=== PATIENT | female | born 1990 | race Caucasian/White ===

== ENCOUNTER 2016-07-23 18:53 | Emergency (ER) | payer OTHER ==
[~2016-07-23 18:53] MED LIST: CLIN75CA PO; ESTR.625 PO; LEXA20TA PO; LORA-392 PO; PALI234P IM
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
[2016-07-23 20:03] VITALS: BP 133/67; PULSE 87; RESP 16; TEMP 97.9; O2SAT 98
[2016-07-23 21:39] LABS: AUTOMATED NEUTROPHIL # 5.7 TH/MM3 (1.8-7.7); BASOPHIL % 0.4 % (0.0-2.0); EOSINOPHIL % 0.5 % (0.0-4.0); HEMATOCRIT 36.7 % (35.0-46.0); LYMPH % 26.3 % (9.0-44.0); LYMPHOCYTE # 2.3 TH/MM3 (1.0-4.8); MEAN CELL VOLUME 81.8 FL (80.0-100.0); MEAN CORPUSCULAR HEMOGLOBIN 28.3 PG (27.0-34.0); MEAN CORPUSCULAR HGB CONC 34.6 % (32.0-36.0); MONO % 6.4 % (0.0-8.0); NEUT % 66.4 % (16.0-70.0); PLATELET COUNT 276 TH/MM3 (150-450); RED BLOOD COUNT 4.48 MIL/MM3 (4.00-5.30); RED CELL DISTRIBUTION WIDTH 13.5 % (11.6-17.2); WHITE BLOOD COUNT 8.6 TH/MM3 (4.0-11.0)
[2016-07-23 21:48] LABS: HEMO FLAGS DIFF FINAL
[2016-07-23 21:50] LABS: ANION GAP 10 MEQ/L (5-15); AST (GOT) 11 U/L (15-37); BICARBONATE 26.3 MEQ/L (21.0-32.0); BLOOD UREA NITROGEN 8 MG/DL (7-18); CHLORIDE 104 MEQ/L (98-107); GLOMERULAR FILTRATION RATE 96 ML/MIN (>89); POTASSIUM 3.5 MEQ/L (3.5-5.1); SODIUM (NA) 140 MEQ/L (136-145)
[2016-07-23 21:56] LABS: ALKALINE PHOSPHATASE 95 U/L (45-117); ALT (GPT) 19 U/L (10-53); BETA HCG QUANT LESS THAN 1 MIU/ML (0-5); TOTAL BILIRUBIN ADULT 0.3 MG/DL (0.2-1.0)
[2016-07-23 22:00] VITALS: BP 97/53; PULSE 67; RESP 18; O2SAT 95
[2016-07-24 02:16] VITALS: BP 118/58; PULSE 67; RESP 18; O2SAT 100
[2016-07-24 06:48] VITALS: BP 115/71; PULSE 71; RESP 18; TEMP 97.8; O2SAT 98
[2016-07-24] MEDS ORDERED: LEVO50TA4 PO (10:22)
[2016-07-24] MEDS ORDERED: CETI10 PO (10:22)
[2016-07-24] MEDS ORDERED: ACETAMINOPHEN 325 MG TAB PO ONE (16:00)
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
[2016-07-24 17:12] VITALS: BP 115/71; PULSE 71; RESP 18; O2SAT 98
== END 2016-07-24 18:56 | disposition home or self-care (01) ==
LOC: NEDAMB 18:53 → NEPJ 07-24 18:56
DX: F31.60 Bipolar disorder, current episode mixed, unspecified (principal); E03.9 Hypothyroidism, unspecified; G47.30 Sleep apnea, unspecified; I10 Essential (primary) hypertension; I48.91 Unspecified atrial fibrillation
CPT/HCPCS: 80053; 80320; 84702; 85025; 99283

== ENCOUNTER 2016-07-24 21:03 | Inpatient (IN) | payer OTHER ==
[~2016-07-24 21:03] MED LIST changes: +CETI10 PO; -CLIN75CA PO; +LEVO50TA4 PO
[2016-07-24 21:19] VITALS: BP 136/81; PULSE 83; RESP 16; TEMP 97.3; O2SAT 95
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
[2016-07-24] MEDS ORDERED: TETANUS/DIPHTHERIA TOXOID ADULT 0.5 ML VIAL IM ONE (22:15)
[2016-07-24 22:28] VITALS: BP 125/84; PULSE 60; RESP 18; O2SAT 99
[2016-07-25 02:12] VITALS: BP 123/73; PULSE 62; RESP 19; O2SAT 97
[2016-07-25 06:00] VITALS: BP 122/76; PULSE 75; RESP 18; O2SAT 96
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
[2016-07-25] MEDS: LEVOTHYROXINE SODIUM 50 MCG TAB PO SCH (10:00)
[2016-07-25] MEDS ORDERED: MAGNESIUM HYDROXIDE SUSP 30 ML CUP PO PRN (10:00)
[2016-07-25] MEDS: ESCITALOPRAM OXALATE 20 MG TAB PO SCH (10:00)
[2016-07-25] MEDS ORDERED: ALUMINUM/MAGNESIUM/SIMETH 30 ML CUP PO PRN (10:00)
[2016-07-25] MEDS: ESTROGENS CONJUGATED 0.625 MG TAB PO SCH (10:00)
[2016-07-25 12:10] VITALS: BP 129/66; PULSE 87; RESP 18; TEMP 98.4; O2SAT 97
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
[2016-07-25] MEDS: DIVALPROEX SODIUM DELAYED RELEASE 250 MG TAB PO SCH ×2 (16:09→20:54)
[2016-07-25 20:53] VITALS: BP 114/67; PULSE 80; RESP 18; TEMP 97.3; O2SAT 96
[2016-07-25] MEDS: ACETAMINOPHEN 325 MG TAB PO PRN (20:54)
[2016-07-26] MEDS: LEVOTHYROXINE SODIUM 50 MCG TAB PO SCH (05:58)
[2016-07-26 06:37] VITALS: BP 118/71; PULSE 84; RESP 18; TEMP 98.2; O2SAT 98
[2016-07-26 07:52] LABS: ANION GAP 8 MEQ/L (5-15); BICARBONATE 25.4 MEQ/L (21.0-32.0); BLOOD UREA NITROGEN 10 MG/DL (7-18); CHLORIDE 106 MEQ/L (98-107); GLOMERULAR FILTRATION RATE 94 ML/MIN (>89); POTASSIUM 4.1 MEQ/L (3.5-5.1); SODIUM (NA) 139 MEQ/L (136-145)
[2016-07-26 07:54] LABS: HDL CHOLESTEROL 55.2 MG/DL (40.0-60.0); LDL CHOLESTEROL 96 MG/DL (0-99)
[2016-07-26] MEDS: ESTROGENS CONJUGATED 0.625 MG TAB PO SCH (08:36)
[2016-07-26] MEDS: DIVALPROEX SODIUM DELAYED RELEASE 250 MG TAB PO SCH ×2 (08:36→20:37)
[2016-07-26] MEDS: ESCITALOPRAM OXALATE 20 MG TAB PO SCH (08:36)
--- NOTE | 2016-07-26 10:36 | HHI.PYPN ---
Subjective Remarks Patient was seen and discussed with the balance staff staker. Patient reported that she has been feeling little bit better she slept well. No behavior or management problem reported. But she still wants to go to another [facility]. We will assess social service liaison to check on that. Patient is compliant in taking medication and no side effects were complained. Continue with the same treatment Review of Systems Except as stated in HPI: all other systems reviewed are Neg Psychiatric: COMPLAINS OF: Mood changes, Depression Objective Alert: Yes [place]: Person (ox4) Mood: Calm, Depressed Affect: Restricted Memory Intact: Comment (not formally tested but seems intact) Hallucinations: Other (negative) Delusions: No Delusion Type: Other Suicidal: Ideation (deneis at present) Homicidal: Ideation (deneis at present) Insight/Judgement Limited Labs Test 07/26/16 06:53 Sodium Level 139 MEQ/L Potassium Level 4.1 MEQ/L Chloride Level 106 MEQ/L Carbon Dioxide Level 25.4 MEQ/L Anion Gap 8 MEQ/L Blood Urea Nitrogen 10 MG/DL Creatinine 0.75 MG/DL Estimat Glomerular Filtration 94 ML/MIN Rate Random Glucose 103 MG/DL Calcium Level 9.1 MG/DL Triglycerides Level 128 MG/DL Cholesterol Level 177 MG/DL LDL Cholesterol 96 MG/DL HDL Cholesterol 55.2 MG/DL Cholesterol/HDL Ratio 3.20 RATIO Vitals/IOs Vital Signs Date Time Temp Pulse Resp B/P Pulse Ox O2 Delivery O2 Flow Rate FiO2 07/26/16 06:37 98.2 84 18 118/71 98 07/25/16 06:00 Room Air Assessment & Plan Problem List: (1) Bipolar I disorder, most recent episode (or current) mixed, in partial or unspecified remission ICD Code: F31.77 (2) Mental retardation, idiopathic mild ICD Code: F70 Assessment & Plan Estimated LOS: days Justification for Cont. Inpt. Risk of decompensation Request HC Surrog/Guard Advoc?: No Clint Isaacs MD Jul 26, 2016 10:36
[2016-07-26 16:11] LABS: HEMOGLOBIN A1b 0.9 %; HEMOGLOBIN Ao 86.6 %; HEMOGLOBIN LA1C 1.8 %; HEMOGLOBIN P3 3.2 %
[2016-07-26 19:33] VITALS: BP 130/75; PULSE 73; RESP 18; TEMP 98.7; O2SAT 100
[2016-07-27 05:39] VITALS: BP 128/68; PULSE 68; RESP 16; TEMP 98.4; O2SAT 96
[2016-07-27] MEDS: LEVOTHYROXINE SODIUM 50 MCG TAB PO SCH (05:53)
[2016-07-27] MEDS: ESCITALOPRAM OXALATE 20 MG TAB PO SCH (08:27)
[2016-07-27] MEDS: DIVALPROEX SODIUM DELAYED RELEASE 250 MG TAB PO SCH (08:27)
[2016-07-27] MEDS: ESTROGENS CONJUGATED 0.625 MG TAB PO SCH (08:27)
--- NOTE | 2016-07-27 10:12 | HHI.PYPN ---
Subjective Remarks Patient was seen and discussed with the cruise staff member. Patient claimed that she is still has been feeling somewhat depressed and frustrated and gets easily upset mad and angry. At this time I will increase her Depakote. No side effects were complained. No behavior problem reported. Denied any suicidal ideation intentions or plan. Patient still wants to go to another [facility] we will ask the licensed clinical social worker to look into it. Continue with the same treatment Review of Systems Except as stated in HPI: all other systems reviewed are Neg Psychiatric: COMPLAINS OF: Mood changes, Depression Objective Alert: Yes [place]: Person (ox4) Mood: Calm, Depressed Affect: Restricted Memory Intact: Comment (not formally tested but seems intact) Hallucinations: Other (negative) Delusions: No Delusion Type: Other (patient gets easily upset and angry) Suicidal: Ideation (deneis at present) Homicidal: Ideation (deneis at present) Insight/Judgement Fair to limited Vitals/IOs Vital Signs Date Time Temp Pulse Resp B/P Pulse Ox O2 Delivery O2 Flow Rate FiO2 07/27/16 05:39 98.4 68 16 128/68 96 07/25/16 06:00 Room Air Assessment & Plan Problem List: (1) Bipolar I disorder, most recent episode (or current) mixed, in partial or unspecified remission ICD Code: F31.77 (2) Mental retardation, idiopathic mild ICD Code: F70 Assessment & Plan Estimated LOS: days Justification for Cont. Inpt. Risk of decompensation and monitoring of the medication Request HC Surrog/Guard Advoc?: No Clint Isaacs MD Jul 27, 2016 10:12
[2016-07-27] MEDS: ACETAMINOPHEN 325 MG TAB PO PRN (13:01)
[2016-07-27 19:27] VITALS: BP 121/61; PULSE 98; RESP 16; TEMP 98.2; O2SAT 96
[2016-07-27] MEDS: DIVALPROEX DR 500 MG TABEC PO SCH (20:28)
[2016-07-28 05:32] VITALS: BP 109/64; PULSE 88; RESP 18; TEMP 98.8; O2SAT 94
[2016-07-28] MEDS: LEVOTHYROXINE SODIUM 50 MCG TAB PO SCH (05:47)
[2016-07-28] MEDS: hydrOXYzine PAMOATE 25 MG CAP PO PRN ×2 (05:49→20:46)
[2016-07-28] MEDS: DIVALPROEX DR 500 MG TABEC PO SCH ×2 (08:55→20:46)
[2016-07-28] MEDS: ESCITALOPRAM OXALATE 20 MG TAB PO SCH (08:55)
[2016-07-28] MEDS: ESTROGENS CONJUGATED 0.625 MG TAB PO SCH (08:55)
[2016-07-28] MEDS: ACETAMINOPHEN 325 MG TAB PO PRN (12:03)
--- NOTE | 2016-07-28 17:39 | HHI.PYPN ---
Subjective Remarks Pt seen and discussed with staff. She reports mood is improved with increased dose of depakote. No aggression on unit today but pt reports feeling agitated easily. "i'm trying to stay calm". No medication side effects. Denies SI/HI. Objective Alert: Yes [place]: Person, Place, Date, Situation Mood: Depressed Affect: Restricted Memory Intact: Comment (not formally tested but seems intact) Hallucinations: Other (negative) Delusions: No Delusion Type: Other (patient gets easily upset and angry) Suicidal: Ideation (deneis at present) Homicidal: Ideation (deneis at present) Insight/Judgement poor Vitals/IOs Vital Signs Date Time Temp Pulse Resp B/P Pulse Ox O2 Delivery O2 Flow Rate FiO2 07/28/16 05:32 98.8 88 18 109/64 94 07/25/16 06:00 Room Air Assessment & Plan Problem List: (1) Bipolar I disorder, most recent episode (or current) mixed, in partial or unspecified remission ICD Code: F31.77 (2) Mental retardation, idiopathic mild ICD Code: F70 Assessment & Plan Continue current tx plan. Pt improving. Estimated LOS: days Justification for Cont. Inpt. safety risks Request HC Surrog/Guard Advoc?: No Dotty Molina MD Jul 28, 2016 17:39
[2016-07-28 18:55] VITALS: BP 159/83; PULSE 93; RESP 18; TEMP 98.7; O2SAT 97
[2016-07-29 05:57] VITALS: BP 112/59; PULSE 71; RESP 17; TEMP 97.2; O2SAT 95
[2016-07-29] MEDS: LEVOTHYROXINE SODIUM 50 MCG TAB PO SCH (06:05)
[2016-07-29] MEDS: BENZOCAINE 6 MG/MENTHOL 10 MG LOZENGE BUCCAL PRN ×3 (06:07→21:51)
[2016-07-29] MEDS: ESCITALOPRAM OXALATE 20 MG TAB PO SCH (08:30)
[2016-07-29] MEDS: DIVALPROEX DR 500 MG TABEC PO SCH ×2 (08:30→21:00)
[2016-07-29] MEDS: ESTROGENS CONJUGATED 0.625 MG TAB PO SCH (08:31)
--- NOTE | 2016-07-29 12:52 | HHI.PYPN ---
Subjective Remarks Pt seen and discussed with staff. Pt is compliant with medications. No side effects. No agitation or aggression today. She c/o of mild URI symptoms (runny nose, postnasal drip, scratchy throat yesterday, no fever/CP/SOB/GI upset.) Objective Alert: Yes [place]: Person, Place, Date, Situation Mood: Calm Affect: Restricted Memory Intact: Comment (not formally tested but seems intact) Hallucinations: Other (negative) Delusions: No Delusion Type: Other (patient gets easily upset and angry) Suicidal: Ideation (deneis at present) Homicidal: Ideation (deneis at present) Insight/Judgement limited Vitals/IOs Vital Signs Date Time Temp Pulse Resp B/P Pulse Ox O2 Delivery O2 Flow Rate FiO2 07/29/16 05:57 97.2 71 17 112/59 95 Assessment & Plan Problem List: (1) Bipolar I disorder, most recent episode (or current) mixed, in partial or unspecified remission ICD Code: F31.77 (2) Mental retardation, idiopathic mild ICD Code: F70 Assessment & Plan Continue current tx plan. Estimated LOS: days Justification for Cont. Inpt. risk of decompensation Request HC Surrog/Guard Advoc?: Dotty Alonso MD Jul 29, 2016 12:52
[2016-07-29 18:34] VITALS: BP 128/95; PULSE 95; RESP 17; TEMP 98.2; O2SAT 95
[2016-07-29] MEDS: ACETAMINOPHEN 325 MG TAB PO PRN (21:51)
[2016-07-30 05:17] VITALS: BP 101/61; PULSE 72; RESP 18; TEMP 97.8; O2SAT 93
[2016-07-30] MEDS: LEVOTHYROXINE SODIUM 50 MCG TAB PO SCH (05:59)
[2016-07-30] MEDS: ESCITALOPRAM OXALATE 20 MG TAB PO SCH (09:06)
[2016-07-30] MEDS: DIVALPROEX DR 500 MG TABEC PO SCH ×2 (09:06→21:00)
[2016-07-30] MEDS: ESTROGENS CONJUGATED 0.625 MG TAB PO SCH (09:07)
[2016-07-30] MEDS: BENZOCAINE 6 MG/MENTHOL 10 MG LOZENGE BUCCAL PRN (09:07)
--- NOTE | 2016-07-30 12:59 | HHI.PYPN ---
Subjective Remarks Patient was seen and discussed with the clinical staff pharmacist. Patient claimed that she has been feeling much better and would like to go back to the same senior care and she will try one more time. She claimed that she has been sleeping fairly well. No behavior or management problem reported. Patient denied any suicidal ideation intentions of plan. Patient denied any auditory or visual hallucinations. We will ask the social media specialist to check with the senior care regarding if she can go back and follow-up as an outpatient continue with the same treatment thank you Review of Systems Except as stated in HPI: all other systems reviewed are Neg Psychiatric: COMPLAINS OF: Mood changes, Depression Objective Alert: Yes [place]: Person, Place, Date, Situation Mood: Calm Affect: Restricted Memory Intact: Comment (not formally tested but seems intact) Hallucinations: Other (negative) Delusions: No Delusion Type: Other (patient gets easily upset and angry) Suicidal: Ideation (deneis at present) Homicidal: Ideation (deneis at present) Insight/Judgement Limited Vitals/IOs Vital Signs Date Time Temp Pulse Resp B/P Pulse Ox O2 Delivery O2 Flow Rate FiO2 07/30/16 05:17 97.8 72 18 101/61 93 Assessment & Plan Problem List: (1) Bipolar I disorder, most recent episode (or current) mixed, in partial or unspecified remission ICD Code: F31.77 (2) Mental retardation, idiopathic mild ICD Code: F70 Assessment & Plan Estimated LOS: days Justification for Cont. Inpt. Monitoring of the medication and stabilization on the mood prior to discharge to the senior care Request HC Surrog/Guard Advoc?: No Clint Isaacs MD Jul 30, 2016 12:59
[2016-07-30 18:58] VITALS: BP 102/59; PULSE 96; RESP 18; TEMP 97.5; O2SAT 98
[2016-07-30] MEDS: hydrOXYzine PAMOATE 25 MG CAP PO PRN (21:21)
[2016-07-31] MEDS: LEVOTHYROXINE SODIUM 50 MCG TAB PO SCH (06:00)
[2016-07-31 06:18] VITALS: BP 154/68; PULSE 67; RESP 16; TEMP 98.6; O2SAT 95
[2016-07-31] MEDS: DIVALPROEX DR 500 MG TABEC PO SCH (08:13)
[2016-07-31] MEDS: ESCITALOPRAM OXALATE 20 MG TAB PO SCH (08:13)
[2016-07-31] MEDS: ESTROGENS CONJUGATED 0.625 MG TAB PO SCH (08:13)
--- NOTE | 2016-07-31 13:40 | HHI.DS ---
Psychiatry Discharge Summary Inpatient Psychiatric care?: Yes Advance Directive: No Reason Not Provided: refused Mental Health AdvanceDirective: No Health Care Proxy: No Admission Admission Date Jul 25, 2016 at 09:55 Admission Diagnosis: (1) Bipolar I disorder, most recent episode (or current) mixed, in partial or unspecified remission ICD Code: F31.77 (2) Mental retardation, idiopathic mild ICD Code: F70 GAF Score: 1 Brief History This is a 26-year-old mentally challenged to person who was admitted under Baron act because of her aggressive and impulsive behavior. Reportedly she ran out and called 911 and told the police that she was going to shoot the police. She also was reportedly walking on the road without having any warm close in this cold weather. She does not want to go back to her mcc she wants another mcc. She denied any suicidal ideation intentions or plan. She denied any homicidal ideation intentions or plan. All she wanted to do was to find another mcc. She is willing to cooperate and sign voluntary and take the medication. Patient denied any active auditory or visual hallucinations. But she does admit to having mood swings. Tobacco Use In Past 30 Days: No Tobacco Past 30 Days Alcohol Use: Never Hospital Course Patient was started on supportive treatment. She participated in some of the therapeutic activity on the floor. Her medication was adjusted. She started to feel better no behavior or management problem reported she was not becoming aggressive. She denied any suicidal ideation intentions or plan. Willing to go back to the same mcc and take the medication and outpatient follow-up at that point arrangements were made for her to be discharged Results Blood Pressure 154 / 68 Vital Signs Date Time Temp Pulse Resp B/P Pulse Ox O2 Delivery O2 Flow Rate FiO2 07/31/16 06:18 98.6 67 16 154/68 95 Please see EMR Summary of Major Lab Results Nothing significant Summary of Procedures None Imaging None Pending results at discharge: No Medications # of Antipsychotic meds at D/C: 1 Appropriate >1 Antipsych meds?: 2 Approp Antipsych med options 1 - Minimum of three failed multiple trials of monotherapy. Discharge Discharge Date: Jul 31, 2016 Discharge Diagnosis: (1) Bipolar I disorder, most recent episode (or current) mixed, in partial or unspecified remission Diagnosis: [place] ICD Code: F31.77 (2) Mental retardation, idiopathic mild Diagnosis: [place] ICD Code: F70 Mental Status Exam at Disch Patient was alert oriented 3 cooperative casually dressed. Her speech was mildly dysarthric but no evidence of any loose associations or flights of ideas or pressure speech. Her mood was described as feeling better and wants to go back to the mcc. Denied any suicidal ideation intentions of plan she is able to control her temper. Denied any auditory or visual hallucinations no behavior or management problem reported. At that point arrangements were made for her to be discharged and follow-up as an outpatient Pt Condition on Discharge: Stable Discharge Disposition: [facility]/USP Discharge Instructions Diet Instructions: As Tolerated, No Restrictions Activities you can perform: Regular-No Restrictions Scheduled Appointment: Javier Nicole Discharge Time <= 30 minutes Discharge/Advance Care Plan Health Problems: (1) Bipolar I disorder, most recent episode (or current) mixed, in partial or unspecified remission (2) Mental retardation, idiopathic mild Goals to promote your health * To prevent worsening of your condition and complications * To maintain your health at the optimal level Directions to meet your goals Take your medications as prescribed Follow your dietary instruction Follow activity as directed Keep your appointments as scheduled Take your immunizations and boosters as scheduled If your symptoms worsen call your PCP, if no PCP go to Urgent Care Center or Emergency Room For 14/01 questions related to your inpatient stay or results of tests pending at discharge, please contact Dr. Clint Isaacs at Smoking is Dangerous to Your Health. Avoid second hand smoking Clint Isaacs MD Jul 31, 2016 13:40
[2016-07-31] MEDS ORDERED: ESCI20TA PO (13:41)
[2016-07-31] MEDS ORDERED: DIVA500T PO (13:41)
[2016-07-31] MEDS ORDERED: PALIPERIDONE PALMITATE 234 MG/1.5 ML SYRINGE IM ONE (16:00)
== END 2016-07-31 18:45 | DRG 885 ==
LOC: NEPJ 21:03 → NEDA 07-25 09:55 → H260 07-25 12:06
PROVIDERS: ADMIT Psychiatry & Neurology Psychiatry; ATTEND Psychiatry & Neurology Psychiatry
DX: F31.77 Bipolar disorder, in partial remission, most recent episode mixed (principal); I48.91 Unspecified atrial fibrillation; I10 Essential (primary) hypertension; F70 Mild intellectual disabilities; H91.90 Unspecified hearing loss, unspecified ear; J45.909 Unspecified asthma, uncomplicated; E03.9 Hypothyroidism, unspecified; G47.30 Sleep apnea, unspecified; S90.821A Blister (nonthermal), right foot, initial encounter; X58.XXXA Exposure to other specified factors, initial encounter; Y93.9 Activity, unspecified; Y92.9 Unspecified place or not applicable; R09.89 Other specified symptoms and signs involving the circulatory and respiratory systems; Z81.1 Family history of alcohol abuse and dependence; Z99.81 Dependence on supplemental oxygen; Z81.8 Family history of other mental and behavioral disorders
CPT/HCPCS: 80048; 80061; 83036; 90471; 90714; J2426; Q0177

== ENCOUNTER 2016-08-01 17:58 | Emergency (ER) | payer OTHER ==
[~2016-08-01] VITALS: Ht 152.4 cm; Wt 90.0 kg
[~2016-08-01 17:58] MED LIST changes: +DIVA500T PO; +ESCI20TA PO; -LEXA20TA PO
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
[2016-08-01 18:59] VITALS: BP 140/70; TEMP 98.1; O2SAT 96
[2016-08-01 22:00] VITALS: BP 110/62; PULSE 73; RESP 18; O2SAT 96
[2016-08-02 02:00] VITALS: BP 120/63; PULSE 63; RESP 18; O2SAT 97
[2016-08-02 06:16] VITALS: BP 132/85; PULSE 71; RESP 18; O2SAT 97
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
== END 2016-08-02 16:51 | disposition home or self-care (01) ==
LOC: NEDAMB 17:58 → NEPJ 08-02 16:51
DX: Z02.89 Encounter for other administrative examinations (principal); F31.60 Bipolar disorder, current episode mixed, unspecified; I48.91 Unspecified atrial fibrillation; I10 Essential (primary) hypertension; G47.30 Sleep apnea, unspecified; E03.9 Hypothyroidism, unspecified; Z87.09 Personal history of other diseases of the respiratory system; Z86.59 Personal history of other mental and behavioral disorders
CPT/HCPCS: 99283

== ENCOUNTER 2016-08-20 16:34 | Inpatient (IN) | payer OTHER ==
[~2016-08-20] VITALS: Ht 154.9 cm; Wt 104.6 kg
[2016-08-20 16:55] VITALS: BP 151/65; PULSE 97; RESP 16; TEMP 97.3; O2SAT 96
[2016-08-20] MEDS ORDERED: DEPA500T3 PO (17:04)
[2016-08-20] MEDS ORDERED: LEXA20TA PO (17:04)
[2016-08-20] MEDS ORDERED: LORA-392 PO (17:04)
[2016-08-20 17:57] LABS: AUTOMATED NEUTROPHIL # 6.7 TH/MM3 (1.8-7.7); BASOPHIL % 0.4 % (0.0-2.0); EOSINOPHIL % 0.3 % (0.0-4.0); HEMATOCRIT 36.8 % (35.0-46.0); HEMO FLAGS DIFF FINAL; LYMPH % 14.2 % (9.0-44.0); LYMPHOCYTE # 1.2 TH/MM3 (1.0-4.8); MEAN CELL VOLUME 83.6 FL (80.0-100.0); MEAN CORPUSCULAR HEMOGLOBIN 29.1 PG (27.0-34.0); MEAN CORPUSCULAR HGB CONC 34.9 % (32.0-36.0); MONO % 3.8 % (0.0-8.0); NEUT % 81.3 % (16.0-70.0); PLATELET COUNT 245 TH/MM3 (150-450); RED CELL DISTRIBUTION WIDTH 13.8 % (11.6-17.2); WHITE BLOOD COUNT 8.2 TH/MM3 (4.0-11.0)
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
[2016-08-20 18:08] LABS: AMPHETAMINE, URINE NEG (NEG); BARBITURATES, URINE NEG (NEG); COCAINE, URINE NEG (NEG)
[2016-08-20 18:20] LABS: ALT (GPT) 28 U/L (10-53); ANION GAP 9 MEQ/L (5-15); AST (GOT) 15 U/L (15-37); BICARBONATE 27.2 MEQ/L (21.0-32.0); BLOOD UREA NITROGEN 7 MG/DL (7-18); CHLORIDE 106 MEQ/L (98-107); GLOMERULAR FILTRATION RATE 90 ML/MIN (>89); SODIUM (NA) 142 MEQ/L (136-145)
[2016-08-20 18:23] LABS: ALKALINE PHOSPHATASE 78 U/L (45-117); TOTAL BILIRUBIN ADULT 0.3 MG/DL (0.2-1.0)
[2016-08-20 22:16] VITALS: BP 101/62; PULSE 65; RESP 18; O2SAT 96
[2016-08-21 02:00] VITALS: BP 104/55; PULSE 59; RESP 18; O2SAT 95
[2016-08-21 06:38] VITALS: BP 109/68; PULSE 61; RESP 18; O2SAT 95
[2016-08-21 14:29] VITALS: BP 142/65; PULSE 84; RESP 18; O2SAT 98
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
[2016-08-21] MEDS ORDERED: ACETAMINOPHEN 325 MG TAB PO PRN (15:00)
[2016-08-21] MEDS ORDERED: MAGNESIUM HYDROXIDE SUSP 30 ML CUP PO PRN (15:00)
[2016-08-21] MEDS ORDERED: ALUMINUM/MAGNESIUM/SIMETH 30 ML CUP PO PRN (15:00)
[2016-08-21 16:30] VITALS: BP 118/68; PULSE 72; RESP 18; TEMP 97.3; O2SAT 97
[2016-08-22 05:50] VITALS: BP 131/75; PULSE 73; RESP 18; TEMP 98.1; O2SAT 97
[2016-08-22 08:12] LABS: ANION GAP 9 MEQ/L (5-15); BICARBONATE 26.5 MEQ/L (21.0-32.0); BLOOD UREA NITROGEN 12 MG/DL (7-18); CHLORIDE 105 MEQ/L (98-107); GLOMERULAR FILTRATION RATE 97 ML/MIN (>89); HDL CHOLESTEROL 55.5 MG/DL (40.0-60.0); LDL CHOLESTEROL 79 MG/DL (0-99); POTASSIUM 4.4 MEQ/L (3.5-5.1); SODIUM (NA) 140 MEQ/L (136-145)
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
[2016-08-22] MEDS ORDERED: BENZTROPINE MESYLATE 1 MG TAB PO PRN (12:45)
[2016-08-22] MEDS ORDERED: BENZTROPINE MESYLATE 2 MG/2 ML VIAL IM PRN (12:45)
[2016-08-22 16:04] LABS: HEMOGLOBIN A1a 1.1 %; HEMOGLOBIN A1b 0.9 %; HEMOGLOBIN Ao 86.7 %; HEMOGLOBIN F 1.1 %; HEMOGLOBIN LA1C 1.8 %; HEMOGLOBIN P3 3.2 %
[2016-08-22 18:00] VITALS: BP 132/61; PULSE 72; RESP 18; TEMP 97.6; O2SAT 99
[2016-08-22] MEDS: carBAMazepine 200 MG TAB PO SCH (21:00)
[2016-08-22] MEDS ORDERED: DIVALPROEX SODIUM E.R. 500 MG TAB PO SCH (21:00)
[2016-08-22] MEDS: diphenhydrAMINE HCL 50 MG CAP PO PRN (22:00)
[2016-08-23 05:34] VITALS: BP 98/56; PULSE 65; RESP 18; TEMP 98.3; O2SAT 97
[2016-08-23] MEDS: LEVOTHYROXINE SODIUM 50 MCG TAB PO SCH (06:08)
[2016-08-23 08:36] LABS: FREE T4 1.03 NG/DL (0.76-1.46)
[2016-08-23] MEDS: CETIRIZINE HCL 10 MG TAB PO SCH (08:42)
[2016-08-23] MEDS: ESCITALOPRAM OXALATE 20 MG TAB PO SCH (08:42)
[2016-08-23] MEDS: carBAMazepine 200 MG TAB PO SCH ×2 (08:42→21:43)
--- NOTE | 2016-08-23 08:43 | HHI.PYPN ---
Subjective Remarks Patient seen and examined. Chart reviewed. Case discussed with nursing staff. On my examination today, the patient complains only of feeling "a little hyper." She denies any urges towards impulsive violence. She denies any SI, HI or AVH. She denies any side effects from psychotropic medications. Otherwise has no complaints. Review of Systems Other No physical complaints today Objective Alert: Yes [place]: Person, Place (at least) Mood: Calm Affect: Euthymic, Other (childlike) Memory Intact: Comment (not formally assessed) Hallucinations: Other (denies AVH) Delusions: No Delusion Type: Other (no delusions) Suicidal: Ideation (denies suicidal ideation) Homicidal: Ideation (denies homicidal ideation) Insight/Judgement Fair to poor at best Remarks Thought process linear. No abnormal motor movements noted. Labs Labs reviewed. Beta hCG negative. Repeat TFTs within normal limits. Test 08/23/16 07:16 Free Thyroxine 1.03 NG/DL Thyroid Stimulating Hormone 2.230 uIU/ML 3rd Gen Vitals/IOs Vital Signs Date Time Temp Pulse Resp B/P Pulse Ox O2 Delivery O2 Flow Rate FiO2 08/23/16 05:34 98.3 65 18 98/56 97 08/21/16 14:29 Room Air Assessment & Plan Problem List: (1) Intermittent explosive disorder ICD Code: F63.81 (2) Intellectual disability ICD Code: F79 Assessment & Plan Continue carbamazepine 200 mg twice daily, and I've ordered a carbamazepine level for Saturday. Patient would be due for her booster dose of Invega Sustenna next Saturday, 08/28, and I have ordered this to be given should she remain inpatient at that time. Continue other psychotropics as ordered. Continue other medications and care as ordered. Justification for Cont. Inpt. Monitoring for impairments in safety. Discharge Planning Anticipate discharge back to [facility] following brief period of observation. Request HC Surrog/Guard Advoc?: No Hitesh Crawford MD Aug 23, 2016 08:43
[2016-08-23] MEDS ORDERED: LEVOTHYROXINE SODIUM 50 MCG TAB PO SCH (09:00)
[2016-08-23 18:44] VITALS: BP 127/79; PULSE 70; RESP 18; TEMP 98.1; O2SAT 99
[2016-08-23] MEDS: diphenhydrAMINE HCL 50 MG CAP PO PRN (21:43)
[2016-08-24 05:23] VITALS: BP 96/52; PULSE 54; RESP 18; TEMP 96.8; O2SAT 97
[2016-08-24] MEDS: LEVOTHYROXINE SODIUM 50 MCG TAB PO SCH (05:30)
[2016-08-24] MEDS: carBAMazepine 200 MG TAB PO SCH ×2 (08:37→21:32)
[2016-08-24] MEDS: ESCITALOPRAM OXALATE 20 MG TAB PO SCH (08:37)
[2016-08-24] MEDS: CETIRIZINE HCL 10 MG TAB PO SCH (08:37)
[2016-08-24 09:15] VITALS: BP 96/52; PULSE 54; RESP 18; TEMP 96.8; O2SAT 54
--- NOTE | 2016-08-24 13:29 | HHI.PYPN ---
Subjective Remarks Appears less depressed and has a broader range of affect. Review of Systems ROS Limitations: Clinical Condition Except as stated in HPI: all other systems reviewed are Neg Objective Alert: Yes [place]: Person, Place (at least) Mood: Calm Affect: Euthymic, Other (childlike) Memory Intact: Comment (not formally assessed) Hallucinations: Other (denies AVH) Delusions: No Delusion Type: Other (no delusions) Suicidal: Ideation (denies suicidal ideation) Homicidal: Ideation (denies homicidal ideation) Insight/Judgement Remains mildly to moderately impaired. Vitals/IOs Vital Signs Date Time Temp Pulse Resp B/P Pulse Ox O2 Delivery O2 Flow Rate FiO2 08/24/16 09:15 96.8 54 18 96/52 54 08/21/16 14:29 Room Air Intake and Output 08/23/16 08/23/16 08/24/16 08:00 16:00 00:00 Intake Total 480 ml Balance 480 ml Assessment & Plan Problem List: (1) Intermittent explosive disorder ICD Code: F63.81 (2) Intellectual disability ICD Code: F79 Assessment & Plan Estimated LOS: days Justification for Cont. Inpt. Remains unable to care for self. Request HC Surrog/Guard Advoc?: No Alex Villatoro MD Aug 24, 2016 13:29
[2016-08-24 19:26] VITALS: BP 113/66; PULSE 98; RESP 16; TEMP 96.9; O2SAT 97
[2016-08-24] MEDS: diphenhydrAMINE HCL 50 MG CAP PO PRN (21:32)
[2016-08-25] MEDS: LEVOTHYROXINE SODIUM 50 MCG TAB PO SCH (06:00)
[2016-08-25 06:13] VITALS: BP 132/64; PULSE 89; RESP 18; TEMP 98.2; O2SAT 99
[2016-08-25 06:26] VITALS: BP 104/51; PULSE 71; RESP 16; TEMP 97.8; O2SAT 97
[2016-08-25] MEDS: ESCITALOPRAM OXALATE 20 MG TAB PO SCH (08:41)
[2016-08-25] MEDS: CETIRIZINE HCL 10 MG TAB PO SCH (08:41)
[2016-08-25] MEDS: carBAMazepine 200 MG TAB PO SCH ×2 (08:42→21:28)
[2016-08-25] MEDS: LORazepam 0.5 MG TAB PO PRN (12:55)
--- NOTE | 2016-08-25 17:54 | HHI.PYPN ---
Subjective Remarks Pt seen and discussed with staff. Pt states that she has been feeling irritable and angry. Phone call with mother had to be cut short due to agitation. Tegretol level due tomorrow. She denies side effects. No SI/HI. Review of Systems Psychiatric: COMPLAINS OF: Mood changes Objective Alert: Yes [place]: Person, Place (at least) Mood: Other (irritable) Affect: Other (childlike) Memory Intact: Comment (not formally assessed) Hallucinations: Other (denies AVH) Delusions: No Delusion Type: Other (no delusions) Suicidal: Ideation (denies suicidal ideation) Homicidal: Ideation (denies homicidal ideation) Insight/Judgement poor Vitals/IOs Vital Signs Date Time Temp Pulse Resp B/P Pulse Ox O2 Delivery O2 Flow Rate FiO2 08/25/16 06:26 97.8 71 16 104/51 97 08/21/16 14:29 Room Air Assessment & Plan Problem List: (1) Intermittent explosive disorder ICD Code: F63.81 (2) Intellectual disability ICD Code: F79 Assessment & Plan Tegretol level on Saturday. Will titrate if indicated. Continue current tx plan. Estimated LOS: days Justification for Cont. Inpt. impairments in safety Request HC Surrog/Guard Advoc?: Dotty Alonso MD Aug 25, 2016 17:54
[2016-08-25 18:31] VITALS: BP 119/58; PULSE 80; RESP 16; TEMP 97.2; O2SAT 98
[2016-08-25] MEDS: diphenhydrAMINE HCL 50 MG CAP PO PRN (21:30)
[2016-08-26] MEDS: LEVOTHYROXINE SODIUM 50 MCG TAB PO SCH ×2 (06:22→08:13)
[2016-08-26 06:27] VITALS: BP 102/57; PULSE 62; RESP 18; TEMP 98; O2SAT 100
[2016-08-26] MEDS: carBAMazepine 200 MG TAB PO SCH ×2 (08:13→21:20)
[2016-08-26] MEDS: ESCITALOPRAM OXALATE 20 MG TAB PO SCH (08:13)
[2016-08-26] MEDS: CETIRIZINE HCL 10 MG TAB PO SCH (08:15)
[2016-08-26 18:00] VITALS: BP 158/82; PULSE 85; RESP 18; TEMP 98.4
--- NOTE | 2016-08-26 21:31 | HHI.PYPN ---
Subjective Remarks Pt seen and discussed with staff. She reports mood is better today and she has not been angry. No agitation or aggression today. She has been out in milieu. Tolerating medications without side effects. No SI/HI. Objective Alert: Yes [place]: Person, Place (at least) Mood: Other (irritable) Affect: Other (childlike) Memory Intact: Comment (not formally assessed) Hallucinations: Other (denies AVH) Delusions: No Delusion Type: Other (no delusions) Suicidal: Ideation (denies suicidal ideation) Homicidal: Ideation (denies homicidal ideation) Insight/Judgement limited Labs Test 08/26/16 06:44 Carbamazepine (Tegretol) Level 9.4 MCG/ML Vitals/IOs Vital Signs Date Time Temp Pulse Resp B/P Pulse Ox O2 Delivery O2 Flow Rate FiO2 08/26/16 18:00 98.4 85 18 158/82 08/26/16 06:27 100 Assessment & Plan Problem List: (1) Intermittent explosive disorder ICD Code: F63.81 (2) Intellectual disability ICD Code: F79 Assessment & Plan Pt improving. Continue current tx plan. Estimated LOS: days Justification for Cont. Inpt. monitoring for safety Request HC Surrog/Guard Advoc?: Dotty Alonso MD Aug 26, 2016 21:31
[2016-08-27] MEDS: LEVOTHYROXINE SODIUM 50 MCG TAB PO SCH (05:53)
[2016-08-27 05:59] VITALS: BP 106/57; PULSE 61; RESP 18; TEMP 97.6; O2SAT 98
[2016-08-27] MEDS: carBAMazepine 200 MG TAB PO SCH ×2 (08:21→21:00)
[2016-08-27] MEDS: ESCITALOPRAM OXALATE 20 MG TAB PO SCH (08:21)
[2016-08-27] MEDS: CETIRIZINE HCL 10 MG TAB PO SCH (08:21)
--- NOTE | 2016-08-27 11:33 | HHI.PYPN ---
Subjective Remarks Patient was seen and discussed with the hourly sales staff. Patient reported that she has been doing okay denied any aggressive behavior or angry outburst. Patient claimed that sometimes she has slurred speech because of the Ativan and she was advised to take it only if needed if she does not wish to take that that would be okay. She is able to tolerate the medication okay no side effects were complained. Patient denied any suicidal ideation intentions or plan. Continue with the same treatment Review of Systems Except as stated in HPI: all other systems reviewed are Neg Psychiatric: COMPLAINS OF: Mood changes Objective Alert: Yes [place]: Person, Place (at least) Mood: Calm Affect: Labile, Other (childlike) Memory Intact: Comment (not formally assessed) Hallucinations: Other (denies AVH) Delusions: No Delusion Type: Other (no delusions) Suicidal: Ideation (denies suicidal ideation) Homicidal: Ideation (denies homicidal ideation) Insight/Judgement Limited Vitals/IOs Vital Signs Date Time Temp Pulse Resp B/P Pulse Ox O2 Delivery O2 Flow Rate FiO2 08/27/16 05:59 97.6 61 18 106/57 98 Assessment & Plan Problem List: (1) Intermittent explosive disorder ICD Code: F63.81 (2) Intellectual disability ICD Code: F79 Assessment & Plan Estimated LOS: days Justification for Cont. Inpt. Risk of decompensation and monitoring of the medication Request HC Surrog/Guard Advoc?: Clint Damian MD Aug 27, 2016 11:32
[2016-08-27 19:46] VITALS: BP 117/81; PULSE 100; RESP 16; TEMP 97.5; O2SAT 95
[2016-08-27] MEDS: diphenhydrAMINE HCL 50 MG CAP PO PRN (21:15)
[2016-08-27] MEDS: LORazepam 0.5 MG TAB PO PRN (21:15)
[2016-08-28] MEDS: LEVOTHYROXINE SODIUM 50 MCG TAB PO SCH (06:10)
[2016-08-28 06:44] VITALS: BP 96/52; PULSE 63; RESP 16; TEMP 98.1; O2SAT 95
[2016-08-28] MEDS ORDERED: PALIPERIDONE PALMITATE 234 MG/1.5 ML SYRINGE IM SCH (09:00)
[2016-08-28] MEDS: carBAMazepine 200 MG TAB PO SCH ×2 (09:14→21:16)
[2016-08-28] MEDS: ESCITALOPRAM OXALATE 20 MG TAB PO SCH (09:14)
[2016-08-28] MEDS: CETIRIZINE HCL 10 MG TAB PO SCH (09:14)
--- NOTE | 2016-08-28 11:41 | HHI.PYPN ---
Subjective Remarks Patient was seen and discussed with the staff antisubmarine officer. Patient claimed that she has been doing okay occasionally she feels like getting angry but able to control her temper. She is not showing any behavior or management problem. She is compliant in taking medication and would like to go back home soon to the [facility]. Will check with the manager social work and see if she can go. Continue with the same treatment Review of Systems Except as stated in HPI: all other systems reviewed are Neg Psychiatric: COMPLAINS OF: Mood changes, Depression Objective Alert: Yes [place]: Person, Place (at least) Mood: Calm Affect: Labile, Other Memory Intact: Comment (not formally assessed but seems intact) Hallucinations: Other (denies AVH) Delusions: No Delusion Type: Other (no delusions) Suicidal: Ideation (denies suicidal ideation) Homicidal: Ideation (denies homicidal ideation) Insight/Judgement Limited Vitals/IOs Vital Signs Date Time Temp Pulse Resp B/P Pulse Ox O2 Delivery O2 Flow Rate FiO2 08/28/16 06:44 98.1 63 16 96/52 95 Assessment & Plan Problem List: (1) Intermittent explosive disorder ICD Code: F63.81 (2) Intellectual disability ICD Code: F79 Assessment & Plan Estimated LOS: days Justification for Cont. Inpt. Monitoring of the medication and discussed decompensation Request HC Surrog/Guard Advoc?: No Clint Isaacs MD Aug 28, 2016 11:41
[2016-08-28 19:01] VITALS: BP 127/63; PULSE 83; RESP 18; TEMP 98.2; O2SAT 97
[2016-08-28] MEDS: diphenhydrAMINE HCL 50 MG CAP PO PRN (21:16)
[2016-08-28] MEDS: LORazepam 0.5 MG TAB PO PRN (21:26)
[2016-08-29] MEDS: LEVOTHYROXINE SODIUM 50 MCG TAB PO SCH (05:54)
[2016-08-29 06:28] VITALS: BP 97/52; PULSE 75; RESP 17; TEMP 97.6; O2SAT 95
[2016-08-29] MEDS: CETIRIZINE HCL 10 MG TAB PO SCH (08:21)
[2016-08-29] MEDS: ESCITALOPRAM OXALATE 20 MG TAB PO SCH (08:22)
[2016-08-29] MEDS: carBAMazepine 200 MG TAB PO SCH ×2 (08:22→20:48)
--- NOTE | 2016-08-29 10:59 | HHI.PYPN ---
Subjective Remarks Patient was seen and discussed with the staff consultant. No complaints were voiced. No behavior or management problem reported. Patient is compliant in taking medication and participating in all the therapeutic activity. She would like to go back to her assisted living facility or prison. No side effects were complained from the medication patient has been sleeping fairly well. Denied any suicidal ideation intentions or plan. Continue with the same treatment Review of Systems Except as stated in HPI: all other systems reviewed are Neg Psychiatric: COMPLAINS OF: Mood changes, Depression Objective Alert: Yes [place]: Person, Place (at least) Mood: Calm Affect: Labile, Other Memory Intact: Comment (not formally assessed but seems intact) Hallucinations: Other (denies AVH) Delusions: No Delusion Type: Other (no delusions) Suicidal: Ideation (denies suicidal ideation) Homicidal: Ideation (denies homicidal ideation) Insight/Judgement Limited Vitals/IOs Vital Signs Date Time Temp Pulse Resp B/P Pulse Ox O2 Delivery O2 Flow Rate FiO2 08/29/16 06:28 97.6 75 17 97/52 95 Assessment & Plan Problem List: (1) Intermittent explosive disorder ICD Code: F63.81 (2) Intellectual disability ICD Code: F79 Assessment & Plan Estimated LOS: days Justification for Cont. Inpt. Monitoring of the medication to stabilize her mood and behavior Request HC Surrog/Guard Advoc?: No Clint Isaacs MD Aug 29, 2016 10:59
[2016-08-29 18:34] VITALS: BP 121/80; PULSE 78; RESP 16; TEMP 98; O2SAT 97
[2016-08-29] MEDS: LORazepam 0.5 MG TAB PO PRN (20:48)
[2016-08-29] MEDS: diphenhydrAMINE HCL 50 MG CAP PO PRN (20:48)
[2016-08-30 05:37] VITALS: BP 99/64; PULSE 66; RESP 16; TEMP 98; O2SAT 95
[2016-08-30] MEDS: LEVOTHYROXINE SODIUM 50 MCG TAB PO SCH (05:44)
[2016-08-30] MEDS: carBAMazepine 200 MG TAB PO SCH ×2 (09:13→20:09)
[2016-08-30] MEDS: ESCITALOPRAM OXALATE 20 MG TAB PO SCH (09:13)
[2016-08-30] MEDS: CETIRIZINE HCL 10 MG TAB PO SCH (09:13)
--- NOTE | 2016-08-30 13:40 | HHI.PYPN ---
Subjective Remarks Patient seen and examined. Chart reviewed. Case discussed with nursing staff. No behavioral problems noted. On my examination today, the patient reports that she is feeling well. She denies side effects from medications. She feels that the carbamazepine is helping her to control her angry impulses. She has been participating well in unit activities and shows me a pile of worksheets on coping skills that she has been working assiduously upon. Affect is bright and euthymic. Thought process linear if somewhat childlike. Denies SI or HI. Agreeable to returning to her facility. Counselor has been in contact with information systems manager of that facility and they can accept the patient back tomorrow, Saturday. Review of Systems ROS Limitations: Poor Historian Other No physical complaints today. Objective Alert: Yes [place]: Person, Place Mood: Calm Affect: Euthymic (somewhat childlike) Memory Intact: Comment (seems fairly intact on clinical exam) Hallucinations: Other (denies AVH) Delusions: No Delusion Type: Other (no delusional material) Suicidal: Ideation (denies SI) Homicidal: Ideation (denies HI) Insight/Judgement Fair to poor, likely chronic condition Remarks No abnormal motor movements noted. Thought process linear. Speech within normal limits for rate, tone and volume. Labs Labs reviewed. I note patient's carbamazepine level was within the therapeutic range. Vitals/IOs Vital Signs Date Time Temp Pulse Resp B/P Pulse Ox O2 Delivery O2 Flow Rate FiO2 08/30/16 05:37 98.0 66 16 99/64 95 Assessment & Plan Problem List: (1) Intermittent explosive disorder ICD Code: F63.81 (2) Intellectual disability ICD Code: F79 Assessment & Plan Patient seems to be doing well from a psychiatric standpoint with no evidence of ongoing behavioral disturbance. Continue current psychiatric medications as ordered. Continue other medications and care as ordered. Justification for Cont. Inpt. Discharge planning. Monitor overnight. Discharge Planning Anticipate discharge back to the facility tomorrow, Saturday. Request HC Surrog/Guard Advoc?: No Hitesh Crawford MD Aug 30, 2016 13:40
[2016-08-30 20:00] VITALS: BP 122/80; PULSE 81; RESP 16; TEMP 97.4; O2SAT 98
[2016-08-30] MEDS: diphenhydrAMINE HCL 50 MG CAP PO PRN (20:09)
[2016-08-30] MEDS: LORazepam 0.5 MG TAB PO PRN (20:09)
[2016-08-31] MEDS: LEVOTHYROXINE SODIUM 50 MCG TAB PO SCH (05:17)
[2016-08-31 05:35] VITALS: BP 96/51; PULSE 79; RESP 18; TEMP 97.7; O2SAT 95
[2016-08-31] MEDS ORDERED: CARB200T PO (08:27)
[2016-08-31] MEDS ORDERED: PALI234P IM (08:27)
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
[2016-08-31] MEDS: carBAMazepine 200 MG TAB PO SCH (08:52)
[2016-08-31] MEDS: ESCITALOPRAM OXALATE 20 MG TAB PO SCH (08:53)
[2016-08-31] MEDS: CETIRIZINE HCL 10 MG TAB PO SCH (08:53)
== END 2016-08-31 14:15 | DRG 883 ==
LOC: NEDAMB 16:34 → NEDA 08-21 15:02 → H260 08-21 16:31
PROVIDERS: ADMIT Psychiatry & Neurology Psychiatry; ATTEND Psychiatry & Neurology Psychiatry
DX: F63.81 Intermittent explosive disorder (principal); F70 Mild intellectual disabilities; I48.91 Unspecified atrial fibrillation; E03.9 Hypothyroidism, unspecified; I10 Essential (primary) hypertension; F31.9 Bipolar disorder, unspecified; Z91.5 Personal history of self-harm; F90.9 Attention-deficit hyperactivity disorder, unspecified type; J45.909 Unspecified asthma, uncomplicated; G47.30 Sleep apnea, unspecified; Z99.81 Dependence on supplemental oxygen
CPT/HCPCS: 80048; 80053; 80061; 80156; 80164; 80307; 83036; 84439; 84443; 84703; 85025; 99284; J2426; Q0163

== ENCOUNTER 2016-09-02 14:41 | Inpatient (IN) | payer OTHER ==
[~2016-09-02] VITALS: Ht 154.9 cm; Wt 106.6 kg
[~2016-09-02 14:41] MED LIST changes: +CARB200T PO; -DIVA500T PO; -ESCI20TA PO; -ESTR.625 PO; +LEXA20TA PO
[2016-09-02 14:57] VITALS: BP 142/96; PULSE 100; RESP 18; TEMP 98.7; O2SAT 95
[2016-09-02 15:41] LABS: AUTOMATED NEUTROPHIL # 7.1 TH/MM3 (1.8-7.7); BASOPHIL # 0.1 TH/MM3 (0-0.2); BASOPHIL % 0.8 % (0.0-2.0); EOSINOPHIL # 0.1 TH/MM3 (0-0.4); EOSINOPHIL % 0.7 % (0.0-4.0); HEMATOCRIT 40.5 % (35.0-46.0); HEMO FLAGS DIFF FINAL; LYMPH % 15.4 % (9.0-44.0); LYMPHOCYTE # 1.4 TH/MM3 (1.0-4.8); MEAN CELL VOLUME 84.2 FL (80.0-100.0); MEAN CORPUSCULAR HEMOGLOBIN 28.7 PG (27.0-34.0); MEAN CORPUSCULAR HGB CONC 34.1 % (32.0-36.0); MONO % 4.7 % (0.0-8.0); NEUT % 78.4 % (16.0-70.0); PLATELET COUNT 231 TH/MM3 (150-450); RED BLOOD COUNT 4.81 MIL/MM3 (4.00-5.30); RED CELL DISTRIBUTION WIDTH 13.7 % (11.6-17.2); WHITE BLOOD COUNT 9.1 TH/MM3 (4.0-11.0)
--- NOTE | 2016-09-02 15:43 | PD ---
HPI Chief Complaint: Psychiatric Symptoms Time Seen by Provider: 15:38 Travel History International Travel<30 days: No Contact w/Intl Traveler<30days: No Traveled to known affect area: No History of Present Illness HPI 26-year-old female presents to the emergency department under Baron act. She called the police and was telling them she was going to commit suicide. She admits to this. She says she just wants to go to [facility] because she is depressive and manic. She says she lives in a [facility] and doesn't want to be there anymore and that she wants to be independent. She was recently started on Tegretol and she doesn't know if this is what is causing her symptoms of depression and brianna. She denies being suicidal. She does not have a plan to commit suicide. She denies homicidal ideations. Denies auditory or visual hallucinations. Denies drug use, alcohol use, tobacco use. She has no emergent medical complaints. Denies chest pain, shortness of breath , abdominal pain, dysuria, change in stool. Last menstrual period 2 weeks ago. Denies being sexually active. No other modifying factors or associated signs and symptoms. PFSH Past Medical History AAA: No ADD: Yes ADHD: Yes Alzheimer's Disease: No Anemia: No Arthritis: No Asthma: Yes Atrial Fibrillation: Yes Autoimmune Disease: No Blood Disorders: No Bipolar Disorder: Yes Anxiety: Yes Depression: Yes Heart Rhythm Problems: No Cardiomyopathy: No Cerebral Palsy: No High Cholesterol: No Chemotherapy: No Chest Pain: No Congestive Heart Failure: No Cirrhosis: No COPD: No Cerebrovascular Accident: No Coronary Artery Disease: No Cystic Fibrosis: No Dementia: No Developmental Delay: Yes Dialysis: No Diminished Hearing: No Diverticulitis: No Deep Vein Thrombosis: No Endocrine: Yes (ESTROGEN TREATMENT) Gastrointestinal Disorders: No Genetic Disorder: No GERD: No Glaucoma: No Gout: No Genitourinary: No Headaches: Yes (May be migraines and has seen a doctor as a result.) Hepatitis: No Hiatal Hernia: No Hypertension: Yes Immune Disorder: No Inguinal Hernia: No Implanted Vascular Access Dvce: No Kidney Stones: No Musculoskeletal: No Neurologic: No Psychiatric: Yes (Hx of treatment for mood disorder) Reproductive: No Respiratory: No Integumentary: No Immunizations Current: Yes Migraines: No Myocardial Infarction: No Pancreatitis: No Radiation Therapy: No Renal Failure: No Schizophrenia: Yes Sickle Cell Disease: No Sleep Apnea: Yes (C-PAP SETTING AT 2 PER PT) Thyroid Disease: Yes (HYPOTHYROID) Ulcer: No ?: Not LMP: 08/22/2016 Menopausal: No : 0 Ectopic : No Ovarian Cysts: No Dilation and Curettage (D&C): No Tubal Ligation: No Past Surgical History Surgical History: No Previous Surgery AICD: No Arteriovenous Shunt: No Section: No Hysterectomy: No Insulin Pump: No Pacemaker: No Other Surgery: No Family History Family Hypercholesterolemia: No Social History Alcohol Use: No Tobacco Use: No Substance Use: No Allergies-Medications (Allergen,Severity, Reaction): Coded Allergies: Red Dyes - Various (Verified Allergy, Severe, BECOMES AGGRESSIVE, VOMITS, 08/20/16) Risperdal (Verified Allergy, Severe, Nausea/Vomiting, 08/20/16) Uncoded Allergies: Seasonal Allergies (Allergy, Unknown, 03/04/12) Reported Meds & Prescriptions Reported Meds & Active Scripts Active Invega Sustenna Inj (Paliperidone Palmitate) 234 Mg/1.5 Ml Inj 234 Mg IM Q28D This dose of Invega Sustenna is due on 09/25/2016. Carbamazepine 200 Mg Tab 200 Mg PO Q12HR 15 Days Replaces Depakote, which has been discontinued. Reported Ativan (Lorazepam) 0.5 Mg Tab 0.5 Mg PO TID PRN Lexapro (Escitalopram Oxalate) 20 Mg Tab 20 Mg PO DAILY Levothyroxine (Levothyroxine Sodium) 50 Mcg Tab 50 Mcg PO DAILY Cetirizine (Cetirizine HCl) 10 Mg Tab 10 Mg PO DAILY Review of Systems Except as stated in HPI: all other systems reviewed are Neg Physical Exam Narrative GENERAL: Well-nourished, well-developed female patient, in no acute distress SKIN: Warm and dry. HEAD: Atraumatic. Normocephalic. EYES: Pupils equal and round. ENT: Mucosa pink and moist. NECK: Supple. Trachea midline. CARDIOVASCULAR: Regular rate and rhythm. No murmur appreciated. RESPIRATORY: No accessory muscle use. Clear to auscultation. Breath sounds equal bilaterally. GASTROINTESTINAL: Abdomen soft, non-tender, nondistended. Hepatic and splenic margins not palpable. Bowel sounds are active 4 quadrants. MUSCULOSKELETAL: No obvious deformities. No clubbing. No cyanosis. No edema. BACK: No CVA tenderness. NEUROLOGICAL: Awake and alert. Oriented 3. No obvious cranial nerve deficits. Motor grossly within normal limits. Normal speech. Moves all extremities. 5/5 strength to all extremities. PSYCHIATRIC: No delusional thought processes. No hallucinations. Data Data Last Documented VS Vital Signs Date Time Temp Pulse Resp B/P Pulse Ox O2 Delivery O2 Flow Rate FiO2 09/02/16 15:01 95 18 09/02/16 14:57 98.7 142/96 95 Orders Complete Blood Count With Diff (09/02/16 15:10) Comprehensive Metabolic Panel (09/02/16 15:10) Psych Screen (09/02/16 15:10) Drug Screen, Random Urine (09/02/16 15:10) Alcohol (Ethanol) (09/02/16 15:10) Salicylates (Aspirin) (09/02/16 15:10) Tylenol (Acetaminophen) (09/02/16 15:10) MDM Medical Decision Making Medical Screen Exam Complete: Yes Emergency Medical Condition: Yes Medical Record Reviewed: Yes Differential Diagnosis Medical clearance for psych evaluation, depression, suicidal threat Narrative Course Patient presents under a Baron act. Physical examination and vital signs are essentially unremarkable. Patient has no medical complaints to report. Psych screen has been ordered. If the laboratory results are unremarkable, the patient will be medically cleared for psychiatric evaluation and disposition. Diagnosis Primary Impression: Medical clearance for psychiatric admission Condition: Stable Rahel Chappell Sep 02, 2016 15:43
[2016-09-02 16:03] LABS: ANION GAP 9 MEQ/L (5-15)
[2016-09-02 16:06] LABS: ALKALINE PHOSPHATASE 98 U/L (45-117); ALT (GPT) 28 U/L (10-53); AST (GOT) 22 U/L (15-37); BICARBONATE 27.1 MEQ/L (21.0-32.0); BLOOD UREA NITROGEN 16 MG/DL (7-18); CHLORIDE 102 MEQ/L (98-107); GLOMERULAR FILTRATION RATE 80 ML/MIN (>89); POTASSIUM 3.8 MEQ/L (3.5-5.1); SODIUM (NA) 138 MEQ/L (136-145); TOTAL BILIRUBIN ADULT 0.2 MG/DL (0.2-1.0)
[2016-09-02 16:15] LABS: ACETAMINOPHEN LESS THAN 2.0 MCG/ML (10.0-30.0)
[2016-09-02 16:19] LABS: AMPHETAMINE, URINE NEG (NEG); BARBITURATES, URINE NEG (NEG); COCAINE, URINE NEG (NEG)
[2016-09-02 18:28] VITALS: BP 123/71; PULSE 85; RESP 18; O2SAT 98
[2016-09-02 22:25] VITALS: BP 129/63; PULSE 91; RESP 18; O2SAT 99
[2016-09-03 02:08] VITALS: BP 118/65; PULSE 94; RESP 18
[2016-09-03 06:26] VITALS: BP 113/69; PULSE 69; RESP 18; O2SAT 99
[2016-09-03 10:57] VITALS: BP 121/63; PULSE 78; RESP 18; O2SAT 92
[2016-09-03] MEDS ORDERED: ACETAMINOPHEN 325 MG TAB PO ONE (12:45)
--- NOTE | 2016-09-03 13:32 | PD.CONS ---
Provisional Diagnosis Admission Date [place] I. Intermittent explosive disorder F 63.81 History of Present Illness Service Psychiatry Consult Requested By Dilan AMBROSIO Reason for Consult Baron act Primary Care Physician Unknown HPI Patient is a 26-year-old white female well known to me from multiple prior contacts both inpatient and at the [place] outpatient clinic comes here under Baron act by the [place] [employer] Department dated 07/06/16 at 2:40 PM document reviewed it appears subject made suicidal statements that T being brought to [facility] for assessment it appears she left the [place] [facility] got wet in the rain to call 911 stating she was suicidal. Patient seen screened in the ED medically cleared. At the present time patient sitting in her room on J pod. Medical student Taylor present throughout session. Patient did recognize her from prior contact was somewhat silly superficial and childish with the interview basically agreed to the above statement stating that she was discharged on Saturday 97 at the longterm Saturday she left and wound up Baron acted as mentioned above. Today she denies suicidality homicidality voices or visions it appeared she had into an disagreement with staff there which is typical of behaviors that lead to her making impulsive statements showing some explosive behaviors leading to assessment in the ED. At the present time patient calm cooperative pleasant with me has been compliant with her medications. Tegretol blood level drawn on Thursday 08/31 was 9.5. At the present time patient does not meet Baron criteria she is able contracted to no harm and to work with her counselors at the longterm. Thus I will lift the Baron act allow patient to be discharged to the longterm continue her schedule medications consider follow-up with her community psychiatric professional. No Rx by me Review of Systems Except as stated in HPI: all other systems reviewed are Neg Past Family Social History Coded Allergies: Red Dyes - Various (Verified Allergy, Severe, BECOMES AGGRESSIVE, VOMITS, 08/20/16) Risperdal (Verified Allergy, Severe, Nausea/Vomiting, 08/20/16) Uncoded Allergies: Seasonal Allergies (Allergy, Unknown, 03/04/12) Active Scripts Paliperidone Palmitate Inj (Invega Sustenna Inj)234 Mg/1.5 Ml [id number] Mg IM Q28D #1 INJECTION Ref 0 This dose of Invega Sustenna is due on 09/25/2016. Prov:Hitesh Crawford MD 08/31/16 Carbamazepine 200 Mg [id number] Mg PO Q12HR 15 Days Ref 1 Replaces Depakote, which has been discontinued. Prov:Hitesh Crawford MD 08/31/16 Reported Medications Lorazepam (Ativan)0.5 Mg Tab0.5 Mg PO TID PRN (ANXIETY AND/OR AGITATION) Ref 0 08/20/16 Escitalopram (Lexapro)20 Mg Tab20 Mg PO DAILY #30 TAB Ref 0 08/20/16 Levothyroxine 50 Mcg Tab50 Mcg PO DAILY #30 TAB Ref 0 07/24/16 Cetirizine 10 Mg Tab10 Mg PO DAILY Ref 0 07/24/16 Discontinued Reported Medications Divalproex ER (Depakote ER)500 Mg [id number] Mg PO BID #30 TAB Ref 0 08/20/16 Physical Exam Vital Signs Vital Signs Date Time Temp Pulse Resp B/P Pulse Ox O2 Delivery O2 Flow Rate FiO2 09/03/16 10:57 78 18 121/63 92 Room Air 09/02/16 14:57 98.7 Mental Status Examination Alert oriented overweight white female appears perhaps little bit younger than his stated age sitting somewhat superficial and silly but calm cooperative with me with good eye contact Appearance Clean and neat Speech: Pressured, Rapid, Tangential (mildly) Orientation: x3 Memory: Unremarkable Thought Process: Linear Thought Content: Paranoid (mildly), Ideas of Reference Hallucination Type: None Attention and Concentration: Other (fair) Suicidal Ideation: No (denies at this time) Previous Suicide Attempts: No Homicidal Ideation: No Previous Homicide Attempts: No Insight: Poor (to fair) Judgement: Poor (to fair) Affect: Other (slight decrease range intensity) Mood: Euthymic (to mildly oppositional) Motor Activity: Normal gait Assessment & Plan Problem List: (1) Intermittent explosive disorder ICD Code: F63.81 Assessment & Plan Estimated LOS: days this time patient does not meet Baron criteria will lift Baron act, it is okay by psych for discharge when she is medically clear and stable, no Rx by me, may continue her own prescribed medications at the longterm. Follow-up mental health professionals of the community Discharge Planning See above Request HC Surrog/Guard Advoc?: No Aaron Blackmon MD Sep 03, 2016 13:32
[2016-09-03 18:49] VITALS: BP 122/68; PULSE 73; RESP 18
[2016-09-03 22:30] VITALS: BP 115/79; PULSE 89; RESP 18; O2SAT 98
[2016-09-04 02:06] VITALS: BP 138/73; PULSE 100; RESP 19; O2SAT 95
[2016-09-04] MEDS ORDERED: LORazepam 2 MG/ML VIAL IM PRN (08:45)
[2016-09-04] MEDS ORDERED: BENZTROPINE MESYLATE 2 MG/2 ML VIAL IM PRN (08:45)
[2016-09-04] MEDS ORDERED: ALUMINUM/MAGNESIUM/SIMETH 30 ML CUP PO PRN (08:45)
[2016-09-04] MEDS ORDERED: BENZTROPINE MESYLATE 1 MG TAB PO PRN (08:45)
[2016-09-04] MEDS ORDERED: ACETAMINOPHEN 325 MG TAB PO PRN (08:45)
[2016-09-04] MEDS ORDERED: MAGNESIUM HYDROXIDE SUSP 30 ML CUP PO PRN (08:45)
--- NOTE | 2016-09-04 08:45 | HHI.HP ---
Provisional Diagnosis Admission Date 09/04/2016 [place] I. 1. Intermittent explosive disorder [place] II. 1. Intellectual disability [place] V. GAF is 40 presently Certification of Person's Competence To Provide Express and Informed Consent I have personally examined Audrey Grijalva , a person being served at [facility] on, Sep 04, 2016 08:44. Express and informed consent means consent voluntarily given in writing, by a competent person, after sufficient explanation and disclosure of the subject matter involved to enable the person to make a knowing and willful decision without any element of force, fraud, deceit, duress, or other form of constraint or coercion. This person is 18 years of age or older, is not now known to be incompetent to consent to treatment with a guardian advocate, and does not have a health care surrogate or proxy currently making medical treatment decisions. I have found this person to be one of the following: [x] Competent to provide express and informed consent, as defined above, for voluntary admission to this facility and is competent to provide express and informed consent for treatment. He/she has the consistent capacity to make well reasoned, willful, and knowing decisions concerning his or her medical or mental health treatment. The person fully and consistently understands the purpose of the admission for examination/placement and is fully capable of personally exercising all rights assured [place] [] Incompetent to provide express and informed consent to voluntary admission, and this is incompetent to provide express and informed consent to treatment. The person must be transferred to involuntary status and a petition for a guardian advocate filed with the Circuit Court. [] Refusing to provide express and informed consent to voluntary admission but is competent to provide express and informed consent for treatment. The person must be discharged or transferred to involuntary status. Form shall be completed within 24 hours of a person's arrival at the receiving facility and filed in the clinical record of each person: 1. Admitted on a voluntary basis 2. Permitted to provide express and informed consent to his/her own treatment 3. Allowed to transfer from involuntary to voluntary status 4. Prior to permitting a person to consent to his or her own treatment after having been previously found incompetent to consent to treatment. History of Present Illness Capacity: Has Capacity HPI Ms. Grijalva is a 26-year-old female with a history of intellectual disability and attendant intermittent explosive disorder who presents under a Baron act alleging that she made suicidal threats at her facility. Patient was initially evaluated by Dr. Blackmon in consultation with plan to lift the Baron act but reversed this decision for the reasons detailed in his note. Electronic medical record reviewed. Patient was recently discharged from the inpatient psychiatric unit at the end of last week under my care. Patient seen and examined. Chart reviewed. Case discussed with nurse in the J- pod. On my examination today, patient presents as fairly childlike. She reports that she was Baron acted "because I tried to leave without authorization. I told Addie that Jess was in the ER but she wasn't. That' s why." Patient does have a lengthy history of acting out at her facility including trying to elope. Nursing staff tells me that facility is no longer willing to accept her back. Patient seems to be aware of this and says "I have nowhere else to go so there is no point." She is somewhat tearful and dysphoric. She admits to feeling somewhat depressed but denies any suicidal or homicidal ideation. She expresses a lot of frustration at her family for not accepting her in. No hypomanic or manic symptoms. No AVH. No other psychotic symptoms. The remainder of the psychiatric ROS is negative. Past psychiatric, family, chemical dependency and social history were obtained during my recent history and physical examination from 08/22, and these are materially unchanged today. Review of Systems ROS Limitations: Poor Historian Other No reported physical complaints. Past Family Social History Coded Allergies: Red Dyes - Various (Verified Allergy, Severe, BECOMES AGGRESSIVE, VOMITS, 08/20/16) Risperdal (Verified Allergy, Severe, Nausea/Vomiting, 08/20/16) Uncoded Allergies: Seasonal Allergies (Allergy, Unknown, 03/04/12) Past Medical History See electronic medical record Active Scripts Paliperidone Palmitate Inj (Invega Sustenna Inj)234 Mg/1.5 Ml [id number] Mg IM Q28D #1 INJECTION Ref 0 This dose of Invega Sustenna is due on 09/25/2016. Prov:Hitesh Crawford MD 08/31/16 Carbamazepine 200 Mg [id number] Mg PO Q12HR 15 Days Ref 1 Replaces Depakote, which has been discontinued. Prov:Hitesh Crawford MD 08/31/16 Reported Medications Lorazepam (Ativan)0.5 Mg Tab0.5 Mg PO TID PRN (ANXIETY AND/OR AGITATION) Ref 0 08/20/16 Escitalopram (Lexapro)20 Mg Tab20 Mg PO DAILY #30 TAB Ref 0 08/20/16 Levothyroxine 50 Mcg Tab50 Mcg PO DAILY #30 TAB Ref 0 07/24/16 Cetirizine 10 Mg Tab10 Mg PO DAILY Ref 0 07/24/16 Discontinued Reported Medications Divalproex ER (Depakote ER)500 Mg [id number] Mg PO BID #30 TAB Ref 0 08/20/16 Current Medications Medications (Trade) Dose Ordered Sig/Jono Route Start Time Stop Time Status Last Admin (TEGretol) 200 mg Q12HR PO 09/04/16 09:00 UNV (ZyrTEC) 10 mg DAILY PO 09/04/16 09:00 UNV (Lexapro) 20 mg DAILY PO 09/04/16 09:00 UNV (Synthroid) 50 mcg DAILY PO 09/04/16 09:00 UNV (Ativan) 0.5 mg TID PRN PO 09/04/16 08:45 UNV Patient's Strengths (min. 2) Maintaining basic hygiene. Verbally fluent. Physical Exam ED provider completed physical examination. On my examination today, the patient is in no acute physical distress. No abnormal motor movements noted. Labs and vital signs reviewed: Vital Signs Vital Signs Date Time Temp Pulse Resp B/P Pulse Ox O2 Delivery O2 Flow Rate FiO2 09/04/16 02:06 100 19 138/73 95 Room Air 09/03/16 18:49 97 09/02/16 14:57 98.7 Lab Results Item Value Date Time White Blood Count 9.1 TH/MM3 09/02/16 1520 Hemoglobin 13.8 GM/DL 09/02/16 1520 Platelet Count 231 TH/MM3 09/02/16 1520 Sodium Level 138 MEQ/L 09/02/16 1520 Potassium Level 3.8 MEQ/L 09/02/16 1520 Chloride Level 102 MEQ/L 09/02/16 1520 Carbon Dioxide Level 27.1 MEQ/L 09/02/16 1520 Blood Urea Nitrogen 16 MG/DL 09/02/16 1520 Creatinine 0.86 MG/DL 09/02/16 1520 Aspartate Amino Transf (AST/SGOT) 22 U/L 09/02/16 1520 Alanine Aminotransferase (ALT/SGPT) 28 U/L 09/02/16 1520 Alkaline Phosphatase 98 U/L 09/02/16 1520 Beta HCG, Qualitative LESS THAN 1 MIU/ML 09/04/16 1120 Carbamazepine (Tegretol) Level 4.5 MCG/ML 09/04/16 1120 Laboratories reviewed. I do note that patient's carbamazepine level is somewhat lower than it was prior to discharge, even though the doses the same. I wonder about some degree of nonadherence. Mental Status Examination Patient is in hospital gown. She is somewhat disheveled but maintaining basic hygiene. She is awake and alert and oriented to person and hospital at least. No abnormal motor movements noted. Speech is within normal limits for rate, tone and volume. Language and fund of knowledge seem reduced for age. Mood is somewhat depressed and affect is restricted and dysphoric. Thought process linear but childlike. No loosening of associations. No delusions. No AVH. Denies SI or HI. Insight and judgment are poor, chronically so. Assessment & Plan Problem List: (1) Intermittent explosive disorder ICD Code: F63.81 (2) Intellectual disability ICD Code: F79 Assessment & Plan This is a 26-year-old female with psychiatric history as detailed above who presents under a Baron act. Patient has chronic issues with impulse control and has a history of acting out at her facility. It seems that on this occasion, she has overstayed her welcome, and nursing staff tells me that the patient may no longer return to the facility from which she has come. Given the patient's low level of functioning, I am concerned that she would not be able to live safely in the community and so will admit her psychiatrically to arrange for new placement as I fear that she is at significant risk for decompensation and perhaps morbidity and mortality if she were simply released from the emergency room this morning. Admitted inpatient. Voluntary status. Resume previous psychotropic regimen including carbamazepine, Lexapro, Invega Sustenna already on board. Ativan as needed for anxiety, Cogentin as needed for EPS, Benadryl as needed for sleep. Vitals every shift. Counselor to see. Disposition planning. Estimated length of stay: New placement will likely require on the order of several weeks Discharge Planning New placement with outpatient psychiatric follow-up. Request HC Surrog/Guard Advoc?: No Hitesh Crawford MD Sep 04, 2016 08:45
[2016-09-04] MEDS ORDERED: LEVOTHYROXINE SODIUM 50 MCG TAB PO SCH (09:00)
[2016-09-04] MEDS: CETIRIZINE HCL 10 MG TAB PO SCH (09:00)
[2016-09-04] MEDS: NICOTINE 21 MG/24 HR PATCH T-DERMAL SCH (09:00)
[2016-09-04] MEDS: ESCITALOPRAM OXALATE 20 MG TAB PO SCH (09:00)
[2016-09-04] MEDS: LEVOTHYROXINE SODIUM 50 MCG TAB PO SCH (09:00)
[2016-09-04] MEDS: carBAMazepine 200 MG TAB PO SCH ×2 (09:00→20:42)
[2016-09-04 10:30] VITALS: BP 110/60; PULSE 78; RESP 18; TEMP 98.2; O2SAT 96
[2016-09-04 12:42] LABS: BHCG SCREEN QUALITATIVE LESS THAN 1 MIU/ML (0-5)
[2016-09-04 17:30] VITALS: BP 140/60; PULSE 96; RESP 16; TEMP 98.1; O2SAT 98
[2016-09-04] MEDS: diphenhydrAMINE HCL 50 MG CAP PO PRN (20:42)
[2016-09-04] MEDS: LORazepam 0.5 MG TAB PO PRN (20:42)
[2016-09-05] MEDS: LEVOTHYROXINE SODIUM 50 MCG TAB PO SCH (05:50)
[2016-09-05 06:08] VITALS: BP 118/68; PULSE 61; RESP 17; TEMP 97.3; O2SAT 94
[2016-09-05] MEDS: NICOTINE 21 MG/24 HR PATCH T-DERMAL SCH (09:00)
[2016-09-05] MEDS: REMOVE OLD PATCH T-DERMAL SCH (09:00)
[2016-09-05] MEDS: ESCITALOPRAM OXALATE 20 MG TAB PO SCH (09:07)
[2016-09-05] MEDS: CETIRIZINE HCL 10 MG TAB PO SCH (09:07)
[2016-09-05] MEDS: carBAMazepine 200 MG TAB PO SCH ×2 (09:07→20:30)
[2016-09-05] MEDS: LORazepam 0.5 MG TAB PO PRN ×2 (09:09→20:30)
--- NOTE | 2016-09-05 12:22 | HHI.PYPN ---
Subjective Remarks Patient seen and examined with nurse. Chart reviewed. Case discussed with nursing staff who reports patient as somewhat manipulative and childlike but really no significant behavioral problem. On my examination today, the patient requests to conduct the interview in the day area. She is doing some drawing. She presents as fairly sullen and ruminates upon guilty feelings that her behaviors have resulted in her losing her care home placement. She notes that her mother is upset with her about this. We discussed the difference between feeling guilty and feeling remorseful with subsequent behavioral change. Patient recognizes that her behavioral outbursts are at least in part within her control, and I have encouraged her to view this hospitalization as an opportunity to prove that she can remain in good behavioral control. She agrees that this would be a good therapeutic goal and promises to work on this both individually and in groups. She denies side effects from medications. Review of Systems ROS Limitations: Poor Historian Other No physical complaints today Objective Alert: Yes [place]: Person, Place Mood: Calm Affect: Restricted (somewhat dysphoric) Memory Intact: Comment (At least fair on clinical exam) Hallucinations: Other (no AVH) Delusions: No Delusion Type: Other (no evident delusions) Suicidal: Ideation (no SI) Homicidal: Ideation (no HI) Insight/Judgement Poor Remarks Thought process linear. No abnormal motor noted. Grooming and hygiene fair. Labs Labs reviewed. No new labs. Vitals/IOs Vital Signs Date Time Temp Pulse Resp B/P Pulse Ox O2 Delivery O2 Flow Rate FiO2 09/05/16 06:08 97.3 61 17 118/68 94 09/04/16 02:06 Room Air 09/03/16 18:49 97 Assessment & Plan Problem List: (1) Intermittent explosive disorder ICD Code: F63.81 (2) Intellectual disability ICD Code: F79 Assessment & Plan Continue current psychotropics as ordered. Continue to monitor on the inpatient unit. Continue other medications and care as ordered. Justification for Cont. Inpt. Impairments in impulse control. High risk for decompensation in a less restrictive environment. Discharge Planning My understanding now is that patient will require new care home placement. Optimistically, this will require at least 1-2 weeks. I have instructed the counselor to liaison with patient's [employer] senior bioinformatics specialist JAVIER to begin finding patient a new care home. Request HC Surrog/Guard Advoc?: No Hitesh Crawford MD Sep 05, 2016 12:22
[2016-09-05 19:01] VITALS: BP 136/75; PULSE 77; RESP 17; TEMP 98.6; O2SAT 96
[2016-09-06 05:26] VITALS: BP 136/70; PULSE 74; RESP 18; TEMP 98.1; O2SAT 98
[2016-09-06] MEDS: LEVOTHYROXINE SODIUM 50 MCG TAB PO SCH (05:55)
[2016-09-06] MEDS: ESCITALOPRAM OXALATE 20 MG TAB PO SCH (08:30)
[2016-09-06] MEDS: carBAMazepine 200 MG TAB PO SCH ×2 (08:30→20:15)
[2016-09-06] MEDS: CETIRIZINE HCL 10 MG TAB PO SCH (08:30)
[2016-09-06] MEDS: REMOVE OLD PATCH T-DERMAL SCH (09:00)
[2016-09-06] MEDS: NICOTINE 21 MG/24 HR PATCH T-DERMAL SCH (09:00)
--- NOTE | 2016-09-06 11:33 | HHI.PYPN ---
Subjective Remarks Patient seen and examined with nurse. Chart reviewed. Case discussed with nursing staff who reports patient has been no behavioral problem. On my examination today, I find the patient in the recreation therapy area. She is socializing with peers appropriately. On my evaluation today, the patient describes with some pride that she was able to avoid being provoked by a male patient on the unit who is particularly disruptive and instigating other patients. No SI or HI voiced. Mood is generally good. Denies side effects from medications. Patient remains committed to showing that she can remain in good behavioral control. Review of Systems ROS Limitations: Poor Historian Other No physical complaints today Objective Alert: Yes [place]: Person, Place Mood: Happy Affect: Euthymic (somewhat childlike) Memory Intact: Comment (Remains fair) Hallucinations: Other (no AVH) Delusions: No Delusion Type: Other (No delusions elicited) Suicidal: Ideation (no SI) Homicidal: Ideation (no HI) Insight/Judgement Poor Remarks No abnormal motor movements noted Labs Labs reviewed. No new labs. Vitals/IOs Vital Signs Date Time Temp Pulse Resp B/P Pulse Ox O2 Delivery O2 Flow Rate FiO2 09/06/16 05:26 98.1 74 18 136/70 98 09/04/16 02:06 Room Air 09/03/16 18:49 97 Assessment & Plan Problem List: (1) Intermittent explosive disorder ICD Code: F63.81 (2) Intellectual disability ICD Code: F79 Assessment & Plan Continue current psychotropics as ordered. Continue other medications and care as ordered. Justification for Cont. Inpt. Monitoring for impairments in safety, so far none. Discharge Planning Counselor has reached out to patient's social work manager who has spoken with patient 's current snf. retirement has apparently reconsidered and is now willing to accept the patient back. tradeshow worker has relayed to the counselor that SW suspects the patient likes the attention she receives on the inpatient unit. I have asked that counselor call snf to discuss possible transition back to snf tomorrow as there has been no evidence of further behavioral disturbance on the unit and I suspect that these behaviors are chronic and likely not particularly amenable to medication treatment. Request HC Surrog/Guard Advoc?: No Hitesh Crawford MD Sep 06, 2016 11:33
[2016-09-06 15:15] VITALS: BP 127/73; PULSE 89; RESP 18; TEMP 98.6; O2SAT 97
[2016-09-06] MEDS: LORazepam 0.5 MG TAB PO PRN (20:15)
[2016-09-06] MEDS: diphenhydrAMINE HCL 50 MG CAP PO PRN (20:19)
[2016-09-07] MEDS: LEVOTHYROXINE SODIUM 50 MCG TAB PO SCH (06:07)
[2016-09-07] MEDS: CETIRIZINE HCL 10 MG TAB PO SCH (08:38)
[2016-09-07] MEDS: carBAMazepine 200 MG TAB PO SCH ×2 (08:39→21:31)
[2016-09-07] MEDS: ESCITALOPRAM OXALATE 20 MG TAB PO SCH (08:39)
[2016-09-07] MEDS: LORazepam 0.5 MG TAB PO PRN ×2 (11:41→21:32)
--- NOTE | 2016-09-07 14:09 | HHI.PYPN ---
Subjective Remarks Patient seen and examined. Chart reviewed. On my examination today, patient is somewhat sullen. She has heard that she can go back to her current jail. She says "I don't want to go back. I just don't." She says that she plans on sabotaging her placement saying "I plan on taking off." With a little bit of discussion though, the patient agrees "I'll give it a shot." Denies side effects from medications. Review of Systems ROS Limitations: Poor Historian Other No physical complaints today Objective Alert: Yes [place]: Person, Place Mood: Calm Affect: Restricted (a little dysphoric) Memory Intact: Comment (Remains fair) Hallucinations: Other (none) Delusions: No Delusion Type: Other (no delusions) Suicidal: Ideation (no SI voiced) Homicidal: Ideation (no HI voiced) Insight/Judgement Poor Remarks No abnormal motor movements noted Labs Labs reviewed. No new labs. Vitals/IOs Vital Signs Date Time Temp Pulse Resp B/P Pulse Ox O2 Delivery O2 Flow Rate FiO2 09/06/16 15:15 98.6 89 18 127/73 97 09/04/16 02:06 Room Air 09/03/16 18:49 97 Assessment & Plan Problem List: (1) Intermittent explosive disorder ICD Code: F63.81 (2) Intellectual disability ICD Code: F79 Assessment & Plan Patient remains fairly behavioral, and I am skeptical that medication adjustment will ameliorate this. Continue current psychotropics as ordered. Continue other medications and care as ordered. Justification for Cont. Inpt. Risk for decompensation Discharge Planning Monitor over the weekend to allow counselor to arrange for discharge back to her existing jail. Counselor has reached out to patient's technical support associate through the [employer], and there is reportedly no possibility of getting the patient into a different jail at this time. Request HC Surrog/Guard Advoc?: No Hitesh Crawford MD Sep 07, 2016 14:09
[2016-09-07 19:25] VITALS: BP 111/62; PULSE 81; RESP 18; TEMP 98.7; O2SAT 96
[2016-09-07] MEDS: diphenhydrAMINE HCL 50 MG CAP PO PRN (21:31)
[2016-09-08] MEDS: LEVOTHYROXINE SODIUM 50 MCG TAB PO SCH (06:00)
[2016-09-08 06:20] VITALS: BP 125/62; PULSE 64; RESP 18; TEMP 97.1; O2SAT 94
[2016-09-08] MEDS: CETIRIZINE HCL 10 MG TAB PO SCH (09:18)
[2016-09-08] MEDS: carBAMazepine 200 MG TAB PO SCH ×2 (09:18→20:08)
[2016-09-08] MEDS: ESCITALOPRAM OXALATE 20 MG TAB PO SCH (09:18)
[2016-09-08] MEDS: LORazepam 0.5 MG TAB PO PRN ×2 (13:12→20:07)
[2016-09-08 18:25] VITALS: BP 127/69; PULSE 104; RESP 18; TEMP 98.1; O2SAT 94
[2016-09-08] MEDS: diphenhydrAMINE HCL 50 MG CAP PO PRN (20:07)
--- NOTE | 2016-09-08 20:41 | HHI.PYPN ---
Subjective Remarks Pt seen and discussed with staff. She remains childlike with limited insight. She c/o of anxiety and reports that she spit at nurses station. SHe is compliant with medications. No SI/HI. Objective Alert: Yes [place]: Person, Place, Situation Mood: Anxious Affect: Restricted Memory Intact: Comment (fair) Hallucinations: Other (none) Delusions: No Delusion Type: Other (none) Suicidal: Ideation (no SI voiced) Homicidal: Ideation (no HI voiced) Insight/Judgement poor Vitals/IOs Vital Signs Date Time Temp Pulse Resp B/P Pulse Ox O2 Delivery O2 Flow Rate FiO2 09/08/16 18:25 98.1 104 18 127/69 94 Assessment & Plan Problem List: (1) Intermittent explosive disorder ICD Code: F63.81 (2) Intellectual disability ICD Code: F79 Assessment & Plan Continue current tx plan. Estimated LOS: days Justification for Cont. Inpt. impairments in social functioning,risk of decompensation Request HC Surrog/Guard Advoc?: Dotty Alonso MD Sep 08, 2016 20:41
[2016-09-09 05:07] VITALS: BP 118/66; PULSE 75; RESP 18; TEMP 96.8; O2SAT 96
[2016-09-09] MEDS: LEVOTHYROXINE SODIUM 50 MCG TAB PO SCH (06:28)
[2016-09-09] MEDS: carBAMazepine 200 MG TAB PO SCH ×2 (09:39→19:49)
[2016-09-09] MEDS: CETIRIZINE HCL 10 MG TAB PO SCH (09:39)
[2016-09-09] MEDS: ESCITALOPRAM OXALATE 20 MG TAB PO SCH (09:39)
[2016-09-09 18:15] VITALS: BP 120/74; PULSE 91; RESP 18; TEMP 98.5; O2SAT 96
--- NOTE | 2016-09-09 18:48 | HHI.PYPN ---
Subjective Remarks Pt seen and discussed with staff. She has been in a good mood today and has not had behavioral problems on unit. Compliant with medication side effects. No SI/ HI Objective Alert: Yes [place]: Person, Place, Situation Mood: Calm Affect: Euthymic Memory Intact: Comment (fair) Hallucinations: Other (none) Delusions: No Delusion Type: Other (none) Suicidal: Ideation (no SI voiced) Homicidal: Ideation (no HI voiced) Insight/Judgement poor Vitals/IOs Vital Signs Date Time Temp Pulse Resp B/P Pulse Ox O2 Delivery O2 Flow Rate FiO2 09/09/16 18:15 98.5 91 18 120/74 96 Assessment & Plan Problem List: (1) Intermittent explosive disorder ICD Code: F63.81 (2) Intellectual disability ICD Code: F79 Assessment & Plan Continue current tx plan. Estimated LOS: days Justification for Cont. Inpt. risk of decompensation Request HC Surrog/Guard Advoc?: No Dotty Molina MD Sep 09, 2016 18:48
[2016-09-09] MEDS: diphenhydrAMINE HCL 50 MG CAP PO PRN (19:50)
[2016-09-09] MEDS: LORazepam 0.5 MG TAB PO PRN (21:45)
[2016-09-10 05:06] VITALS: BP 106/54; PULSE 76; RESP 18; TEMP 97.8; O2SAT 99
[2016-09-10] MEDS: LEVOTHYROXINE SODIUM 50 MCG TAB PO SCH (06:00)
[2016-09-10] MEDS: ESCITALOPRAM OXALATE 20 MG TAB PO SCH (08:23)
[2016-09-10] MEDS: CETIRIZINE HCL 10 MG TAB PO SCH (08:23)
[2016-09-10] MEDS: carBAMazepine 200 MG TAB PO SCH (08:23)
[2016-09-10] MEDS: LORazepam 0.5 MG TAB PO PRN (09:04)
--- NOTE | 2016-09-10 13:26 | HHI.DS ---
Psychiatry Discharge Summary Inpatient Psychiatric care?: Yes Advance Directive: No Reason Not Provided: DOES NOT HAVE Mental Health AdvanceDirective: No Health Care Proxy: No Admission Admission Date Sep 04, 2016 at 08:42 Admission Diagnosis: (1) Intermittent explosive disorder ICD Code: F63.81 (2) Intellectual disability ICD Code: F79 Brief History Ms. Grijalva is a 26-year-old female with a history of intellectual disability and attendant intermittent explosive disorder who presents under a Baron act alleging that she made suicidal threats at her facility. Patient was initially evaluated by Dr. Blackmon in consultation with plan to lift the Baron act but reversed this decision for the reasons detailed in his note. Electronic medical record reviewed. Patient was recently discharged from the inpatient psychiatric unit at the end of last week under my care. Patient seen and examined. Chart reviewed. Case discussed with nurse in the J- pod. On my examination today, patient presents as fairly childlike. She reports that she was Baron acted "because I tried to leave without authorization. I told Addie that Jess was in the ER but she wasn't. That' s why." Patient does have a lengthy history of acting out at her facility including trying to elope. Nursing staff tells me that facility is no longer willing to accept her back. Patient seems to be aware of this and says "I have nowhere else to go so there is no point." She is somewhat tearful and dysphoric. She admits to feeling somewhat depressed but denies any suicidal or homicidal ideation. She expresses a lot of frustration at her family for not accepting her in. No hypomanic or manic symptoms. No AVH. No other psychotic symptoms. The remainder of the psychiatric ROS is negative. Past psychiatric, family, chemical dependency and social history were obtained during my recent history and physical examination from 08/22, and these are materially unchanged today. Tobacco Use In Past 30 Days: No Tobacco Past 30 Days Alcohol Use: Never Hospital Course Patient was admitted to a locked, inpatient psychiatric unit. Appropriate precautions were in place throughout patient's hospital stay. Patient was seen and examined daily on the unit by psychiatry and also visited by counselor. Although no psychotropic medication adjustments were made, staff and myself did work with the patient to try to improve coping skills and insight into her acting out with some success. There was no evidence of any suicidal or homicidal behavior on the inpatient unit. She did continue to tantrum at intervals throughout her stay, particularly when she learned that she would be returning to her current prison as no other placement is feasible at this point. In discussing the matter with treatment team on day of discharge, I administrative law judge that retaining the patient on the inpatient unit would be counter- therapeutic at this point as it would reinforce patient's use of acting-out behavior to gain and prolong her admission to the inpatient unit. Thus, although the patient has acted out today by spitting on the nursing station glass, I will discharge her back to her prison. There is no therapeutic benefit to retaining the patient on the inpatient unit at this time. I do fear her overall prognosis is poor, and she will likely eventually be evicted from her prison if she cannot bring her behaviors under better control. On the day of discharge: Patient does not verbalize any suicidal or homicidal ideation. She does not describe any AVH, nor is there any evidence of delusional material or psychosis. No side effects from medications. No physical complaints. Patient is to follow-up psychiatrically as arranged by counselor and also with primary care. Patient to return to the psychiatric emergency room for any concerning psychiatric symptoms. Results Blood Pressure 106 / 54 Vital Signs Date Time Temp Pulse Resp B/P Pulse Ox O2 Delivery O2 Flow Rate FiO2 09/10/16 05:06 97.8 76 18 106/54 99 Item Value Date Time White Blood Count 9.1 TH/MM3 09/02/16 1520 Hemoglobin 13.8 GM/DL 09/02/16 1520 Platelet Count 231 TH/MM3 09/02/16 1520 Sodium Level 138 MEQ/L 09/02/16 1520 Potassium Level 3.8 MEQ/L 09/02/16 1520 Chloride Level 102 MEQ/L 09/02/16 1520 Carbon Dioxide Level 27.1 MEQ/L 09/02/16 1520 Blood Urea Nitrogen 16 MG/DL 09/02/16 1520 Creatinine 0.86 MG/DL 09/02/16 1520 Aspartate Amino Transf (AST/SGOT) 22 U/L 09/02/16 1520 Alanine Aminotransferase (ALT/SGPT) 28 U/L 09/02/16 1520 Alkaline Phosphatase 98 U/L 09/02/16 1520 Beta HCG, Qualitative LESS THAN 1 MIU/ML 09/04/16 1120 Carbamazepine (Tegretol) Level 4.5 MCG/ML 09/04/16 1120 Summary of Procedures None done Imaging None done Pending results at discharge: No Medications # of Antipsychotic meds at D/C: 1 Approp Antipsych med options 1 - Minimum of three failed multiple trials of monotherapy. 2 - Documented plan to taper to monotherapy due to previous use of multiple meds OR cross-taper in progress at D/C. 3 - Documentation of augmentation of Clozapine. 4 - Justification other than those listed in allowable values 1-3, document here : Discharge Discharge Date: Sep 10, 2016 Discharge Diagnosis: (1) Intermittent explosive disorder Diagnosis: Principal (chronic, secondary to intellectual disability) ICD Code: F63.81 (2) Intellectual disability Diagnosis: Secondary (chronic) ICD Code: F79 GAF on discharge is 45. Mental Status Exam at Disch Patient is casually dressed. She is fairly well groomed and maintaining basic hygiene. She is awake and alert and oriented to person and hospital at least. No motoric abnormalities noted. Speech is within normal limits for rate, tone and volume. Mood is somewhat sullen and affect is childlike. Thought processes linear. No loosening of associations. No evident delusions. No audiovisual hallucinations. No suicidal or homicidal ideation. Insight and judgment are likely chronically poor. Pt Condition on Discharge: Stable Discharge Disposition: [facility]/TIMOTEO Discharge Instructions Diet Instructions: As Tolerated, No Restrictions Activities you can perform: Weight Bearing as Ayesha Scheduled Appointment: as per counselor's notes Continued Medications: Carbamazepine (Carbamazepine) 200 Mg Tab 200 MG PO Q12HR Replaces Depakote, which has been discontinued. Mental Health Days 15 Ref 1 TAB Cetirizine (Cetirizine) 10 Mg Tab 10 MG PO DAILY Allergies Ref 0 TAB Escitalopram (Lexapro) 20 Mg Tab 20 MG PO DAILY #30 Ref 0 TAB Levothyroxine (Levothyroxine) 50 Mcg Tab 50 MCG PO DAILY Thyroid #30 Ref 0 TAB Lorazepam (Ativan) 0.5 Mg Tab 0.5 MG PO TID PRN ANXIETY AND/OR AGITATION Ref 0 TAB Paliperidone Palmitate Inj (Invega Sustenna Inj) 234 Mg/1.5 Ml Inj 234 MG IM Q28D This dose of Invega Sustenna is due on 09/25/2016. Mental Health # 1 Ref 0 INJECTION Discharge Time <= 30 minutes Discharge/Advance Care Plan Health Problems: (1) Intermittent explosive disorder (2) Intellectual disability Goals to promote your health * To prevent worsening of your condition and complications * To maintain your health at the optimal level Directions to meet your goals Take your medications as prescribed Follow your dietary instruction Follow activity as directed Keep your appointments as scheduled Take your immunizations and boosters as scheduled If your symptoms worsen call your PCP, if no PCP go to Urgent Care Center or Emergency Room For 14/01 questions related to your inpatient stay or results of tests pending at discharge, please contact Dr. Hitesh Crawford at Smoking is Dangerous to Your Health. Avoid second hand smoking Hitesh Crawford MD Sep 10, 2016 13:26
== END 2016-09-10 19:20 | DRG 883 ==
LOC: NEPA 14:41 → NEDA 09-04 08:42 → H270 09-04 10:24 → H260 09-06 18:45
PROVIDERS: ADMIT Psychiatry & Neurology Psychiatry; ATTEND Psychiatry & Neurology Psychiatry
DX: F63.81 Intermittent explosive disorder (principal); F79 Unspecified intellectual disabilities; F41.9 Anxiety disorder, unspecified
CPT/HCPCS: 80053; 80156; 80307; 84703; 85025; 99285; J2060; Q0163

== ENCOUNTER 2016-09-10 23:31 | Emergency (ER) | payer OTHER ==
[~2016-09-10] VITALS: Ht 154.9 cm; Wt 87.0 kg
[2016-09-10 23:43] VITALS: BP 114/62; PULSE 108; RESP 16; TEMP 98.2; O2SAT 95
--- NOTE | 2016-09-11 00:18 | PD ---
HPI . Runaway Chief Complaint: Psychiatric Symptoms Time Seen by Provider: 00:16 Travel History International Travel<30 days: No Contact w/Intl Traveler<30days: No Traveled to known affect area: No History of Present Illness HPI Patient presents stating that she was brought here by the [facility] [employer] [facility] after running away from her fci. She states that her anxiety is acting up. PFSH Past Medical History AAA: No ADD: Yes ADHD: Yes Alzheimer's Disease: No Anemia: No Arthritis: No Asthma: Yes Atrial Fibrillation: Yes Autoimmune Disease: No Blood Disorders: No Bipolar Disorder: Yes Anxiety: Yes Depression: Yes Heart Rhythm Problems: No Cardiomyopathy: No Cerebral Palsy: No High Cholesterol: No Chemotherapy: No Chest Pain: No Congestive Heart Failure: No Cirrhosis: No COPD: No Cerebrovascular Accident: No Coronary Artery Disease: No Cystic Fibrosis: No Dementia: No Developmental Delay: Yes Dialysis: No Diminished Hearing: No Diverticulitis: No Deep Vein Thrombosis: No Endocrine: Yes (ESTROGEN TREATMENT) Gastrointestinal Disorders: No Genetic Disorder: No GERD: No Glaucoma: No Gout: No Genitourinary: No Headaches: Yes Hepatitis: No Hiatal Hernia: No Hypertension: Yes Immune Disorder: No Inguinal Hernia: No Implanted Vascular Access Dvce: No Kidney Stones: No Musculoskeletal: No Neurologic: No Psychiatric: Yes (Yes- Hx of treatment for mood disorder) Reproductive: No Respiratory: No Integumentary: No Immunizations Current: Yes Migraines: No Myocardial Infarction: No Pancreatitis: No Radiation Therapy: No Renal Failure: No Schizophrenia: Yes Sickle Cell Disease: No Sleep Apnea: Yes (C-PAP SETTING AT 2 PER PT) Thyroid Disease: Yes (HYPOTHYROID) Ulcer: No ?: Not LMP: 08/21/16 Menopausal: No : 0 Ectopic : No Ovarian Cysts: No Dilation and Curettage (D&C): No Tubal Ligation: No Past Surgical History Surgical History: No Previous Surgery AICD: No Arteriovenous Shunt: No Section: No Hysterectomy: No Insulin Pump: No Pacemaker: No Other Surgery: No Family History Family Hypercholesterolemia: No Social History Alcohol Use: No Tobacco Use: No Substance Use: No Allergies-Medications (Allergen,Severity, Reaction): Coded Allergies: Red Dyes - Various (Verified Allergy, Severe, BECOMES AGGRESSIVE, VOMITS, 09/11/16) Risperdal (Verified Allergy, Severe, Nausea/Vomiting, 09/11/16) Uncoded Allergies: Seasonal Allergies (Allergy, Unknown, 03/04/12) Reported Meds & Prescriptions Reported Meds & Active Scripts Active Invega Sustenna Inj (Paliperidone Palmitate) 234 Mg/1.5 Ml Inj 234 Mg IM Q28D This dose of Invega Sustenna is due on 09/25/2016. Carbamazepine 200 Mg Tab 200 Mg PO Q12HR 15 Days Replaces Depakote, which has been discontinued. Reported Ativan (Lorazepam) 0.5 Mg Tab 0.5 Mg PO TID PRN Lexapro (Escitalopram Oxalate) 20 Mg Tab 20 Mg PO DAILY Levothyroxine (Levothyroxine Sodium) 50 Mcg Tab 50 Mcg PO DAILY Cetirizine (Cetirizine HCl) 10 Mg Tab 10 Mg PO DAILY Review of Systems Except as stated in HPI: all other systems reviewed are Neg Psychiatric: Positive: Anxiety Physical Exam Narrative GENERAL: Awake and alert and in no acute distress. SKIN: Warm and dry. CARDIOVASCULAR: Regular rate and rhythm. RESPIRATORY: No accessory muscle use. MUSCULOSKELETAL: No obvious deformities. No edema. NEUROLOGICAL: Awake and alert. No obvious cranial nerve deficits. Motor grossly within normal limits. Normal speech. PSYCHIATRIC: Mentally slow. Judgment poor. Data Data Last Documented VS Vital Signs Date Time Temp Pulse Resp B/P Pulse Ox O2 Delivery O2 Flow Rate FiO2 09/10/16 23:43 98.2 108 16 114/62 95 MDM Medical Decision Making Medical Screen Exam Complete: Yes Emergency Medical Condition: Yes Differential Diagnosis Differential diagnosis of depression includes but is not limited to episodic depression, major depression, bipolar disorder, PTSD Narrative Course Patient presents to us in police custody after running away from her fci. She is medically clear for psychiatric evaluation. Diagnosis Primary Impression: Medical clearance for psychiatric admission Condition: Tila Orantes MD Sep 11, 2016 00:18
[2016-09-11 02:23] VITALS: BP 107/60; PULSE 82; RESP 18; O2SAT 99
[2016-09-11 05:16] VITALS: BP 119/66; PULSE 74; RESP 18; O2SAT 99
[2016-09-11] MEDS ORDERED: LORazepam 2 MG TAB PO ONE (08:45)
[2016-09-11 08:47] VITALS: BP 119/66; PULSE 74; RESP 18; O2SAT 99
--- NOTE | 2016-09-11 09:05 | MB ---
cc: HITESH CRAWFORD MD DATE OF CONSULTATION 09/11/2016 PHYSICIAN REQUESTING CONSULTATION Emergency Department REASON FOR CONSULTATION Baron Act HISTORY OF PRESENT ILLNESS Ms. Grijalva is a 26-year-old female with a history of impulse control disorder/intermittent explosive disorder as well as intellectual disability. She is a residential resident. She was just discharged from the inpatient psychiatric unit yesterday. She has a history of acting out behaviorally in order to gain admission to the inpatient psychiatric unit both as an attention seeking ploy and to get away from her residential which she does not presently like. During her most recent admission, we explored alternative placement options, but unfortunately presently there are none per her [employer] worker. She is brought back today on a Baron Act from [facility] [place] [employer] alleging that the patient said that she was "agitated with herself." She did make a threat to walk into traffic in an effort to harm herself to the officer allegedly. Electronic medical record reviewed. The patient was seen and examined. Chart reviewed. Case discussed with nurse in the J-pod. There has been no evidence of any further behavioral disturbance while in the J-pod. No suicidality or homicidality noted. On my examination this morning the patient is calm and pleasant. She says "I left the hospital. I basically took off from my residential and they brought me back up here." She does admit to telling the officer that she would endeavor to hurt herself and says that this was in service of having her brought into the emergency room because she continues not to like her residential. When I inquire why she does not like her residential, she is unable to generate much beyond the fact that she does not like it. She does agree that it is better than being homeless, which is the alternative at present. There is no evidence of psychosis. The patient does not verbalize any AVH nor is there any delusional material. Mood is stable, if a little sullen. She does not verbalize any current suicidal or homicidal ideation, intent or plan but does threatened that if she is discharged she will continue her pattern of running off and threatening suicide to law enforcement in order to be Baron Acted back to the emergency department. The remainder of the psychiatric ROS is negative. I obtained the patient's past psychiatric, family, chemical dependency and social history on my history and physical exam from 08/22/2016. These data are essentially unchanged today. Following my evaluation of the patient, she spit on the nursing station glass. When redirected by RN, patient noted defiantly, "I'm still gonna act out so it doesn't really matter." REVIEW OF SYSTEMS No reported physical complaints today. PAST MEDICAL HISTORY See electronic medical record. PHYSICAL EXAMINATION VITAL SIGNS: Temperature is 98.2, pulse is 74, respirations 18, blood pressure 119/66, pulse oximetry 99% on room air. The patient was physically examined by the ED provider. On my examination today, the patient appears to be in no acute physical distress. No abnormal motor movements noted. LABORATORY DATA No laboratories were obtained during this ED visit. MENTAL STATUS EXAM The patient is in hospital gown. She is fairly well-groomed and maintaining basic hygiene. She is awake, alert and oriented to person and hospital at least. She knows that she was discharged from the hospital yesterday. No abnormal motor movements noted. Speech is within normal limits for rate, tone and volume. Language and fund of knowledge seem reduced for age. Mood is somewhat sullen as I said and affect is blunted. Thought process linear. No loosening of associations. No evident delusions. No audiovisual hallucinations. No current suicidal or homicidal ideation but the patient does threaten to articulate suicidality to law enforcement if discharged to get Baron Acted back to the ED. Insight and judgment are poor, chronically so. ASSESSMENT AND PLAN Intellectual disability with associated issues with impulse control, F79 and F63.81. This is a 26-year-old female with psychiatric history as detailed above who presents under a Baron Act. The patient has a history of acting out behaviorally in service of gaining and maintaining admission to the inpatient psychiatric unit. She is not presently psychotic. There is no evident self-care deficit. She is not verbalizing current suicidal or homicidal ideation, intent or plan but does threatened to articulate suicidality to law enforcement in order to get Baron Acted back to the ED. She does not presently meet Baron Act criteria, and I have lifted the Baron Act. In addition to not presently meeting Baron Act criteria, it would be actively counter-therapeutic to admit this patient to the inpatient psychiatric unit as it would only reinforce the patient's maladaptive behaviors. There is some component of chronic risk related to patient's impulsivity and escalating acting out behaviors, but this risk would likely be worsened in the terminal worker by admission to the inpatient unit for the reasons noted above. I have counseled the patient to utilize adaptive coping skills in service of remaining in the residential as there is no other option at present. The patient is to follow up with outpatient psychiatric provider and remain on psychotropic medications as ordered. I have instructed the nursing staff in the J-pod to get in contact with the patient's residential and [employer] heel caser to facilitate transition back to the residential. The patient is to return to the psychiatric emergency room for any concerning psychiatric symptoms. The patient is otherwise psychiatrically cleared for discharge from the ED. Thank you very much for this consultation. Hitesh Crawford DC/MYRA /7:27 AM /8:55 AM BRUCE
== END 2016-09-11 09:50 ==
LOC: NEPJ 23:31
DX: F79 Unspecified intellectual disabilities (principal); F63.9 Impulse disorder, unspecified; F63.81 Intermittent explosive disorder; F90.9 Attention-deficit hyperactivity disorder, unspecified type; F31.9 Bipolar disorder, unspecified; I48.91 Unspecified atrial fibrillation; I10 Essential (primary) hypertension; F20.9 Schizophrenia, unspecified
CPT/HCPCS: 99284

== ENCOUNTER 2016-09-11 15:28 | Emergency (ER) | payer OTHER ==
[~2016-09-11] VITALS: Ht 154.9 cm; Wt 75.0 kg
[2016-09-11 15:38] VITALS: BP 130/62; PULSE 108; RESP 20; TEMP 98.6; O2SAT 96
--- NOTE | 2016-09-11 16:18 | PD ---
HPI Chief Complaint: Psychiatric Symptoms Time Seen by Provider: 15:55 Travel History International Travel<30 days: No Contact w/Intl Traveler<30days: No Traveled to known affect area: No History of Present Illness HPI The patient is a 26-year-old female who presents emergency department as a Baron act. The patient apparently was found on a side street bleeding from the left hand, when the [place] police launch commander arrived the patient stated she was suicidal because she did not want to go back to the senior living. Patient does have a history of behavioral issues and psychiatric issues and has been evaluated by psychiatry in the past. She denies alcohol or illicit drug use. She does state she has very superficial lacerations to left hand, denies any ingestion of medications. The patient states her tetanus shot is up-to-date. She denies any hallucinations or delusions. PFSH Past Medical History AAA: No ADD: Yes ADHD: Yes Alzheimer's Disease: No Anemia: No Arthritis: No Asthma: Yes Atrial Fibrillation: Yes Autoimmune Disease: No Blood Disorders: No Bipolar Disorder: Yes Anxiety: Yes Depression: Yes Heart Rhythm Problems: No Cardiomyopathy: No Cerebral Palsy: No High Cholesterol: No Chemotherapy: No Chest Pain: No Congestive Heart Failure: No Cirrhosis: No COPD: No Cerebrovascular Accident: No Coronary Artery Disease: No Cystic Fibrosis: No Dementia: No Developmental Delay: Yes Dialysis: No Diminished Hearing: No Diverticulitis: No Deep Vein Thrombosis: No Endocrine: Yes (ESTROGEN TREATMENT) Gastrointestinal Disorders: No Genetic Disorder: No GERD: No Glaucoma: No Gout: No Genitourinary: No Headaches: Yes Hepatitis: No Hiatal Hernia: No Hypertension: Yes Immune Disorder: No Inguinal Hernia: No Implanted Vascular Access Dvce: No Kidney Stones: No Musculoskeletal: No Neurologic: No Psychiatric: Yes (Yes- Hx of treatment for mood disorder) Reproductive: No Respiratory: No Integumentary: No Immunizations Current: Yes Migraines: No Myocardial Infarction: No Pancreatitis: No Radiation Therapy: No Renal Failure: No Schizophrenia: Yes Seizures: Yes (CANNOT CONFIRM) Sickle Cell Disease: No Sleep Apnea: Yes (C-PAP SETTING AT 2 PER PT) Thyroid Disease: Yes (HYPOTHYROID) Ulcer: No ?: Not LMP: 08/21/2016 Menopausal: No : 0 Ectopic : No Ovarian Cysts: No Dilation and Curettage (D&C): No Tubal Ligation: No Past Surgical History AICD: No Arteriovenous Shunt: No Section: No Hysterectomy: No Insulin Pump: No Pacemaker: No Other Surgery: No Family History Family Hypercholesterolemia: No Social History Alcohol Use: No Tobacco Use: No Substance Use: No Allergies-Medications (Allergen,Severity, Reaction): Coded Allergies: Red Dyes - Various (Verified Allergy, Severe, BECOMES AGGRESSIVE, VOMITS, 09/11/16) Risperdal (Verified Allergy, Severe, Nausea/Vomiting, 09/11/16) Uncoded Allergies: Seasonal Allergies (Allergy, Unknown, 03/04/12) Reported Meds & Prescriptions Reported Meds & Active Scripts Active Invega Sustenna Inj (Paliperidone Palmitate) 234 Mg/1.5 Ml Inj 234 Mg IM Q28D This dose of Invega Sustenna is due on 09/25/2016. Carbamazepine 200 Mg Tab 200 Mg PO Q12HR 15 Days Replaces Depakote, which has been discontinued. Reported Ativan (Lorazepam) 0.5 Mg Tab 0.5 Mg PO TID PRN Lexapro (Escitalopram Oxalate) 20 Mg Tab 20 Mg PO DAILY Levothyroxine (Levothyroxine Sodium) 50 Mcg Tab 50 Mcg PO DAILY Cetirizine (Cetirizine HCl) 10 Mg Tab 10 Mg PO DAILY Review of Systems Except as stated in HPI: all other systems reviewed are Neg Skin: Positive Other (as noted in the history of present illness) Psychiatric: Positive: Suicidal Ideations, Mood Disorder, No: Substance Abuse , Homicidal Ideation Physical Exam Narrative GENERAL: Awake, alert, pleasant 26-year-old female who appears her stated age and is in no acute respiratory distress. SKIN: Warm and dry. HEAD: Atraumatic. Normocephalic. EYES: Pupils equal and round. No scleral icterus. No injection or drainage. ENT: No nasal bleeding or discharge. Mucous membranes pink and moist. NECK: Trachea midline. No JVD. CARDIOVASCULAR: Regular rate and rhythm. No murmur appreciated. RESPIRATORY: No accessory muscle use. Clear to auscultation. Breath sounds equal bilaterally. GASTROINTESTINAL: Abdomen soft, non-tender, nondistended. Hepatic and splenic margins not palpable. MUSCULOSKELETAL: Superficial lacerations to the dorsal aspect left hand, no subcutaneous tissue involvement. NEUROLOGICAL: Awake and alert. No obvious cranial nerve deficits. Motor grossly within normal limits. Normal speech. Nonfocal. PSYCHIATRIC: Appropriate mood and affect; insight and judgment normal. Data Data Last Documented VS Vital Signs Date Time Temp Pulse Resp B/P Pulse Ox O2 Delivery O2 Flow Rate FiO2 09/11/16 15:38 98.6 108 20 130/62 96 Orders Complete Blood Count With Diff (09/11/16 16:05) Comprehensive Metabolic Panel (09/11/16 16:05) Psych Screen (09/11/16 16:05) Drug Screen, Random Urine (09/11/16 16:05) MDM Medical Decision Making Medical Screen Exam Complete: Yes Emergency Medical Condition: Yes Medical Record Reviewed: Yes Differential Diagnosis Differential diagnosis includes mood disorder NOS, behavioral disorder, depressive disorder NOS, suicidal ideation, laceration, abrasion, contusion. Narrative Course The patient's wounds of the left hand were cleaned, they're very superficial, no indication for suturing. The patient's tetanus shot is up-to-date. Labs were sent and psychiatric evaluation was ordered. Diagnosis Primary Impression: OTH PERSISTENT MENTAL DIS DUE TO COND CLASSIFIED ELSEWHERE Condition: Stable Juaquin Cuellar MD Sep 11, 2016 16:18
[2016-09-11 17:02] LABS: AUTOMATED NEUTROPHIL # 7.3 TH/MM3 (1.8-7.7); BASOPHIL % 0.2 % (0.0-2.0); EOSINOPHIL % 0.2 % (0.0-4.0); HEMATOCRIT 38.7 % (35.0-46.0); HEMO FLAGS DIFF FINAL; LYMPH % 15.5 % (9.0-44.0); LYMPHOCYTE # 1.4 TH/MM3 (1.0-4.8); MEAN CELL VOLUME 84.3 FL (80.0-100.0); MEAN CORPUSCULAR HEMOGLOBIN 29.3 PG (27.0-34.0); MEAN CORPUSCULAR HGB CONC 34.8 % (32.0-36.0); MONO % 4.6 % (0.0-8.0); NEUT % 79.5 % (16.0-70.0); PLATELET COUNT 231 TH/MM3 (150-450); RED BLOOD COUNT 4.58 MIL/MM3 (4.00-5.30); RED CELL DISTRIBUTION WIDTH 13.5 % (11.6-17.2); WHITE BLOOD COUNT 9.2 TH/MM3 (4.0-11.0)
[2016-09-11 17:05] LABS: AMPHETAMINE, URINE NEG (NEG); BARBITURATES, URINE NEG (NEG); COCAINE, URINE NEG (NEG)
[2016-09-11 17:23] LABS: ALT (GPT) 26 U/L (10-53); ANION GAP 7 MEQ/L (5-15); AST (GOT) 22 U/L (15-37); BICARBONATE 27.7 MEQ/L (21.0-32.0); CHLORIDE 104 MEQ/L (98-107); GLOMERULAR FILTRATION RATE 102 ML/MIN (>89); POTASSIUM 3.7 MEQ/L (3.5-5.1); SODIUM (NA) 139 MEQ/L (136-145)
[2016-09-11 17:32] LABS: ALKALINE PHOSPHATASE 100 U/L (45-117); BLOOD UREA NITROGEN 12 MG/DL (7-18); TOTAL BILIRUBIN ADULT 0.2 MG/DL (0.2-1.0)
[2016-09-11 18:10] VITALS: BP 123/72; PULSE 84; RESP 17; O2SAT 98
[2016-09-11 22:09] VITALS: BP 102/58; PULSE 77; RESP 18; O2SAT 96
[2016-09-12 02:41] VITALS: BP 125/85; PULSE 68; RESP 19; O2SAT 96
[2016-09-12 06:18] VITALS: BP 125/86; PULSE 91; RESP 18; O2SAT 98
[2016-09-12] MEDS ORDERED: BENZTROPINE MESYLATE 2 MG/2 ML VIAL IM ONE (08:30)
[2016-09-12] MEDS ORDERED: CHLORPROMAZINE IM ONE (09:30)
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
[2016-09-12] MEDS ORDERED: LORazepam 2 MG/ML VIAL ONE (16:38)
[2016-09-12] MEDS ORDERED: LORazepam 2 MG/ML VIAL IM ONE (17:00)
[2016-09-12] MEDS ORDERED: LORazepam 2 MG TAB PO ONE (17:00)
[2016-09-12 18:27] VITALS: BP 125/86; PULSE 91; RESP 18; O2SAT 98
== END 2016-09-12 18:46 | disposition home or self-care (01) ==
LOC: NEPA 15:28 → NEPJ 09-12 18:46
DX: S60.512A Abrasion of left hand, initial encounter (principal); F43.24 Adjustment disorder with disturbance of conduct; F63.81 Intermittent explosive disorder; F31.9 Bipolar disorder, unspecified; F79 Unspecified intellectual disabilities; I48.91 Unspecified atrial fibrillation; J45.909 Unspecified asthma, uncomplicated; I10 Essential (primary) hypertension; E03.9 Hypothyroidism, unspecified
CPT/HCPCS: 80053; 80307; 85025; 96372; 99285; J0515; J2060

== ENCOUNTER 2016-09-13 17:27 | Emergency (ER) | payer OTHER ==
[~2016-09-13] VITALS: Ht 154.9 cm; Wt 75.0 kg
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
[2016-09-13 19:33] VITALS: BP 119/69; PULSE 90; RESP 16; TEMP 98.1; O2SAT 97
[2016-09-14 00:24] VITALS: BP 134/73; PULSE 80; RESP 18; O2SAT 95
[2016-09-14 02:13] VITALS: BP 123/61; PULSE 71; RESP 18; O2SAT 99
[2016-09-14 06:31] VITALS: BP 128/74; PULSE 67; RESP 19; O2SAT 98
[2016-09-14 12:00] VITALS: BP 134/83; PULSE 84; RESP 18; TEMP 98.7; O2SAT 96
[2016-09-14] MEDS ORDERED: LORazepam 2 MG/ML VIAL IM ONE (15:45)
[2016-09-14] MEDS ORDERED: LORazepam 2 MG TAB PO ONE (15:45)
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
== END 2016-09-14 18:28 | disposition home or self-care (01) ==
LOC: NEDAMB 17:27 → NEPJ 09-14 18:28
DX: F31.9 Bipolar disorder, unspecified (principal)
CPT/HCPCS: 99283

== ENCOUNTER 2016-09-16 18:22 | Emergency (ER) | payer OTHER ==
[2016-09-16 18:40] VITALS: BP 135/87; PULSE 111; RESP 18; TEMP 98.7; O2SAT 96
[2016-09-16 19:36] LABS: AMPHETAMINE, URINE NEG (NEG); BARBITURATES, URINE NEG (NEG); COCAINE, URINE NEG (NEG)
--- NOTE | 2016-09-16 20:17 | PD ---
HPI Chief Complaint: Psychiatric Symptoms Time Seen by Provider: 20:14 Travel History International Travel<30 days: No Contact w/Intl Traveler<30days: No Traveled to known affect area: No History of Present Illness HPI 26-year-old female that presents to the ED for evaluation of Baron act. Patient was Baron acted by police after apparently she made statements that she was given a kill someone in [facility] and cut herself. Patient has a history of psychiatric illness. Patient lives at a longterm. Patient is a frequent flyer comes to the Hospital multiple times for psychiatric illness. Patient is well known to staff. She does have significant history of psychiatric illness. Patient appears to be compliant with medications. She denies any medical complaint to me at this time. She does have an old cut on her left hand that appears to be healing well. She denies any other chest pain or shortness of breath. Symptoms appear to be worsening because she does not like living at the same longterm. This appears to be worsening for the past couple of days. Symptoms appear to be moderate. She denies any drug abuse. She denies any homicidal ideation or suicidal ideation to me. PFSH Past Medical History AAA: No ADD: Yes ADHD: Yes Alzheimer's Disease: No Anemia: No Arthritis: No Asthma: Yes Atrial Fibrillation: Yes Autoimmune Disease: No Blood Disorders: No Bipolar Disorder: Yes Anxiety: Yes Depression: Yes Heart Rhythm Problems: No Cardiomyopathy: No Cardiovascular Problems: Yes Cerebral Palsy: No High Cholesterol: No Chemotherapy: No Chest Pain: No Congestive Heart Failure: No Cirrhosis: No COPD: No Cerebrovascular Accident: No Coronary Artery Disease: No Cystic Fibrosis: No Dementia: No Developmental Delay: Yes Dialysis: No Diminished Hearing: No Diverticulitis: No Deep Vein Thrombosis: No Endocrine: Yes (ERT) Gastrointestinal Disorders: No Genetic Disorder: No GERD: No Glaucoma: No Gout: No Genitourinary: No Headaches: Yes Hepatitis: No Hiatal Hernia: No Hypertension: Yes Immune Disorder: No Inguinal Hernia: No Implanted Vascular Access Dvce: No Kidney Stones: No Musculoskeletal: No Neurologic: No Psychiatric: Yes Reproductive: No Respiratory: Yes Integumentary: No Immunizations Current: Yes Migraines: No Myocardial Infarction: No Pancreatitis: No Radiation Therapy: No Renal Failure: No Schizophrenia: Yes Seizures: Yes Sickle Cell Disease: No Sleep Apnea: Yes (C-PAP SETTING AT 2 PER PT) Thyroid Disease: Yes (HYPOTHYROID) Ulcer: No ?: Unknown Menopausal: No : 0 Ectopic : No Ovarian Cysts: No Dilation and Curettage (D&C): No Tubal Ligation: No Past Surgical History AICD: No Arteriovenous Shunt: No Section: No Hysterectomy: No Insulin Pump: No Pacemaker: No Other Surgery: No Family History Family Hypercholesterolemia: No Social History Alcohol Use: No Tobacco Use: No Substance Use: No Allergies-Medications (Allergen,Severity, Reaction): Coded Allergies: Red Dyes - Various (Verified Allergy, Severe, BECOMES AGGRESSIVE, VOMITS, 09/16/16) Risperdal (Verified Allergy, Severe, Nausea/Vomiting, 09/16/16) Uncoded Allergies: Seasonal Allergies (Allergy, Unknown, 03/04/12) Reported Meds & Prescriptions Reported Meds & Active Scripts Active Invega Sustenna Inj (Paliperidone Palmitate) 234 Mg/1.5 Ml Inj 234 Mg IM Q28D This dose of Invega Sustenna is due on 09/25/2016. Carbamazepine 200 Mg Tab 200 Mg PO Q12HR 15 Days Replaces Depakote, which has been discontinued. Reported Ativan (Lorazepam) 0.5 Mg Tab 0.5 Mg PO TID PRN Lexapro (Escitalopram Oxalate) 20 Mg Tab 20 Mg PO DAILY Levothyroxine (Levothyroxine Sodium) 50 Mcg Tab 50 Mcg PO DAILY Cetirizine (Cetirizine HCl) 10 Mg Tab 10 Mg PO DAILY Review of Systems Except as stated in HPI: all other systems reviewed are Neg Physical Exam Narrative GENERAL: SKIN: Warm and dry. HEAD: Atraumatic. Normocephalic. EYES: Pupils equal and round. No scleral icterus. No injection or drainage. ENT: No nasal bleeding or discharge. Mucous membranes pink and moist. Tongue is midline. No blood deviation. NECK: Trachea midline. No JVD. CARDIOVASCULAR: Regular rate and rhythm. No murmurs, S3, S4. RESPIRATORY: No accessory muscle use. Clear to auscultation. Breath sounds equal bilaterally. GASTROINTESTINAL: Abdomen soft, non-tender, nondistended. Hepatic and splenic margins not palpable. MUSCULOSKELETAL: Extremities without clubbing, cyanosis, or edema. No obvious deformities. NEUROLOGICAL: Awake and alert. No obvious cranial nerve deficits. Motor grossly within normal limits. Five out of 5 muscle strength in the arms and legs. Normal speech. PSYCHIATRIC: Appropriate mood and affect; insight and judgment normal. Data Data Last Documented VS Vital Signs Date Time Temp Pulse Resp B/P Pulse Ox O2 Delivery O2 Flow Rate FiO2 09/16/16 18:40 98.7 111 18 135/87 96 Room Air Orders Complete Blood Count With Diff (09/16/16 18:46) Comprehensive Metabolic Panel (09/16/16 18:46) Ed Urine Pregnancytest Poc (09/16/16 18:46) Psych Screen (09/16/16 18:46) Drug Screen, Random Urine (09/16/16 18:46) Carbamazepine (Tegretol) (09/16/16 21:00) Labs Laboratory Tests Test 09/16/16 19:14 Urine Opiates Screen NEG Urine Barbiturates Screen NEG Urine Amphetamines Screen NEG Urine Benzodiazepines Screen NEG Urine Cocaine Screen NEG Urine Cannabinoids Screen NEG MDM Medical Decision Making Medical Screen Exam Complete: Yes Emergency Medical Condition: Yes Medical Record Reviewed: Yes Interpretation(s) tox negative Differential Diagnosis Depression versus suicidal ideation versus anxiety versus adjustment disorder versus mood disorder versus bipolar disorder versus schizophrenia versus paranoid disorder versus psychosis versus substance abuse versus alcohol abuse versus alcohol induced psychosis versus homicidality addition versus cutting versus personality disorder Narrative Course 26-year-old female that presents to the for versus ectopic illness. Patient was properly examined and was found to have signs and symptoms consistent appears to be psychiatric illness. No sign of acute medical distress. At this time labs were drawn. Patient will be medically clear. Okay to be seen by psych.Mental health screening was discussed with the patient. Diagnosis Primary Impression: Adjustment disorder with mixed disturbance of emotions and conduct Sudhir Webb Sep 16, 2016 20:17
[2016-09-16 20:23] VITALS: PULSE 93
[2016-09-16] MEDS: carBAMazepine 200 MG TAB PO SCH (20:38)
[2016-09-16 20:57] LABS: AUTOMATED NEUTROPHIL # 3.9 TH/MM3 (1.8-7.7); BASOPHIL % 0.4 % (0.0-2.0); EOSINOPHIL % 0.1 % (0.0-4.0); HEMATOCRIT 37.9 % (35.0-46.0); HEMO FLAGS DIFF FINAL; LYMPH % 30.4 % (9.0-44.0); LYMPHOCYTE # 1.9 TH/MM3 (1.0-4.8); MEAN CORPUSCULAR HEMOGLOBIN 29.3 PG (27.0-34.0); MEAN CORPUSCULAR HGB CONC 34.9 % (32.0-36.0); MONO % 7.5 % (0.0-8.0); NEUT % 61.6 % (16.0-70.0); PLATELET COUNT 333 TH/MM3 (150-450); RED BLOOD COUNT 4.52 MIL/MM3 (4.00-5.30); RED CELL DISTRIBUTION WIDTH 13.5 % (11.6-17.2); WHITE BLOOD COUNT 6.4 TH/MM3 (4.0-11.0)
[2016-09-16 21:20] LABS: ANION GAP 10 MEQ/L (5-15)
[2016-09-16 21:34] LABS: ALKALINE PHOSPHATASE 109 U/L (45-117); ALT (GPT) 30 U/L (10-53); AST (GOT) 36 U/L (15-37); BICARBONATE 27.1 MEQ/L (21.0-32.0); BLOOD UREA NITROGEN 13 MG/DL (7-18); CHLORIDE 100 MEQ/L (98-107); GLOMERULAR FILTRATION RATE 79 ML/MIN (>89); SODIUM (NA) 137 MEQ/L (136-145); TOTAL BILIRUBIN ADULT 0.3 MG/DL (0.2-1.0)
[2016-09-16 21:38] LABS: POTASSIUM 3.9 MEQ/L (3.5-5.1)
[2016-09-17 06:52] VITALS: BP 121/60; PULSE 67; RESP 18; TEMP 97.5; O2SAT 97
[2016-09-17] MEDS: carBAMazepine 200 MG TAB PO SCH (09:00)
[2016-09-17] MEDS ORDERED: ACETAMINOPHEN 500 MG CPLT PO ONE (17:45)
[2016-09-17 18:23] VITALS: BP 138/86; PULSE 78; RESP 17; O2SAT 95
[2016-09-18] MEDS ORDERED: APRITAB PO (16:26)
[2016-09-18] MEDS ORDERED: FLUT1SPR5 EACH NARE (16:26)
== END 2016-09-17 18:58 | disposition home or self-care (01) ==
LOC: NEDAMB 18:22 → NEPJ 09-17 18:58
DX: F43.25 Adjustment disorder with mixed disturbance of emotions and conduct (principal); I48.91 Unspecified atrial fibrillation; F31.9 Bipolar disorder, unspecified; F41.9 Anxiety disorder, unspecified; I10 Essential (primary) hypertension; F20.9 Schizophrenia, unspecified
CPT/HCPCS: 80053; 80307; 84703; 85025; 99284

== ENCOUNTER 2016-09-17 20:09 | Emergency (ER) | payer OTHER ==
[~2016-09-17] VITALS: Ht 162.6 cm; Wt 95.0 kg
[2016-09-17] MEDS ORDERED: LORazepam 2 MG/ML VIAL IM ONE (21:00)
--- NOTE | 2016-09-17 21:41 | PD ---
HPI Chief Complaint: Psychiatric Symptoms Time Seen by Provider: 21:34 Travel History International Travel<30 days: No Contact w/Intl Traveler<30days: No Traveled to known affect area: No History of Present Illness HPI 26-year-old female with a history of psychiatric illness that presents to the ED under Baron act after leaving our facility. Patient was here just yesterday and was actually seen by me yesterday. Patient came here under by BA yesterday up to her apparent she made threats that she wanted to kill people in [facility] because she didn't want to go back to her fci. She had blood work and was medically cleared. Apparently she was just released less than a couple hours ago and when she was about to be released to be put on a car to be transported to her fci she apparently got out of the car on her own and run away. Patient was caught by police and brought back here under a Baron act. Patient voices no complaints. Patient apparently did cut herself on her right hand which appears to be very superficial. No chest pain or shortness of breath. No other medical complaints. Patient had to be restrained and she was very agitated here in the ED. No new changes to her medical history since been here yesterday. History is somewhat limited as she would not really cooperate with me or staff. At the moment she wants to sleep and she does not want us to disturb her. PFSH Past Medical History AAA: No ADD: Yes ADHD: Yes Alzheimer's Disease: No Anemia: No Arthritis: No Asthma: Yes Atrial Fibrillation: Yes Autoimmune Disease: No Blood Disorders: No Bipolar Disorder: Yes Anxiety: Yes Depression: Yes Heart Rhythm Problems: No Cardiomyopathy: No Cardiovascular Problems: Yes Cerebral Palsy: No High Cholesterol: No Chemotherapy: No Chest Pain: No Congestive Heart Failure: No Cirrhosis: No COPD: No Cerebrovascular Accident: No Coronary Artery Disease: No Cystic Fibrosis: No Dementia: No Developmental Delay: Yes Dialysis: No Diminished Hearing: No Diverticulitis: No Deep Vein Thrombosis: No Endocrine: Yes (ERT) Gastrointestinal Disorders: No Genetic Disorder: No GERD: No Glaucoma: No Gout: No Genitourinary: No Headaches: Yes Hepatitis: No Hiatal Hernia: No Hypertension: Yes Immune Disorder: No Inguinal Hernia: No Implanted Vascular Access Dvce: No Kidney Stones: No Musculoskeletal: No Neurologic: No Psychiatric: Yes Reproductive: No Respiratory: Yes Integumentary: No Immunizations Current: Yes Migraines: No Myocardial Infarction: No Pancreatitis: No Radiation Therapy: No Renal Failure: No Schizophrenia: Yes Seizures: Yes Sickle Cell Disease: No Sleep Apnea: Yes (C-PAP SETTING AT 2 PER PT) Thyroid Disease: Yes (HYPOTHYROID) Ulcer: No Menopausal: No : 0 Ectopic : No Ovarian Cysts: No Dilation and Curettage (D&C): No Tubal Ligation: No Past Surgical History AICD: No Arteriovenous Shunt: No Section: No Hysterectomy: No Insulin Pump: No Pacemaker: No Other Surgery: No Family History Family Hypercholesterolemia: No Social History Alcohol Use: No Tobacco Use: No Substance Use: No Allergies-Medications (Allergen,Severity, Reaction): Coded Allergies: Red Dyes - Various (Verified Allergy, Severe, BECOMES AGGRESSIVE, VOMITS, 09/16/16) Risperdal (Verified Allergy, Severe, Nausea/Vomiting, 09/16/16) Uncoded Allergies: Seasonal Allergies (Allergy, Unknown, 03/04/12) Reported Meds & Prescriptions Reported Meds & Active Scripts Active Invega Sustenna Inj (Paliperidone Palmitate) 234 Mg/1.5 Ml Inj 234 Mg IM Q28D This dose of Invega Sustenna is due on 09/25/2016. Carbamazepine 200 Mg Tab 200 Mg PO Q12HR 15 Days Replaces Depakote, which has been discontinued. Reported Ativan (Lorazepam) 0.5 Mg Tab 0.5 Mg PO TID PRN Lexapro (Escitalopram Oxalate) 20 Mg Tab 20 Mg PO DAILY Levothyroxine (Levothyroxine Sodium) 50 Mcg Tab 50 Mcg PO DAILY Cetirizine (Cetirizine HCl) 10 Mg Tab 10 Mg PO DAILY Review of Systems ROS Limitations: Poor Historian Except as stated in HPI: all other systems reviewed are Neg Physical Exam Narrative GENERAL: SKIN: Warm and dry. HEAD: Atraumatic. Normocephalic. EYES: Pupils equal and round. No scleral icterus. No injection or drainage. ENT: No nasal bleeding or discharge. Mucous membranes pink and moist. Tongue is midline. No uvula deviation. NECK: Trachea midline. No JVD. CARDIOVASCULAR: Regular rate and rhythm. No murmurs, S3, S4. RESPIRATORY: No accessory muscle use. Clear to auscultation. Breath sounds equal bilaterally. GASTROINTESTINAL: Abdomen soft, non-tender, nondistended. Hepatic and splenic margins not palpable. MUSCULOSKELETAL: Extremities without clubbing, cyanosis, or edema. No obvious deformities. Full range of motion of the upper and lower extremities bilaterally. 2+ pulses bilaterally. NEUROLOGICAL: Awake and alert. No obvious cranial nerve deficits. Motor grossly within normal limits. Five out of 5 muscle strength in the arms and legs. Normal speech. PSYCHIATRIC: Anxious mood and affect; insight and judgment normal. Data Data Orders Lorazepam Inj (Ativan Inj) (09/17/16 21:00) Psych Screen (09/17/16 21:27) [facility] Medical Decision Making Medical Screen Exam Complete: Yes Emergency Medical Condition: Yes Medical Record Reviewed: Yes Differential Diagnosis Depression versus suicidal ideation versus anxiety versus adjustment disorder versus mood disorder versus bipolar disorder versus schizophrenia versus paranoid disorder versus psychosis versus substance abuse versus alcohol abuse versus alcohol induced psychosis versus homicidality addition versus cutting versus personality disorder Narrative Course 26-year-old female that presents to the ED for evaluation of psych. Patient was properly examined and was found to have signs and symptoms consistent appears to be psychiatric illness. No sign of acute medical distress. Patient was given Ativan had to be restrained. Patient is well known to me as a evaluate her yesterday for the same. At this time I do not believe any additional labs are required as patient does have labs yesterday and patient has not even made it more than 2 hours onset of the hospital. Patient was medically clear. Okay to be seen by psych. Mental health screening was discussed with the patient. Diagnosis Primary Impression: Adjustment disorder with mixed disturbance of emotions and conduct Sudhir Webb Sep 17, 2016 21:41
[2016-09-17 22:20] VITALS: BP 125/54; PULSE 94; RESP 22; TEMP 98.3; O2SAT 98
[2016-09-18 07:00] VITALS: BP 118/58; PULSE 77; RESP 16; TEMP 98; O2SAT 99
[2016-09-18] MEDS ORDERED: APRITAB PO (16:26)
[2016-09-18] MEDS ORDERED: FLUT1SPR5 EACH NARE (16:26)
[2016-09-18 19:10] VITALS: BP 126/62; PULSE 71; RESP 16; TEMP 98.4; O2SAT 99
[2016-09-18] MEDS ORDERED: LORazepam 0.5 MG TAB PO ONE (21:45)
[2016-09-18] MEDS ORDERED: carBAMazepine 200 MG TAB PO ONE (21:45)
[2016-09-19 07:35] VITALS: BP 120/66; PULSE 68; RESP 16; TEMP 97.9; O2SAT 98
[2016-09-19 10:30] VITALS: BP 122/67; PULSE 68; RESP 16; O2SAT 99
== END 2016-09-19 12:29 | disposition home or self-care (01) ==
LOC: NEPA 20:09
DX: F43.25 Adjustment disorder with mixed disturbance of emotions and conduct (principal); S60.512A Abrasion of left hand, initial encounter; R56.9 Unspecified convulsions; F20.9 Schizophrenia, unspecified; X58.XXXD Exposure to other specified factors, subsequent encounter; F90.9 Attention-deficit hyperactivity disorder, unspecified type; F41.8 Other specified anxiety disorders; F70 Mild intellectual disabilities; I10 Essential (primary) hypertension; I48.91 Unspecified atrial fibrillation; E03.9 Hypothyroidism, unspecified; Z04.6 Encounter for general psychiatric examination, requested by authority
CPT/HCPCS: 96372; 99285; J2060

== ENCOUNTER 2016-09-19 12:51 | Emergency (ER) | payer OTHER ==
[~2016-09-19 12:51] MED LIST changes: +APRITAB PO; +FLUT1SPR5 EACH NARE
--- NOTE | 2016-09-19 14:12 | PD ---
HPI Chief Complaint: Psychiatric Symptoms Time Seen by Provider: 14:00 Travel History International Travel<30 days: No Contact w/Intl Traveler<30days: No Traveled to known affect area: No History of Present Illness HPI 26-year-old female presents under Baron act initiated by the Police Department. According to the paperwork the patient held a knife to her neck and was trying to cut her throat. She said that she would kill herself before she goes back to her correction. This is the patient's fifth visit this week for psychiatric evaluation. The patient was most recently discharged early this morning after having a Baron act lifted. The patient is essentially refusing any examination and is minimally cooperative with history that she hates her life and that's why she was trying to cut her neck. She is refusing to allow vital signs to be performed however I have evaluated her previous records and her vital signs were all within normal limits. History is limited by patient uncooperative behavior. PFSH Past Medical History AAA: No ADD: Yes ADHD: Yes Alzheimer's Disease: No Anemia: No Arthritis: No Asthma: Yes Atrial Fibrillation: Yes Autoimmune Disease: No Blood Disorders: No Bipolar Disorder: Yes Anxiety: Yes Depression: Yes Heart Rhythm Problems: No Cardiomyopathy: No Cardiovascular Problems: Yes Cerebral Palsy: No High Cholesterol: No Chemotherapy: No Chest Pain: No Congestive Heart Failure: No Cirrhosis: No COPD: No Cerebrovascular Accident: No Coronary Artery Disease: No Cystic Fibrosis: No Dementia: No Developmental Delay: Yes Dialysis: No Diminished Hearing: No Diverticulitis: No Deep Vein Thrombosis: No Endocrine: Yes (ERT) Gastrointestinal Disorders: No Genetic Disorder: No GERD: No Glaucoma: No Gout: No Genitourinary: No Headaches: Yes Hepatitis: No Hiatal Hernia: No Hypertension: Yes Immune Disorder: No Inguinal Hernia: No Implanted Vascular Access Dvce: No Kidney Stones: No Musculoskeletal: No Neurologic: No Psychiatric: Yes Reproductive: No Respiratory: Yes Integumentary: No Immunizations Current: Yes Migraines: No Myocardial Infarction: No Pancreatitis: No Radiation Therapy: No Renal Failure: No Schizophrenia: Yes Seizures: Yes Sickle Cell Disease: No Sleep Apnea: Yes (C-PAP SETTING AT 2 PER PT) Thyroid Disease: Yes (HYPOTHYROID) Ulcer: No Menopausal: No : 0 Ectopic : No Ovarian Cysts: No Dilation and Curettage (D&C): No Tubal Ligation: No Past Surgical History AICD: No Arteriovenous Shunt: No Section: No Hysterectomy: No Insulin Pump: No Pacemaker: No Other Surgery: No Family History Family Hypercholesterolemia: No Social History Alcohol Use: No Tobacco Use: No Substance Use: No Allergies-Medications (Allergen,Severity, Reaction): Coded Allergies: Red Dyes - Various (Verified Allergy, Severe, BECOMES AGGRESSIVE, VOMITS, 09/16/16) Risperdal (Verified Allergy, Severe, Nausea/Vomiting, 09/16/16) Uncoded Allergies: Seasonal Allergies (Allergy, Unknown, 03/04/12) Reported Meds & Prescriptions Reported Meds & Active Scripts Active Invega Sustenna Inj (Paliperidone Palmitate) 234 Mg/1.5 Ml Inj 234 Mg IM Q28D This dose of Invega Sustenna is due on 09/25/2016. Carbamazepine 200 Mg Tab 200 Mg PO Q12HR 15 Days Replaces Depakote, which has been discontinued. Reported Flonase Nasal [place] (Fluticasone Nasal [place]) 50 Mcg/Act [place] 1 [place] EACH NARE DAILY Apri (Desogestrel-Ethinyl Estradiol) 0.15-30 Mg-Mcg Tab 1 Tab PO DAILY Ativan (Lorazepam) 0.5 Mg Tab 0.5 Mg PO TID PRN Lexapro (Escitalopram Oxalate) 20 Mg Tab 20 Mg PO DAILY Levothyroxine (Levothyroxine Sodium) 50 Mcg Tab 50 Mcg PO DAILY Cetirizine (Cetirizine HCl) 10 Mg Tab 10 Mg PO DAILY Review of Systems ROS Limitations: Refused Except as stated in HPI: all other systems reviewed are Neg Physical Exam Exam Limitations: Refused Narrative GENERAL: Well developed well-nourished female in no acute distress SKIN: Warm and dry. NEUROLOGICAL: Awake and alert. No obvious cranial nerve deficits. Motor grossly within normal limits. Normal speech. PSYCHIATRIC: Somewhat agitated. Poor eye contact. The patient refuses any additional physical examination. Data Data Orders Psych Screen (09/19/16 13:57) [facility] Medical Decision Making Medical Screen Exam Complete: Yes Emergency Medical Condition: Yes Medical Record Reviewed: Yes Differential Diagnosis Adjustment reaction, intermittent explosive disorder, bipolar disorder, acute psychosis, substance-induced disorder Narrative Course 26-year-old female presents under Baron act for evaluation of suicidal ideation. I reviewed her labs from just a few days ago and they were all normal. She is medically cleared for psychiatric disposition. Diagnosis Primary Impression: Medical clearance for psychiatric admission Eliud Moya Sep 19, 2016 14:12
[2016-09-19] MEDS ORDERED: LORazepam 2 MG/ML VIAL IM ONE ×2 (16:00→20:15)
[2016-09-19 20:14] VITALS: BP 142/78; PULSE 88; RESP 18; TEMP 97.7; O2SAT 97
[2016-09-19 22:39] VITALS: BP 124/73; PULSE 73; RESP 17; O2SAT 96
[2016-09-20 02:12] VITALS: BP 143/81; PULSE 89; RESP 19; O2SAT 99
[2016-09-20 06:42] VITALS: BP 124/72; PULSE 75; RESP 19; O2SAT 97
[2016-09-20] MEDS ORDERED: HALOPERIDOL 2 MG TAB PO ONE (11:00)
--- NOTE | 2016-09-20 13:50 | PD ---
History of Present Illness Chief Complaint: Psychiatric Symptoms Time Seen by Provider: 10:15 Travel History International Travel<30 Days: No Contact w/Intl Traveler<30days: No Known affected area: No Legal Status Legal Status: Baron Act Baron Act Signed By: Hali Rooney Baron Act Comment: BA signed: PIERO MONK Badge#[id number], Case#[id number] History of Present Illness: History of Present Illness 26-year-old female with history of bipolar disorder as well intellectual disability presents under Baron act initiated by the [employer]. According to the paperwork the patient held a knife to her neck and was trying to cut her throat. She said that she would kill herself before she goes back to her care home. This is the patient's fifth visit this week for psychiatric evaluation. After she was in [facility] staff report that she sat on the floor with a blanket tied around her neck. This morning the patient is awake , alert and oriented. She has been calm and has not exhibited any aggressive or self harming behaviors. She tells me that she believes that her medication Tegretol is not working and her mother also believes that this medication is not working. Audrey asks to be tried on other medications .She states that she was on Seroquel as well as on Geodon in the past.Geodon caused her to have involuntary movements. She wants to try Haldol. Patient has been monitored in [facility]. She has had several behaviors while here. At this time she is calm, engaging and cooperative. PFS Past Medical History AAA: No ADD: Yes ADHD: Yes Alzheimer's Disease: No Anemia: No Arthritis: No Asthma: Yes Atrial Fibrillation: Yes Autoimmune Disease: No Blood Disorders: No Bipolar Disorder: Yes Anxiety: Yes Depression: Yes Heart Rhythm Problems: No Cardiomyopathy: No Cardiovascular Problems: Yes Cerebral Palsy: No High Cholesterol: No Chemotherapy: No Chest Pain: No Congestive Heart Failure: No Cirrhosis: No COPD: No Cerebrovascular Accident: No Coronary Artery Disease: No Cystic Fibrosis: No Dementia: No Developmental Delay: Yes Dialysis: No Diminished Hearing: No Diverticulitis: No Deep Vein Thrombosis: No Endocrine: Yes (ERT) Gastrointestinal Disorders: No Genetic Disorder: No GERD: No Glaucoma: No Gout: No Genitourinary: No Headaches: Yes Hepatitis: No Hiatal Hernia: No Hypertension: Yes Immune Disorder: No Inguinal Hernia: No Implanted Vascular Access Dvce: No Kidney Stones: No Musculoskeletal: No Neurologic: No Psychiatric: Yes Reproductive: No Respiratory: Yes Integumentary: No Immunizations Current: Yes Migraines: No Myocardial Infarction: No Pancreatitis: No Radiation Therapy: No Renal Failure: No Schizophrenia: Yes Seizures: Yes Sickle Cell Disease: No Sleep Apnea: Yes (C-PAP SETTING AT 2 PER PT) Thyroid Disease: Yes (HYPOTHYROID) Ulcer: No Menopausal: No : 0 Ectopic : No Ovarian Cysts: No Dilation and Curettage (D&C): No Tubal Ligation: No Past Surgical History AICD: No Arteriovenous Shunt: No Section: No Hysterectomy: No Insulin Pump: No Pacemaker: No Other Surgery: No Psychiatric History Psychiatric History Hx Psychiatric Treatment: Pt. has long standing history of inpatient psychiatric hospitalization, last visit at [facility] dating August 31, 2016. Pt. recieves outpatient psychiatric services through [facility]. History of Inpatient Treatment: Yes Guns or firearms in home: No Social History Lives in care home. Hx Alcohol Use: No Hx Tobacco Use: No Hx Substance Use: No Hx of Substance Use Treatment: No Family Psychiatric History unknown Allergies-Medications (Allergen,Severity, Reaction): Coded Allergies: Red Dyes - Various (Verified Allergy, Severe, BECOMES AGGRESSIVE, VOMITS, 09/16/16) Risperdal (Verified Allergy, Severe, Nausea/Vomiting, 09/16/16) Uncoded Allergies: Seasonal Allergies (Allergy, Unknown, 03/04/12) Reported Meds & Prescriptions Reported Meds & Active Scripts Active Invega Sustenna Inj (Paliperidone Palmitate) 234 Mg/1.5 Ml Inj 234 Mg IM Q28D This dose of Invega Sustenna is due on 09/25/2016. Carbamazepine 200 Mg Tab 200 Mg PO Q12HR 15 Days Replaces Depakote, which has been discontinued. Reported Flonase Nasal [place] (Fluticasone Nasal [place]) 50 Mcg/Act [place] 1 [place] EACH NARE DAILY Apri (Desogestrel-Ethinyl Estradiol) 0.15-30 Mg-Mcg Tab 1 Tab PO DAILY Ativan (Lorazepam) 0.5 Mg Tab 0.5 Mg PO TID PRN Lexapro (Escitalopram Oxalate) 20 Mg Tab 20 Mg PO DAILY Levothyroxine (Levothyroxine Sodium) 50 Mcg Tab 50 Mcg PO DAILY Cetirizine (Cetirizine HCl) 10 Mg Tab 10 Mg PO DAILY Review of Systems Neurologic: COMPLAINS OF: Speech Problems (speaks with slight slurred speech) Psychiatric: COMPLAINS OF: Mood changes, Suicidal Ideation Exam Alert: Yes [place]: Person (ox4) Mood: Calm Affect: Labile Speech: Clear Eye Contact: Normal Memory Intact: Comment (not formally tetsed) Hallucinations: Other (negative) Delusions: No Suicidal: Ideation (deneis at present) Homicidal: Ideation (deneis at present) Insight/Judgement poor. poor MDM Medical Decision Making Medical Record Reviewed: Yes Assessment/Plan 26 year old female under a BA after she reported she wanted to kill herself. This patient has been to ED x 5 this week with similar complaints and behaviors such as running away from the care home. She has made it clear she will continue to engage in such behaviors until she is transferred to another care home. Her [place] [employer] plater has initiated an emergency transfer but at this time the process is on hold. I have agreed to a medication trial at his point and have ordered Haldol 2 mg . I have asked RN Kate to contact her mother to inform her. At this point J pod is providing a respite for Audrey with plans to have her go back to care home once she feels safe and has demonstrated behavioral control .This plan is contingent on the care home accepting her back. Orders Psych Screen (09/19/16 13:57) Lorazepam Inj (Ativan Inj) (09/19/16 16:00) Diet Regular Basic (09/19/16 Dinner) Lorazepam Inj (Ativan Inj) (09/19/16 20:15) Diet Regular Basic (09/20/16 Breakfast) Haloperidol (Haldol) (09/20/16 11:00) Diet Regular Basic (09/20/16 Lunch) Results Vital Signs Date Time Temp Pulse Resp B/P Pulse Ox O2 Delivery O2 Flow Rate FiO2 09/20/16 06:42 75 19 124/72 97 Room Air 09/20/16 02:12 89 19 143/81 99 Room Air 09/19/16 22:39 73 17 124/73 96 Room Air 09/19/16 20:14 97.7 88 18 142/78 97 Room Air Diagnosis Primary Impression: Medical clearance for psychiatric admission Additional Impression: Bipolar I disorder, most recent episode (or current) mixed, in partial or unspecified remission Problem Qualifiers Marilu Castaneda Sep 20, 2016 13:50
[2016-09-20 15:42] VITALS: BP 124/74; PULSE 95; RESP 18; TEMP 98.7; O2SAT 98
[2016-09-20 17:59] VITALS: BP 123/77; PULSE 73; RESP 18; O2SAT 97
[2016-09-20] MEDS ORDERED: LORazepam 2 MG/ML VIAL IM ONE (20:45)
[2016-09-20 22:13] VITALS: BP 114/58; PULSE 78; RESP 18; O2SAT 99
[2016-09-21 02:05] VITALS: BP 111/68; PULSE 68; RESP 18; O2SAT 95
[2016-09-21] MEDS ORDERED: LEVOTHYROXINE SODIUM 50 MCG TAB PO SCH (06:00)
[2016-09-21 06:32] VITALS: BP 116/83; PULSE 57; RESP 18; O2SAT 95
[2016-09-21] MEDS ORDERED: ETHINYL ESTRADIOL PO SCH (09:00)
[2016-09-21] MEDS ORDERED: ESCITALOPRAM OXALATE 20 MG TAB PO SCH (09:00)
[2016-09-21] MEDS ORDERED: DESOGESTREL PO SCH (09:00)
[2016-09-21 10:00] VITALS: BP 134/99; PULSE 96; RESP 18
[2016-09-21] MEDS ORDERED: HALOPERIDOL 5 MG TAB PO SCH (10:26)
--- NOTE | 2016-09-21 10:37 | HHI.PYPN ---
Subjective Remarks Pt seen and examined. Chart reviewed. Case d/w RN and ELIEZER Castaneda. Patient with lengthy history of acting out as a consequence of intellectual disability and not liking her residential. This behavior continues. Possibly some benefit from Haldol ordered by ELIEZER yesterday. At the time of my evaluation, patient had already been told she was likely returning to as her actions were behavioral. Consequently, she is beginning to escalate. She is wandering around the unit acting in a silly, childlike fashion. She is redirectable by staff. She does not verbalize any current SI/HI. There is no evidence of ricardo diane psychosis. No evidence of unstable mood disorder. She believes that the Tegretol is causing her to destabilize, but I should note that the patient says she has discussed this with her mother, and I am led to understand by the RN that this is a theory of the mother's that the patient may simply be repeating. In any event, patient likes the Haldol that the ELIEZER ordered yesterday and is tolerating it well without side effects. Left for mother requesting a call back at ~10:25am. Review of Systems ROS Limitations: Poor Historian Except as stated in HPI: all other systems reviewed are Neg Objective Alert: Yes [place]: Person (O x 4) Mood: Happy Affect: Labile (childlike) Memory Intact: Comment (Not formally assessed) Hallucinations: Other (No AVH) Delusions: No Delusion Type: Other (No delusions) Suicidal: Ideation (No SI) Homicidal: Ideation (No HI) Insight/Judgement Poor, chronically so Remarks No hand tremor, dystonia, dyskinesia. TP linear. Speech a little sing-song but otherwise wnl. Labs No labs drawn this visit. Vitals/IOs Vital Signs Date Time Temp Pulse Resp B/P Pulse Ox O2 Delivery O2 Flow Rate FiO2 09/21/16 06:32 57 18 116/83 95 Room Air 09/20/16 15:42 98.7 Intake and Output 09/20/16 09/20/16 09/21/16 08:00 16:00 00:00 Intake Total 300 ml Balance 300 ml Assessment & Plan Problem List: (1) Adjustment disorder with mixed disturbance of emotions and conduct ICD Code: F43.25 (2) Intellectual disability ICD Code: F79 Assessment & Plan Ongoing acting out in the setting of intellectual disability and not liking her residential. Psychiatric admission will not fix this and would be actively counter-therapeutic by reinforcing and supporting patient's acting out. Patient is a chronic risk for suicide/violence as a consequence of impulsivity related to intellectual disability. I am to understand that [facility] CM is working on emergency placement, but this will not occur in the near future. I am sceptical that medications are having any effect, good or bad, on patient's presentation. Nonetheless, given patient preference and staff report of some benefit from Haldol, I will titrate her Haldol to 5mg BID. She can discontinue Tegretol. Continue other psychotropics as ordered. Lift Baron Act. Return to current facility. Follow up with outpatient provider. Return to ED for any concerning symptoms. Justification for Cont. Inpt. . Hitesh Crawford MD Sep 21, 2016 10:37
[2016-09-21] MEDS ORDERED: LORazepam 1 MG TAB PO ONE (16:30)
== END 2016-09-21 17:11 | disposition home or self-care (01) ==
LOC: NEPJ 12:51
DX: Z02.89 Encounter for other administrative examinations (principal); F31.77 Bipolar disorder, in partial remission, most recent episode mixed; F43.25 Adjustment disorder with mixed disturbance of emotions and conduct; F79 Unspecified intellectual disabilities; I10 Essential (primary) hypertension; E03.9 Hypothyroidism, unspecified; G47.30 Sleep apnea, unspecified; Z86.59 Personal history of other mental and behavioral disorders; Z87.09 Personal history of other diseases of the respiratory system; Z86.79 Personal history of other diseases of the circulatory system; Z86.69 Personal history of other diseases of the nervous system and sense organs
CPT/HCPCS: 96372; 99284; J2060

== ENCOUNTER 2016-09-22 14:51 | Emergency (ER) | payer OTHER ==
--- NOTE | 2016-09-22 16:08 | PD ---
HPI Chief Complaint: Back/ Neck Pain or Injury Time Seen by Provider: 16:04 Travel History International Travel<30 days: No Contact w/Intl Traveler<30days: No Traveled to known affect area: No History of Present Illness HPI 26-year-old female presents to emergency department as a transfer from [facility] for psychiatric evaluation. Apparently, the patient ran away from her assisted. She has been seen here on multiple occasions for psychiatric evaluation. She is under Baron act at this time. The patient is yelling profanities and refuses to answer most questions. She is alert and oriented to person, place, time. When asked if she has any thoughts of hurting herself or anyone else she states "maybe". Patient denies any medical complaints at this time. PFSH Past Medical History AAA: No ADD: Yes ADHD: Yes Alzheimer's Disease: No Anemia: No Arthritis: No Asthma: Yes Atrial Fibrillation: Yes Autoimmune Disease: No Blood Disorders: No Bipolar Disorder: Yes Anxiety: Yes Depression: Yes Heart Rhythm Problems: No Cardiomyopathy: No Cardiovascular Problems: Yes Cerebral Palsy: No High Cholesterol: No Chemotherapy: No Chest Pain: No Congestive Heart Failure: No Cirrhosis: No COPD: No Cerebrovascular Accident: No Coronary Artery Disease: No Cystic Fibrosis: No Dementia: No Developmental Delay: Yes Dialysis: No Diminished Hearing: No Diverticulitis: No Deep Vein Thrombosis: No Endocrine: Yes (ERT) Gastrointestinal Disorders: No Genetic Disorder: No GERD: No Glaucoma: No Gout: No Genitourinary: No Headaches: Yes Hepatitis: No Hiatal Hernia: No Hypertension: Yes Immune Disorder: No Inguinal Hernia: No Implanted Vascular Access Dvce: No Kidney Stones: No Musculoskeletal: No Neurologic: No Psychiatric: Yes Reproductive: No Respiratory: Yes Integumentary: No Immunizations Current: Yes Migraines: No Myocardial Infarction: No Pancreatitis: No Radiation Therapy: No Renal Failure: No Schizophrenia: Yes Seizures: Yes Sickle Cell Disease: No Sleep Apnea: Yes (C-PAP SETTING AT 2 PER PT) Thyroid Disease: Yes (HYPOTHYROID) Ulcer: No ?: Not Menopausal: No : 0 Ectopic : No Ovarian Cysts: No Dilation and Curettage (D&C): No Tubal Ligation: No Past Surgical History AICD: No Arteriovenous Shunt: No Section: No Hysterectomy: No Insulin Pump: No Pacemaker: No Other Surgery: No Family History Family Hypercholesterolemia: No Social History Alcohol Use: No Tobacco Use: No Substance Use: No Allergies-Medications (Allergen,Severity, Reaction): Coded Allergies: Red Dyes - Various (Verified Allergy, Severe, BECOMES AGGRESSIVE, VOMITS, 09/16/16) Risperdal (Verified Allergy, Severe, Nausea/Vomiting, 09/16/16) Uncoded Allergies: Seasonal Allergies (Allergy, Unknown, 03/04/12) Reported Meds & Prescriptions Reported Meds & Active Scripts Active Invega Sustenna Inj (Paliperidone Palmitate) 234 Mg/1.5 Ml Inj 234 Mg IM Q28D This dose of Invega Sustenna is due on 09/25/2016. Carbamazepine 200 Mg Tab 200 Mg PO Q12HR 15 Days Replaces Depakote, which has been discontinued. Reported Flonase Nasal [place] (Fluticasone Nasal [place]) 50 Mcg/Act [place] 1 [place] EACH NARE DAILY Apri (Desogestrel-Ethinyl Estradiol) 0.15-30 Mg-Mcg Tab 1 Tab PO DAILY Ativan (Lorazepam) 0.5 Mg Tab 0.5 Mg PO TID PRN Lexapro (Escitalopram Oxalate) 20 Mg Tab 20 Mg PO DAILY Levothyroxine (Levothyroxine Sodium) 50 Mcg Tab 50 Mcg PO DAILY Cetirizine (Cetirizine HCl) 10 Mg Tab 10 Mg PO DAILY Review of Systems Except as stated in HPI: all other systems reviewed are Neg Physical Exam Exam Limitations: Uncooperative Narrative Physical exam is limited due to patient being uncooperative. GENERAL: Well-nourished, well-developed female patient, afebrile. Patient is screaming profanities. SKIN: Focused skin assessment warm/dry. HEAD: Normocephalic. Atraumatic. EYES: No scleral icterus. No injection or drainage. NECK: Supple, trachea midline. No JVD or lymphadenopathy. RESPIRATORY: No accessory muscle use. MUSCULOSKELETAL: No cyanosis, or edema. PSYCHIATRIC: Patient is uncooperative. Data Data Last Documented VS Vital Signs Date Time Temp Pulse Resp B/P Pulse Ox O2 Delivery O2 Flow Rate FiO2 09/22/16 17:14 98.7 76 18 128/70 98 Room Air Orders Psych Screen (09/22/16 16:34) MDM Medical Decision Making Medical Screen Exam Complete: Yes Emergency Medical Condition: Yes Medical Record Reviewed: Yes Differential Diagnosis Bipolar disorder versus hernia versus ADHD versus adjustment disorder versus anxiety versus depression Narrative Course 26-year-old female presents as a transfer from [facility] for psychiatric evaluation. Patient had labs completed here on September 16. CBC was unremarkable. CMP showed no acute abnormalities. Urine drug screen was negative. Patient is uncooperative for physical exam. She has no medical complaints at this time. Patient is medically cleared for psychiatric screening and disposition. Diagnosis Primary Impression: Adjustment disorder with mixed disturbance of emotions and conduct Additional Instructions: Patient is medically cleared for psychiatric screening and disposition. Condition: Stable Kari Lacy Sep 22, 2016 16:08
[2016-09-22 17:14] VITALS: BP 128/70; PULSE 76; RESP 18; TEMP 98.7; O2SAT 98
[2016-09-22 18:08] VITALS: BP 128/69; PULSE 82; RESP 18; O2SAT 96
[2016-09-22 22:24] VITALS: BP 170/97; PULSE 68; RESP 18; O2SAT 98
[2016-09-23 02:23] VITALS: BP 145/90; PULSE 70; RESP 16; O2SAT 100
[2016-09-23 06:27] VITALS: BP 96/54; PULSE 69; RESP 18; O2SAT 98
[2016-09-23] MEDS ORDERED: HALO5TAB PO (10:00)
--- NOTE | 2016-09-23 10:00 | HHI.PR ---
Subjective Remarks Brief consult note: Patient seen and examined. Chart reviewed. I see that the patient was transferred to [facility] from [facility] under a Baron act alleging that the patient reported suicidal and homicidal thoughts. Records from outside hospital reviewed. I saw the patient earlier this week in follow-up from nurse practitioner Leonel and completed a full consultation on September 11. This patient is a senior care resident who acts out because she does not like her senior care and wishes to be admitted to the hospital. Case discussed with nursing staff and the [facility]. Patient has remained at her baseline level of behavioral dysregulation, although she is more euthymic on this visit than she has been during previous visits. For me today, the patient is smiling and laughing. She appears to be in good spirits. She tells me matter of factly "I hate that senior care." She alleges that her corporate tax manager instructed her to "do something crazy to get Baron acted" so that she could come into the hospital. The patient denies any suicidal or homicidal ideation. No audiovisual hallucinations. No evidence of any ricardo diane unstable mood, anxiety or psychotic disorder in this patient at this time. Past psychiatric, family, chemical dependency and social history are as per my previous consultation. Objective Exam Patient is in hospital gown. She is fairly well groomed. She appears to be maintaining basic hygiene. She is awake and alert and oriented to person and hospital at least. No motor abnormalities noted. Speech is within normal limits for rate, tone and volume. Language and fund of knowledge seem mildly reduced for age. Mood is good and affect is full and reactive if somewhat childlike. Thought process linear. No loosening of associations. No evident delusions. No audiovisual hallucinations. Denies suicidal or homicidal ideation. Insight and judgment are chronically poor. Labs No laboratories drawn this encounter. Previous labs reviewed. Vitals/IOs Vital Signs Date Time Temp Pulse Resp B/P Pulse Ox O2 Delivery O2 Flow Rate FiO2 09/23/16 06:27 69 18 96/54 98 09/23/16 02:23 Room Air 09/22/16 17:14 98.7 Assessment & Plan Problem List: (1) Adjustment disorder with mixed disturbance of emotions and conduct ICD Code: F43.25 (2) Intellectual disability ICD Code: F79 Assessment & Plan Ongoing acting out in the context of intellectual disability. Patient would not benefit from psychiatric hospitalization at this time. In fact, this would likely be counterproductive as it would reinforce the undesirable behaviors. No suicidal or homicidal ideation at this time. Appears to be attending to basic needs. No evidence of unstable mental disorder. Patient does not meet Baron act criteria. I will lift a Baron act. Chronic risk for harm as noted before as a consequence of her intellectual disability; this would not be improved by an inpatient psychiatric admission. Pt says she didn't get Haldol script last time; I will write this now. Discharge back to senior care. Follow- up with outpatient provider. Discharge Planning Baron act lifted. Discharge back to senior care. Hitesh Crawford MD Sep 23, 2016 10:00
[2016-09-23] MEDS ORDERED: PALIPERIDONE PALMITATE 234 MG/1.5 ML SYRINGE IM ONE (13:00)
== END 2016-09-23 15:38 ==
LOC: NEDAMB 14:51 → NEPJ 09-23 15:38
DX: F43.25 Adjustment disorder with mixed disturbance of emotions and conduct (principal); F79 Unspecified intellectual disabilities; I10 Essential (primary) hypertension; E03.9 Hypothyroidism, unspecified; G47.30 Sleep apnea, unspecified; Z86.59 Personal history of other mental and behavioral disorders; Z87.09 Personal history of other diseases of the respiratory system; Z86.79 Personal history of other diseases of the circulatory system; Z86.69 Personal history of other diseases of the nervous system and sense organs
CPT/HCPCS: 96372; 99284; J2426

== ENCOUNTER 2016-09-23 16:11 | Inpatient (IN) | payer OTHER ==
[~2016-09-23] VITALS: Ht 154.9 cm; Wt 108.4 kg
[~2016-09-23 16:11] MED LIST changes: +HALO5TAB PO
--- NOTE | 2016-09-23 20:49 | PD ---
HPI Chief Complaint: Psychiatric Symptoms Time Seen by Provider: 20:46 Travel History International Travel<30 days: No Contact w/Intl Traveler<30days: No Traveled to known affect area: No History of Present Illness HPI 26-year-old white female resents emergency department under Baron act by PD. The patient was just released this morning from her Baron act. The patient stated that she wanted to go out and get drunk. She went to the eye but she was drinking peoples beers. She denies any suicidal or homicidal ideation. No toxic ingestions. The patient does not like living in a penitentiary. She acts out frequently. PFSH Past Medical History AAA: No ADD: Yes ADHD: Yes Alzheimer's Disease: No Anemia: No Arthritis: No Asthma: Yes Atrial Fibrillation: Yes Autoimmune Disease: No Blood Disorders: No Bipolar Disorder: Yes Anxiety: Yes Depression: Yes Heart Rhythm Problems: No Cardiomyopathy: No Cardiovascular Problems: Yes Cerebral Palsy: No High Cholesterol: No Chemotherapy: No Chest Pain: No Congestive Heart Failure: No Cirrhosis: No COPD: No Cerebrovascular Accident: No Coronary Artery Disease: No Cystic Fibrosis: No Dementia: No Developmental Delay: Yes Dialysis: No Diminished Hearing: No Diverticulitis: No Deep Vein Thrombosis: No Endocrine: Yes (ERT) Gastrointestinal Disorders: No Genetic Disorder: No GERD: No Glaucoma: No Gout: No Genitourinary: No Headaches: Yes Hepatitis: No Hiatal Hernia: No Hypertension: Yes Immune Disorder: No Inguinal Hernia: No Implanted Vascular Access Dvce: No Kidney Stones: No Musculoskeletal: No Neurologic: No Psychiatric: Yes Reproductive: No Respiratory: Yes Integumentary: No Immunizations Current: Yes Migraines: No Myocardial Infarction: No Pancreatitis: No Radiation Therapy: No Renal Failure: No Schizophrenia: Yes Seizures: Yes Sickle Cell Disease: No Sleep Apnea: Yes (C-PAP SETTING AT 2 PER PT) Thyroid Disease: Yes (HYPOTHYROID) Ulcer: No Menopausal: No : 0 Ectopic : No Ovarian Cysts: No Dilation and Curettage (D&C): No Tubal Ligation: No Past Surgical History AICD: No Arteriovenous Shunt: No Section: No Hysterectomy: No Insulin Pump: No Pacemaker: No Other Surgery: No Family History Family Hypercholesterolemia: No Social History Alcohol Use: No Tobacco Use: No Substance Use: No Allergies-Medications (Allergen,Severity, Reaction): Coded Allergies: Red Dyes - Various (Verified Allergy, Severe, BECOMES AGGRESSIVE, VOMITS, 09/16/16) Risperdal (Verified Allergy, Severe, Nausea/Vomiting, 09/16/16) Uncoded Allergies: Seasonal Allergies (Allergy, Unknown, 03/04/12) Reported Meds & Prescriptions Reported Meds & Active Scripts Active Haloperidol 5 Mg Tab 5 Mg PO BID 7 Days Invega Sustenna Inj (Paliperidone Palmitate) 234 Mg/1.5 Ml Inj 234 Mg IM Q28D This dose of Invega Sustenna is due on 09/25/2016. Carbamazepine 200 Mg Tab 200 Mg PO Q12HR 15 Days Replaces Depakote, which has been discontinued. Reported Flonase Nasal [place] (Fluticasone Nasal [place]) 50 Mcg/Act [place] 1 [place] EACH NARE DAILY Apri (Desogestrel-Ethinyl Estradiol) 0.15-30 Mg-Mcg Tab 1 Tab PO DAILY Ativan (Lorazepam) 0.5 Mg Tab 0.5 Mg PO TID PRN Lexapro (Escitalopram Oxalate) 20 Mg Tab 20 Mg PO DAILY Levothyroxine (Levothyroxine Sodium) 50 Mcg Tab 50 Mcg PO DAILY Cetirizine (Cetirizine HCl) 10 Mg Tab 10 Mg PO DAILY Review of Systems Except as stated in HPI: all other systems reviewed are Neg Psychiatric: Positive: Depression, Mood Disorder, No: Anxiety, Suicidal Ideations, Disorder of Thought, Substance Abuse, Homicidal Ideation Physical Exam Narrative GENERAL: Well-nourished, well-developed patient. SKIN: Warm and dry. HEAD: Normocephalic and atraumatic. EYES: No scleral icterus. No injection or drainage. ENT: No nasal drainage noted. Mucous membranes pink. Airway patent. NECK: Supple, trachea midline. Moves head freely without obvious discomfort. CARDIOVASCULAR: Regular rate and rhythm without murmurs, gallops, or rubs. RESPIRATORY: Breath sounds equal bilaterally. No accessory muscle use. GASTROINTESTINAL: Abdomen soft, non-tender, nondistended. EXTREMITIES: No cyanosis or edema. BACK: Nontender without obvious deformity. No CVA tenderness. NEURO: Patient is alert and oriented. no sensorimotor deficits. Nonfocal. Normal speech. PSYCH: No delusions. No auditory or visual hallucinations. Data Data Orders Diet Regular Basic (09/23/16 Dinner) [facility] Medical Decision Making Medical Screen Exam Complete: Yes Emergency Medical Condition: Yes Medical Record Reviewed: Yes Differential Diagnosis MDM: High Differential diagnoses: Schizophrenia, schizoaffective disorder, bipolar, anxiety, depression, adjustment reaction, mood disorder NOS, ODD, depressive disorder NOS, dementia, dementia with agitation, psychosis NOS, substance induced mood disorder, intermittent explosive disorder, Asperger syndrome, infection,electrolyte abnormality, malingering. Narrative Course Mental health screening discussed with the patient. Psychiatric screen ordered. The patient has been here on 6 visits in the last 2 weeks. There is no need to perform any additional testing at this time. The patient appears. The patient can be evaluated by the psychiatrist the morning. The patient is medically cleared Diagnosis Primary Impression: Medical clearance for psychiatric admission Min Villegas Sep 23, 2016 20:48
[2016-09-24 02:52] VITALS: BP 129/65; PULSE 69; RESP 18; O2SAT 97
[2016-09-24 06:00] VITALS: BP 130/58; PULSE 70; RESP 18; TEMP 97.3; O2SAT 96
[2016-09-24 06:35] VITALS: BP 124/56; PULSE 72; RESP 19; O2SAT 99
[2016-09-24 07:03] VITALS: BP 136/67; PULSE 82
[2016-09-24 18:01] VITALS: BP 129/79; PULSE 111; RESP 22; O2SAT 94
[2016-09-24 22:15] VITALS: BP 144/87; PULSE 80; RESP 17; O2SAT 98
[2016-09-24] MEDS ORDERED: LORazepam 2 MG/ML VIAL IM ONE (22:30)
[2016-09-25 02:20] VITALS: BP 119/67; PULSE 98; RESP 17; O2SAT 96
[2016-09-25 06:06] VITALS: BP 136/90; PULSE 83; RESP 16; O2SAT 100
[2016-09-25 18:32] VITALS: BP 144/72; PULSE 100; RESP 18; TEMP 98.1; O2SAT 97
[2016-09-25 22:53] VITALS: BP 129/81; PULSE 90; RESP 18; O2SAT 98
[2016-09-26] MEDS ORDERED: LORazepam 2 MG/ML VIAL IM PRN ×3 (01:15→10:00)
[2016-09-26 02:27] VITALS: BP 111/63; PULSE 69; RESP 18; O2SAT 97
[2016-09-26 06:00] VITALS: BP 132/90; PULSE 81; RESP 17; O2SAT 98
[2016-09-26] MEDS ORDERED: ALUMINUM/MAGNESIUM/SIMETH 30 ML CUP PO PRN (10:00)
[2016-09-26] MEDS ORDERED: traZODone HCL 50 MG TAB PO PRN (10:00)
[2016-09-26] MEDS ORDERED: LORazepam 0.5 MG TAB PO PRN (10:00)
[2016-09-26] MEDS ORDERED: ACETAMINOPHEN 325 MG TAB PO PRN (10:00)
[2016-09-26] MEDS ORDERED: diphenhydrAMINE HCL 50 MG/ML VIAL IM PRN (10:00)
[2016-09-26] MEDS ORDERED: MAGNESIUM HYDROXIDE SUSP 30 ML CUP PO PRN (10:00)
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
[2016-09-26 12:38] VITALS: BP 119/74; PULSE 88; RESP 18; TEMP 97.9; O2SAT 97
--- NOTE | 2016-09-26 16:11 | HHI.HP ---
Provisional Diagnosis Admission Date Sep 26, 2016 at 10:01 [place] I. 1. Adjustment disorder with disturbance of emotions and conduct [place] II. 1. Intellectual disability [place] V. GAF is 40 presently Certification of Person's Competence To Provide Express and Informed Consent I have personally examined Audrey Grijalva , a person being served at [facility] on, Sep 26, 2016 16:08. Express and informed consent means consent voluntarily given in writing, by a competent person, after sufficient explanation and disclosure of the subject matter involved to enable the person to make a knowing and willful decision without any element of force, fraud, deceit, duress, or other form of constraint or coercion. This person is 18 years of age or older, is not now known to be incompetent to consent to treatment with a guardian advocate, and does not have a health care surrogate or proxy currently making medical treatment decisions. I have found this person to be one of the following: [x] Competent to provide express and informed consent, as defined above, for voluntary admission to this facility and is competent to provide express and informed consent for treatment. He/she has the consistent capacity to make well reasoned, willful, and knowing decisions concerning his or her medical or mental health treatment. The person fully and consistently understands the purpose of the admission for examination/placement and is fully capable of personally exercising all rights [place] Incompetent to provide express and informed consent to voluntary admission, and this is incompetent to provide express and informed consent to treatment. The person must be transferred to involuntary status and a petition for a guardian advocate filed with the Circuit Court. [] Refusing to provide express and informed consent to voluntary admission but is competent to provide express and informed consent for treatment. The person must be discharged or transferred to involuntary status. Form shall be completed within 24 hours of a person's arrival at the receiving facility and filed in the clinical record of each person: 1. Admitted on a voluntary basis 2. Permitted to provide express and informed consent to his/her own treatment 3. Allowed to transfer from involuntary to voluntary status 4. Prior to permitting a person to consent to his or her own treatment after having been previously found incompetent to consent to treatment. History of Present Illness Capacity: Has Capacity HPI Ms. Grijalva is a 26-year-old female with a history of intellectual disability and associated acting out and attention seeking behaviors who presents under a Baron act. Patient is a long-term resident who does not like her long-term and repeatedly runs away. Since having been discharged from the inpatient psychiatric unit on September 10, the patient has presented 7 times to the ED with variations on this behavior. Dr. Villatoro saw the patient today, her eighth presentation, and has admitted her to try to break the cycle of re- presentation to the ED. Electronic medical record reviewed. Patient seen and examined. Chart reviewed. Case discussed with nurse on the inpatient psychiatric unit. Patient reports that she ran away from the ED this time and was subsequently brought back on a Baron act because "I went and drank some beer." Patient smiles at intervals and appears to be enjoying herself on the inpatient psychiatric unit. Overall presentation is quite behavioral. She denies any SI or HI. She denies any audiovisual hallucinations. I can elicit no delusional beliefs. The patient says that it is her hope that we can "hold onto [her] for a while, that's probably what we should do." The remainder of the psychiatric ROS is negative. I obtained patient's past psychiatric, family, chemical dependency and social history on 08/23/2015. With the exception of patient's interval inpatient hospitalization and multiple ED visits, these data are unchanged today. Review of Systems Except as stated in HPI: all other systems reviewed are Neg Past Psych History Psychological trauma history No reported trauma history to me Violence risk - others (6 mos) Patient does have the potential for acting out in a physically aggressive way, but this is chronic and only somewhat modifiable with medications Violence risk - self (6 mos) I agree with Dr. Villatoro that the patient as placing herself in harm's way with her repeated running away behaviors. Substance Abuse History Drugs/Alcohol past 12 months See above Past Family Social History Coded Allergies: Red Dyes - Various (Verified Allergy, Severe, BECOMES AGGRESSIVE, VOMITS, 09/16/16) Risperdal (Verified Allergy, Severe, Nausea/Vomiting, 09/16/16) Uncoded Allergies: Seasonal Allergies (Allergy, Unknown, 03/04/12) Past Medical History See electronic medical record Active Scripts Haloperidol 5 Mg Tab5 Mg PO BID 7 Days Ref 0 Prov:Hitesh Crawford MD 09/23/16 Paliperidone Palmitate Inj (Invega Sustenna Inj)234 Mg/1.5 Ml [id number] Mg IM Q28D #1 INJECTION Ref 0 This dose of Invega Sustenna is due on 09/25/2016. Prov:Hitesh Crawford MD 08/31/16 Carbamazepine 200 Mg [id number] Mg PO Q12HR 15 Days Ref 1 Replaces Depakote, which has been discontinued. Prov:Hitesh Crawford MD 08/31/16 Reported Medications Fluticasone Nasal [place] (Flonase Nasal [place])50 Mcg/Act Spray1 [place] EACH NARE DAILY #1 BOTTLE Ref 0 09/18/16 Desogestrel-Ethinyl Estradiol (Apri)0.15-30 Mg-Mcg Tab1 Tab PO DAILY #28 TAB Ref 0 09/18/16 Lorazepam (Ativan)0.5 Mg Tab0.5 Mg PO TID PRN (ANXIETY AND/OR AGITATION) Ref 0 08/20/16 Escitalopram (Lexapro)20 Mg Tab20 Mg PO DAILY #30 TAB Ref 0 08/20/16 Levothyroxine 50 Mcg Tab50 Mcg PO DAILY #30 TAB Ref 0 07/24/16 Cetirizine 10 Mg Tab10 Mg PO DAILY Ref 0 07/24/16 Current Medications Medications (Trade) Dose Ordered Sig/Jono Route Start Time Stop Time Status Last Admin (Ativan) 1 mg Q6H PRN PO 09/26/16 10:00 (Ativan Inj) 1 mg Q6H PRN IM 09/26/16 10:00 (Benadryl Inj) 50 mg Q6H PRN IM 09/26/16 10:00 (Tylenol) 650 mg Q4H PRN PO 09/26/16 10:00 (Milk Of Magnesia Liq) 30 ml DAILY PRN PO 09/26/16 10:00 (Mag-Al Plus Susp Liq) 30 ml Q6H PRN PO 09/26/16 10:00 (Desyrel) 50 mg HS PRN PO 09/26/16 10:00 Family History See above Social History See above Patient's Strengths (min. 2) In a monitored setting. Verbally fluent. Physical Exam Physical exam completed by ED provider. On my examination today, patient is in no physical distress. No motor abnormalities noted. Labs and vital signs reviewed: Vital Signs Vital Signs Date Time Temp Pulse Resp B/P Pulse Ox O2 Delivery O2 Flow Rate FiO2 09/26/16 12:38 97.9 88 18 119/74 97 09/26/16 06:00 Room Air Lab Results No recent laboratories obtained. Mental Status Examination Patient is in hospital gown. She is fairly well groomed and certainly maintaining basic hygiene. She is awake and alert and oriented to person and hospital at least. No motor abnormalities noted. Speech is within normal limits for rate, tone and volume. Language and fund of knowledge are reduced for age. Mood is euthymic and affect is once again childlike. Thought process linear. No loosening of associations. No evident delusions. Denies AVH. Denies suicidal or homicidal ideation. Insight and judgment are poor. Assessment & Plan Problem List: (1) Adjustment disorder with mixed disturbance of emotions and conduct ICD Code: F43.25 (2) Intellectual disability ICD Code: F79 Assessment & Plan This is a 26-year-old female with a history of intellectual disability and associated acting out behaviors admitted to the inpatient psychiatric unit after once again running away. Patient has been admitted to the inpatient psychiatric unit to try to break the cycle of recurrent acting out episodes. I will plan to retain the patient on the inpatient unit to adjust medications in hopes of ameliorating these acting out behaviors. Admit inpatient. Voluntary status. I circuit judge the patient's intellectual disability is not so severe as to impact her decision making capacity, nor is there any evidence of any other mental illness that would impact decision- making capacity. Check a CBC, CMP in the morning. bHCG. Continue Lexapro 20 mg daily. Haldol 5 mg twice daily. Patient received Invega Sustenna this past weekend. Continue Synthroid and Zyrtec. Ativan as needed for anxiety. Benadryl as needed for sleep. Vitals every shift. Counselor to see. Disposition planning. Estimated length of stay: 3-4 weeks. Discharge Planning Possibly new long-term placement in a facility better able to handle the patient's behaviors or back to existing long-term once acting out behavior has abated. Request HC Surrog/Guard Advoc?: No Hitesh Crawford MD Sep 26, 2016 16:11
[2016-09-26] MEDS: LORazepam 1 MG TAB PO PRN (17:53)
[2016-09-26 17:54] VITALS: BP 128/60; PULSE 86; RESP 18; TEMP 97.4; O2SAT 98
[2016-09-26] MEDS: HALOPERIDOL 5 MG TAB PO SCH (20:46)
[2016-09-27] MEDS: LEVOTHYROXINE SODIUM 50 MCG TAB PO SCH (05:45)
[2016-09-27 08:08] LABS: AUTOMATED NEUTROPHIL # 3.5 TH/MM3 (1.8-7.7); BASOPHIL % 0.4 % (0.0-2.0); HEMATOCRIT 41.6 % (35.0-46.0); HEMO FLAGS DIFF FINAL; LYMPH % 35.3 % (9.0-44.0); LYMPHOCYTE # 2.2 TH/MM3 (1.0-4.8); MEAN CELL VOLUME 83.5 FL (80.0-100.0); MEAN CORPUSCULAR HEMOGLOBIN 28.4 PG (27.0-34.0); MONO % 7.4 % (0.0-8.0); NEUT % 56.9 % (16.0-70.0); PLATELET COUNT 253 TH/MM3 (150-450); RED BLOOD COUNT 4.98 MIL/MM3 (4.00-5.30); RED CELL DISTRIBUTION WIDTH 13.2 % (11.6-17.2); WHITE BLOOD COUNT 6.1 TH/MM3 (4.0-11.0)
[2016-09-27 08:37] LABS: ANION GAP 7 MEQ/L (5-15); AST (GOT) 20 U/L (15-37); BICARBONATE 29.2 MEQ/L (21.0-32.0); BLOOD UREA NITROGEN 10 MG/DL (7-18); CHLORIDE 104 MEQ/L (98-107); GLOMERULAR FILTRATION RATE 94 ML/MIN (>89); POTASSIUM 4.2 MEQ/L (3.5-5.1); SODIUM (NA) 140 MEQ/L (136-145)
[2016-09-27] MEDS: CETIRIZINE HCL 10 MG TAB PO SCH (08:39)
[2016-09-27] MEDS: ESCITALOPRAM OXALATE 20 MG TAB PO SCH (08:39)
[2016-09-27] MEDS: FLUTICASONE PROPIONATE 50 MCG/ACT 16 GM NASAL SPRAY EACH NARE SCH (08:39)
[2016-09-27] MEDS: HALOPERIDOL 5 MG TAB PO SCH ×2 (08:40→20:39)
[2016-09-27 08:41] LABS: ALKALINE PHOSPHATASE 87 U/L (45-117); ALT (GPT) 41 U/L (10-53); HDL CHOLESTEROL 47.1 MG/DL (40.0-60.0); LDL CHOLESTEROL 106 MG/DL (0-99); TOTAL BILIRUBIN ADULT 0.3 MG/DL (0.2-1.0)
[2016-09-27] MEDS ORDERED: DESOGESTREL ETHINYL ESTRADIOL PO SCH (09:00)
[2016-09-27] MEDS ORDERED: [UNRECOGNIZED DRUG - OTHER] PO SCH (09:00)
--- NOTE | 2016-09-27 10:04 | HHI.PYPN ---
Subjective Remarks Patient seen and examined. Chart reviewed. Case discussed with nursing staff. On my examination today, patient requests to be transferred to the 2600 unit, as she reports that she does not like the 2700 milieu. She is somewhat sullen and dysphoric today. No SI/HI. Denies side effects from medications. Review of Systems Except as stated in HPI: all other systems reviewed are Neg Objective Alert: Yes [place]: Person, Place Mood: Other (Mildly dysphoric) Affect: Restricted Memory Intact: Comment (Not formally assessed) Hallucinations: Other (No AVH) Delusions: No Delusion Type: Other (No delusions) Suicidal: Ideation (No SI) Homicidal: Ideation (No HI) Insight/Judgement Poor, chronically so Remarks No motor abnormalities noted. Thought process linear. Labs Test 09/26/16 09/27/16 18:47 07:38 Beta HCG, Qualitative LESS THAN 1 MIU/ML White Blood Count 6.1 TH/MM3 Red Blood Count 4.98 MIL/MM3 Hemoglobin 14.1 GM/DL Hematocrit 41.6 % Mean Corpuscular Volume 83.5 FL Mean Corpuscular Hemoglobin 28.4 PG Mean Corpuscular Hemoglobin 34.0 % Concent Red Cell Distribution Width 13.2 % Platelet Count 253 TH/MM3 Mean Platelet Volume 8.2 FL Neutrophils (%) (Auto) 56.9 % Lymphocytes (%) (Auto) 35.3 % Monocytes (%) (Auto) 7.4 % Eosinophils (%) (Auto) 0.0 % Basophils (%) (Auto) 0.4 % Neutrophils # (Auto) 3.5 TH/MM3 Lymphocytes # (Auto) 2.2 TH/MM3 Monocytes # (Auto) 0.5 TH/MM3 Eosinophils # (Auto) 0.0 TH/MM3 Basophils # (Auto) 0.0 TH/MM3 CBC Comment DIFF FINAL Differential Comment Sodium Level 140 MEQ/L Potassium Level 4.2 MEQ/L Chloride Level 104 MEQ/L Carbon Dioxide Level 29.2 MEQ/L Anion Gap 7 MEQ/L Blood Urea Nitrogen 10 MG/DL Creatinine 0.75 MG/DL Estimat Glomerular Filtration 94 ML/MIN Rate Random Glucose 102 MG/DL Calcium Level 9.1 MG/DL Total Bilirubin 0.3 MG/DL Aspartate Amino Transf 20 U/L (AST/SGOT) Alanine Aminotransferase 41 U/L (ALT/SGPT) Alkaline Phosphatase 87 U/L Total Protein 7.4 GM/DL Albumin 3.7 GM/DL Triglycerides Level 88 MG/DL Cholesterol Level 171 MG/DL LDL Cholesterol 106 MG/DL HDL Cholesterol 47.1 MG/DL Cholesterol/HDL Ratio 3.63 RATIO Labs reviewed. No clinically significant laboratory abnormalities noted. Beta hCG negative. Vitals/IOs Vital Signs Date Time Temp Pulse Resp B/P Pulse Ox O2 Delivery O2 Flow Rate FiO2 09/26/16 17:54 97.4 86 18 128/60 98 09/26/16 06:00 Room Air Assessment & Plan Problem List: (1) Adjustment disorder with mixed disturbance of emotions and conduct ICD Code: F43.25 (2) Intellectual disability ICD Code: F79 Assessment & Plan Continue Haldol and Lexapro as ordered. Patient also received Invega Sustenna this past weekend. Given patient's propensity for acting out, I think the high acuity unit remains inappropriate unit for her at this time. Continue to monitor on the 2700 unit. Continue other medications and care as ordered. Justification for Cont. Inpt. High risk for acting out and rehospitalization in a lower level of care. Discharge Planning Possibly new half-way placement Request HC Surrog/Guard Advoc?: No Hitesh Crawford MD Sep 27, 2016 10:04
[2016-09-27] MEDS: LORazepam 1 MG TAB PO PRN (10:21)
[2016-09-27 17:44] LABS: HEMOGLOBIN A1b 0.9 %; HEMOGLOBIN Ao 86.8 %; HEMOGLOBIN LA1C 1.8 %; HEMOGLOBIN P3 3.3 %
[2016-09-27 17:58] VITALS: BP 136/63; PULSE 78; RESP 16; TEMP 98.4; O2SAT 96
[2016-09-28] MEDS: LEVOTHYROXINE SODIUM 50 MCG TAB PO SCH (04:48)
[2016-09-28 05:46] VITALS: BP 109/62; PULSE 90; RESP 16; TEMP 98.6; O2SAT 97
[2016-09-28] MEDS: FLUTICASONE PROPIONATE 50 MCG/ACT 16 GM NASAL SPRAY EACH NARE SCH (08:30)
[2016-09-28] MEDS: CETIRIZINE HCL 10 MG TAB PO SCH (08:31)
[2016-09-28] MEDS: ESCITALOPRAM OXALATE 20 MG TAB PO SCH (08:31)
[2016-09-28] MEDS: HALOPERIDOL 5 MG TAB PO SCH ×2 (08:31→20:43)
--- NOTE | 2016-09-28 11:29 | HHI.PYPN ---
Subjective Remarks Patient seen and case discussed with the nursing staff. She continues to act out intermittently and unpredictably. Has little regard for her own safety and the safety of others. Impulsive, intrusive and at times aggressive. Review of Systems ROS Limitations: Clinical Condition Objective Alert: Yes [place]: Person, Place Mood: Oppositional, Other (Mildly dysphoric) Affect: Labile Memory Intact: Comment (Not formally assessed) Hallucinations: Other (No AVH) Delusions: No Delusion Type: Other (No delusions) Suicidal: Ideation (No SI) Homicidal: Ideation (No HI) Insight/Judgment Impaired. Vitals/IOs Vital Signs Date Time Temp Pulse Resp B/P Pulse Ox O2 Delivery O2 Flow Rate FiO2 09/28/16 05:46 98.6 90 16 109/62 97 09/26/16 06:00 Room Air Assessment & Plan Problem List: (1) Adjustment disorder with mixed disturbance of emotions and conduct ICD Code: F43.25 (2) Intellectual disability ICD Code: F79 Assessment & Plan Estimated LOS: 7 days patient continues to act out repeatedly and unpredictably. This physician feels she continues to need a medication change, most likely to a long-acting injectable medicine. Patient's mother, who has served as her guardian, has also been an impediment to treatment in my opinion. Justification for Cont. Inpt. Patient continues to act out in ways that are dangerous to herself and others. Request HC Surrog/Guard Advoc?: No Alex Villatoro MD Sep 28, 2016 11:29
[2016-09-28 18:57] VITALS: BP 125/58; PULSE 86; RESP 18; TEMP 98.6; O2SAT 97
[2016-09-28] MEDS: diphenhydrAMINE HCL 50 MG CAP PO PRN (20:46)
[2016-09-29] MEDS: LEVOTHYROXINE SODIUM 50 MCG TAB PO SCH (05:09)
[2016-09-29 05:48] VITALS: BP 115/65; PULSE 61; RESP 16; TEMP 98; O2SAT 96
[2016-09-29] MEDS: FLUTICASONE PROPIONATE 50 MCG/ACT 16 GM NASAL SPRAY EACH NARE SCH (08:55)
[2016-09-29] MEDS: HALOPERIDOL 5 MG TAB PO SCH ×2 (08:55→22:58)
[2016-09-29] MEDS: ESCITALOPRAM OXALATE 20 MG TAB PO SCH (08:55)
[2016-09-29] MEDS: CETIRIZINE HCL 10 MG TAB PO SCH (08:55)
[2016-09-29 17:00] VITALS: BP 135/72; PULSE 96; RESP 17; TEMP 98.2; O2SAT 95
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
[2016-09-29] MEDS: BENZTROPINE MESYLATE 1 MG TAB PO SCH (22:58)
[2016-09-30 05:45] VITALS: BP 101/84; PULSE 72; RESP 16; TEMP 98.4; O2SAT 100
[2016-09-30] MEDS: LEVOTHYROXINE SODIUM 50 MCG TAB PO SCH (06:39)
[2016-09-30] MEDS: BENZTROPINE MESYLATE 1 MG TAB PO SCH ×2 (09:00→20:29)
[2016-09-30] MEDS: ESCITALOPRAM OXALATE 20 MG TAB PO SCH (09:01)
[2016-09-30] MEDS: HALOPERIDOL 5 MG TAB PO SCH ×2 (09:01→20:29)
[2016-09-30] MEDS: FLUTICASONE PROPIONATE 50 MCG/ACT 16 GM NASAL SPRAY EACH NARE SCH (09:02)
[2016-09-30] MEDS: CETIRIZINE HCL 10 MG TAB PO SCH (09:02)
[2016-09-30] MEDS: LORazepam 1 MG TAB PO PRN ×2 (15:53→20:29)
--- NOTE | 2016-09-30 18:43 | HHI.PYPN ---
Subjective Remarks Patient was seen and case discussed with nursing. Patient is pleasant and cooperative. Behaving well on the unit. Bright and cheerful. Mood is "okay." And a productive visit from her mother where she played cards. No psychosis elicited. Compliant with medications Objective Alert: Yes [place]: Person, Place, Date, Situation Mood: Calm Affect: Restricted Memory Intact: Comment (Not formally assessed) Hallucinations: Other (No AVH) Delusions: No Delusion Type: Other (No delusions) Suicidal: Ideation (No SI) Homicidal: Ideation (No HI) Insight/Judgment Improving Vitals/IOs Vital Signs Date Time Temp Pulse Resp B/P Pulse Ox O2 Delivery O2 Flow Rate FiO2 09/30/16 05:45 98.4 72 16 101/84 100 Assessment & Plan Problem List: (1) Adjustment disorder with mixed disturbance of emotions and conduct ICD Code: F43.25 (2) Intellectual disability ICD Code: F79 Assessment & Plan Continue current treatment plan Justification for Cont. Inpt. Patient will decompensate in a less restrictive setting Request HC Surrog/Guard Advoc?: No Evan Oconnell DO Sep 30, 2016 18:43
[2016-09-30] MEDS: diphenhydrAMINE HCL 50 MG CAP PO PRN (20:29)
[2016-10-01 06:13] VITALS: BP 110/60; PULSE 66; RESP 16; TEMP 98.1; O2SAT 97
[2016-10-01] MEDS: LEVOTHYROXINE SODIUM 50 MCG TAB PO SCH (06:24)
[2016-10-01] MEDS: FLUTICASONE PROPIONATE 50 MCG/ACT 16 GM NASAL SPRAY EACH NARE SCH (08:27)
[2016-10-01] MEDS: BENZTROPINE MESYLATE 1 MG TAB PO SCH ×2 (08:27→20:29)
[2016-10-01] MEDS: CETIRIZINE HCL 10 MG TAB PO SCH (08:27)
[2016-10-01] MEDS: ESCITALOPRAM OXALATE 20 MG TAB PO SCH (08:27)
[2016-10-01] MEDS: HALOPERIDOL 5 MG TAB PO SCH ×2 (08:27→20:29)
--- NOTE | 2016-10-01 10:39 | HHI.PYPN ---
Subjective Remarks Patient seen and examined with nurse and counselor. Chart reviewed. Case discussed with nursing staff who reports that the patient had a good day yesterday from a behavioral standpoint. She is reportedly asking about discharge. On my examination today, the patient says that she wants to go back to her detention. She says "I'm not going to run away. It's too dangerous." The patient says that she will instead "play with my hot wheels" as a coping mechanism. She denies any SI, HI or AVH. Denies any side effects from medications. Review of Systems Except as stated in HPI: all other systems reviewed are Neg Objective Alert: Yes [place]: Person, Place, Date, Situation Mood: Calm Affect: Other (childlike) Memory Intact: Comment (Not formally assessed) Hallucinations: Other (denies AVH) Delusions: No Delusion Type: Other (No delusions) Suicidal: Ideation (denies SI) Homicidal: Ideation (denies HI) Insight/Judgment Chronically poor Remarks Grooming and hygiene fair. No motor abnormalities. Thought process linear. Labs Labs reviewed. No new labs. Vitals/IOs Vital Signs Date Time Temp Pulse Resp B/P Pulse Ox O2 Delivery O2 Flow Rate FiO2 10/01/16 06:13 98.1 66 16 110/60 97 Assessment & Plan Problem List: (1) Adjustment disorder with mixed disturbance of emotions and conduct ICD Code: F43.25 (2) Intellectual disability ICD Code: F79 Assessment & Plan Continue Haldol and Lexapro as ordered. Invega Sustenna was administered shortly before admission. Continue to monitor on the inpatient psychiatric unit. Continue other medications and care as ordered. Justification for Cont. Inpt. Risk for decompensation in the absence of placement. Discharge Planning No acting out behaviors today or yesterday apparently. Patient seems genuinely motivated to return to her detention. Counselor will reach out to detention to see if they are willing to have her back at this point. Retain on the inpatient psychiatric unit in the meantime. Request HC Surrog/Guard Advoc?: No Hitesh Crawford MD Oct 01, 2016 10:38
[2016-10-01 17:35] VITALS: BP 137/67; PULSE 74; RESP 18; TEMP 98.3; O2SAT 98
[2016-10-01] MEDS: LORazepam 1 MG TAB PO PRN (20:32)
[2016-10-01] MEDS: diphenhydrAMINE HCL 50 MG CAP PO PRN (20:32)
[2016-10-02] MEDS: LEVOTHYROXINE SODIUM 50 MCG TAB PO SCH (05:46)
[2016-10-02] MEDS: ESCITALOPRAM OXALATE 20 MG TAB PO SCH (08:21)
[2016-10-02] MEDS: CETIRIZINE HCL 10 MG TAB PO SCH (08:22)
[2016-10-02] MEDS: HALOPERIDOL 5 MG TAB PO SCH ×2 (08:22→20:36)
[2016-10-02] MEDS: BENZTROPINE MESYLATE 1 MG TAB PO SCH ×2 (08:22→20:36)
[2016-10-02] MEDS: FLUTICASONE PROPIONATE 50 MCG/ACT 16 GM NASAL SPRAY EACH NARE SCH (08:22)
--- NOTE | 2016-10-02 11:51 | HHI.PYPN ---
Subjective Remarks Patient seen and examined. Chart reviewed. Case discussed with nurse, counselor and occupational therapist in treatment team. Per nursing staff, the patient remains discharge focused. She wants to return to her current skilled nursing. Occupational therapist notes that the patient comes out for groups and is generally appropriate. On my examination today, the patient is calm and pleasant. She continues to reiterate that she wants to return to her current skilled nursing. She says "I feel like the medications are helping a little bit." Denies side effects from medications. No SI or HI. No other issues noted. Review of Systems Except as stated in HPI: all other systems reviewed are Neg Objective Alert: Yes [place]: Person, Place, Date, Situation Mood: Calm Affect: Other (remains somewhat childlike but generally appropriate) Memory Intact: Comment (Not formally assessed) Hallucinations: Other (none) Delusions: No Delusion Type: Other (none elicited) Suicidal: Ideation (no SI) Homicidal: Ideation (no HI) Insight/Judgment Poor, likely chronically so Remarks No motor abnormalities noted. Thought process linear. Labs Labs reviewed. Vitals/IOs Vital Signs Date Time Temp Pulse Resp B/P Pulse Ox O2 Delivery O2 Flow Rate FiO2 10/01/16 17:35 98.3 74 18 137/67 98 Assessment & Plan Problem List: (1) Adjustment disorder with mixed disturbance of emotions and conduct ICD Code: F43.25 (2) Intellectual disability ICD Code: F79 Assessment & Plan Continue Haldol and Lexapro as ordered. Continue other medications and care as ordered. Justification for Cont. Inpt. Risk for decompensation. Discharge Planning Counselor to ascertain if patient can return to her current skilled nursing. If she can, we will give her current placement another try. If not, we may be forced to retain the patient until new placement can be arranged. If the patient can return to her current facility, we might be able to arrange for discharge as early as tomorrow, Saturday. Request HC Surrog/Guard Advoc?: No Hitesh Crawford MD Oct 02, 2016 11:51
[2016-10-02] MEDS ORDERED: PADIMATE (CHAPSTICK) 4.5 GM TUBE TOPICAL PRN (15:30)
[2016-10-02] MEDS: LORazepam 1 MG TAB PO PRN (18:05)
[2016-10-02 18:09] VITALS: BP 126/59; PULSE 87; RESP 17; TEMP 98.4; O2SAT 96
[2016-10-02] MEDS: diphenhydrAMINE HCL 50 MG CAP PO PRN (20:36)
[2016-10-03 06:04] VITALS: BP 113/74; PULSE 78; RESP 16; TEMP 98; O2SAT 97
[2016-10-03] MEDS: LEVOTHYROXINE SODIUM 50 MCG TAB PO SCH (06:48)
[2016-10-03] MEDS: CETIRIZINE HCL 10 MG TAB PO SCH (09:09)
[2016-10-03] MEDS: BENZTROPINE MESYLATE 1 MG TAB PO SCH ×2 (09:09→20:04)
[2016-10-03] MEDS: FLUTICASONE PROPIONATE 50 MCG/ACT 16 GM NASAL SPRAY EACH NARE SCH (09:09)
[2016-10-03] MEDS: ESCITALOPRAM OXALATE 20 MG TAB PO SCH (09:09)
[2016-10-03] MEDS: HALOPERIDOL 5 MG TAB PO SCH ×2 (09:09→20:04)
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
[2016-10-03] MEDS: LORazepam 1 MG TAB PO PRN (20:04)
[2016-10-03] MEDS: diphenhydrAMINE HCL 50 MG CAP PO PRN (20:04)
[2016-10-03 21:42] VITALS: BP 108/62; PULSE 80; RESP 20; TEMP 97.9; O2SAT 96
[2016-10-04 05:24] VITALS: BP 128/75; PULSE 86; RESP 18; TEMP 97.6; O2SAT 98
[2016-10-04] MEDS: LEVOTHYROXINE SODIUM 50 MCG TAB PO SCH (05:36)
[2016-10-04] MEDS: HALOPERIDOL 5 MG TAB PO SCH ×2 (08:25→21:00)
[2016-10-04] MEDS: BENZTROPINE MESYLATE 1 MG TAB PO SCH ×2 (08:25→21:00)
[2016-10-04] MEDS: FLUTICASONE PROPIONATE 50 MCG/ACT 16 GM NASAL SPRAY EACH NARE SCH (08:25)
[2016-10-04] MEDS: CETIRIZINE HCL 10 MG TAB PO SCH (08:25)
[2016-10-04] MEDS: ESCITALOPRAM OXALATE 20 MG TAB PO SCH (08:25)
[2016-10-04] MEDS ORDERED: HALO5TAB PO (10:22)
[2016-10-04] MEDS ORDERED: LEXA20TA PO (10:22)
--- NOTE | 2016-10-04 10:23 | HHI.DS ---
Psychiatry Discharge Summary Inpatient Psychiatric care?: Yes Advance Directive: No Reason Not Provided: Due to Patient Condition Mental Health AdvanceDirective: No Health Care Proxy: No Admission Admission Date Sep 26, 2016 at 10:01 Admission Diagnosis: (1) Adjustment disorder with mixed disturbance of emotions and conduct ICD Code: F43.25 (2) Intellectual disability ICD Code: F79 Brief History Ms. Grijalva is a 26-year-old female with a history of intellectual disability and associated acting out and attention seeking behaviors who presents under a Baron act. Patient is a assisted resident who does not like her assisted and repeatedly runs away. Since having been discharged from the inpatient psychiatric unit on September 10, the patient has presented 7 times to the ED with variations on this behavior. Dr. Villatoro saw the patient today, her eighth presentation, and has admitted her to try to break the cycle of re- presentation to the ED. Electronic medical record reviewed. Patient seen and examined. Chart reviewed. Case discussed with nurse on the inpatient psychiatric unit. Patient reports that she ran away from the ED this time and was subsequently brought back on a Baron act because "I went and drank some beer." Patient smiles at intervals and appears to be enjoying herself on the inpatient psychiatric unit. Overall presentation is quite behavioral. She denies any SI or HI. She denies any audiovisual hallucinations. I can elicit no delusional beliefs. The patient says that it is her hope that we can "hold onto [her] for a while, that's probably what we should do." The remainder of the psychiatric ROS is negative. I obtained patient's past psychiatric, family, chemical dependency and social history on 08/23/2015. With the exception of patient's interval inpatient hospitalization and multiple ED visits, these data are unchanged today. Tobacco Use In Past 30 Days: Refused To Answer Alcohol Use: Never Hospital Course The patient was admitted to a locked, inpatient psychiatric unit. Appropriate precautions were in place throughout the patient's hospital stay. Patient was seen and examined daily on the unit by psychiatry and also visited by counselor. Home medications were continued and the patient tolerated medications well without side effects. Patient comported herself well on the inpatient unit, and there was no evidence of ongoing behavioral disturbance. She was medication compliant. On the day of discharge: Nursing staff reports patient has been no behavioral problem. I have evaluated the patient today with nurse and counselor. Her mood is upbeat, and she denies any SI/HI/AVH. She denies any side effects from medications, and she feels that these are helping. She is requesting discharge back to her facility today. After weighing the relevant factors, I city maintenance manager that patient is at low imminent risk for harm to self/others and there has been no evidence of a self-care deficit. Consequently, the patient does not meet criteria for involuntary psychiatric hospitalization. As before, I continue to suspect that the patient's judgment is chronically poor and she struggles chronically with impulsivity related to her intellectual disability diagnosis. These features of her case confer chronic but not acute or imminent risk and are unlikely to be significantly improved by further inpatient psychiatric hospitalization. Counselor tells me that her facility is willing to give patient another try at maintaining in behavioral control. I will therefore discharge patient back to facility today with outpatient psychiatric follow-up as arranged by counselor. Patient is also to follow-up with primary care. Patient to return to the psychiatric emergency room for any concerning psychiatric symptoms. Results Blood Pressure 128 / 75 Vital Signs Date Time Temp Pulse Resp B/P Pulse Ox O2 Delivery O2 Flow Rate FiO2 10/04/16 05:24 97.6 86 18 128/75 98 Item Value Date Time White Blood Count 6.1 TH/MM3 09/27/16 0738 Hemoglobin 14.1 GM/DL 09/27/16 0738 Platelet Count 253 TH/MM3 09/27/16 0738 Sodium Level 140 MEQ/L 09/27/16 0738 Potassium Level 4.2 MEQ/L 09/27/16 0738 Chloride Level 104 MEQ/L 09/27/16 0738 Carbon Dioxide Level 29.2 MEQ/L 09/27/16 0738 Blood Urea Nitrogen 10 MG/DL 09/27/16 0738 Creatinine 0.75 MG/DL 09/27/16 0738 Estimat Glomerular Filtration Rate 94 ML/MIN 09/27/16 0738 Hemoglobin A1c 4.9 % 09/27/16 0738 Aspartate Amino Transf (AST/SGOT) 20 U/L 09/27/16 0738 Alanine Aminotransferase (ALT/SGPT) 41 U/L 09/27/16 0738 Alkaline Phosphatase 87 U/L 09/27/16 0738 Beta HCG, Qualitative LESS THAN 1 MIU/ML 09/26/16 1847 Summary of Procedures None done Imaging None done Pending results at discharge: No Medications # of Antipsychotic meds at D/C: 2 Appropriate >1 Antipsych meds?: 4 Approp Antipsych med options 1 - Minimum of three failed multiple trials of monotherapy. 2 - Documented plan to taper to monotherapy due to previous use of multiple meds OR cross-taper in progress at D/C. 3 - Documentation of augmentation of Clozapine. 4 - Justification other than those listed in allowable values 1-3, document here : Haldol augments Invega Sustenna. Discharge Discharge Date: Oct 04, 2016 Discharge Diagnosis: (1) Adjustment disorder with mixed disturbance of emotions and conduct Diagnosis: Principal ICD Code: F43.25 (2) Intellectual disability Diagnosis: Secondary ICD Code: F79 GAF on discharge is 55 Mental Status Exam at Disch Patient is casually dressed. She is well groomed. She is awake and alert and oriented to person and hospital at least. No motor abnormalities noted. Speech within normal limits for rate, volume and tone. Mood euthymic, affect somewhat childlike. Thought process linear. No loosening of associations. No evident delusional material. Denies auditory or visual hallucinations. Denies suicidal or homicidal ideation, intent or plan. Insight and judgment are poor, chronically so. Pt Condition on Discharge: Stable Discharge Disposition: [facility]IV[facility] Discharge Instructions Diet Instructions: As Tolerated, No Restrictions Activities you can perform: Weight Bearing as Ayesha Scheduled Appointment: Jaiver Nicole Appointment Date: Oct 09, 2016 Appointment Time: 7:30am New Medications: Benztropine (Benztropine) 1 Mg Tab 1 MG PO Q12HR Side effect management Days 15 Ref 1 TAB Continued Medications: Cetirizine (Cetirizine) 10 Mg Tab 10 MG PO DAILY Allergies Ref 0 TAB Desogestrel-Ethinyl Estradiol (Apri) 0.15-30 Mg-Mcg Tab 1 TAB PO DAILY Control #28 Ref 0 TAB Escitalopram (Lexapro) 20 Mg Tab 20 MG PO DAILY Mental Health Days 15 Ref 1 TAB (This prescription has been renewed) Fluticasone Nasal [place] (Flonase Nasal [place]) 50 Mcg/Act [place] 1 SPRAY EACH NARE DAILY Allergies #1 Ref 0 BOTTLE Haloperidol (Haloperidol) 5 Mg Tab 5 MG PO BID Mental Health Days 15 Ref 1 TAB (This prescription has been renewed) Levothyroxine (Levothyroxine) 50 Mcg Tab 50 MCG PO DAILY Thyroid #30 Ref 0 TAB Lorazepam (Ativan) 0.5 Mg Tab 0.5 MG PO TID PRN ANXIETY AND/OR AGITATION Ref 0 TAB Paliperidone Palmitate Inj (Invega Sustenna Inj) 234 Mg/1.5 Ml Inj 234 MG IM Q28D This dose of Invega Sustenna is due on 09/25/2016. Mental Health # 1 Ref 0 INJECTION Discontinued Medications: Carbamazepine (Carbamazepine) 200 Mg Tab 200 MG PO Q12HR Replaces Depakote, which has been discontinued. Mental Health Days 15 Ref 1 TAB Discharge Time <= 30 minutes Discharge/Advance Care Plan Health Problems: (1) Adjustment disorder with mixed disturbance of emotions and conduct (2) Intellectual disability Goals to promote your health * To prevent worsening of your condition and complications * To maintain your health at the optimal level Directions to meet your goals Take your medications as prescribed Follow your dietary instruction Follow activity as directed Keep your appointments as scheduled Take your immunizations and boosters as scheduled If your symptoms worsen call your PCP, if no PCP go to Urgent Care Center or Emergency Room For 14/01 questions related to your inpatient stay or results of tests pending at discharge, please contact Dr. Hitesh Crawford at Smoking is Dangerous to Your Health. Avoid second hand smoking Hitesh Crawford MD Oct 04, 2016 10:23
[2016-10-04] MEDS ORDERED: BENZ1TAB PO (12:10)
[2016-10-04 18:39] VITALS: BP 148/95; PULSE 95; RESP 18; TEMP 98; O2SAT 95
[2016-10-05 05:52] VITALS: BP 116/75; PULSE 85; RESP 16; TEMP 97.6; O2SAT 98
[2016-10-05] MEDS: LEVOTHYROXINE SODIUM 50 MCG TAB PO SCH (05:53)
[2016-10-05] MEDS: BENZTROPINE MESYLATE 1 MG TAB PO SCH (08:13)
[2016-10-05] MEDS: CETIRIZINE HCL 10 MG TAB PO SCH (08:13)
[2016-10-05] MEDS: HALOPERIDOL 5 MG TAB PO SCH (08:13)
[2016-10-05] MEDS: ESCITALOPRAM OXALATE 20 MG TAB PO SCH (08:13)
[2016-10-05] MEDS: FLUTICASONE PROPIONATE 50 MCG/ACT 16 GM NASAL SPRAY EACH NARE SCH (08:13)
--- NOTE | 2016-10-05 10:58 | HHI.PYPN ---
Subjective Remarks Patient seen and examined with counselor and nurse. Discharge had to be held yesterday for reasons detailed in discharge summary addendum. Chart reviewed. Case discussed with nursing staff who reports patient has been behaving very well and is the model patient on the unit. I see in nursing notes that patient' s mother continues to interfere with treatment plan and was trying to get patient not to take her prescribed medication. Counselor has been in contact with the facility and has related to facility that the patient will be returned there today. On my examination today, patient is in good spirits. She denies any issues with mood and denies any SI/HI/AVH. She wishes to be discharged today to her nursing home. Patient herself feels like the medications are helping and resents her mother's involvement in her care, noting that she wishes she could tell her mother, "Hey, mom, I'm doing fine." She denies side effects from medications. She promises to do her best to remain in good behavioral control at the nursing home. Patient's mother is apparently wanting a call from me, and patient provides verbal consent for me to contact mother. I did try to call her mother at the number listed in the EMR, and I left a VM requesting a call back. Review of Systems Except as stated in HPI: all other systems reviewed are Neg Objective Alert: Yes [place]: Person, Place, Date, Situation Mood: Calm Affect: Appropriate, Euthymic Memory Intact: Comment (Intact on clinical exam) Hallucinations: Other (Denies AVH) Delusions: No Delusion Type: Other (No delusional material) Suicidal: Ideation (Denies SI, intent, plan) Homicidal: Ideation (Denies HI, intent, plan) Insight/Judgment Poor, chronically so. Remarks No hand tremor, no dystonia, no dyskinesia. Speech is not slurred and is otherwise within normal limits. No other motoric abnormalities noted. Steady gait and station. Thought process linear. Labs Laboratories reviewed. Vitals/IOs Vital Signs Date Time Temp Pulse Resp B/P Pulse Ox O2 Delivery O2 Flow Rate FiO2 10/05/16 05:52 97.6 85 16 116/75 98 Assessment & Plan Problem List: (1) Adjustment disorder with mixed disturbance of emotions and conduct ICD Code: F43.25 (2) Intellectual disability ICD Code: F79 Assessment & Plan Patient is psychiatrically stable. She is tolerating her psychotropics well without side effects. Discharge back to facility today. Continue psychotropics as ordered on discharge summary yesterday. Follow up with outpatient psychiatric provider. Justification for Cont. Inpt. Discharge today Request HC Surrog/Guard Advoc?: No Hitesh Crawford MD Oct 05, 2016 10:58
== END 2016-10-05 16:00 | DRG 882 ==
LOC: NEPJ 16:11 → NEDA 09-26 10:01 → H270 09-26 11:40
PROVIDERS: ADMIT Psychiatry & Neurology Psychiatry; ATTEND Psychiatry & Neurology Psychiatry
DX: F43.25 Adjustment disorder with mixed disturbance of emotions and conduct (principal); I48.91 Unspecified atrial fibrillation; I10 Essential (primary) hypertension; E03.9 Hypothyroidism, unspecified; G40.909 Epilepsy, unspecified, not intractable, without status epilepticus; F79 Unspecified intellectual disabilities; F41.9 Anxiety disorder, unspecified; Z88.8 Allergy status to other drugs, medicaments and biological substances; Z91.02 Food additives allergy status; F90.9 Attention-deficit hyperactivity disorder, unspecified type; F31.9 Bipolar disorder, unspecified; J45.909 Unspecified asthma, uncomplicated; F20.9 Schizophrenia, unspecified; G47.30 Sleep apnea, unspecified; Y04.2XXA Assault by strike against or bumped into by another person, initial encounter; Y93.9 Activity, unspecified; Y92.239 Unspecified place in hospital as the place of occurrence of the external cause; Y99.9 Unspecified external cause status
CPT/HCPCS: 80053; 80061; 83036; 84703; 85025; 96372; J2060; Q0163

== ENCOUNTER 2016-10-05 18:35 | Emergency (ER) | payer OTHER ==
[~2016-10-05] VITALS: Ht 154.9 cm; Wt 105.0 kg
[~2016-10-05 18:35] MED LIST changes: +BENZ1TAB PO; -CARB200T PO
--- NOTE | 2016-10-05 18:55 | PD ---
HPI Chief Complaint: psychiatric evaluation Time Seen by Provider: 18:53 Travel History International Travel<30 days: No Contact w/Intl Traveler<30days: No History of Present Illness HPI Patient comes in under police escort under a Baron for allegedly threatening her caretakers. Patient denies doing this. Patient states that she threw a shell at a window. Denies any homicidal or suicidal ideations. Denies any medical concerns. Denies any chest pain, shortness of breath, nausea, vomiting , abdominal pain, or urinary symptoms. PFSH Past Medical History AAA: No ADD: Yes ADHD: Yes Alzheimer's Disease: No Anemia: No Arthritis: No Asthma: Yes Atrial Fibrillation: Yes Autoimmune Disease: No Blood Disorders: No Bipolar Disorder: No Anxiety: Yes Depression: Yes Heart Rhythm Problems: No Cardiomyopathy: No Cardiovascular Problems: Yes Cerebral Palsy: No High Cholesterol: No Chemotherapy: No Chest Pain: No Congestive Heart Failure: No Cirrhosis: No COPD: No Cerebrovascular Accident: No Coronary Artery Disease: No Cystic Fibrosis: No Dementia: No Developmental Delay: Yes Dialysis: No Diminished Hearing: No Diverticulitis: No Deep Vein Thrombosis: No Endocrine: Yes (ERT) Gastrointestinal Disorders: No Genetic Disorder: No GERD: No Glaucoma: No Gout: No Genitourinary: No Headaches: Yes Hepatitis: No Hiatal Hernia: No Hypertension: Yes Immune Disorder: No Inguinal Hernia: No Implanted Vascular Access Dvce: No Kidney Stones: No Musculoskeletal: No Neurologic: No Psychiatric: Yes Reproductive: No Respiratory: Yes Integumentary: No Immunizations Current: Yes Migraines: No Myocardial Infarction: No Pancreatitis: No Radiation Therapy: No Renal Failure: No Schizophrenia: Yes Seizures: Yes Sickle Cell Disease: No Sleep Apnea: Yes (C-PAP SETTING AT 2 PER PT) Thyroid Disease: Yes (HYPOTHYROID) Ulcer: No Menopausal: No : 0 Ectopic : No Ovarian Cysts: No Dilation and Curettage (D&C): No Tubal Ligation: No Past Surgical History AICD: No Arteriovenous Shunt: No Section: No Hysterectomy: No Insulin Pump: No Pacemaker: No Other Surgery: No Family History Family Hypercholesterolemia: No Social History Alcohol Use: No Tobacco Use: No Substance Use: No Allergies-Medications (Allergen,Severity, Reaction): Coded Allergies: Red Dyes - Various (Verified Allergy, Severe, BECOMES AGGRESSIVE, VOMITS, 10/05/16) Risperdal (Verified Allergy, Severe, Nausea/Vomiting, 10/05/16) Uncoded Allergies: Seasonal Allergies (Allergy, Unknown, 03/04/12) Reported Meds & Prescriptions Reported Meds & Active Scripts Active Benztropine (Benztropine Mesylate) 1 Mg Tab 1 Mg PO Q12HR 15 Days Haloperidol 5 Mg Tab 5 Mg PO BID 15 Days Lexapro (Escitalopram Oxalate) 20 Mg Tab 20 Mg PO DAILY 15 Days Invega Sustenna Inj (Paliperidone Palmitate) 234 Mg/1.5 Ml Inj 234 Mg IM Q28D This dose of Invega Sustenna is due on 09/25/2016. Reported Flonase Nasal [place] (Fluticasone Nasal [place]) 50 Mcg/Act [place] 1 [place] EACH NARE DAILY Apri (Desogestrel-Ethinyl Estradiol) 0.15-30 Mg-Mcg Tab 1 Tab PO DAILY Ativan (Lorazepam) 0.5 Mg Tab 0.5 Mg PO TID PRN Levothyroxine (Levothyroxine Sodium) 50 Mcg Tab 50 Mcg PO DAILY Cetirizine (Cetirizine HCl) 10 Mg Tab 10 Mg PO DAILY Review of Systems Except as stated in HPI: all other systems reviewed are Neg Physical Exam Narrative GENERAL: Well-developed, overly nourished, in no acute distress, and non-ill appearing. SKIN: Focused skin assessment warm and dry. HEAD: Atraumatic. Normocephalic. EYES: Pupils equal and round. EOMI. No scleral icterus. No injection or drainage. ENT: No nasal bleeding or discharge. Mucous membranes pink and moist. NECK: Trachea midline. No JVD. Supple. No nuclear rigidity. CARDIOVASCULAR: Regular rate and rhythm. No murmur appreciated. RESPIRATORY: No accessory muscle use. No respiratory distress. Clear to auscultation. Breath sounds equal bilaterally. MUSCULOSKELETAL: No obvious deformities. No clubbing. No cyanosis. No edema. Full range of motion. NEUROLOGICAL: Awake and alert. No obvious cranial nerve deficits. Motor grossly within normal limits. PSYCHIATRIC: Appropriate mood and affect. Data Data Last Documented VS Vital Signs Date Time Temp Pulse Resp B/P Pulse Ox O2 Delivery O2 Flow Rate FiO2 10/05/16 18:56 98.4 74 16 116/77 98 Orders Psych Screen (10/05/16 18:51) MDM Medical Decision Making Medical Screen Exam Complete: Yes Emergency Medical Condition: Yes Medical Record Reviewed: Yes Differential Diagnosis Adjustment disorder, intermittent explosive disorder, bipolar, other Narrative Course Patient was seen and examined. Patient medically cleared for further treatment and evaluation by psych. Final disposition per psych. Diagnosis Primary Impression: Medical clearance for psychiatric admission Condition: Stable Andrew Dolan Oct 05, 2016 18:55
[2016-10-05 18:56] VITALS: BP 116/77; PULSE 74; RESP 16; TEMP 98.4; O2SAT 98
[2016-10-05 19:07] VITALS: BP 117/66; PULSE 74; RESP 16; TEMP 98.4; O2SAT 98
[2016-10-05 23:53] VITALS: BP 109/65; PULSE 83; RESP 16; O2SAT 94
[2016-10-06 03:09] VITALS: BP 110/68; PULSE 78; RESP 16; O2SAT 96
[2016-10-06 08:09] VITALS: BP 116/58; PULSE 72; RESP 18; O2SAT 99
--- NOTE | 2016-10-06 11:36 | PD.CONS ---
Provisional Diagnosis Admission Date [place] I. Adjustment disorder with disturbance of conduct, intermittent explosive disorder [place] II. Mild to moderate intellectual disability History of Present Illness Service Psychiatry Consult Requested By Primary Care Physician No Primary Care Physician HPI The patient is a 26-year-old woman, with psychiatric history of mild to moderate intellectual disability, significant history of impulse control disorder, attention seeking behavior, intermittent explosive disorder, she has been in and out of [facility] multiple times in the last month, was discharged from inpatient hospitalizations September 10, was discharged just yesterday again, But now patient comes in under police escort under a Baron for allegedly threatening her caretakers in living facility. Patient denies doing this. Patient states that she threw a shell at a window. Denies any homicidal or suicidal ideations. Denies any medical concerns. Patient seems to be at baseline, calm and cooperative during evaluation. She denies depression, she denies anxiety, she denies manic and psychosis, she denies visual and auditory hallucinations. On longitudinal observation in the ER no aggressive behavior or agitation has been reported. Review of Systems Eyes: DENIES: Blurred vision, Diplopia, Eye inflammation, Eye pain, Vision loss , Photosensitivity, Double Vision Ears, nose, mouth, throat: DENIES: Tinnitus, Hearing loss, Vertigo, Nasal discharge, Oral lesions, Throat pain, Hoarseness, Ear Pain, Running Nose, Epistaxis, Sinus Pain, Toothache, Odynophagia Respiratory: DENIES: Apneas, Cough, Snoring, Wheezing, Hemoptysis, Sputum production, Shortness of breath Cardiovascular: DENIES: Chest pain, Palpitations, Syncope, Dyspnea on Exertion , PND, Lower Extremity Edema, Orthopnea, Claudication Gastrointestinal: DENIES: Abdominal pain, Black stools, Bloody stools, Constipation, Diarrhea, Nausea, Vomiting, Difficulty Swallowing, Anorexia Genitourinary: DENIES: Abnormal vaginal bleeding, Dysmenorrhea, Dyspareunia, Sexual dysfunction, Urinary frequency, Urinary incontinence, Urgency, Hematuria , Dysuria, Nocturia, Vaginal discharge Musculoskeletal: DENIES: Joint pain, Muscle aches, Stiffness, Joint Swelling, Back pain, Neck pain Integumentary: DENIES: Abnormal pigmentation, Pruritus, Rash, Nail changes, Breast masses, Breast skin changes, Nipple discharge Immunologic/allergic: DENIES: Eczema, Urticaria Neurologic: DENIES: Abnormal gait, Headache, Localized weakness, Paresthesias, Seizures, Speech Problems, Tremor, Poor Balance Psychiatric: DENIES: Anxiety, Confusion, Mood changes, Depression, Hallucinations, Agitation, Suicidal Ideation, Homicidal Ideation, Delusions Past Family Social History Coded Allergies: Red Dyes - Various (Verified Allergy, Severe, BECOMES AGGRESSIVE, VOMITS, 10/05/16) Risperdal (Verified Allergy, Severe, Nausea/Vomiting, 10/05/16) Uncoded Allergies: Seasonal Allergies (Allergy, Unknown, 03/04/12) Active Scripts Benztropine 1 Mg Tab1 Mg PO Q12HR 15 Days Ref 1 Prov:Hitesh Crawford MD 10/04/16 Haloperidol 5 Mg Tab5 Mg PO BID 15 Days Ref 1 Prov:Hitesh Crawford MD 10/04/16 Escitalopram (Lexapro)20 Mg Tab20 Mg PO DAILY 15 Days Ref 1 Prov:Hitesh Crawford MD 10/04/16 Paliperidone Palmitate Inj (Invega Sustenna Inj)234 Mg/1.5 Ml [id number] Mg IM Q28D #1 INJECTION Ref 0 This dose of Invega Sustenna is due on 09/25/2016. Prov:Hitesh Crawford MD 08/31/16 Reported Medications Fluticasone Nasal [place] (Flonase Nasal [place])50 Mcg/Act Spray1 [place] EACH NARE DAILY #1 BOTTLE Ref 0 09/18/16 Desogestrel-Ethinyl Estradiol (Apri)0.15-30 Mg-Mcg Tab1 Tab PO DAILY #28 TAB Ref 0 09/18/16 Lorazepam (Ativan)0.5 Mg Tab0.5 Mg PO TID PRN (ANXIETY AND/OR AGITATION) Ref 0 08/20/16 Levothyroxine 50 Mcg Tab50 Mcg PO DAILY #30 TAB Ref 0 07/24/16 Cetirizine 10 Mg Tab10 Mg PO DAILY Ref 0 07/24/16 Discontinued Reported Medications Escitalopram (Lexapro)20 Mg Tab20 Mg PO DAILY #30 TAB Ref 0 08/20/16 Discontinued Scripts Haloperidol 5 Mg Tab5 Mg PO BID 7 Days Ref 0 Prov:Hitesh Crawford MD 09/23/16 Carbamazepine 200 Mg [id number] Mg PO Q12HR 15 Days Ref 1 Replaces Depakote, which has been discontinued. Prov:Hitesh Crawford MD 08/31/16 Physical Exam Vital Signs Vital Signs Date Time Temp Pulse Resp B/P Pulse Ox O2 Delivery O2 Flow Rate FiO2 10/06/16 08:09 72 18 116/58 99 Room Air 10/05/16 19:07 98.4 Assessment & Plan Problem List: (1) Adjustment disorder with mixed disturbance of emotions and conduct Assessment & Plan: A she was just discharged yesterday from psychiatry by Dr. Crawford. I did not find any reason to keep this patient under Baron act in the ER. She does not meet criteria for psychiatric hospitalization. She does not present any symptomatology of depression, anxiety, brianna or psychosis. Patient has a well-known strong behavioral component as a cause of poor impulse control and aggressive behavior, but this is part of her character rather than a major psychiatric illness decompensation. Patient would be sent back to her living facility. The psychiatric recommendations would be the same done by Dr. Crawford and psychiatric team on discharge yesterday. ICD Code: F43.25 Assessment & Plan Estimated LOS: Jorge Carolina MD Oct 06, 2016 11:36
== END 2016-10-06 09:28 | disposition home or self-care (01) ==
LOC: NEDAMB 18:35 → NEPD 10-06 09:28
DX: F43.25 Adjustment disorder with mixed disturbance of emotions and conduct (principal); F63.81 Intermittent explosive disorder; F71 Moderate intellectual disabilities; J45.909 Unspecified asthma, uncomplicated; I48.91 Unspecified atrial fibrillation; I10 Essential (primary) hypertension; E03.9 Hypothyroidism, unspecified; G47.30 Sleep apnea, unspecified
CPT/HCPCS: 99284

== ENCOUNTER 2016-10-06 18:34 | Emergency (ER) | payer OTHER ==
[2016-10-06 19:18] VITALS: BP 129/68; PULSE 100; RESP 20; TEMP 97.6; O2SAT 95
--- NOTE | 2016-10-06 19:40 | PD ---
HPI Chief Complaint: Psychiatric Symptoms Time Seen by Provider: 17:28 Travel History International Travel<30 days: No Contact w/Intl Traveler<30days: No Traveled to known affect area: No History of Present Illness HPI 26-year-old female presents under Baron act initiated by [place] [employer]. The patient was recently admitted here psychiatrically on September 26, discharged this morning with the diagnoses of adjustment disorder and intellectual disability. She reports that upon returning to her intermediate she felt that she was being mistreated. She was told that she was "acting out" and she became upset, ran away. She then found a piece of glass on the ground and superficially cut her wrists. She then states this and to contact the police. She was then placed under Baron act. At this point in time she admits to feeling depressed, she is uncertain whether or not she is suicidal. She denies any homicidal ideation, drug or alcohol use. She has mild pain associated with these superficial abrasions. Last tetanus vaccination within 5 years. No other complaints. PFSH Past Medical History AAA: No ADD: Yes ADHD: Yes Alzheimer's Disease: No Anemia: No Arthritis: No Asthma: Yes Atrial Fibrillation: Yes Autoimmune Disease: No Blood Disorders: No Bipolar Disorder: No Anxiety: Yes Depression: Yes Heart Rhythm Problems: No Cardiomyopathy: No Cardiovascular Problems: Yes Cerebral Palsy: No High Cholesterol: No Chemotherapy: No Chest Pain: No Congestive Heart Failure: No Cirrhosis: No COPD: No Cerebrovascular Accident: No Coronary Artery Disease: No Cystic Fibrosis: No Dementia: No Developmental Delay: Yes Dialysis: No Diminished Hearing: No Diverticulitis: No Deep Vein Thrombosis: No Endocrine: Yes (ERT) Gastrointestinal Disorders: No Genetic Disorder: No GERD: No Glaucoma: No Gout: No Genitourinary: No Headaches: Yes Hepatitis: No Hiatal Hernia: No Hypertension: Yes Immune Disorder: No Inguinal Hernia: No Implanted Vascular Access Dvce: No Kidney Stones: No Musculoskeletal: No Neurologic: No Psychiatric: Yes Reproductive: No Respiratory: Yes Integumentary: No Immunizations Current: Yes Migraines: No Myocardial Infarction: No Pancreatitis: No Radiation Therapy: No Renal Failure: No Schizophrenia: Yes Seizures: Yes Sickle Cell Disease: No Sleep Apnea: Yes (C-PAP SETTING AT 2 PER PT) Thyroid Disease: Yes (HYPOTHYROID) Ulcer: No Menopausal: No : 0 Ectopic : No Ovarian Cysts: No Dilation and Curettage (D&C): No Tubal Ligation: No Past Surgical History AICD: No Arteriovenous Shunt: No Section: No Hysterectomy: No Insulin Pump: No Pacemaker: No Other Surgery: No Family History Family Hypercholesterolemia: No Social History Alcohol Use: No Tobacco Use: No Substance Use: No Allergies-Medications (Allergen,Severity, Reaction): Coded Allergies: Red Dyes - Various (Verified Allergy, Severe, BECOMES AGGRESSIVE, VOMITS, 10/05/16) Risperdal (Verified Allergy, Severe, Nausea/Vomiting, 10/05/16) Uncoded Allergies: Seasonal Allergies (Allergy, Unknown, 03/04/12) Reported Meds & Prescriptions Reported Meds & Active Scripts Active Benztropine (Benztropine Mesylate) 1 Mg Tab 1 Mg PO Q12HR 15 Days Haloperidol 5 Mg Tab 5 Mg PO BID 15 Days Lexapro (Escitalopram Oxalate) 20 Mg Tab 20 Mg PO DAILY 15 Days Invega Sustenna Inj (Paliperidone Palmitate) 234 Mg/1.5 Ml Inj 234 Mg IM Q28D This dose of Invega Sustenna is due on 09/25/2016. Reported Flonase Nasal [place] (Fluticasone Nasal [place]) 50 Mcg/Act [place] 1 [place] EACH NARE DAILY Apri (Desogestrel-Ethinyl Estradiol) 0.15-30 Mg-Mcg Tab 1 Tab PO DAILY Ativan (Lorazepam) 0.5 Mg Tab 0.5 Mg PO TID PRN Levothyroxine (Levothyroxine Sodium) 50 Mcg Tab 50 Mcg PO DAILY Cetirizine (Cetirizine HCl) 10 Mg Tab 10 Mg PO DAILY Review of Systems Except as stated in HPI: all other systems reviewed are Neg Physical Exam Narrative GENERAL: Well developed well-nourished female in no acute distress SKIN: Warm and dry. Superficial linear abrasions noted to the volar aspect of both wrists. Dermis is intact. HEAD: Atraumatic. Normocephalic. EYES: Pupils equal and round. No scleral icterus. No injection or drainage. ENT: No nasal bleeding or discharge. Mucous membranes pink and moist. NECK: Trachea midline. No JVD. CARDIOVASCULAR: Regular rate and rhythm. No murmur appreciated. RESPIRATORY: No accessory muscle use. Clear to auscultation. Breath sounds equal bilaterally. GASTROINTESTINAL: Abdomen soft, non-tender, nondistended. Hepatic and splenic margins not palpable. MUSCULOSKELETAL: No obvious deformities. No clubbing. No cyanosis. No edema. NEUROLOGICAL: Awake and alert. No obvious cranial nerve deficits. Motor grossly within normal limits. Normal speech. PSYCHIATRIC: Appropriate mood and affect; insight and judgment limited Data Data Last Documented VS Vital Signs Date Time Temp Pulse Resp B/P Pulse Ox O2 Delivery O2 Flow Rate FiO2 10/06/16 19:18 97.6 100 20 129/68 95 Room Air Orders Psych Screen (10/06/16 19:16) MDM Medical Decision Making Medical Screen Exam Complete: Yes Emergency Medical Condition: Yes Medical Record Reviewed: Yes Differential Diagnosis Adjustment reaction, Flexeril visibility, malingering, acute psychosis, major depressive disorder, intermittent explosive disorder, bipolar disorder Narrative Course 26-year-old female with frequent visits for psychiatric evaluation, just discharged this morning, presents under Baron act for psychiatric evaluation. Her wounds on the wrists are superficial and do not require repair, local wound care provided. Reviewed previous labs which were within normal limits. Mental health screening discussed with the patient. Psychiatric screen ordered. She is medically cleared for psychiatric disposition. Diagnosis Primary Impression: Adjustment disorder with mixed disturbance of emotions and conduct Additional Impression: Abrasion forearm Eliud Moya Oct 06, 2016 19:40
[2016-10-06 22:20] VITALS: BP 120/67; PULSE 79; RESP 16; O2SAT 99
[2016-10-07 06:30] VITALS: BP 127/75; PULSE 80; RESP 16
[2016-10-07 11:00] VITALS: BP 136/91; PULSE 95; RESP 18
--- NOTE | 2016-10-07 12:19 | PD.CONS ---
Provisional Diagnosis Admission Date [place] I. Mild to moderate intellectual disability, adjustment disorder with disturbance of conduct, intermittent explosive disorder, history of bipolar disorder [place] II. Mild to moderate intellectual disability [place] III. Denies [place] IV. Conflict at nursing home [place] V. 51 History of Present Illness Service Psychiatry Consult Requested By Primary Care Physician No Primary Care Physician HPI The patient is a 26-year-old woman, with psychiatric history of mild to moderate intellectual disability, significant history of impulse control disorder, attention seeking behavior, intermittent explosive disorder, she has been in and out of [facility] multiple times in the last month, was seen and discharged from the psychiatric ER yesterday, was discharged from the inpatient psychiatric hospitalization 10/04/2016, she has been recurrently coming to the ER with the complaint that she doesn't want to live in her current nursing home , But now patient comes in under police escort under a Baron after acting out in her living facility. Patient denies doing this, she says that she just don't want to live there "I don't like my home, I want to go back there". She denies depressive symptoms, she denies anxiety, she denies psychosis. Denies any homicidal or suicidal ideations. Denies any medical concerns. Patient seems to be at baseline, calm and cooperative during evaluation. She denies visual and auditory hallucinations. On longitudinal observation in the ER no aggressive behavior or agitation has been reported in the ER. This time I spoke by phone with her mother. Her mother firmly believes that the reason she is behaving like this is because she is in too much medication. She was requesting a revision of her medications and admission in psychiatry. She says that she is working along with health care social worker in home facility to find a better place to her daughter. She clarifies that the place where her daughter is living now is not a safe place for her because is "too open and patient can walk out whenever they want". Patient's mother is explained that at this moment based on my evaluation the patient does not meet criteria for psychiatric admission. Current medication regimen needs to be discussed with outpatient psychiatrist. I explained to her my intention of involving risk management in this case because the patient can coming to the ER even though when she doesn't have any psychiatric symptom to treat and her problem is purely social/behavioral. She finally expressed understanding and told that she will calm herself to pick up truck driver her daughter today and will stay with her in the home facility. Review of Systems Constitutional: DENIES: Diaphoretic episodes, Fatigue, Fever, Weight gain, Weight loss, Chills, Dizziness, Change in appetite, Night Sweats Endocrine: DENIES: Abnorml menstrual pattern, Heat/cold intolerance, Polydipsia , Polyuria, Polyphagia Eyes: DENIES: Blurred vision, Diplopia, Eye inflammation, Eye pain, Vision loss , Photosensitivity, Double Vision Ears, nose, mouth, throat: DENIES: Tinnitus, Hearing loss, Vertigo, Nasal discharge, Oral lesions, Throat pain, Hoarseness, Ear Pain, Running Nose, Epistaxis, Sinus Pain, Toothache, Odynophagia Respiratory: DENIES: Apneas, Cough, Snoring, Wheezing, Hemoptysis, Sputum production, Shortness of breath Gastrointestinal: DENIES: Abdominal pain, Black stools, Bloody stools, Constipation, Diarrhea, Nausea, Vomiting, Difficulty Swallowing, Anorexia Genitourinary: DENIES: Abnormal vaginal bleeding, Dysmenorrhea, Dyspareunia, Sexual dysfunction, Urinary frequency, Urinary incontinence, Urgency, Hematuria , Dysuria, Nocturia, Vaginal discharge Integumentary: DENIES: Abnormal pigmentation, Pruritus, Rash, Nail changes, Breast masses, Breast skin changes, Nipple discharge Immunologic/allergic: DENIES: Eczema, Urticaria Neurologic: DENIES: Abnormal gait, Headache, Localized weakness, Paresthesias, Seizures, Speech Problems, Tremor, Poor Balance Psychiatric: DENIES: Anxiety, Confusion, Mood changes, Depression, Hallucinations, Agitation, Suicidal Ideation, Homicidal Ideation, Delusions Past Family Social History Coded Allergies: Red Dyes - Various (Verified Allergy, Severe, BECOMES AGGRESSIVE, VOMITS, 10/05/16) Risperdal (Verified Allergy, Severe, Nausea/Vomiting, 10/05/16) Uncoded Allergies: Seasonal Allergies (Allergy, Unknown, 03/04/12) Active Scripts Benztropine 1 Mg Tab1 Mg PO Q12HR 15 Days Ref 1 Prov:Hitesh Crawford MD 10/04/16 Haloperidol 5 Mg Tab5 Mg PO BID 15 Days Ref 1 Prov:Hitesh Crawford MD 10/04/16 Escitalopram (Lexapro)20 Mg Tab20 Mg PO DAILY 15 Days Ref 1 Prov:Hitesh Crawford MD 10/04/16 Paliperidone Palmitate Inj (Invega Sustenna Inj)234 Mg/1.5 Ml [id number] Mg IM Q28D #1 INJECTION Ref 0 This dose of Invega Sustenna is due on 09/25/2016. Prov:Hitesh Crawford MD 08/31/16 Reported Medications Fluticasone Nasal [place] (Flonase Nasal [place])50 Mcg/Act Spray1 [place] EACH NARE DAILY #1 BOTTLE Ref 0 09/18/16 Desogestrel-Ethinyl Estradiol (Apri)0.15-30 Mg-Mcg Tab1 Tab PO DAILY #28 TAB Ref 0 09/18/16 Lorazepam (Ativan)0.5 Mg Tab0.5 Mg PO TID PRN (ANXIETY AND/OR AGITATION) Ref 0 08/20/16 Levothyroxine 50 Mcg Tab50 Mcg PO DAILY #30 TAB Ref 0 07/24/16 Cetirizine 10 Mg Tab10 Mg PO DAILY Ref 0 07/24/16 Discontinued Reported Medications Escitalopram (Lexapro)20 Mg Tab20 Mg PO DAILY #30 TAB Ref 0 08/20/16 Discontinued Scripts Haloperidol 5 Mg Tab5 Mg PO BID 7 Days Ref 0 Prov:Hitesh Crawford MD 09/23/16 Carbamazepine 200 Mg [id number] Mg PO Q12HR 15 Days Ref 1 Replaces Depakote, which has been discontinued. Prov:Hitesh Crawford MD 08/31/16 Family History Denies Social History Patient was born and raised in [place], she lives in a residential facility, [facility] in [place], she is single, unemployed, her highest level of education is 12th grade Physical Exam Vital Signs Vital Signs Date Time Temp Pulse Resp B/P Pulse Ox O2 Delivery O2 Flow Rate FiO2 10/07/16 11:00 95 18 136/91 Room Air 10/06/16 22:20 99 10/06/16 19:18 97.6 Mental Status Examination Appearance Overweight woman, [facility], good hygiene, calm and cooperative Speech: Hesitant Orientation: x3 Memory: Unremarkable Thought Process: Goal Directed, Other (concrete) Thought Content: Unremarkable Hallucination Type: None Suicidal Ideation: No Previous Suicide Attempts: No Homicidal Ideation: No Previous Homicide Attempts: No Judgment: Impulsive Affect: Good Mood: Appropriate Motor Activity: Normal gait Assessment & Plan Problem List: (1) Adjustment disorder with mixed disturbance of emotions and conduct Assessment & Plan: On psychiatric evaluation today the patient does not present any concerning, acute or significant evidence of depressive symptoms, anxiety, psychosis, or brianna. The patient denies suicidal or homicidal ideation , she denies visual and auditory hallucinations. Patient does show at this moment highly impulsive behavior, mood dysregulation, demanding and manipulative behavior in the J-pod. She is usually redirected and able to be verbally the escalated. Her recent episode of acting out and running away all her facility actually part of her well-documented poor impulse control and manipulative behavior in order to get away of her living facility and stay in the hospital, as she has been requesting. Unfortunately, this patient does not meet criteria for a psychiatric admission at this time. Her poor judgment, poor impulse control are mostly secondary to her intellectual disability and character structure, rather than secondary to a major psychiatric condition that can be treated medically. She needs to go back to her residential facility and continue psychiatric care in outpatient basis with current medication regimen. Extensive support, motivation psychoeducation provided. The psychiatric recommendations would be the same done by Dr. Crawford and psychiatric team just days ago ICD Code: F43.25 Assessment & Plan Estimated LOS: Jorge Carolina MD Oct 07, 2016 12:19
== END 2016-10-07 14:24 | disposition home or self-care (01) ==
LOC: NEPJ 18:34
DX: F43.25 Adjustment disorder with mixed disturbance of emotions and conduct (principal); F71 Moderate intellectual disabilities; F63.81 Intermittent explosive disorder; S60.812A Abrasion of left wrist, initial encounter; S60.811A Abrasion of right wrist, initial encounter; I48.91 Unspecified atrial fibrillation; I10 Essential (primary) hypertension; E03.9 Hypothyroidism, unspecified; G47.30 Sleep apnea, unspecified; X78.0XXA Intentional self-harm by sharp glass, initial encounter; Z86.59 Personal history of other mental and behavioral disorders; Z87.09 Personal history of other diseases of the respiratory system; Z86.79 Personal history of other diseases of the circulatory system; Z86.69 Personal history of other diseases of the nervous system and sense organs
CPT/HCPCS: 99282

== ENCOUNTER 2017-01-29 13:23 | Emergency (ER) | payer OTHER ==
[~2017-01-29] VITALS: Ht 154.9 cm; Wt 90.0 kg
[2017-01-29 13:32] VITALS: BP 119/69; PULSE 117; RESP 18; O2SAT 96
[2017-01-29 14:18] LABS: AUTOMATED NEUTROPHIL # 7.5 TH/MM3 (1.8-7.7); BASOPHIL # 0.1 TH/MM3 (0-0.2); BASOPHIL % 0.6 % (0.0-2.0); HEMATOCRIT 38.1 % (35.0-46.0); HEMO FLAGS DIFF FINAL; LYMPH % 18.2 % (9.0-44.0); LYMPHOCYTE # 1.7 TH/MM3 (1.0-4.8); MEAN CELL VOLUME 81.8 FL (80.0-100.0); MEAN CORPUSCULAR HEMOGLOBIN 28.3 PG (27.0-34.0); MEAN CORPUSCULAR HGB CONC 34.6 % (32.0-36.0); MONO % 3.4 % (0.0-8.0); NEUT % 77.8 % (16.0-70.0); PLATELET COUNT 268 TH/MM3 (150-450); RED BLOOD COUNT 4.65 MIL/MM3 (4.00-5.30); RED CELL DISTRIBUTION WIDTH 12.9 % (11.6-17.2); WHITE BLOOD COUNT 9.6 TH/MM3 (4.0-11.0)
--- NOTE | 2017-01-29 14:28 | PD ---
HPI Chief Complaint: Psychiatric Symptoms Time Seen by Provider: 13:50 Travel History International Travel<30 days: No Contact w/Intl Traveler<30days: No Traveled to known affect area: No History of Present Illness HPI Patient is a 26-year-old female brought into the emergency Department under Baron act for making homicidal statements. Patient states she was upset because her caregiver told her she was being dishonest. When asked what she was accused of being dishonest about she stated that another caregiver named Marsha asked her to olive picker her shirt to see if she was wearing a bra. Patient states that this made her feel uncomfortable. Patient states that she wasn't being dishonest, this made her mad and she subsequently left the shelter and went to a convenience store where she was found throwing candy. Patient states that she wanted to throw soda on her caregiver but the police stopped her. Patient admits to making homicidal statements because she was mad. Patient states that when she gets that she has a hard time controlling her anger and is aware of this, she went on to state that she's been doing good lately. She denies any visual or auditory hallucinations, she denies any homicidal or suicidal ideations at this time. She is requesting to be placed in a different shelter. PFSH Past Medical History AAA: No ADHD: Yes Alzheimer's Disease: No Anemia: No Arthritis: No Asthma: Yes Atrial Fibrillation: Yes Autoimmune Disease: No Blood Disorders: No Bipolar Disorder: No Anxiety: Yes Depression: Yes Heart Rhythm Problems: No Cardiomyopathy: No Cerebral Palsy: No High Cholesterol: No Chemotherapy: No Chest Pain: No Congestive Heart Failure: No Cirrhosis: No COPD: No Cerebrovascular Accident: No Coronary Artery Disease: No Cystic Fibrosis: No Dementia: No Developmental Delay: Yes Dialysis: No Diminished Hearing: No Diverticulitis: No Deep Vein Thrombosis: No Gastrointestinal Disorders: No Genetic Disorder: No GERD: No Glaucoma: No Gout: No Genitourinary: No Headaches: Yes Hepatitis: No Hiatal Hernia: No Hypertension: Yes Immune Disorder: No Inguinal Hernia: No Implanted Vascular Access Dvce: No Kidney Stones: No Musculoskeletal: No Neurologic: No Reproductive: No Integumentary: No Immunizations Current: Yes Migraines: No Myocardial Infarction: No Pancreatitis: No Radiation Therapy: No Renal Failure: No Schizophrenia: Yes Seizures: Yes Sickle Cell Disease: No Sleep Apnea: Yes (C-PAP SETTING AT 2 PER PT) Thyroid Disease: Yes (HYPOTHYROID) Ulcer: No ?: Not Menopausal: No : 0 Ectopic : No Ovarian Cysts: No Dilation and Curettage (D&C): No Tubal Ligation: No Past Surgical History AICD: No Arteriovenous Shunt: No Section: No Hysterectomy: No Insulin Pump: No Pacemaker: No Other Surgery: No Family History Family Hypercholesterolemia: No Social History Alcohol Use: No Tobacco Use: No Substance Use: No Allergies-Medications (Allergen,Severity, Reaction): Coded Allergies: Red Dyes - Various (Verified Allergy, Severe, BECOMES AGGRESSIVE, VOMITS, 01/29/17) Risperdal (Verified Allergy, Severe, Nausea/Vomiting, 01/29/17) Uncoded Allergies: Seasonal Allergies (Allergy, Unknown, 03/04/12) Reported Meds & Prescriptions Reported Meds & Active Scripts Active Benztropine (Benztropine Mesylate) 1 Mg Tab 1 Mg PO Q12HR 15 Days Haloperidol 5 Mg Tab 5 Mg PO BID 15 Days Lexapro (Escitalopram Oxalate) 20 Mg Tab 20 Mg PO DAILY 15 Days Invega Sustenna Inj (Paliperidone Palmitate) 234 Mg/1.5 Ml Inj 234 Mg IM Q28D This dose of Invega Sustenna is due on 09/25/2016. Reported Flonase Nasal [place] (Fluticasone Nasal [place]) 50 Mcg/Act [place] 1 [place] EACH NARE DAILY Apri (Desogestrel-Ethinyl Estradiol) 0.15-30 Mg-Mcg Tab 1 Tab PO DAILY Ativan (Lorazepam) 0.5 Mg Tab 0.5 Mg PO TID PRN Levothyroxine (Levothyroxine Sodium) 50 Mcg Tab 50 Mcg PO DAILY Cetirizine (Cetirizine HCl) 10 Mg Tab 10 Mg PO DAILY Review of Systems Except as stated in HPI: all other systems reviewed are Neg Psychiatric: No: Suicidal Ideations, Disorder of Thought, Substance Abuse, Homicidal Ideation Physical Exam Narrative GENERAL: Obese, well-developed, alert female. Resting in no acute distress. SKIN: Warm and dry. HEAD: Atraumatic. Normocephalic. EYES: Pupils equal and round. No scleral icterus. No injection or drainage. ENT: No nasal bleeding or discharge. Mucous membranes pink and moist. NECK: Trachea midline. No JVD. CARDIOVASCULAR: Tachycardic RESPIRATORY: No accessory muscle use. Clear to auscultation. Breath sounds equal bilaterally. GASTROINTESTINAL: Abdomen obese, soft, non-tender, nondistended. Hepatic and splenic margins not palpable. Positive bowel sounds MUSCULOSKELETAL: Extremities without clubbing, cyanosis, or edema. No obvious deformities. NEUROLOGICAL: Awake and alert, oriented 3. No obvious cranial nerve deficits. Motor grossly within normal limits. Five out of 5 muscle strength in the arms and legs. Normal speech. PSYCHIATRIC: Appropriate mood and affect; insight and judgment normal. Data Data Last Documented VS Vital Signs Date Time Temp Pulse Resp B/P Pulse Ox O2 Delivery O2 Flow Rate FiO2 01/29/17 13:32 117 18 119/69 96 Orders Complete Blood Count With Diff (01/29/17 13:51) Comprehensive Metabolic Panel (01/29/17 13:51) Thyroid Stimulating Hormone (01/29/17 13:51) Psych Screen (01/29/17 13:51) Diet Regular Basic (01/29/17 Dinner) Labs Laboratory Tests Test 01/29/17 14:02 White Blood Count 9.6 TH/MM3 Red Blood Count 4.65 MIL/MM3 Hemoglobin 13.1 GM/DL Hematocrit 38.1 % Mean Corpuscular Volume 81.8 FL Mean Corpuscular Hemoglobin 28.3 PG Mean Corpuscular Hemoglobin 34.6 % Concent Red Cell Distribution Width 12.9 % Platelet Count 268 TH/MM3 Mean Platelet Volume 8.5 FL Neutrophils (%) (Auto) 77.8 % Lymphocytes (%) (Auto) 18.2 % Monocytes (%) (Auto) 3.4 % Eosinophils (%) (Auto) 0.0 % Basophils (%) (Auto) 0.6 % Neutrophils # (Auto) 7.5 TH/MM3 Lymphocytes # (Auto) 1.7 TH/MM3 Monocytes # (Auto) 0.3 TH/MM3 Eosinophils # (Auto) 0.0 TH/MM3 Basophils # (Auto) 0.1 TH/MM3 CBC Comment DIFF FINAL Differential Comment Sodium Level 139 MEQ/L Potassium Level 3.9 MEQ/L Chloride Level 108 MEQ/L Carbon Dioxide Level 21.2 MEQ/L Anion Gap 10 MEQ/L Blood Urea Nitrogen 10 MG/DL Creatinine 0.84 MG/DL Estimat Glomerular Filtration 83 ML/MIN Rate Random Glucose 105 MG/DL Calcium Level 9.4 MG/DL Total Bilirubin 0.2 MG/DL Aspartate Amino Transf 10 U/L (AST/SGOT) Alanine Aminotransferase 17 U/L (ALT/SGPT) Alkaline Phosphatase 102 U/L Total Protein 8.3 GM/DL Albumin 3.6 GM/DL Thyroid Stimulating Hormone 1.150 uIU/ML 3rd Gen [facility] Medical Decision Making Medical Screen Exam Complete: Yes Emergency Medical Condition: Yes Medical Record Reviewed: Yes Interpretation(s) Vital Signs Date Time Temp Pulse Resp B/P Pulse Ox O2 Delivery O2 Flow Rate FiO2 01/29/17 13:32 117 18 119/69 96 Differential Diagnosis Mood disorder versus explosive disorder versus metabolic abnormality versus homicidal ideations versus other Narrative Course Patient is a 26-year-old female presented under Baron act due to homicidal ideations. Patient reported that she was asked to lift her shirt to check if she was wearing a bra and subsequently told she was being dishonest when she reported this to her caregiver. This subsequently started a chain of events events leading up to the homicidal statements at the gas station. Mental health screening discussed with the patient. Psychiatric screen ordered. Patient was given something to drink. Labs ordered and pending. Patient has been cooperative, calm and the emergency department. She appears to be credible despite her intellectual disability. Upon review of medical records it does not appear that she has made accusatory statements like this in the past. CBC AND CMP with no acute abnormalities. Patient is medically cleared for psychiatric evaluation at this time. RN contacted [facility] in regards to patient's accusation regarding having to lift her shirt. See her documentation. Diagnosis Primary Impression: Medical clearance for psychiatric admission Condition: Stable Stephanie Macdonald Jan 29, 2017 14:28 Stephanie Macdonald Jan 29, 2017 14:28
[2017-01-29 14:32] LABS: ALT (GPT) 17 U/L (10-53); ANION GAP 10 MEQ/L (5-15); AST (GOT) 10 U/L (15-37); BICARBONATE 21.2 MEQ/L (21.0-32.0); BLOOD UREA NITROGEN 10 MG/DL (7-18); CHLORIDE 108 MEQ/L (98-107); GLOMERULAR FILTRATION RATE 83 ML/MIN (>89); POTASSIUM 3.9 MEQ/L (3.5-5.1); SODIUM (NA) 139 MEQ/L (136-145)
[2017-01-29 14:41] LABS: ALKALINE PHOSPHATASE 102 U/L (45-117); TOTAL BILIRUBIN ADULT 0.2 MG/DL (0.2-1.0)
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
== END 2017-01-29 20:26 | disposition home or self-care (01) ==
LOC: NEDAMB 13:23
DX: F70 Mild intellectual disabilities (principal); F43.25 Adjustment disorder with mixed disturbance of emotions and conduct; F20.9 Schizophrenia, unspecified; F41.8 Other specified anxiety disorders; F90.9 Attention-deficit hyperactivity disorder, unspecified type; I48.91 Unspecified atrial fibrillation
CPT/HCPCS: 80053; 84443; 85025; 99283

== ENCOUNTER 2017-04-15 18:40 | Emergency (ER) | payer OTHER ==
[~2017-04-15] VITALS: Ht 154.9 cm; Wt 90.0 kg
[2017-04-15 19:25] VITALS: BP 115/54; PULSE 100; RESP 18; O2SAT 94
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
[2017-04-15 23:05] VITALS: BP 116/61; PULSE 86; RESP 18
[2017-04-15 23:05] LABS: BASOPHIL % 0.3 % (0.0-2.0); EOSINOPHIL % 0.1 % (0.0-4.0); HEMATOCRIT 39.3 % (35.0-46.0); HEMO FLAGS DIFF FINAL; LYMPH % 24.5 % (9.0-44.0); LYMPHOCYTE # 2.8 TH/MM3 (1.0-4.8); MEAN CELL VOLUME 82.3 FL (80.0-100.0); MONO % 4.7 % (0.0-8.0); NEUT % 70.4 % (16.0-70.0); PLATELET COUNT 275 TH/MM3 (150-450); RED BLOOD COUNT 4.78 MIL/MM3 (4.00-5.30); RED CELL DISTRIBUTION WIDTH 12.7 % (11.6-17.2); WHITE BLOOD COUNT 11.3 TH/MM3 (4.0-11.0)
[2017-04-15 23:15] LABS: ANION GAP 9 MEQ/L (5-15); BICARBONATE 23.1 MEQ/L (21.0-32.0); BLOOD UREA NITROGEN 11 MG/DL (7-18); CHLORIDE 107 MEQ/L (98-107); GLOMERULAR FILTRATION RATE 90 ML/MIN (>89); POTASSIUM 4.1 MEQ/L (3.5-5.1); SODIUM (NA) 139 MEQ/L (136-145)
[2017-04-15 23:23] LABS: ALCOHOL LESS THAN 3 MG/DL (0-5)
[2017-04-16 02:28] VITALS: BP 92/50; PULSE 74; RESP 18
[2017-04-16] MEDS ORDERED: BENZ0.5T PO (03:22)
[2017-04-16 06:19] VITALS: BP 124/62; PULSE 68; RESP 17
--- NOTE | 2017-04-16 09:20 | PD ---
Physical Exam Time Seen by Provider: 09:[address] Villatoro has evaluated the patient, lifted the Baron act and cleared the patient for discharge. Data Data Last Documented VS Vital Signs Date Time Temp Pulse Resp B/P (MAP) Pulse Ox O2 Delivery O2 Flow Rate FiO2 04/16/17 06:19 68 17 124/62 (82) Room Air 04/15/17 19:25 94 Orders Orders Psych Screen (04/15/17 19:50) Complete Blood Count With Diff (04/15/17 20:39) Basic Metabolic Panel (Bmp) (04/15/17 20:39) Drug Screen, Random Urine (04/15/17 20:39) Alcohol (Ethanol) (04/15/17 20:39) Ed Urine Pregnancytest Poc (04/15/17 20:39) Diet Regular Basic (04/16/17 Breakfast) Labs Laboratory Tests Test 04/15/17 21:45 04/15/17 22:13 White Blood Count 11.3 TH/MM3 Red Blood Count 4.78 MIL/MM3 Hemoglobin 13.4 GM/DL Hematocrit 39.3 % Mean Corpuscular Volume 82.3 FL Mean Corpuscular Hemoglobin 28.0 PG Mean Corpuscular Hemoglobin Concent 34.0 % Red Cell Distribution Width 12.7 % Platelet Count 275 TH/MM3 Mean Platelet Volume 8.8 FL Neutrophils (%) (Auto) 70.4 % Lymphocytes (%) (Auto) 24.5 % Monocytes (%) (Auto) 4.7 % Eosinophils (%) (Auto) 0.1 % Basophils (%) (Auto) 0.3 % Neutrophils # (Auto) 8.0 TH/MM3 Lymphocytes # (Auto) 2.8 TH/MM3 Monocytes # (Auto) 0.5 TH/MM3 Eosinophils # (Auto) 0.0 TH/MM3 Basophils # (Auto) 0.0 TH/MM3 CBC Comment DIFF FINAL Differential Comment Blood Urea Nitrogen 11 MG/DL Creatinine 0.78 MG/DL Random Glucose 105 MG/DL Calcium Level 9.4 MG/DL Sodium Level 139 MEQ/L Potassium Level 4.1 MEQ/L Chloride Level 107 MEQ/L Carbon Dioxide Level 23.1 MEQ/L Anion Gap 9 MEQ/L Estimat Glomerular Filtration Rate 90 ML/MIN Ethyl Alcohol Level LESS THAN 3 MG/DL Urine Opiates Screen NEG Urine Barbiturates Screen NEG Urine Amphetamines Screen NEG Urine Benzodiazepines Screen NEG Urine Cocaine Screen NEG Urine Cannabinoids Screen NEG MDM Supervised Visit with EDI: No Narrative Course Dr. Villatoro has evaluated the patient, lifted the Baron act and cleared the patient for discharge. Patient contracts safety. Denies suicidal or homicidal ideations. Patient will be provided community resource packet to [facility] for follow-up. Has friends and family for support. Patient is medically cleared for discharge. Diagnosis Primary Impression: Adjustment disorder with mixed disturbance of emotions and conduct Referrals: [facility] (Out patient) [facility] Primary Care Physician Psychiatrist Venkatesh [facility] Patient Instructions: General Instructions, Mood Disorders (ED) Additional Instruction: Contract safety to your self and others Follow-up with psychiatry Follow-up with primary care provider Follow-up with Bryn Fuentes Return to the emergency department immediately with worsening of symptoms Med/Other Pt SpecificInfo: No Change to Meds, No Meds Exist/No RX given Disposition: DISCHARGE HOME Condition: Stable Rahel Chappell Apr 16, 2017 09:20
[2017-04-16] MEDS ORDERED: HALOPERIDOL 5 MG TAB PO ONE (10:45)
[2017-04-16] MEDS ORDERED: ZIPRASIDONE MESYLATE 20 MG VIAL IM ONE ×2 (11:55→12:00)
[2017-04-16] MEDS ORDERED: diphenhydrAMINE HCL 50 MG/ML VIAL ONE (11:55)
[2017-04-16] MEDS ORDERED: diphenhydrAMINE HCL 50 MG/ML VIAL IM ONE (12:00)
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
[2017-04-16 13:43] VITALS: BP 124/62; TEMP 98.7
== END 2017-04-16 13:47 | disposition home or self-care (01) ==
LOC: NEPJ 18:40
DX: F43.25 Adjustment disorder with mixed disturbance of emotions and conduct (principal)
CPT/HCPCS: 80048; 80307; 84703; 85025; 96372; 99284; J1200; J3486

== ENCOUNTER 2017-04-16 14:22 | Inpatient (IN) | payer OTHER ==
[~2017-04-16] VITALS: Ht 154.9 cm; Wt 102.3 kg
[~2017-04-16 14:22] MED LIST changes: +BENZ0.5T PO
[2017-04-16 14:36] VITALS: BP 117/72; PULSE 110; RESP 16; TEMP 99.6; O2SAT 95
--- NOTE | 2017-04-16 16:11 | PD ---
HPI Chief Complaint: Psychiatric Symptoms Time Seen by Provider: 15:00 Travel History International Travel<30 days: No Contact w/Intl Traveler<30days: No Traveled to known affect area: No History of Present Illness HPI 26-year-old female with history of seizure disorder, asthma, diabetes, schizophrenia, presents to the emergency department from her skilled nursing under [employer] act. Patient states that she does not want to live at her skilled nursing because the other residents are "low functioning". She became angry and tried to run away from the skilled nursing. According to the paperwork they feel that she is not able to care for herself due to her mental illness and was brought in under [employer] act. She Denies suicidal or homicidal ideations. She feels safe where she resides. She has no other symptoms to report. Patient was brought in yesterday evening under [employer] act for similar situation the BA was lifted this morning and patient was discharged home. PFSH Past Medical History AAA: No ADD: Yes ADHD: Yes Alzheimer's Disease: No Anemia: No Arthritis: No Asthma: Yes Atrial Fibrillation: Yes Autoimmune Disease: No Blood Disorders: No Bipolar Disorder: No Anxiety: Yes Depression: Yes Heart Rhythm Problems: No Cardiomyopathy: No Cardiovascular Problems: Yes Cerebral Palsy: No High Cholesterol: No Chemotherapy: No Chest Pain: No Congestive Heart Failure: No Cirrhosis: No COPD: No Cerebrovascular Accident: No Coronary Artery Disease: No Cystic Fibrosis: No Dementia: No Developmental Delay: Yes Dialysis: No Diminished Hearing: No Diverticulitis: No Deep Vein Thrombosis: No Endocrine: Yes (ERT) Gastrointestinal Disorders: No Genetic Disorder: No GERD: No Glaucoma: No Gout: No Genitourinary: No Headaches: Yes Hepatitis: No Hiatal Hernia: No Hypertension: Yes Immune Disorder: No Inguinal Hernia: No Implanted Vascular Access Dvce: No Kidney Stones: No Musculoskeletal: No Neurologic: No Psychiatric: Yes Reproductive: No Respiratory: Yes Integumentary: No Immunizations Current: Yes Migraines: No Myocardial Infarction: No Pancreatitis: No Radiation Therapy: No Renal Failure: No Schizophrenia: Yes Seizures: Yes Sickle Cell Disease: No Sleep Apnea: Yes (C-PAP SETTING AT 2 PER PT) Thyroid Disease: Yes (HYPOTHYROID) Ulcer: No Influenza Vaccination: No ?: Not LMP: END OF 2016 Menopausal: No : 0 Ectopic : No Ovarian Cysts: No Dilation and Curettage (D&C): No Tubal Ligation: No Past Surgical History Surgical History: No Previous Surgery AICD: No Arteriovenous Shunt: No Section: No Hysterectomy: No Insulin Pump: No Pacemaker: No Other Surgery: No Family History Family Hypercholesterolemia: No Social History Alcohol Use: No Tobacco Use: No (RARELY) Substance Use: No Allergies-Medications (Allergen,Severity, Reaction): Coded Allergies: red dye (Unverified Allergy, Severe, BECOMES AGGRESSIVE, VOMITS, 04/16/17) risperidone (Unverified Allergy, Severe, Nausea/Vomiting, 04/16/17) Uncoded Allergies: Seasonal Allergies (Allergy, Unknown, 03/04/12) Reported Meds & Prescriptions Reported Meds & Active Scripts Active Haloperidol 5 Mg Tab 5 Mg PO BID 15 Days Lexapro (Escitalopram Oxalate) 20 Mg Tab 20 Mg PO DAILY 15 Days Reported Benztropine (Benztropine Mesylate) 0.5 Mg Tab 1 Mg PO Q12HR Flonase Nasal [place] (Fluticasone Nasal [place]) 50 Mcg/Act [place] 1 [place] EACH NARE DAILY Apri (Desogestrel-Ethinyl Estradiol) 0.15-30 Mg-Mcg Tab 1 Tab PO DAILY Levothyroxine (Levothyroxine Sodium) 50 Mcg Tab 50 Mcg PO DAILY Cetirizine (Cetirizine HCl) 10 Mg Tab 10 Mg PO DAILY Review of Systems Except as stated in HPI: all other systems reviewed are Neg General / Constitutional: No: Fever Eyes: No: Visual changes HENT: Positive: Headaches Cardiovascular: No: Chest Pain or Discomfort Respiratory: No: Shortness of Breath Gastrointestinal: No: Abdominal Pain Genitourinary: No: Dysuria Musculoskeletal: No: Pain Skin: No Rash Physical Exam Narrative GENERAL: Well-nourished, well-developed patient. Patient is calm and resting comfortably on stretcher SKIN: Focused skin assessment warm/dry. HEAD: Normocephalic. Atraumatic EYES: No scleral icterus. No injection or drainage. EOMs intact NECK: Supple, trachea midline. No JVD or lymphadenopathy. No meningismus CARDIOVASCULAR: Regular rate and rhythm without murmurs, gallops, or rubs. RESPIRATORY: Breath sounds equal bilaterally. No accessory muscle use. GASTROINTESTINAL: Abdomen soft, non-tender, nondistended. MUSCULOSKELETAL: No cyanosis, or edema. BACK: Nontender without obvious deformity. No CVA tenderness. PSYCHIATRIC: No delusional thought processes. No hallucinations. Denies homicidal or suicidal ideation Data Data Last Documented VS Vital Signs Date Time Temp Pulse Resp B/P (MAP) Pulse Ox O2 Delivery O2 Flow Rate FiO2 04/16/17 14:36 99.6 110 16 117/72 (87) 95 Orders Orders Diet Regular Basic (04/16/17 Dinner) Ed Discharge Order (04/16/17 18:24) ^ Sitter (04/16/17 18:29) MDM Medical Decision Making Medical Screen Exam Complete: Yes Emergency Medical Condition: Yes Differential Diagnosis Mood disorder, oppositional defiant behavior, developmental delay Narrative Course 26-year-old female who is developmentally delayed currently living in a skilled nursing was brought in under [employer] act for attempting to run away from the skilled nursing. She reports her attempts at running away R due to the fact that the residents are "low functioning". She reports feeling safe and is not harmed in the skilled nursing. She denies homicidal or suicidal ideation. She reports a mild generalized headache which is similar to previous headaches in the past other than that she has no medical complaints. She is agreeable to return to the skilled nursing. She was evaluated yesterday evening for a similar event when she was brought in under [employer] act. She received psychiatric evaluation which was cleared and lifted this morning. I do not feel this is appropriate Baron act. She is agreeable to return to her skilled nursing and agrees to not run away. This was discussed with my attending physician Dr. Davila .The Baron act will be lifted and arrangements will be made to return patient to her skilled nursing. 1915: Patient is now refusing to leave the emergency room to return to her skilled nursing. Patient made verbal statements to myself that she wants to "kill herself by running into traffic". Patient will be placed under [employer] act and be evaluated by psych. Diagnosis Primary Impression: Suicidal ideation Referrals: Primary Care Physician Additional Instructions: It is important that you remain in your skilled nursing or speak with your group social worker regarding other placement options. Follow-up with your psychiatrist or primary doctor. Return to the emergency department if he developed new or worsening symptoms. Alissa Hardin Apr 16, 2017 16:11
--- NOTE | 2017-04-16 16:11 | PD ---
HPI Chief Complaint: Psychiatric Symptoms Time Seen by Provider: 15:00 Travel History International Travel<30 days: No Contact w/Intl Traveler<30days: No Traveled to known affect area: No History of Present Illness HPI 26-year-old female with history of seizure disorder, asthma, diabetes, schizophrenia, presents to the emergency department from her care home under [employer] act. Patient states that she does not want to live at her care home because the other residents are "low functioning". She became angry and tried to run away from the care home. According to the paperwork they feel that she is not able to care for herself due to her mental illness and was brought in under [employer] act. She Denies suicidal or homicidal ideations. She feels safe where she resides. She has no other symptoms to report. Patient was brought in yesterday evening under [employer] act for similar situation the BA was lifted this morning and patient was discharged home. PFSH Past Medical History AAA: No ADD: Yes ADHD: Yes Alzheimer's Disease: No Anemia: No Arthritis: No Asthma: Yes Atrial Fibrillation: Yes Autoimmune Disease: No Blood Disorders: No Bipolar Disorder: No Anxiety: Yes Depression: Yes Heart Rhythm Problems: No Cardiomyopathy: No Cardiovascular Problems: Yes Cerebral Palsy: No High Cholesterol: No Chemotherapy: No Chest Pain: No Congestive Heart Failure: No Cirrhosis: No COPD: No Cerebrovascular Accident: No Coronary Artery Disease: No Cystic Fibrosis: No Dementia: No Developmental Delay: Yes Dialysis: No Diminished Hearing: No Diverticulitis: No Deep Vein Thrombosis: No Endocrine: Yes (ERT) Gastrointestinal Disorders: No Genetic Disorder: No GERD: No Glaucoma: No Gout: No Genitourinary: No Headaches: Yes Hepatitis: No Hiatal Hernia: No Hypertension: Yes Immune Disorder: No Inguinal Hernia: No Implanted Vascular Access Dvce: No Kidney Stones: No Musculoskeletal: No Neurologic: No Psychiatric: Yes Reproductive: No Respiratory: Yes Integumentary: No Immunizations Current: Yes Migraines: No Myocardial Infarction: No Pancreatitis: No Radiation Therapy: No Renal Failure: No Schizophrenia: Yes Seizures: Yes Sickle Cell Disease: No Sleep Apnea: Yes (C-PAP SETTING AT 2 PER PT) Thyroid Disease: Yes (HYPOTHYROID) Ulcer: No Influenza Vaccination: No ?: Not LMP: END OF 2016 Menopausal: No : 0 Ectopic : No Ovarian Cysts: No Dilation and Curettage (D&C): No Tubal Ligation: No Past Surgical History Surgical History: No Previous Surgery AICD: No Arteriovenous Shunt: No Section: No Hysterectomy: No Insulin Pump: No Pacemaker: No Other Surgery: No Family History Family Hypercholesterolemia: No Social History Alcohol Use: No Tobacco Use: No (RARELY) Substance Use: No Allergies-Medications (Allergen,Severity, Reaction): Coded Allergies: red dye (Unverified Allergy, Severe, BECOMES AGGRESSIVE, VOMITS, 04/16/17) risperidone (Unverified Allergy, Severe, Nausea/Vomiting, 04/16/17) Uncoded Allergies: Seasonal Allergies (Allergy, Unknown, 03/04/12) Reported Meds & Prescriptions Reported Meds & Active Scripts Active Haloperidol 5 Mg Tab 5 Mg PO BID 15 Days Lexapro (Escitalopram Oxalate) 20 Mg Tab 20 Mg PO DAILY 15 Days Reported Benztropine (Benztropine Mesylate) 0.5 Mg Tab 1 Mg PO Q12HR Flonase Nasal [place] (Fluticasone Nasal [place]) 50 Mcg/Act [place] 1 [place] EACH NARE DAILY Apri (Desogestrel-Ethinyl Estradiol) 0.15-30 Mg-Mcg Tab 1 Tab PO DAILY Levothyroxine (Levothyroxine Sodium) 50 Mcg Tab 50 Mcg PO DAILY Cetirizine (Cetirizine HCl) 10 Mg Tab 10 Mg PO DAILY Review of Systems Except as stated in HPI: all other systems reviewed are Neg General / Constitutional: No: Fever Eyes: No: Visual changes HENT: Positive: Headaches Cardiovascular: No: Chest Pain or Discomfort Respiratory: No: Shortness of Breath Gastrointestinal: No: Abdominal Pain Genitourinary: No: Dysuria Musculoskeletal: No: Pain Skin: No Rash Physical Exam Narrative GENERAL: Well-nourished, well-developed patient. Patient is calm and resting comfortably on stretcher SKIN: Focused skin assessment warm/dry. HEAD: Normocephalic. Atraumatic EYES: No scleral icterus. No injection or drainage. EOMs intact NECK: Supple, trachea midline. No JVD or lymphadenopathy. No meningismus CARDIOVASCULAR: Regular rate and rhythm without murmurs, gallops, or rubs. RESPIRATORY: Breath sounds equal bilaterally. No accessory muscle use. GASTROINTESTINAL: Abdomen soft, non-tender, nondistended. MUSCULOSKELETAL: No cyanosis, or edema. BACK: Nontender without obvious deformity. No CVA tenderness. PSYCHIATRIC: No delusional thought processes. No hallucinations. Denies homicidal or suicidal ideation Data Data Last Documented VS Vital Signs Date Time Temp Pulse Resp B/P (MAP) Pulse Ox O2 Delivery O2 Flow Rate FiO2 04/16/17 14:36 99.6 110 16 117/72 (87) 95 Orders Orders Diet Regular Basic (04/16/17 Dinner) Ed Discharge Order (04/16/17 18:24) ^ Sitter (04/16/17 18:29) MDM Medical Decision Making Medical Screen Exam Complete: Yes Emergency Medical Condition: Yes Differential Diagnosis Mood disorder, oppositional defiant behavior, developmental delay Narrative Course 26-year-old female who is developmentally delayed currently living in a care home was brought in under [employer] act for attempting to run away from the care home. She reports her attempts at running away R due to the fact that the residents are "low functioning". She reports feeling safe and is not harmed in the care home. She denies homicidal or suicidal ideation. She reports a mild generalized headache which is similar to previous headaches in the past other than that she has no medical complaints. She is agreeable to return to the care home. She was evaluated yesterday evening for a similar event when she was brought in under [employer] act. She received psychiatric evaluation which was cleared and lifted this morning. I do not feel this is appropriate Baron act. She is agreeable to return to her care home and agrees to not run away. This was discussed with my attending physician Dr. Davila .The Baron act will be lifted and arrangements will be made to return patient to her care home. 1915: Patient is now refusing to leave the emergency room to return to her care home. Patient made verbal statements to myself that she wants to "kill herself by running into traffic". Patient will be placed under [employer] act and be evaluated by psych. Diagnosis Primary Impression: Suicidal ideation Referrals: Primary Care Physician Additional Instructions: It is important that you remain in your care home or speak with your social insurance administrator regarding other placement options. Follow-up with your psychiatrist or primary doctor. Return to the emergency department if he developed new or worsening symptoms. Alissa Hardin Apr 16, 2017 16:11
--- NOTE | 2017-04-16 16:11 | PD ---
HPI Chief Complaint: Psychiatric Symptoms Time Seen by Provider: 15:00 Travel History International Travel<30 days: No Contact w/Intl Traveler<30days: No Traveled to known affect area: No History of Present Illness HPI 26-year-old female with history of seizure disorder, asthma, diabetes, schizophrenia, presents to the emergency department from her half-way under [place] act. Patient states that she does not want to live at her half-way because the other residents are "low functioning". She became angry and tried to run away from the half-way. According to the paperwork they feel that she is not able to care for herself due to her mental illness and was brought in under [place] act. She Denies suicidal or homicidal ideations. She feels safe where she resides. She has no other symptoms to report. Patient was brought in yesterday evening under [place] act for similar situation the BA was lifted this morning and patient was discharged home. PFSH Past Medical History AAA: No ADD: Yes ADHD: Yes Alzheimer's Disease: No Anemia: No Arthritis: No Asthma: Yes Atrial Fibrillation: Yes Autoimmune Disease: No Blood Disorders: No Bipolar Disorder: No Anxiety: Yes Depression: Yes Heart Rhythm Problems: No Cardiomyopathy: No Cardiovascular Problems: Yes Cerebral Palsy: No High Cholesterol: No Chemotherapy: No Chest Pain: No Congestive Heart Failure: No Cirrhosis: No COPD: No Cerebrovascular Accident: No Coronary Artery Disease: No Cystic Fibrosis: No Dementia: No Developmental Delay: Yes Dialysis: No Diminished Hearing: No Diverticulitis: No Deep Vein Thrombosis: No Endocrine: Yes (ERT) Gastrointestinal Disorders: No Genetic Disorder: No GERD: No Glaucoma: No Gout: No Genitourinary: No Headaches: Yes Hepatitis: No Hiatal Hernia: No Hypertension: Yes Immune Disorder: No Inguinal Hernia: No Implanted Vascular Access Dvce: No Kidney Stones: No Musculoskeletal: No Neurologic: No Psychiatric: Yes Reproductive: No Respiratory: Yes Integumentary: No Immunizations Current: Yes Migraines: No Myocardial Infarction: No Pancreatitis: No Radiation Therapy: No Renal Failure: No Schizophrenia: Yes Seizures: Yes Sickle Cell Disease: No Sleep Apnea: Yes (C-PAP SETTING AT 2 PER PT) Thyroid Disease: Yes (HYPOTHYROID) Ulcer: No Influenza Vaccination: No ?: Not LMP: END OF 2016 Menopausal: No : 0 Ectopic : No Ovarian Cysts: No Dilation and Curettage (D&C): No Tubal Ligation: No Past Surgical History Surgical History: No Previous Surgery AICD: No Arteriovenous Shunt: No Section: No Hysterectomy: No Insulin Pump: No Pacemaker: No Other Surgery: No Family History Family Hypercholesterolemia: No Social History Alcohol Use: No Tobacco Use: No (RARELY) Substance Use: No Allergies-Medications (Allergen,Severity, Reaction): Coded Allergies: red dye (Unverified Allergy, Severe, BECOMES AGGRESSIVE, VOMITS, 04/16/17) risperidone (Unverified Allergy, Severe, Nausea/Vomiting, 04/16/17) Uncoded Allergies: Seasonal Allergies (Allergy, Unknown, 03/04/12) Reported Meds & Prescriptions Reported Meds & Active Scripts Active Haloperidol 5 Mg Tab 5 Mg PO BID 15 Days Lexapro (Escitalopram Oxalate) 20 Mg Tab 20 Mg PO DAILY 15 Days Reported Benztropine (Benztropine Mesylate) 0.5 Mg Tab 1 Mg PO Q12HR Flonase Nasal [place] (Fluticasone Nasal [place]) 50 Mcg/Act [place] 1 [place] EACH NARE DAILY Apri (Desogestrel-Ethinyl Estradiol) 0.15-30 Mg-Mcg Tab 1 Tab PO DAILY Levothyroxine (Levothyroxine Sodium) 50 Mcg Tab 50 Mcg PO DAILY Cetirizine (Cetirizine HCl) 10 Mg Tab 10 Mg PO DAILY Review of Systems Except as stated in HPI: all other systems reviewed are Neg General / Constitutional: No: Fever Eyes: No: Visual changes HENT: Positive: Headaches Cardiovascular: No: Chest Pain or Discomfort Respiratory: No: Shortness of Breath Gastrointestinal: No: Abdominal Pain Genitourinary: No: Dysuria Musculoskeletal: No: Pain Skin: No Rash Physical Exam Narrative GENERAL: Well-nourished, well-developed patient. Patient is calm and resting comfortably on stretcher SKIN: Focused skin assessment warm/dry. HEAD: Normocephalic. Atraumatic EYES: No scleral icterus. No injection or drainage. EOMs intact NECK: Supple, trachea midline. No JVD or lymphadenopathy. No meningismus CARDIOVASCULAR: Regular rate and rhythm without murmurs, gallops, or rubs. RESPIRATORY: Breath sounds equal bilaterally. No accessory muscle use. GASTROINTESTINAL: Abdomen soft, non-tender, nondistended. MUSCULOSKELETAL: No cyanosis, or edema. BACK: Nontender without obvious deformity. No CVA tenderness. PSYCHIATRIC: No delusional thought processes. No hallucinations. Denies homicidal or suicidal ideation Data Data Last Documented VS Vital Signs Date Time Temp Pulse Resp B/P (MAP) Pulse Ox O2 Delivery O2 Flow Rate FiO2 04/16/17 14:36 99.6 110 16 117/72 (87) 95 Orders Orders Diet Regular Basic (04/16/17 Dinner) Ed Discharge Order (04/16/17 18:24) ^ Sitter (04/16/17 18:29) MDM Medical Decision Making Medical Screen Exam Complete: Yes Emergency Medical Condition: Yes Differential Diagnosis Mood disorder, oppositional defiant behavior, developmental delay Narrative Course 26-year-old female who is developmentally delayed currently living in a half-way was brought in under [place] act for attempting to run away from the half-way. She reports her attempts at running away R due to the fact that the residents are "low functioning". She reports feeling safe and is not harmed in the half-way. She denies homicidal or suicidal ideation. She reports a mild generalized headache which is similar to previous headaches in the past other than that she has no medical complaints. She is agreeable to return to the half-way. She was evaluated yesterday evening for a similar event when she was brought in under [place] act. She received psychiatric evaluation which was cleared and lifted this morning. I do not feel this is appropriate [place]. She is agreeable to return to her half-way and agrees to not run away. This was discussed with my attending physician Dr. Davila .The [place] act will be lifted and arrangements will be made to return patient to her half-way. 1915: Patient is now refusing to leave the emergency room to return to her half-way. Patient made verbal statements to myself that she wants to "kill herself by running into traffic". Patient will be placed under [place] act and be evaluated by psych. Diagnosis Primary Impression: Suicidal ideation Referrals: Primary Care Physician Additional Instructions: It is important that you remain in your half-way or speak with your social insurance analyst regarding other placement options. Follow-up with your psychiatrist or primary doctor. Return to the emergency department if he developed new or worsening symptoms. Alissa Hardin Apr 16, 2017 16:11
--- NOTE | 2017-04-16 17:18 | PD ---
Data Data Last Documented VS Vital Signs Date Time Temp Pulse Resp B/P (MAP) Pulse Ox O2 Delivery O2 Flow Rate FiO2 04/16/17 14:36 99.6 110 16 117/72 (87) 95 Orders Orders Diet Regular Basic (04/16/17 Dinner) MDM Medical Record Reviewed: Yes Supervised Visit with EDI: Yes Narrative Course I, Dr. Davila, have reviewed the advance practice practitioner's documentation and am in agreement, met with the patient face to face, made the diagnosis, and the medical decision making was done by me. *My assessment and Findings: Please refer to mid-level note. [place] Act lifted by psychiatry. Diagnosis Primary Impression: Encounter for medical screening examination Referrals: Primary Care Physician Additional Instruction: It is important that you remain in your [facility] or speak with your protective services social worker regarding other placement options. Follow-up with your psychiatrist or primary doctor. Return to the emergency department if he developed new or worsening symptoms. Disposition: 01 DISCHARGE HOME Condition: Stable Anshu Davila MD Apr 16, 2017 17:18
--- NOTE | 2017-04-16 17:18 | PD ---
Data Data Last Documented VS Vital Signs Date Time Temp Pulse Resp B/P (MAP) Pulse Ox O2 Delivery O2 Flow Rate FiO2 04/16/17 14:36 99.6 110 16 117/72 (87) 95 Orders Orders Diet Regular Basic (04/16/17 Dinner) MDM Medical Record Reviewed: Yes Supervised Visit with EDI: Yes Narrative Course I, Dr. Davila, have reviewed the advance practice practitioner's documentation and am in agreement, met with the patient face to face, made the diagnosis, and the medical decision making was done by me. *My assessment and Findings: Please refer to mid-level note. [place] Act lifted by psychiatry. Diagnosis Primary Impression: Encounter for medical screening examination Referrals: Primary Care Physician Additional Instruction: It is important that you remain in your [facility] or speak with your social media strategist regarding other placement options. Follow-up with your psychiatrist or primary doctor. Return to the emergency department if he developed new or worsening symptoms. Disposition: 01 DISCHARGE HOME Condition: Stable Anshu Davila MD Apr 16, 2017 17:18
--- NOTE | 2017-04-16 17:18 | PD ---
Data Data Last Documented VS Vital Signs Date Time Temp Pulse Resp B/P (MAP) Pulse Ox O2 Delivery O2 Flow Rate FiO2 04/16/17 14:36 99.6 110 16 117/72 (87) 95 Orders Orders Diet Regular Basic (04/16/17 Dinner) MDM Medical Record Reviewed: Yes Supervised Visit with EDI: Yes Narrative Course I, Dr. Davila, have reviewed the advance practice practitioner's documentation and am in agreement, met with the patient face to face, made the diagnosis, and the medical decision making was done by me. *My assessment and Findings: Please refer to mid-level note. [place] Act lifted by psychiatry. Diagnosis Primary Impression: Encounter for medical screening examination Referrals: Primary Care Physician Additional Instruction: It is important that you remain in your halfway or speak with your oncology social work regarding other placement options. Follow-up with your psychiatrist or primary doctor. Return to the emergency department if he developed new or worsening symptoms. Disposition: 01 DISCHARGE HOME Condition: Stable Anshu Davila MD Apr 16, 2017 17:18
--- NOTE | 2017-04-16 18:14 | PD ---
History of Present Illness Chief Complaint: Psychiatric Symptoms Time Seen by Provider: 17:00 Travel History International Travel<30 Days: No Contact w/Intl Traveler<30days: No Known affected area: No Legal Status Legal Status: [place] Act History of Present Illness: Patient known to this physician and in fact was released earlier today. Patient has mental retardation and lives in a [place] [facility] [place]. When things don't go her way, she becomes frustrated and has a tendency to act out. At this time, she is calm, pleasant and cooperative. She denies any suicidal or homicidal ideation, plan or intent. She has no psychotic symptoms and her cognition is baseline. This physician feels the patient needs outpatient treatment and better medication management to help her with her impulse control. She does not benefit from inpatient psychiatric hospitalization. She does not meet criteria for involuntary psychiatric hospitalization. PFSH Past Medical History AAA: No ADD: Yes ADHD: Yes Alzheimer's Disease: No Anemia: No Arthritis: No Asthma: Yes Atrial Fibrillation: Yes Autoimmune Disease: No Blood Disorders: No Bipolar Disorder: No Anxiety: Yes Depression: Yes Heart Rhythm Problems: No Cardiomyopathy: No Cardiovascular Problems: Yes Cerebral Palsy: No High Cholesterol: No Chemotherapy: No Chest Pain: No Congestive Heart Failure: No Cirrhosis: No COPD: No Cerebrovascular Accident: No Coronary Artery Disease: No Cystic Fibrosis: No Dementia: No Developmental Delay: Yes Dialysis: No Diminished Hearing: No Diverticulitis: No Deep Vein Thrombosis: No Endocrine: Yes (ERT) Gastrointestinal Disorders: No Genetic Disorder: No GERD: No Glaucoma: No Gout: No Genitourinary: No Headaches: Yes Hepatitis: No Hiatal Hernia: No Hypertension: Yes Immune Disorder: No Inguinal Hernia: No Implanted Vascular Access Dvce: No Kidney Stones: No Musculoskeletal: No Neurologic: No Psychiatric: Yes Reproductive: No Respiratory: Yes Integumentary: No Immunizations Current: Yes Migraines: No Myocardial Infarction: No Pancreatitis: No Radiation Therapy: No Renal Failure: No Schizophrenia: Yes Seizures: Yes Sickle Cell Disease: No Sleep Apnea: Yes (C-PAP SETTING AT 2 PER PT) Thyroid Disease: Yes (HYPOTHYROID) Ulcer: No Influenza Vaccination: No ?: Not LMP: END OF 2016 Menopausal: No : 0 Ectopic : No Ovarian Cysts: No Dilation and Curettage (D&C): No Tubal Ligation: No Past Surgical History Surgical History: No Previous Surgery AICD: No Arteriovenous Shunt: No Section: No Hysterectomy: No Insulin Pump: No Pacemaker: No Other Surgery: No Psychiatric History Psychiatric History Hx Psychiatric Treatment: Patient with a hx of schizophrenia, depression and anxiety d/o. Last [facility] admission for Intermittent Explosive Disorder Sep 26-2016 on 2700 unit. As stated above, patient does not appear to have schizophrenia, depression or anxiety. Once again, patient shows no significant objective clinical signs of schizophrenia or psychosis. History of Inpatient Treatment: Yes Guns or firearms in home: No Social History Hx Alcohol Use: No Hx Tobacco Use: No (RARELY) Hx Substance Use: No Hx of Substance Use Treatment: No Allergies-Medications (Allergen,Severity, Reaction): Coded Allergies: red dye (Unverified Allergy, Severe, BECOMES AGGRESSIVE, VOMITS, 04/16/17) risperidone (Unverified Allergy, Severe, Nausea/Vomiting, 04/16/17) Uncoded Allergies: Seasonal Allergies (Allergy, Unknown, 03/04/12) Reported Meds & Prescriptions Reported Meds & Active Scripts Active Haloperidol 5 Mg Tab 5 Mg PO BID 15 Days Lexapro (Escitalopram Oxalate) 20 Mg Tab 20 Mg PO DAILY 15 Days Reported Benztropine (Benztropine Mesylate) 0.5 Mg Tab 1 Mg PO Q12HR Flonase Nasal [place] (Fluticasone Nasal [place]) 50 Mcg/Act [place] 1 [place] EACH NARE DAILY Apri (Desogestrel-Ethinyl Estradiol) 0.15-30 Mg-Mcg Tab 1 Tab PO DAILY Levothyroxine (Levothyroxine Sodium) 50 Mcg Tab 50 Mcg PO DAILY Cetirizine (Cetirizine HCl) 10 Mg Tab 10 Mg PO DAILY Review of Systems Except as stated in HPI: all other systems reviewed are Neg Mental Status Examination Appearance: Appropriate Consciousness: Alert Orientation: x4 Motor Activity: Normal gait Speech: Unremarkable Language: Adequate Fund of Knowledge: Adequate Attention and Concentration: Adequate Memory: Unremarkable Mood: Appropriate Affect: Appropriate Thought Process & Associations: Intact Thought Content: Appropriate Hallucination Type: None Delusion Type: None Suicidal Ideation: No Suicidal Plan: No Suicidal Intention: No Homicidal Ideation: No Homicidal Plan: No Homicidal Intention: No Insight: Adequate Judgment: Adequate MDM Medical Decision Making Medical Record Reviewed: Yes Assessment/Plan Patient interviewed at bedside with nurse practitioner Marilu Murphy. Patient is calm, pleasant and cooperative. [place] act discontinued and patient should be assisted to [place] [facility] [place]. She can be managed on an outpatient basis with medications as this is primarily a behavioral issue. Orders Orders Diet Regular Basic (04/16/17 Dinner) Results Vital Signs Date Time Temp Pulse Resp B/P (MAP) Pulse Ox O2 Delivery O2 Flow Rate FiO2 04/16/17 14:36 99.6 110 16 117/72 (87) 95 Diagnosis Primary Impression: Adjustment disorder with mixed disturbance of emotions and conduct Referrals: Primary Care Physician Additional Instructions: It is important that you remain in your [place] or speak with your protective services social worker regarding other placement options. Follow-up with your psychiatrist or primary doctor. Return to the emergency department if he developed new or worsening symptoms. Disposition: 01 DISCHARGE HOME Condition: Stable Alex Villatoro MD Apr 16, 2017 18:14
--- NOTE | 2017-04-16 18:14 | PD ---
History of Present Illness Chief Complaint: Psychiatric Symptoms Time Seen by Provider: 17:00 Travel History International Travel<30 Days: No Contact w/Intl Traveler<30days: No Known affected area: No Legal Status Legal Status: [place] Act History of Present Illness: Patient known to this physician and in fact was released earlier today. Patient has mental retardation and lives in a shelter. When things don't go her way, she becomes frustrated and has a tendency to act out. At this time, she is calm, pleasant and cooperative. She denies any suicidal or homicidal ideation, plan or intent. She has no psychotic symptoms and her cognition is baseline. This physician feels the patient needs outpatient treatment and better medication management to help her with her impulse control. She does not benefit from inpatient psychiatric hospitalization. She does not meet criteria for involuntary psychiatric hospitalization. PFSH Past Medical History AAA: No ADD: Yes ADHD: Yes Alzheimer's Disease: No Anemia: No Arthritis: No Asthma: Yes Atrial Fibrillation: Yes Autoimmune Disease: No Blood Disorders: No Bipolar Disorder: No Anxiety: Yes Depression: Yes Heart Rhythm Problems: No Cardiomyopathy: No Cardiovascular Problems: Yes Cerebral Palsy: No High Cholesterol: No Chemotherapy: No Chest Pain: No Congestive Heart Failure: No Cirrhosis: No COPD: No Cerebrovascular Accident: No Coronary Artery Disease: No Cystic Fibrosis: No Dementia: No Developmental Delay: Yes Dialysis: No Diminished Hearing: No Diverticulitis: No Deep Vein Thrombosis: No Endocrine: Yes (ERT) Gastrointestinal Disorders: No Genetic Disorder: No GERD: No Glaucoma: No Gout: No Genitourinary: No Headaches: Yes Hepatitis: No Hiatal Hernia: No Hypertension: Yes Immune Disorder: No Inguinal Hernia: No Implanted Vascular Access Dvce: No Kidney Stones: No Musculoskeletal: No Neurologic: No Psychiatric: Yes Reproductive: No Respiratory: Yes Integumentary: No Immunizations Current: Yes Migraines: No Myocardial Infarction: No Pancreatitis: No Radiation Therapy: No Renal Failure: No Schizophrenia: Yes Seizures: Yes Sickle Cell Disease: No Sleep Apnea: Yes (C-PAP SETTING AT 2 PER PT) Thyroid Disease: Yes (HYPOTHYROID) Ulcer: No Influenza Vaccination: No ?: Not LMP: END OF 2016 Menopausal: No : 0 Ectopic : No Ovarian Cysts: No Dilation and Curettage (D&C): No Tubal Ligation: No Past Surgical History Surgical History: No Previous Surgery AICD: No Arteriovenous Shunt: No Section: No Hysterectomy: No Insulin Pump: No Pacemaker: No Other Surgery: No Psychiatric History Psychiatric History Hx Psychiatric Treatment: Patient with a hx of schizophrenia, depression and anxiety d/o. Last [facility] admission for Intermittent Explosive Disorder Sep 26-2016 on 2700 unit. As stated above, patient does not appear to have schizophrenia, depression or anxiety. Once again, patient shows no significant objective clinical signs of schizophrenia or psychosis. History of Inpatient Treatment: Yes Guns or firearms in home: No Social History Hx Alcohol Use: No Hx Tobacco Use: No (RARELY) Hx Substance Use: No Hx of Substance Use Treatment: No Allergies-Medications (Allergen,Severity, Reaction): Coded Allergies: red dye (Unverified Allergy, Severe, BECOMES AGGRESSIVE, VOMITS, 04/16/17) risperidone (Unverified Allergy, Severe, Nausea/Vomiting, 04/16/17) Uncoded Allergies: Seasonal Allergies (Allergy, Unknown, 03/04/12) Reported Meds & Prescriptions Reported Meds & Active Scripts Active Haloperidol 5 Mg Tab 5 Mg PO BID 15 Days Lexapro (Escitalopram Oxalate) 20 Mg Tab 20 Mg PO DAILY 15 Days Reported Benztropine (Benztropine Mesylate) 0.5 Mg Tab 1 Mg PO Q12HR Flonase Nasal [place] (Fluticasone Nasal [place]) 50 Mcg/Act [place] 1 [place] EACH NARE DAILY Apri (Desogestrel-Ethinyl Estradiol) 0.15-30 Mg-Mcg Tab 1 Tab PO DAILY Levothyroxine (Levothyroxine Sodium) 50 Mcg Tab 50 Mcg PO DAILY Cetirizine (Cetirizine HCl) 10 Mg Tab 10 Mg PO DAILY Review of Systems Except as stated in HPI: all other systems reviewed are Neg Mental Status Examination Appearance: Appropriate Consciousness: Alert Orientation: x4 Motor Activity: Normal gait Speech: Unremarkable Language: Adequate Fund of Knowledge: Adequate Attention and Concentration: Adequate Memory: Unremarkable Mood: Appropriate Affect: Appropriate Thought Process & Associations: Intact Thought Content: Appropriate Hallucination Type: None Delusion Type: None Suicidal Ideation: No Suicidal Plan: No Suicidal Intention: No Homicidal Ideation: No Homicidal Plan: No Homicidal Intention: No Insight: Adequate Judgment: Adequate MDM Medical Decision Making Medical Record Reviewed: Yes Assessment/Plan Patient interviewed at bedside with nurse practitioner Marilu Murphy. Patient is calm, pleasant and cooperative. [place] act discontinued and patient should be assisted to her shelter. She can be managed on an outpatient basis with medications as this is primarily a behavioral issue. Orders Orders Diet Regular Basic (04/16/17 Dinner) Results Vital Signs Date Time Temp Pulse Resp B/P (MAP) Pulse Ox O2 Delivery O2 Flow Rate FiO2 04/16/17 14:36 99.6 110 16 117/72 (87) 95 Diagnosis Primary Impression: Adjustment disorder with mixed disturbance of emotions and conduct Referrals: Primary Care Physician Additional Instructions: It is important that you remain in your shelter or speak with your social media marketing manager regarding other placement options. Follow-up with your psychiatrist or primary doctor. Return to the emergency department if he developed new or worsening symptoms. Disposition: 01 DISCHARGE HOME Condition: Stable Alex Villatoro MD Apr 16, 2017 18:14
[2017-04-16 22:13] VITALS: BP 118/76; PULSE 74; RESP 18; O2SAT 99
[2017-04-17 06:21] VITALS: BP 163/81; PULSE 75; RESP 18; O2SAT 99
[2017-04-17] MEDS ORDERED: ZIPRASIDONE MESYLATE 20 MG VIAL IM ONE (11:29)
[2017-04-17] MEDS ORDERED: diphenhydrAMINE HCL 50 MG/ML VIAL ONE (11:29)
--- NOTE | 2017-04-17 11:45 | PD ---
History of Present Illness Chief Complaint: Psychiatric Symptoms Time Seen by Provider: 10:45 Travel History International Travel<30 Days: No Contact w/Intl Traveler<30days: No Known affected area: No Legal Status Legal Status: Baron Act Baron Act Signed By: [place] Anna Cazares[place] [facility] [place] of Present Illness: History of Present Illness: Patient is a 26 year old female with history of IED, mental disability, Bipolar Disorder, adjustment disorder , with multiple previous visits to ED who was seen by psychiatry earlier and cleared for discharge. When staff attempted to discharge her she refused to leave the Ed , stated she would kill herself if she were in fact discharged and then attempted to elope from the ED. She was placed under a Baron act by ED physician. She has been monitored here in [facility] and has exhibited behaviors such as spitting on windows and then laughing about this, banging on windows with a plastic bottle, cursing at staff when she is redirected, banging her head on the wall. She does not accept verbal redirection. Patient states " I want to and I will shoot myself just like my brother did. I don't care if I don't go to [facility]. I just don't want to be alive. She is unable to identify any recent stressors. EMR is reviewed. Patient has had multiple visits to ed for similar behavior. She was last last admitted to inpatient psychiatry on September 26, 2016 after 8 visits to ED for behaviors such as walking off her [facility] and threatening to hurt herself or other people. I have discussed case with Dr. Lora. he recommends referring patient to a facility that would better address her behaviors since patient does not appear to have benefitted [place] [facility] [place] I have discussed case with Mr. Benja Feliciano, outpatient manger . He agrees to have patient transferred to another facility that would better address her presenting behaviors. behaviors PFSH Past Medical History AAA: No ADD: Yes ADHD: Yes Alzheimer's Disease: No Anemia: No Arthritis: No Asthma: Yes Atrial Fibrillation: Yes Autoimmune Disease: No Blood Disorders: No Bipolar Disorder: No Anxiety: Yes Depression: Yes Heart Rhythm Problems: No Cardiomyopathy: No Cardiovascular Problems: Yes Cerebral Palsy: No High Cholesterol: No Chemotherapy: No Chest Pain: No Congestive Heart Failure: No Cirrhosis: No COPD: No Cerebrovascular Accident: No Coronary Artery Disease: No Cystic Fibrosis: No Dementia: No Developmental Delay: Yes Dialysis: No Diminished Hearing: No Diverticulitis: No Deep Vein Thrombosis: No Endocrine: Yes (ERT) Gastrointestinal Disorders: No Genetic Disorder: No GERD: No Glaucoma: No Gout: No Genitourinary: No Headaches: Yes Hepatitis: No Hiatal Hernia: No Hypertension: Yes Immune Disorder: No Inguinal Hernia: No Implanted Vascular Access Dvce: No Kidney Stones: No Musculoskeletal: No Neurologic: No Psychiatric: Yes Reproductive: No Respiratory: Yes Integumentary: No Immunizations Current: Yes Migraines: No Myocardial Infarction: No Pancreatitis: No Radiation Therapy: No Renal Failure: No Schizophrenia: Yes Seizures: Yes Sickle Cell Disease: No Sleep Apnea: Yes (C-PAP SETTING AT 2 PER PT) Thyroid Disease: Yes (HYPOTHYROID) Ulcer: No Influenza Vaccination: No ?: Not LMP: END OF 2016 Menopausal: No : 0 Ectopic : No Ovarian Cysts: No Dilation and Curettage (D&C): No Tubal Ligation: No Past Surgical History Surgical History: No Previous Surgery AICD: No Arteriovenous Shunt: No Section: No Hysterectomy: No Insulin Pump: No Pacemaker: No Other Surgery: No Psychiatric History Psychiatric History Hx Psychiatric Treatment: Last [facility] admission for Intermittent Explosive Disorder Sep 26-2016 on 2700 History of Inpatient Treatment: Yes Guns or firearms in home: No Social History Never female. Lives in [facility]. Hx Alcohol Use: No Hx Tobacco Use: No (RARELY) Hx Substance Use: No Hx of Substance Use Treatment: No Family Psychiatric History reports brother committed suicide. Allergies-Medications (Allergen,Severity, Reaction): Coded Allergies: red dye (Unverified Allergy, Severe, BECOMES AGGRESSIVE, VOMITS, 04/16/17) risperidone (Unverified Allergy, Severe, Nausea/Vomiting, 04/16/17) Uncoded Allergies: Seasonal Allergies (Allergy, Unknown, 03/04/12) Reported Meds & Prescriptions Reported Meds & Active Scripts Active Haloperidol 5 Mg Tab 5 Mg PO BID 15 Days Lexapro (Escitalopram Oxalate) 20 Mg Tab 20 Mg PO DAILY 15 Days Reported Benztropine (Benztropine Mesylate) 0.5 Mg Tab 1 Mg PO Q12HR Flonase Nasal [place] (Fluticasone Nasal [place]) 50 Mcg/Act [place] 1 [place] EACH NARE DAILY Apri (Desogestrel-Ethinyl Estradiol) 0.15-30 Mg-Mcg Tab 1 Tab PO DAILY Levothyroxine (Levothyroxine Sodium) 50 Mcg Tab 50 Mcg PO DAILY Cetirizine (Cetirizine HCl) 10 Mg Tab 10 Mg PO DAILY Review of Systems ROS Limitations: Uncooperative Mental Status Examination Appearance: Appropriate Consciousness: Alert Orientation: x4 Motor Activity: Normal gait Speech: Unremarkable Language: Adequate Fund of Knowledge: Adequate Attention and Concentration: Adequate Memory: Unremarkable Mood: Appropriate Affect: Appropriate Thought Process & Associations: Intact Thought Content: Appropriate Hallucination Type: None Delusion Type: None Suicidal Ideation: No Suicidal Plan: No Suicidal Intention: No Homicidal Ideation: No Homicidal Plan: No Homicidal Intention: No Insight: Poor Judgment: Impulsive MDM Medical Decision Making Medical Record Reviewed: Yes Assessment/Plan Patient is a 26 year old female with history of IED, mental disability, Bipolar Disorder, adjustment disorder , with multiple previous visits to ED who was seen by psychiatry earlier and cleared for discharge. When staff attempted to discharge her she refused to leave the Ed , stated she would kill herself if she were in fact discharged and then attempted to elope from the ED. She was placed under a Baron act by ED physician. She has been monitored here in [facility] and has exhibited behaviors such as spitting on windows and then laughing about this, banging on windows with a plastic bottle, cursing at staff when she is redirected, banging her head on the wall. She does not accept verbal redirection. Patient states " I want to and I will shoot myself just like my brother did. I don't care if I don't go to [facility]. I just don't want to be alive. She is unable to identify any recent stressors. Patient has required ETO due to banging her head against the wall and not following verbal redirection. [facility] for possible admission. Remains on BA. Orders Orders Diet Regular Basic (04/16/17 Dinner) Ed Discharge Order (04/16/17 18:24) ^ Sitter (04/16/17 18:29) Psych Screen (04/16/17 20:07) Diet Regular Basic (04/17/17 Breakfast) Ziprasidone Inj (Geodon Inj) (04/17/17 11:29) Diphenhydramine Inj (Benadryl Inj) (04/17/17 11:29) Diet Regular Basic (04/17/17 Lunch) Levothyroxine (Synthroid) (04/18/17 09:00) Results Vital Signs Date Time Temp Pulse Resp B/P (MAP) Pulse Ox O2 Delivery O2 Flow Rate FiO2 04/17/17 11:35 04/17/17 06:21 75 18 163/81 (108) 99 Room Air 04/16/17 22:13 74 18 118/76 (90) 99 Room Air 04/16/17 14:36 99.6 110 16 117/72 (87) 95 Diagnosis Primary Impression: Intermittent explosive disorder Additional Impression: Suicidal ideation Referrals: Primary Care Physician Departure Forms: Tests/Procedures Patient Instructions: General Instructions Additional Instructions: It is important that you remain in your [facility] or speak with your psychiatric social worker supervisor regarding other placement options. Follow-up with your psychiatrist or primary doctor. Return to the emergency department if he developed new or worsening symptoms. Problem Qualifiers Marilu Castaneda Apr 17, 2017 11:45
--- NOTE | 2017-04-17 11:45 | PD ---
History of Present Illness Chief Complaint: Psychiatric Symptoms Time Seen by Provider: 10:45 Travel History International Travel<30 Days: No Contact w/Intl Traveler<30days: No Known affected area: No Legal Status Legal Status: Baron Act Baron Act Signed By: Dr. Anna Cazares, [facility] [place] of Present Illness: History of Present Illness: Patient is a 26 year old female with history of IED, mental disability, Bipolar Disorder, adjustment disorder , with multiple previous visits to ED who was seen by psychiatry earlier and cleared for discharge. When staff attempted to discharge her she refused to leave the Ed , stated she would kill herself if she were in fact discharged and then attempted to elope from the ED. She was placed under a Baron act by ED physician. She has been monitored here in [facility] and has exhibited behaviors such as spitting on windows and then laughing about this, banging on windows with a plastic bottle, cursing at staff when she is redirected, banging her head on the wall. She does not accept verbal redirection. Patient states " I want to and I will shoot myself just like my brother did. I don't care if I don't go to [facility]. I just don't want to be alive. She is unable to identify any recent stressors. EMR is reviewed. Patient has had multiple visits to ed for similar behavior. She was last last admitted to inpatient psychiatry on September 26, 2016 after 8 visits to ED for behaviors such as walking off her [facility] and threatening to hurt herself or other people. I have discussed case with Dr. Lora. he recommends referring patient to a facility that would better address her behaviors since patient does not appear to have benefitted from previous admission [place] [facility] [place]. I have discussed case with Mr. Benja Feliciano, outpatient manger . He agrees to have patient transferred to another facility that would better address her presenting behaviors. behaviors PFSH Past Medical History AAA: No ADD: Yes ADHD: Yes Alzheimer's Disease: No Anemia: No Arthritis: No Asthma: Yes Atrial Fibrillation: Yes Autoimmune Disease: No Blood Disorders: No Bipolar Disorder: No Anxiety: Yes Depression: Yes Heart Rhythm Problems: No Cardiomyopathy: No Cardiovascular Problems: Yes Cerebral Palsy: No High Cholesterol: No Chemotherapy: No Chest Pain: No Congestive Heart Failure: No Cirrhosis: No COPD: No Cerebrovascular Accident: No Coronary Artery Disease: No Cystic Fibrosis: No Dementia: No Developmental Delay: Yes Dialysis: No Diminished Hearing: No Diverticulitis: No Deep Vein Thrombosis: No Endocrine: Yes (ERT) Gastrointestinal Disorders: No Genetic Disorder: No GERD: No Glaucoma: No Gout: No Genitourinary: No Headaches: Yes Hepatitis: No Hiatal Hernia: No Hypertension: Yes Immune Disorder: No Inguinal Hernia: No Implanted Vascular Access Dvce: No Kidney Stones: No Musculoskeletal: No Neurologic: No Psychiatric: Yes Reproductive: No Respiratory: Yes Integumentary: No Immunizations Current: Yes Migraines: No Myocardial Infarction: No Pancreatitis: No Radiation Therapy: No Renal Failure: No Schizophrenia: Yes Seizures: Yes Sickle Cell Disease: No Sleep Apnea: Yes (C-PAP SETTING AT 2 PER PT) Thyroid Disease: Yes (HYPOTHYROID) Ulcer: No Influenza Vaccination: No ?: Not LMP: END OF 2016 Menopausal: No : 0 Ectopic : No Ovarian Cysts: No Dilation and Curettage (D&C): No Tubal Ligation: No Past Surgical History Surgical History: No Previous Surgery AICD: No Arteriovenous Shunt: No Section: No Hysterectomy: No Insulin Pump: No Pacemaker: No Other Surgery: No Psychiatric History Psychiatric History Hx Psychiatric Treatment: Last [facility] admission for Intermittent Explosive Disorder Sep 26-2016 on 2700 History of Inpatient Treatment: Yes Guns or firearms in home: No Social History Never female. Lives in [facility]. Hx Alcohol Use: No Hx Tobacco Use: No (RARELY) Hx Substance Use: No Hx of Substance Use Treatment: No Family Psychiatric History reports brother committed suicide. Allergies-Medications (Allergen,Severity, Reaction): Coded Allergies: red dye (Unverified Allergy, Severe, BECOMES AGGRESSIVE, VOMITS, 04/16/17) risperidone (Unverified Allergy, Severe, Nausea/Vomiting, 04/16/17) Uncoded Allergies: Seasonal Allergies (Allergy, Unknown, 03/04/12) Reported Meds & Prescriptions Reported Meds & Active Scripts Active Haloperidol 5 Mg Tab 5 Mg PO BID 15 Days Lexapro (Escitalopram Oxalate) 20 Mg Tab 20 Mg PO DAILY 15 Days Reported Benztropine (Benztropine Mesylate) 0.5 Mg Tab 1 Mg PO Q12HR Flonase Nasal [place] (Fluticasone Nasal [place]) 50 Mcg/Act [place] 1 [place] EACH NARE DAILY Apri (Desogestrel-Ethinyl Estradiol) 0.15-30 Mg-Mcg Tab 1 Tab PO DAILY Levothyroxine (Levothyroxine Sodium) 50 Mcg Tab 50 Mcg PO DAILY Cetirizine (Cetirizine HCl) 10 Mg Tab 10 Mg PO DAILY Review of Systems ROS Limitations: Uncooperative Mental Status Examination Appearance: Appropriate Consciousness: Alert Orientation: x4 Motor Activity: Normal gait Speech: Unremarkable Language: Adequate Fund of Knowledge: Adequate Attention and Concentration: Adequate Memory: Unremarkable Mood: Appropriate Affect: Appropriate Thought Process & Associations: Intact Thought Content: Appropriate Hallucination Type: None Delusion Type: None Suicidal Ideation: No Suicidal Plan: No Suicidal Intention: No Homicidal Ideation: No Homicidal Plan: No Homicidal Intention: No Insight: Poor Judgment: Impulsive MDM Medical Decision Making Medical Record Reviewed: Yes Assessment/Plan Patient is a 26 year old female with history of IED, mental disability, Bipolar Disorder, adjustment disorder , with multiple previous visits to ED who was seen by psychiatry earlier and cleared for discharge. When staff attempted to discharge her she refused to leave the Ed , stated she would kill herself if she were in fact discharged and then attempted to elope from the ED. She was placed under a Baron act by ED physician. She has been monitored here in [facility] and has exhibited behaviors such as spitting on windows and then laughing about this, banging on windows with a plastic bottle, cursing at staff when she is redirected, banging her head on the wall. She does not accept verbal redirection. Patient states " I want to and I will shoot myself just like my brother did. I don't care if I don't go to [facility]. I just don't want to be alive. She is unable to identify any recent stressors. Patient has required ETO due to banging her head against the wall and not following verbal redirection. Case presented to [facility] for possible admission. Remains on BA. Orders Orders Diet Regular Basic (04/16/17 Dinner) Ed Discharge Order (04/16/17 18:24) ^ Sitter (04/16/17 18:29) Psych Screen (04/16/17 20:07) Diet Regular Basic (04/17/17 Breakfast) Ziprasidone Inj (Geodon Inj) (04/17/17 11:29) Diphenhydramine Inj (Benadryl Inj) (04/17/17 11:29) Diet Regular Basic (04/17/17 Lunch) Levothyroxine (Synthroid) (04/18/17 09:00) Results Vital Signs Date Time Temp Pulse Resp B/P (MAP) Pulse Ox O2 Delivery O2 Flow Rate FiO2 04/17/17 11:35 04/17/17 06:21 75 18 163/81 (108) 99 Room Air 04/16/17 22:13 74 18 118/76 (90) 99 Room Air 04/16/17 14:36 99.6 110 16 117/72 (87) 95 Diagnosis Primary Impression: Intermittent explosive disorder Additional Impression: Suicidal ideation Referrals: Primary Care Physician Departure Forms: Tests/Procedures Patient Instructions: General Instructions Additional Instructions: It is important that you remain in your [place] [facility] or speak with your social services aide regarding other placement options. Follow-up with your psychiatrist or primary doctor. Return to the emergency department if he developed new or worsening symptoms. Problem Qualifiers Marilu Castaneda Apr 17, 2017 11:45
--- NOTE | 2017-04-17 11:45 | PD ---
History of Present Illness Chief Complaint: Psychiatric Symptoms Time Seen by Provider: 10:45 Travel History International Travel<30 Days: No Contact w/Intl Traveler<30days: No Known affected area: No Legal Status Legal Status: Baron Act Baron Act Signed By: Dr. Anna Cazares, [facility] [place] of Present Illness: History of Present Illness: Patient is a 26 year old female with history of IED, mental disability, Bipolar Disorder, adjustment disorder , with multiple previous visits to ED who was seen by psychiatry earlier and cleared for discharge. When staff attempted to discharge her she refused to leave the Ed , stated she would kill herself if she were in fact discharged and then attempted to elope from the ED. She was placed under a Baron act by ED physician. She has been monitored here in [facility] and has exhibited behaviors such as spitting on windows and then laughing about this, banging on windows with a plastic bottle, cursing at staff when she is redirected, banging her head on the wall. She does not accept verbal redirection. Patient states " I want to and I will shoot myself just like my brother did. I don't care if I don't go to [facility]. I just don't want to be alive. She is unable to identify any recent stressors. EMR is reviewed. Patient has had multiple visits to ed for similar behavior. She was last last admitted to inpatient psychiatry on September 26, 2016 after 8 visits to ED for behaviors such as walking off her skilled nursing and threatening to hurt herself or other people. I have discussed case with Dr. Lora. he recommends referring patient to a facility that would better address her behaviors since patient does not appear to have benefitted from previous admission to [facility] [place]. I have discussed case with Mr. Benja Feliciano, outpatient manger . He agrees to have patient transferred to another facility that would better address her presenting behaviors. behaviors PFSH Past Medical History AAA: No ADD: Yes ADHD: Yes Alzheimer's Disease: No Anemia: No Arthritis: No Asthma: Yes Atrial Fibrillation: Yes Autoimmune Disease: No Blood Disorders: No Bipolar Disorder: No Anxiety: Yes Depression: Yes Heart Rhythm Problems: No Cardiomyopathy: No Cardiovascular Problems: Yes Cerebral Palsy: No High Cholesterol: No Chemotherapy: No Chest Pain: No Congestive Heart Failure: No Cirrhosis: No COPD: No Cerebrovascular Accident: No Coronary Artery Disease: No Cystic Fibrosis: No Dementia: No Developmental Delay: Yes Dialysis: No Diminished Hearing: No Diverticulitis: No Deep Vein Thrombosis: No Endocrine: Yes (ERT) Gastrointestinal Disorders: No Genetic Disorder: No GERD: No Glaucoma: No Gout: No Genitourinary: No Headaches: Yes Hepatitis: No Hiatal Hernia: No Hypertension: Yes Immune Disorder: No Inguinal Hernia: No Implanted Vascular Access Dvce: No Kidney Stones: No Musculoskeletal: No Neurologic: No Psychiatric: Yes Reproductive: No Respiratory: Yes Integumentary: No Immunizations Current: Yes Migraines: No Myocardial Infarction: No Pancreatitis: No Radiation Therapy: No Renal Failure: No Schizophrenia: Yes Seizures: Yes Sickle Cell Disease: No Sleep Apnea: Yes (C-PAP SETTING AT 2 PER PT) Thyroid Disease: Yes (HYPOTHYROID) Ulcer: No Influenza Vaccination: No ?: Not LMP: END OF 2016 Menopausal: No : 0 Ectopic : No Ovarian Cysts: No Dilation and Curettage (D&C): No Tubal Ligation: No Past Surgical History Surgical History: No Previous Surgery AICD: No Arteriovenous Shunt: No Section: No Hysterectomy: No Insulin Pump: No Pacemaker: No Other Surgery: No Psychiatric History Psychiatric History Hx Psychiatric Treatment: Last [facility] admission for Intermittent Explosive Disorder Sep 26-2016 on 2700 History of Inpatient Treatment: Yes Guns or firearms in home: No Social History Never female. Lives in skilled nursing. Hx Alcohol Use: No Hx Tobacco Use: No (RARELY) Hx Substance Use: No Hx of Substance Use Treatment: No Family Psychiatric History reports brother committed suicide. Allergies-Medications (Allergen,Severity, Reaction): Coded Allergies: red dye (Unverified Allergy, Severe, BECOMES AGGRESSIVE, VOMITS, 04/16/17) risperidone (Unverified Allergy, Severe, Nausea/Vomiting, 04/16/17) Uncoded Allergies: Seasonal Allergies (Allergy, Unknown, 03/04/12) Reported Meds & Prescriptions Reported Meds & Active Scripts Active Haloperidol 5 Mg Tab 5 Mg PO BID 15 Days Lexapro (Escitalopram Oxalate) 20 Mg Tab 20 Mg PO DAILY 15 Days Reported Benztropine (Benztropine Mesylate) 0.5 Mg Tab 1 Mg PO Q12HR Flonase Nasal [place] (Fluticasone Nasal [place]) 50 Mcg/Act [place] 1 [place] EACH NARE DAILY Apri (Desogestrel-Ethinyl Estradiol) 0.15-30 Mg-Mcg Tab 1 Tab PO DAILY Levothyroxine (Levothyroxine Sodium) 50 Mcg Tab 50 Mcg PO DAILY Cetirizine (Cetirizine HCl) 10 Mg Tab 10 Mg PO DAILY Review of Systems ROS Limitations: Uncooperative Mental Status Examination Appearance: Appropriate Consciousness: Alert Orientation: x4 Motor Activity: Normal gait Speech: Unremarkable Language: Adequate Fund of Knowledge: Adequate Attention and Concentration: Adequate Memory: Unremarkable Mood: Appropriate Affect: Appropriate Thought Process & Associations: Intact Thought Content: Appropriate Hallucination Type: None Delusion Type: None Suicidal Ideation: No Suicidal Plan: No Suicidal Intention: No Homicidal Ideation: No Homicidal Plan: No Homicidal Intention: No Insight: Poor Judgment: Impulsive MDM Medical Decision Making Medical Record Reviewed: Yes Assessment/Plan Patient is a 26 year old female with history of IED, mental disability, Bipolar Disorder, adjustment disorder , with multiple previous visits to ED who was seen by psychiatry earlier and cleared for discharge. When staff attempted to discharge her she refused to leave the Ed , stated she would kill herself if she were in fact discharged and then attempted to elope from the ED. She was placed under a Baron act by ED physician. She has been monitored here in [facility] and has exhibited behaviors such as spitting on windows and then laughing about this, banging on windows with a plastic bottle, cursing at staff when she is redirected, banging her head on the wall. She does not accept verbal redirection. Patient states " I want to and I will shoot myself just like my brother did. I don't care if I don't go to [facility]. I just don't want to be alive. She is unable to identify any recent stressors. Patient has required ETO due to banging her head against the wall and not following verbal redirection. [facility] presented [facility] for possible admission. Remains on BA. Orders Orders Diet Regular Basic (04/16/17 Dinner) Ed Discharge Order (04/16/17 18:24) ^ Sitter (04/16/17 18:29) Psych Screen (04/16/17 20:07) Diet Regular Basic (04/17/17 Breakfast) Ziprasidone Inj (Geodon Inj) (04/17/17 11:29) Diphenhydramine Inj (Benadryl Inj) (04/17/17 11:29) Diet Regular Basic (04/17/17 Lunch) Levothyroxine (Synthroid) (04/18/17 09:00) Results Vital Signs Date Time Temp Pulse Resp B/P (MAP) Pulse Ox O2 Delivery O2 Flow Rate FiO2 04/17/17 11:35 04/17/17 06:21 75 18 163/81 (108) 99 Room Air 04/16/17 22:13 74 18 118/76 (90) 99 Room Air 04/16/17 14:36 99.6 110 16 117/72 (87) 95 Diagnosis Primary Impression: Intermittent explosive disorder Additional Impression: Suicidal ideation Referrals: Primary Care Physician Departure Forms: Tests/Procedures Patient Instructions: General Instructions Additional Instructions: It is important that you remain in your skilled nursing or speak with your perinatal social worker regarding other placement options. Follow-up with your psychiatrist or primary doctor. Return to the emergency department if he developed new or worsening symptoms. Problem Qualifiers Marilu Castaneda Apr 17, 2017 11:45
--- NOTE | 2017-04-17 12:39 | PD ---
Physical Exam Date Seen by Provider: Apr 17, 2017 Time Seen by Provider: 12:38 Narrative 26-year-old female patient previously medically cleared for psychiatric evaluation, has been assessed and psychiatrically cleared by psychiatric staff. Patient remains medically stable for discharge. Discharge plan will be determined by the psychiatric staff, please see their note. Data Data Last Documented VS Vital Signs Date Time Temp Pulse Resp B/P (MAP) Pulse Ox O2 Delivery O2 Flow Rate FiO2 04/17/17 11:35 04/17/17 06:21 75 18 99 Room Air 04/16/17 14:36 99.6 Orders Orders Diet Regular Basic (04/16/17 Dinner) Ed Discharge Order (04/16/17 18:24) ^ Sitter (04/16/17 18:29) Psych Screen (04/16/17 20:07) Diet Regular Basic (04/17/17 Breakfast) Ziprasidone Inj (Geodon Inj) (04/17/17 11:29) Diphenhydramine Inj (Benadryl Inj) (04/17/17 11:29) Diet Regular Basic (04/17/17 Lunch) Levothyroxine (Synthroid) (04/18/17 09:00) MDM Medical Record Reviewed: Yes Supervised Visit with EDI: Yes Narrative Course 26-year-old female patient previously medically cleared for psychiatric evaluation, has been assessed and psychiatrically cleared by psychiatric staff. Patient remains medically stable for discharge. Discharge plan will be determined by the psychiatric staff, please see their note. Diagnosis Primary Impression: Suicidal ideation Referrals: Primary Care Physician Patient Instructions: General Instructions Departure Forms: Tests/Procedures Additional Instruction: It is important that you remain in your halfway or speak with your social welfare clerk regarding other placement options. Follow-up with your psychiatrist or primary doctor. Return to the emergency department if he developed new or worsening symptoms. Disposition: 01 DISCHARGE HOME Condition: Stable Ethan Vazquez Apr 17, 2017 12:39
--- NOTE | 2017-04-17 12:39 | PD ---
Physical Exam Date Seen by Provider: Apr 17, 2017 Time Seen by Provider: 12:38 Narrative 26-year-old female patient previously medically cleared for psychiatric evaluation, has been assessed and psychiatrically cleared by psychiatric staff. Patient remains medically stable for discharge. Discharge plan will be determined by the psychiatric staff, please see their note. Data Data Last Documented VS Vital Signs Date Time Temp Pulse Resp B/P (MAP) Pulse Ox O2 Delivery O2 Flow Rate FiO2 04/17/17 11:35 04/17/17 06:21 75 18 99 Room Air 04/16/17 14:36 99.6 Orders Orders Diet Regular Basic (04/16/17 Dinner) Ed Discharge Order (04/16/17 18:24) ^ Sitter (04/16/17 18:29) Psych Screen (04/16/17 20:07) Diet Regular Basic (04/17/17 Breakfast) Ziprasidone Inj (Geodon Inj) (04/17/17 11:29) Diphenhydramine Inj (Benadryl Inj) (04/17/17 11:29) Diet Regular Basic (04/17/17 Lunch) Levothyroxine (Synthroid) (04/18/17 09:00) MDM Medical Record Reviewed: Yes Supervised Visit with EDI: Yes Narrative Course 26-year-old female patient previously medically cleared for psychiatric evaluation, has been assessed and psychiatrically cleared by psychiatric staff. Patient remains medically stable for discharge. Discharge plan will be determined by the psychiatric staff, please see their note. Diagnosis Primary Impression: Suicidal ideation Referrals: Primary Care Physician Patient Instructions: General Instructions Departure Forms: Tests/Procedures Additional Instruction: It is important that you remain in your senior care or speak with your bilingual social worker regarding other placement options. Follow-up with your psychiatrist or primary doctor. Return to the emergency department if he developed new or worsening symptoms. Disposition: 01 DISCHARGE HOME Condition: Stable Ethan Vazquez Apr 17, 2017 12:39
--- NOTE | 2017-04-17 12:39 | PD ---
Physical Exam Date Seen by Provider: Apr 17, 2017 Time Seen by Provider: 12:38 Narrative 26-year-old female patient previously medically cleared for psychiatric evaluation, has been assessed and psychiatrically cleared by psychiatric staff. Patient remains medically stable for discharge. Discharge plan will be determined by the psychiatric staff, please see their note. Data Data Last Documented VS Vital Signs Date Time Temp Pulse Resp B/P (MAP) Pulse Ox O2 Delivery O2 Flow Rate FiO2 04/17/17 11:35 04/17/17 06:21 75 18 99 Room Air 04/16/17 14:36 99.6 Orders Orders Diet Regular Basic (04/16/17 Dinner) Ed Discharge Order (04/16/17 18:24) ^ Sitter (04/16/17 18:29) Psych Screen (04/16/17 20:07) Diet Regular Basic (04/17/17 Breakfast) Ziprasidone Inj (Geodon Inj) (04/17/17 11:29) Diphenhydramine Inj (Benadryl Inj) (04/17/17 11:29) Diet Regular Basic (04/17/17 Lunch) Levothyroxine (Synthroid) (04/18/17 09:00) MDM Medical Record Reviewed: Yes Supervised Visit with EDI: Yes Narrative Course 26-year-old female patient previously medically cleared for psychiatric evaluation, has been assessed and psychiatrically cleared by psychiatric staff. Patient remains medically stable for discharge. Discharge plan will be determined by the psychiatric staff, please see their note. Diagnosis Primary Impression: Suicidal ideation Referrals: Primary Care Physician Patient Instructions: General Instructions Departure Forms: Tests/Procedures Additional Instruction: It is important that you remain in your correction or speak with your social media director regarding other placement options. Follow-up with your psychiatrist or primary doctor. Return to the emergency department if he developed new or worsening symptoms. Disposition: 01 DISCHARGE HOME Condition: Stable Ethan Vazquez Apr 17, 2017 12:39
[2017-04-17 18:47] VITALS: BP 124/68; PULSE 120; RESP 18; O2SAT 95
[2017-04-17] MEDS ORDERED: diphenhydrAMINE HCL 50 MG CAP PO ONE (22:15)
[2017-04-17 22:35] VITALS: BP 122/80; PULSE 98; RESP 18; O2SAT 99
[2017-04-18] MEDS: LEVOTHYROXINE SODIUM 50 MCG TAB PO SCH (09:20)
[2017-04-18 09:36] VITALS: BP 122/83; PULSE 104; RESP 18; TEMP 98.7; O2SAT 99
[2017-04-18] MEDS ORDERED: DESOGESTREL PO SCH (11:00)
[2017-04-18] MEDS ORDERED: ETHINYL ESTRADIOL PO SCH (11:00)
[2017-04-18] MEDS ORDERED: ALUMINUM/MAGNESIUM/SIMETH 30 ML CUP PO PRN (11:00)
[2017-04-18] MEDS ORDERED: MAGNESIUM HYDROXIDE SUSP 30 ML CUP PO PRN (11:00)
[2017-04-18 11:09] VITALS: BP 124/83; PULSE 100; RESP 18; TEMP 97.4; O2SAT 98
[2017-04-18 18:03] VITALS: BP 112/73; PULSE 96; RESP 17; TEMP 98; O2SAT 97
[2017-04-18] MEDS: ACETAMINOPHEN 325 MG TAB PO PRN (20:03)
[2017-04-19] MEDS: LEVOTHYROXINE SODIUM 50 MCG TAB PO SCH (05:35)
[2017-04-19 05:46] VITALS: BP 114/78; PULSE 61; RESP 16; TEMP 98.2; O2SAT 97
[2017-04-19 11:25] LABS: BICARBONATE 24.9 MEQ/L (21.0-32.0); BLOOD UREA NITROGEN 8 MG/DL (7-18); CALCIUM 9.8 MG/DL (8.5-10.1); CHLORIDE 103 MEQ/L (98-107); CREATININE 0.73 MG/DL (0.50-1.00); GLOMERULAR FILTRATION RATE 97 ML/MIN (>89); GLUCOSE,RANDOM 107 MG/DL (74-106); SODIUM (NA) 138 MEQ/L (136-145)
[2017-04-19 11:26] LABS: CHOLESTEROL 192 MG/DL (120-200)
[2017-04-19 11:28] LABS: CHOLESTEROL/ HDL RATIO 3.49 RATIO; HDL CHOLESTEROL 54.9 MG/DL (40.0-60.0); LDL CHOLESTEROL 103 MG/DL (0-99); TRIGLYCERIDES 173 MG/DL (42-150)
[2017-04-19 16:17] LABS: HEMOGLOBIN A1C 5.2 % (4.3-6.0)
--- NOTE | 2017-04-19 16:34 | HHI.HP ---
Provisional Diagnosis Admission Date Apr 18, 2017 at 09:45 [place]. Intellectual deficit, schizophrenia by history Certification of Person's Competence To Provide Express and Informed Consent I have personally examined Audrey Grijalva , a person being served at [facility] on, Apr 19, 2017 16:33. Express and informed consent means consent voluntarily given in writing, by a competent person, after sufficient explanation and disclosure of the subject matter involved to enable the person to make a knowing and willful decision without any element of force, fraud, deceit, duress, or other form of constraint or coercion. This person is 18 years of age or older, is not now known to be incompetent to consent to treatment with a guardian advocate, and does not have a health care surrogate or proxy currently making medical treatment decisions. I have found this person to be one of the following: [] Competent to provide express and informed consent, as defined above, for voluntary admission to this facility and is competent to provide express and informed consent for treatment. He/she has the consistent capacity to make well reasoned, willful, and knowing decisions concerning his or her medical or mental health treatment. The person fully and consistently understands the purpose of the admission for examination/placement and is fully capable of personally exercising all rights [place] [x] Incompetent to provide express and informed consent to voluntary admission, and this is incompetent to provide express and informed consent to treatment. The person must be transferred to involuntary status and a petition for a guardian advocate filed with the Circuit Court. [] Refusing to provide express and informed consent to voluntary admission but is competent to provide express and informed consent for treatment. The person must be discharged or transferred to involuntary status. Form shall be completed within 24 hours of a person's arrival at the receiving facility and filed in the clinical record of each person: 1. Admitted on a voluntary basis 2. Permitted to provide express and informed consent to his/her own treatment 3. Allowed to transfer from involuntary to voluntary status 4. Prior to permitting a person to consent to his or her own treatment after having been previously found incompetent to consent to treatment. History of Present Illness Capacity: Lacks Capacity HPI Patient is a 26 y/o woman, single, no children, unemployed on [facility], domiciled in longterm ([facility]), with past psychiatric history of Intermittent Explosive disorder, Intellectual disability, bipolar disorder as per chart, with multiple psychiatric admissions, previous suicide attempt and self injurious behavior via banging her head, multiple ED visits and hospitalizations this year due to similar presentation who was brought in recently under [employer] from longterm after running away and concern that patient is unable to care for self. Patient was cleared in the ED agreed to return back to her longterm and put under [employer] again when she stated wanting to kill herself by running into traffic. Patient was subsequently admitted to the inpatient psychiatry unit for further evaluation and management. Patient found sitting in day room, calm and cooperative with interview. Patient states that she was having anger issues and that it gets out of control. She states that while in the ED she was frustrated and bored and attempted to flood the bathroom and was banging her head. She states that in her longterm she became upset after she was messing around with staff and therefore left the longterm which police had brought her to the ED. She states feeling okkind of ansy, denies any perceptual disturbances, SI, HI, or delusions. Family psychiatric history: as per chart, father has reactive attachment disorder and her brother shot himself over his girlfriend. Past psychiatric history: previous psychiatric diagnosis of intermittent explosive disorder, intellectual disability, bipolar disorder as per chart, multiple previous psychiatric admissions, one previous suicide attempts via overdose at the age of 19 y/o, history of self injurious behavior via banging her head. No history of abuse as per chart. Substance use history: ETOH use occasionally, usually one beer, denies use of any other substance. Past medical history: asthma Allergies: Risperdal Consta Social history: single, no children, unemployed on [facility], domiciled in longterm ([facility]), highest education: High school Legal history: previous charges of trespassing, domestic battery and assault on a police captain which she spent several months in penitentiary. Review of Systems Except as stated in HPI: all other systems reviewed are Neg Past Psych History Psychological trauma history denies Violence risk - others (6 mos) elevated due to history of impulsive behavior Violence risk - self (6 mos) increased due to recent SI statements and history of SA Substance Abuse History Drugs/Alcohol past 12 months ETOH use occasionally, usually one beer, denies use of any other substance. Past Family Social History Coded Allergies: red dye (Unverified Allergy, Severe, BECOMES AGGRESSIVE, VOMITS, 04/16/17) risperidone (Unverified Allergy, Severe, Nausea/Vomiting, 04/16/17) Uncoded Allergies: Seasonal Allergies (Allergy, Unknown, 03/04/12) Active Scripts Haloperidol (Haloperidol) 5 Mg Tab, 5 MG PO BID for Mental Health for 15 Days, TAB 1 Refill Prov:Hitesh Crawford MD 10/04/16 Escitalopram (Lexapro) 20 Mg Tab, 20 MG PO DAILY for Mental Health for 15 Days, TAB 1 Refill Prov:Hitesh Crawford MD 10/04/16 Reported Medications Benztropine (Benztropine) 0.5 Mg Tab, 1 MG PO Q12HR, #60 TAB 0 Refills 04/16/17 Fluticasone Nasal [place] (Flonase Nasal [place]) 50 Mcg/Act [place], 1 SPRAY EACH NARE DAILY for Allergies, #1 BOTTLE 0 Refills 09/18/16 Desogestrel-Ethinyl Estradiol (Apri) 0.15-30 Mg-Mcg Tab, 1 TAB PO DAILY for Control, #28 TAB 0 Refills 09/18/16 Levothyroxine (Levothyroxine) 50 Mcg Tab, 50 MCG PO DAILY for Thyroid, #30 TAB 0 Refills 07/24/16 Cetirizine (Cetirizine) 10 Mg Tab, 10 MG PO DAILY for Allergies, TAB 0 Refills 07/24/16 Discontinued Reported Medications Lorazepam (Ativan) 0.5 Mg Tab, 0.5 MG PO TID Y for ANXIETY AND/OR AGITATION, TAB 0 Refills 08/20/16 Discontinued Scripts Benztropine (Benztropine) 1 Mg Tab, 1 MG PO Q12HR for Side effect management for 15 Days, TAB 1 Refill Prov:Hitesh Crawford MD 10/04/16 Paliperidone Palmitate Inj (Invega Sustenna Inj) 234 Mg/1.5 Ml Inj, 234 MG IM Q28D for Mental Health, #1 INJECTION 0 Refills This dose of Invega Sustenna is due on 09/25/2016. Prov:Hitesh Crawford MD 08/31/16 Current Medications Medications (Trade) Dose Ordered Sig/Jono Route Start Time Stop Time Status Last Admin (Synthroid) 50 mcg DAILY@0600 PO 04/18/17 09:00 04/19/17 05:35 (Tylenol) 650 mg Q4H PRN PO 04/18/17 11:00 04/18/17 20:03 (Milk Of Magnesia Liq) 30 ml DAILY PRN PO 04/18/17 11:00 (Mag-Al Plus Susp Liq) 30 ml Q6H PRN PO 04/18/17 11:00 Patient Own Medication PT OWN MED: (Desogestrel-Ethinyl Estradiol (Apri... DAILY PO 04/18/17 11:00 Future Hold (Cogentin) 1 mg Q12HR PO 04/19/17 21:00 (ZyrTEC) 10 mg DAILY PO 04/19/17 16:15 (Lexapro) 20 mg DAILY PO 04/19/17 16:15 (Haldol) 5 mg BID PO 04/19/17 21:00 (Flonase Brown Spr) 1 spray DAILY EACH NARE 04/20/17 09:00 Family Psych History as per chart, father has reactive attachment disorder and her brother shot himself over his girlfriend. Social History single, no children, unemployed on [employer], domiciled in longterm ([facility]), highest education: High school Patient's Strengths (min. 2) verbal and communicative Physical Exam Patient found with no acute distress, no noted gross motor abnormalities, no tremor or EPS, no noted psychomotor agitation of retardation. Vital Signs Vital Signs Date Time Temp Pulse Resp B/P (MAP) Pulse Ox O2 Delivery O2 Flow Rate FiO2 04/19/17 05:46 98.2 61 16 114/78 (90) 97 04/18/17 09:36 Room Air Lab Results labs reviewed Test 04/19/17 09:41 Blood Urea Nitrogen 8 MG/DL Creatinine 0.73 MG/DL Random Glucose 107 MG/DL Calcium Level 9.8 MG/DL Sodium Level 138 MEQ/L Potassium Level 4.1 MEQ/L Chloride Level 103 MEQ/L Carbon Dioxide Level 24.9 MEQ/L Anion Gap 10 MEQ/L Estimat Glomerular Filtration Rate 97 ML/MIN Hemoglobin A1c 5.2 % Triglycerides Level 173 MG/DL Cholesterol Level 192 MG/DL LDL Cholesterol 103 MG/DL HDL Cholesterol 54.9 MG/DL Cholesterol/HDL Ratio 3.49 RATIO Mental Status Examination Appearance: Appropriate Consciousness: Alert Orientation: x4 Motor Activity: Normal gait Speech: Unremarkable Language: Adequate Fund of Knowledge: Adequate Attention and Concentration: Adequate Memory: Unremarkable Mood: Appropriate Affect: Appropriate Thought Process & Associations: Intact, Other (concrete) Thought Content: Appropriate Hallucination Type: None Delusion Type: None Suicidal Ideation: No Suicidal Plan: No Suicidal Intention: No Homicidal Ideation: No Homicidal Plan: No Homicidal Intention: No Insight: Poor Judgment: Impulsive Assessment & Plan Problem List: (1) Intermittent explosive disorder ICD Codes: F63.81 - Intermittent explosive disorder Status: Acute (2) Mental retardation, idiopathic mild ICD Codes: F70 - Idiopathic mild mental retardation Status: Acute Assessment & Plan Estimated LOS: 3-5 days. Patient is 26 y/o woman with intellectual disability and carries a diagnosis of intermittent explosive disorder, with multiple admission and ED visits with similar presentation who was recently brought under [facility] for concern of ability to care for self after running away from longterm who was cleared psychiatrically and was put under [id number] again for stating wanting to kill herself by running into traffic. Patient with similar presentation of prior admissions and upon interview appears to be wanting to be in the hospital but stated willing to return back to the longterm. Due to recent behavior, will petition for involuntary admission started, second opinion will be requested. Will continue Haldol 5mg PO BID, benztropine 1mg PO BID, escitalopram 20mg PO daily. Collateral information pending from longterm. Continue to monitor mood and behavior. Discharge planning in progress. Discharge Planning Patient to return back to longterm upon discharge. Hill Acosta MD Apr 19, 2017 16:34
--- NOTE | 2017-04-19 16:34 | HHI.HP ---
Provisional Diagnosis Admission Date Apr 18, 2017 at 09:45 [place] I. Intellectual deficit, schizophrenia by history Certification of Person's Competence To Provide Express and Informed Consent I have personally examined Audrey Grijalva , a person being served at [facility] on, Apr 19, 2017 16:33. Express and informed consent means consent voluntarily given in writing, by a competent person, after sufficient explanation and disclosure of the subject matter involved to enable the person to make a knowing and willful decision without any element of force, fraud, deceit, duress, or other form of constraint or coercion. This person is 18 years of age or older, is not now known to be incompetent to consent to treatment with a guardian advocate, and does not have a health care surrogate or proxy currently making medical treatment decisions. I have found this person to be one of the following: [] Competent to provide express and informed consent, as defined above, for voluntary admission to this facility and is competent to provide express and informed consent for treatment. He/she has the consistent capacity to make well reasoned, willful, and knowing decisions concerning his or her medical or mental health treatment. The person fully and consistently understands the purpose of the admission for examination/placement and is fully capable of personally exercising all rights assured [place] [x] Incompetent to provide express and informed consent to voluntary admission, and this is incompetent to provide express and informed consent to treatment. The person must be transferred to involuntary status and a petition for a guardian advocate filed with the Circuit Court. [] Refusing to provide express and informed consent to voluntary admission but is competent to provide express and informed consent for treatment. The person must be discharged or transferred to involuntary status. Form shall be completed within 24 hours of a person's arrival at the receiving facility and filed in the clinical record of each person: 1. Admitted on a voluntary basis 2. Permitted to provide express and informed consent to his/her own treatment 3. Allowed to transfer from involuntary to voluntary status 4. Prior to permitting a person to consent to his or her own treatment after having been previously found incompetent to consent to treatment. History of Present Illness Capacity: Lacks Capacity HPI Patient is a 26 y/o woman, single, no children, unemployed on [facility], domiciled in residential ([facility]), with past psychiatric history of Intermittent Explosive disorder, Intellectual disability, bipolar disorder as per chart, with multiple psychiatric admissions, previous suicide attempt and self injurious behavior via banging her head, multiple ED visits and hospitalizations this year due to similar presentation who was brought in recently under [employer] from residential after running away and concern that patient is unable to care for self. Patient was cleared in the ED agreed to return back to her residential and put under [employer] again when she stated wanting to kill herself by running into traffic. Patient was subsequently admitted to the inpatient psychiatry unit for further evaluation and management. Patient found sitting in day room, calm and cooperative with interview. Patient states that she was having anger issues and that it gets out of control. She states that while in the ED she was frustrated and bored and attempted to flood the bathroom and was banging her head. She states that in her residential she became upset after she was messing around with staff and therefore left the residential which police had brought her to the ED. She states feeling okkind of ansy, denies any perceptual disturbances, SI, HI, or delusions. Family psychiatric history: as per chart, father has reactive attachment disorder and her brother shot himself over his girlfriend. Past psychiatric history: previous psychiatric diagnosis of intermittent explosive disorder, intellectual disability, bipolar disorder as per chart, multiple previous psychiatric admissions, one previous suicide attempts via overdose at the age of 19 y/o, history of self injurious behavior via banging her head. No history of abuse as per chart. Substance use history: ETOH use occasionally, usually one beer, denies use of any other substance. Past medical history: asthma Allergies: Risperdal Consta Social history: single, no children, unemployed on [facility], domiciled in residential ([facility]), highest education: High school Legal history: previous charges of trespassing, domestic battery and assault on a police clerk which she spent several months in [facility]. Review of Systems Except as stated in HPI: all other systems reviewed are Neg Past Psych History Psychological trauma history denies Violence risk - others (6 mos) elevated due to history of impulsive behavior Violence risk - self (6 mos) increased due to recent SI statements and history of SA Substance Abuse History Drugs/Alcohol past 12 months ETOH use occasionally, usually one beer, denies use of any other substance. Past Family Social History Coded Allergies: red dye (Unverified Allergy, Severe, BECOMES AGGRESSIVE, VOMITS, 04/16/17) risperidone (Unverified Allergy, Severe, Nausea/Vomiting, 04/16/17) Uncoded Allergies: Seasonal Allergies (Allergy, Unknown, 03/04/12) Active Scripts Haloperidol (Haloperidol) 5 Mg Tab, 5 MG PO BID for Mental Health for 15 Days, TAB 1 Refill Prov:Hitesh Crawford MD 10/04/16 Escitalopram (Lexapro) 20 Mg Tab, 20 MG PO DAILY for Mental Health for 15 Days, TAB 1 Refill Prov:Hitesh Crawford MD 10/04/16 Reported Medications Benztropine (Benztropine) 0.5 Mg Tab, 1 MG PO Q12HR, #60 TAB 0 Refills 04/16/17 Fluticasone Nasal [place] (Flonase Nasal [place]) 50 Mcg/Act [place], 1 SPRAY EACH NARE DAILY for Allergies, #1 BOTTLE 0 Refills 09/18/16 Desogestrel-Ethinyl Estradiol (Apri) 0.15-30 Mg-Mcg Tab, 1 TAB PO DAILY for Control, #28 TAB 0 Refills 09/18/16 Levothyroxine (Levothyroxine) 50 Mcg Tab, 50 MCG PO DAILY for Thyroid, #30 TAB 0 Refills 07/24/16 Cetirizine (Cetirizine) 10 Mg Tab, 10 MG PO DAILY for Allergies, TAB 0 Refills 07/24/16 Discontinued Reported Medications Lorazepam (Ativan) 0.5 Mg Tab, 0.5 MG PO TID Y for ANXIETY AND/OR AGITATION, TAB 0 Refills 08/20/16 Discontinued Scripts Benztropine (Benztropine) 1 Mg Tab, 1 MG PO Q12HR for Side effect management for 15 Days, TAB 1 Refill Prov:Hitesh Crawford MD 10/04/16 Paliperidone Palmitate Inj (Invega Sustenna Inj) 234 Mg/1.5 Ml Inj, 234 MG IM Q28D for Mental Health, #1 INJECTION 0 Refills This dose of Invega Sustenna is due on 09/25/2016. Prov:Hitesh Crawford MD 08/31/16 Current Medications Medications (Trade) Dose Ordered Sig/Jono Route Start Time Stop Time Status Last Admin (Synthroid) 50 mcg DAILY@0600 PO 04/18/17 09:00 04/19/17 05:35 (Tylenol) 650 mg Q4H PRN PO 04/18/17 11:00 04/18/17 20:03 (Milk Of Magnesia Liq) 30 ml DAILY PRN PO 04/18/17 11:00 (Mag-Al Plus Susp Liq) 30 ml Q6H PRN PO 04/18/17 11:00 Patient Own Medication PT OWN MED: (Desogestrel-Ethinyl Estradiol (Apri... DAILY PO 04/18/17 11:00 Future Hold (Cogentin) 1 mg Q12HR PO 04/19/17 21:00 (ZyrTEC) 10 mg DAILY PO 04/19/17 16:15 (Lexapro) 20 mg DAILY PO 04/19/17 16:15 (Haldol) 5 mg BID PO 04/19/17 21:00 (Flonase Brown Spr) 1 spray DAILY EACH NARE 04/20/17 09:00 Family Psych History as per chart, father has reactive attachment disorder and her brother shot himself over his girlfriend. Social History single, no children, unemployed on [employer], domiciled in residential ([facility]), highest education: High school Patient's Strengths (min. 2) verbal and communicative Physical Exam Patient found with no acute distress, no noted gross motor abnormalities, no tremor or EPS, no noted psychomotor agitation of retardation. Vital Signs Vital Signs Date Time Temp Pulse Resp B/P (MAP) Pulse Ox O2 Delivery O2 Flow Rate FiO2 04/19/17 05:46 98.2 61 16 114/78 (90) 97 04/18/17 09:36 Room Air Lab Results labs reviewed Test 04/19/17 09:41 Blood Urea Nitrogen 8 MG/DL Creatinine 0.73 MG/DL Random Glucose 107 MG/DL Calcium Level 9.8 MG/DL Sodium Level 138 MEQ/L Potassium Level 4.1 MEQ/L Chloride Level 103 MEQ/L Carbon Dioxide Level 24.9 MEQ/L Anion Gap 10 MEQ/L Estimat Glomerular Filtration Rate 97 ML/MIN Hemoglobin A1c 5.2 % Triglycerides Level 173 MG/DL Cholesterol Level 192 MG/DL LDL Cholesterol 103 MG/DL HDL Cholesterol 54.9 MG/DL Cholesterol/HDL Ratio 3.49 RATIO Mental Status Examination Appearance: Appropriate Consciousness: Alert Orientation: x4 Motor Activity: Normal gait Speech: Unremarkable Language: Adequate Fund of Knowledge: Adequate Attention and Concentration: Adequate Memory: Unremarkable Mood: Appropriate Affect: Appropriate Thought Process & Associations: Intact, Other (concrete) Thought Content: Appropriate Hallucination Type: None Delusion Type: None Suicidal Ideation: No Suicidal Plan: No Suicidal Intention: No Homicidal Ideation: No Homicidal Plan: No Homicidal Intention: No Insight: Poor Judgment: Impulsive Assessment & Plan Problem List: (1) Intermittent explosive disorder ICD Codes: F63.81 - Intermittent explosive disorder Status: Acute (2) Mental retardation, idiopathic mild ICD Codes: F70 - Idiopathic mild mental retardation Status: Acute Assessment & Plan Estimated LOS: 3-5 days. Patient is 26 y/o woman with intellectual disability and carries a diagnosis of intermittent explosive disorder, with multiple admission and ED visits with similar presentation who was recently brought under [employer] for concern of ability to care for self after running away from residential who was cleared psychiatrically and was put under [employer] again for stating wanting to kill herself by running into traffic. Patient with similar presentation of prior admissions and upon interview appears to be wanting to be in the hospital but stated willing to return back to the residential. Due to recent behavior, will petition for involuntary admission started, second opinion will be requested. Will continue Haldol 5mg PO BID, benztropine 1mg PO BID, escitalopram 20mg PO daily. Collateral information pending from residential. Continue to monitor mood and behavior. Discharge planning in progress. Discharge Planning Patient to return back to residential upon discharge. Hill Acosta MD Apr 19, 2017 16:34
--- NOTE | 2017-04-19 16:34 | HHI.HP ---
Provisional Diagnosis Admission Date Apr 18, 2017 at 09:45 [place] I. Intellectual deficit, schizophrenia by history Certification of Person's Competence To Provide Express and Informed Consent I have personally examined Audrey Grijalva , a person being served at [facility] on, Apr 19, 2017 16:33. Express and informed consent means consent voluntarily given in writing, by a competent person, after sufficient explanation and disclosure of the subject matter involved to enable the person to make a knowing and willful decision without any element of force, fraud, deceit, duress, or other form of constraint or coercion. This person is 18 years of age or older, is not now known to be incompetent to consent to treatment with a guardian advocate, and does not have a health care surrogate or proxy currently making medical treatment decisions. I have found this person to be one of the following: [] Competent to provide express and informed consent, as defined above, for voluntary admission to this facility and is competent to provide express and informed consent for treatment. He/she has the consistent capacity to make well reasoned, willful, and knowing decisions concerning his or her medical or mental health treatment. The person fully and consistently understands the purpose of the admission for examination/placement and is fully capable of personally exercising all rights assured under [place] [x] Incompetent to provide express and informed consent to voluntary admission, and this is incompetent to provide express and informed consent to treatment. The person must be transferred to involuntary status and a petition for a guardian advocate filed with the Circuit Court. [] Refusing to provide express and informed consent to voluntary admission but is competent to provide express and informed consent for treatment. The person must be discharged or transferred to involuntary status. Form shall be completed within 24 hours of a person's arrival at the receiving facility and filed in the clinical record of each person: 1. Admitted on a voluntary basis 2. Permitted to provide express and informed consent to his/her own treatment 3. Allowed to transfer from involuntary to voluntary status 4. Prior to permitting a person to consent to his or her own treatment after having been previously found incompetent to consent to treatment. History of Present Illness Capacity: Lacks Capacity HPI Patient is a 26 y/o woman, single, no children, unemployed on [facility], domiciled in shelter ([facility]), with past psychiatric history of Intermittent Explosive disorder, Intellectual disability, bipolar disorder as per chart, with multiple psychiatric admissions, previous suicide attempt and self injurious behavior via banging her head, multiple ED visits and hospitalizations this year due to similar presentation who was brought in recently under [employer] from shelter after running away and concern that patient is unable to care for self. Patient was cleared in the ED agreed to return back to her shelter and put under [employer] again when she stated wanting to kill herself by running into traffic. Patient was subsequently admitted to the inpatient psychiatry unit for further evaluation and management. Patient found sitting in day room, calm and cooperative with interview. Patient states that she was having anger issues and that it gets out of control. She states that while in the ED she was frustrated and bored and attempted to flood the bathroom and was banging her head. She states that in her shelter she became upset after she was messing around with staff and therefore left the shelter which police had brought her to the ED. She states feeling okkind of ansy, denies any perceptual disturbances, SI, HI, or delusions. Family psychiatric history: as per chart, father has reactive attachment disorder and her brother shot himself over his girlfriend. Past psychiatric history: previous psychiatric diagnosis of intermittent explosive disorder, intellectual disability, bipolar disorder as per chart, multiple previous psychiatric admissions, one previous suicide attempts via overdose at the age of 19 y/o, history of self injurious behavior via banging her head. No history of abuse as per chart. Substance use history: ETOH use occasionally, usually one beer, denies use of any other substance. Past medical history: asthma Allergies: Risperdal Consta Social history: single, no children, unemployed on [facility], domiciled in shelter ([facility]), highest education: High school Legal history: previous charges of trespassing, domestic battery and assault on a deportation officer which she spent several months in [facility]. Review of Systems Except as stated in HPI: all other systems reviewed are Neg Past Psych History Psychological trauma history denies Violence risk - others (6 mos) elevated due to history of impulsive behavior Violence risk - self (6 mos) increased due to recent SI statements and history of SA Substance Abuse History Drugs/Alcohol past 12 months ETOH use occasionally, usually one beer, denies use of any other substance. Past Family Social History Coded Allergies: red dye (Unverified Allergy, Severe, BECOMES AGGRESSIVE, VOMITS, 04/16/17) risperidone (Unverified Allergy, Severe, Nausea/Vomiting, 04/16/17) Uncoded Allergies: Seasonal Allergies (Allergy, Unknown, 03/04/12) Active Scripts Haloperidol (Haloperidol) 5 Mg Tab, 5 MG PO BID for Mental Health for 15 Days, TAB 1 Refill Prov:Hitesh Crawford MD 10/04/16 Escitalopram (Lexapro) 20 Mg Tab, 20 MG PO DAILY for Mental Health for 15 Days, TAB 1 Refill Prov:Hitesh Crawford MD 10/04/16 Reported Medications Benztropine (Benztropine) 0.5 Mg Tab, 1 MG PO Q12HR, #60 TAB 0 Refills 04/16/17 Fluticasone Nasal [place] (Flonase Nasal [place]) 50 Mcg/Act [place], 1 SPRAY EACH NARE DAILY for Allergies, #1 BOTTLE 0 Refills 09/18/16 Desogestrel-Ethinyl Estradiol (Apri) 0.15-30 Mg-Mcg Tab, 1 TAB PO DAILY for Control, #28 TAB 0 Refills 09/18/16 Levothyroxine (Levothyroxine) 50 Mcg Tab, 50 MCG PO DAILY for Thyroid, #30 TAB 0 Refills 07/24/16 Cetirizine (Cetirizine) 10 Mg Tab, 10 MG PO DAILY for Allergies, TAB 0 Refills 07/24/16 Discontinued Reported Medications Lorazepam (Ativan) 0.5 Mg Tab, 0.5 MG PO TID Y for ANXIETY AND/OR AGITATION, TAB 0 Refills 08/20/16 Discontinued Scripts Benztropine (Benztropine) 1 Mg Tab, 1 MG PO Q12HR for Side effect management for 15 Days, TAB 1 Refill Prov:Hitesh Crawford MD 10/04/16 Paliperidone Palmitate Inj (Invega Sustenna Inj) 234 Mg/1.5 Ml Inj, 234 MG IM Q28D for Mental Health, #1 INJECTION 0 Refills This dose of Invega Sustenna is due on 09/25/2016. Prov:Hitesh Crawford MD 08/31/16 Current Medications Medications (Trade) Dose Ordered Sig/Jono Route Start Time Stop Time Status Last Admin (Synthroid) 50 mcg DAILY@0600 PO 04/18/17 09:00 04/19/17 05:35 (Tylenol) 650 mg Q4H PRN PO 04/18/17 11:00 04/18/17 20:03 (Milk Of Magnesia Liq) 30 ml DAILY PRN PO 04/18/17 11:00 (Mag-Al Plus Susp Liq) 30 ml Q6H PRN PO 04/18/17 11:00 Patient Own Medication PT OWN MED: (Desogestrel-Ethinyl Estradiol (Apri... DAILY PO 04/18/17 11:00 Future Hold (Cogentin) 1 mg Q12HR PO 04/19/17 21:00 (ZyrTEC) 10 mg DAILY PO 04/19/17 16:15 (Lexapro) 20 mg DAILY PO 04/19/17 16:15 (Haldol) 5 mg BID PO 04/19/17 21:00 (Flonase Brown Spr) 1 spray DAILY EACH NARE 04/20/17 09:00 Family Psych History as per chart, father has reactive attachment disorder and her brother shot himself over his girlfriend. Social History single, no children, unemployed on [employer], domiciled in shelter ([facility]), highest education: High school Patient's Strengths (min. 2) verbal and communicative Physical Exam Patient found with no acute distress, no noted gross motor abnormalities, no tremor or EPS, no noted psychomotor agitation of retardation. Vital Signs Vital Signs Date Time Temp Pulse Resp B/P (MAP) Pulse Ox O2 Delivery O2 Flow Rate FiO2 04/19/17 05:46 98.2 61 16 114/78 (90) 97 04/18/17 09:36 Room Air Lab Results labs reviewed Test 04/19/17 09:41 Blood Urea Nitrogen 8 MG/DL Creatinine 0.73 MG/DL Random Glucose 107 MG/DL Calcium Level 9.8 MG/DL Sodium Level 138 MEQ/L Potassium Level 4.1 MEQ/L Chloride Level 103 MEQ/L Carbon Dioxide Level 24.9 MEQ/L Anion Gap 10 MEQ/L Estimat Glomerular Filtration Rate 97 ML/MIN Hemoglobin A1c 5.2 % Triglycerides Level 173 MG/DL Cholesterol Level 192 MG/DL LDL Cholesterol 103 MG/DL HDL Cholesterol 54.9 MG/DL Cholesterol/HDL Ratio 3.49 RATIO Mental Status Examination Appearance: Appropriate Consciousness: Alert Orientation: x4 Motor Activity: Normal gait Speech: Unremarkable Language: Adequate Fund of Knowledge: Adequate Attention and Concentration: Adequate Memory: Unremarkable Mood: Appropriate Affect: Appropriate Thought Process & Associations: Intact, Other (concrete) Thought Content: Appropriate Hallucination Type: None Delusion Type: None Suicidal Ideation: No Suicidal Plan: No Suicidal Intention: No Homicidal Ideation: No Homicidal Plan: No Homicidal Intention: No Insight: Poor Judgment: Impulsive Assessment & Plan Problem List: (1) Intermittent explosive disorder ICD Codes: F63.81 - Intermittent explosive disorder Status: Acute (2) Mental retardation, idiopathic mild ICD Codes: F70 - Idiopathic mild mental retardation Status: Acute Assessment & Plan Estimated LOS: 3-5 days. Patient is 26 y/o woman with intellectual disability and carries a diagnosis of intermittent explosive disorder, with multiple admission and ED visits with similar presentation who was recently brought under [employer] for concern of ability to care for self after running away from shelter who was cleared psychiatrically and was put under [employer] again for stating wanting to kill herself by running into traffic. Patient with similar presentation of prior admissions and upon interview appears to be wanting to be in the hospital but stated willing to return back to the shelter. Due to recent behavior, will petition for involuntary admission started, second opinion will be requested. Will continue Haldol 5mg PO BID, benztropine 1mg PO BID, escitalopram 20mg PO daily. Collateral information pending from shelter. Continue to monitor mood and behavior. Discharge planning in progress. Discharge Planning Patient to return back to shelter upon discharge. Hill Acosta MD Apr 19, 2017 16:34
[2017-04-19] MEDS: CETIRIZINE HCL 10 MG TAB PO SCH (16:43)
[2017-04-19] MEDS: ESCITALOPRAM OXALATE 20 MG TAB PO SCH (16:43)
[2017-04-19 17:00] VITALS: BP 119/80; PULSE 89; RESP 17; TEMP 98; O2SAT 97
[2017-04-19] MEDS: BENZTROPINE MESYLATE 1 MG TAB PO SCH (19:59)
[2017-04-19] MEDS: HALOPERIDOL 5 MG TAB PO SCH (19:59)
[2017-04-20] MEDS: LEVOTHYROXINE SODIUM 50 MCG TAB PO SCH (05:19)
[2017-04-20 05:48] VITALS: BP 112/54; PULSE 74; RESP 18; TEMP 97.6; O2SAT 98
[2017-04-20] MEDS: HALOPERIDOL 5 MG TAB PO SCH ×2 (08:43→20:12)
[2017-04-20] MEDS: FLUTICASONE PROPIONATE 50 MCG/ACT 16 GM NASAL SPRAY EACH NARE SCH (08:43)
[2017-04-20] MEDS: BENZTROPINE MESYLATE 1 MG TAB PO SCH ×2 (08:43→20:12)
[2017-04-20] MEDS: CETIRIZINE HCL 10 MG TAB PO SCH (08:44)
[2017-04-20] MEDS: ESCITALOPRAM OXALATE 20 MG TAB PO SCH (08:44)
--- NOTE | 2017-04-20 17:46 | HHI.PYPN ---
Subjective Remarks This is a request for second opinion. Admission note was reviewed and I agree with the history. Case was discussed with nursing and patient was evaluated. Patient was admitted for aggressive behavior. She remains with poor insight into her behavior and cognitive deficits are evident. Tolerating medications well. Behavior has improved today Mental Status Examination Appearance: Appropriate Consciousness: Alert Orientation: x4 Motor Activity: Normal gait Speech: Unremarkable Language: Adequate Fund of Knowledge: Adequate Attention and Concentration: Adequate Memory: Unremarkable Mood: Appropriate Affect: Appropriate Thought Process & Associations: Intact, Other (concrete) Thought Content: Appropriate Hallucination Type: None Delusion Type: None Suicidal Ideation: No Suicidal Plan: No Suicidal Intention: No Homicidal Ideation: No Homicidal Plan: No Homicidal Intention: No Insight: Poor Judgment: Impulsive Results Vitals/IOs Vital Signs Date Time Temp Pulse Resp B/P (MAP) Pulse Ox O2 Delivery O2 Flow Rate FiO2 04/20/17 05:48 97.6 74 18 112/54 (73) 98 04/18/17 09:36 Room Air Assessment & Plan Problem List: (1) Intermittent explosive disorder ICD Codes: F63.81 - Intermittent explosive disorder Status: Acute (2) Mental retardation, idiopathic mild ICD Codes: F70 - Idiopathic mild mental retardation Status: Acute Assessment & Plan I agree with the first opinion to continue petition. Criteria include poor impulse control and agitated behavior Justification for Cont. Inpt. Patient will decompensate in a less restrictive setting Evan Oconnell DO Apr 20, 2017 17:46
[2017-04-20 18:42] VITALS: BP 126/80; PULSE 91; RESP 19; TEMP 98.3; O2SAT 99
[2017-04-21 05:34] VITALS: BP 116/75; PULSE 97; RESP 18; TEMP 97.9; O2SAT 96
[2017-04-21] MEDS: LEVOTHYROXINE SODIUM 50 MCG TAB PO SCH (06:10)
[2017-04-21] MEDS: HALOPERIDOL 5 MG TAB PO SCH ×2 (08:25→20:38)
[2017-04-21] MEDS: ESCITALOPRAM OXALATE 20 MG TAB PO SCH (08:25)
[2017-04-21] MEDS: CETIRIZINE HCL 10 MG TAB PO SCH (08:25)
[2017-04-21] MEDS: FLUTICASONE PROPIONATE 50 MCG/ACT 16 GM NASAL SPRAY EACH NARE SCH (08:25)
[2017-04-21] MEDS: BENZTROPINE MESYLATE 1 MG TAB PO SCH ×2 (08:25→20:38)
--- NOTE | 2017-04-21 12:12 | PD.PSY.CON ---
Provisional Diagnosis Admission Date Apr 18, 2017 at 09:45 [place] I. Intellectual deficit, schizophrenia by history History of Present Illness Service Psychiatry Consult Requested By Dave Reason for Consult Second opinion Primary Care Physician Unknown HPI Patient is a 26 y/o woman, single, no children, unemployed on SSD, domiciled in [facility] ([facility]), with past psychiatric history of Intermittent Explosive disorder, Intellectual disability, bipolar disorder as per chart, with multiple psychiatric admissions, previous suicide attempt and self injurious behavior via banging her head, multiple ED visits and hospitalizations this year due to similar presentation who was brought in recently under [employer] from [facility] after running away and concern that patient is unable to care for self. Patient was cleared in the ED agreed to return back to her ch[facility] and put under [place] Act again when she stated wanting to kill herself by running into traffic. Patient was subsequently admitted to the inpatient psychiatry unit for further evaluation and management. Patient found sitting in day room, calm and cooperative with interview. Patient states that she was having anger issues and that it gets out of control. She states that while in the ED she was frustrated and bored and attempted to flood the bathroom and was banging her head. She states that in her [facility] she became upset after she was messing around with staff and therefore left the [facility] which police had brought her to the ED. She states feeling okkind of ansy, denies any perceptual disturbances, SI, HI, or delusions. Family psychiatric history: as per chart, father has reactive attachment disorder and her brother shot himself over his girlfriend. Past psychiatric history: previous psychiatric diagnosis of intermittent explosive disorder, intellectual disability, bipolar disorder as per chart, multiple previous psychiatric admissions, one previous suicide attempts via overdose at the age of 19 y/o, history of self injurious behavior via banging her head. No history of abuse as per chart. Substance use history: ETOH use occasionally, usually one beer, denies use of any other substance. Past medical history: asthma Allergies: Risperdal Consta Social history: single, no children, unemployed on SSD, domiciled in ch[facility] ([facility]), highest education: High school Legal history: previous charges of trespassing, domestic battery and assault on a police service technician which she spent several months in residential. Above history reviewed and patient interviewed. This physician agrees with civil commitment. Review of Systems Except as stated in HPI: all other systems reviewed are Neg Past Family Social History Coded Allergies: red dye (Unverified Allergy, Severe, BECOMES AGGRESSIVE, VOMITS, 04/16/17) risperidone (Unverified Allergy, Severe, Nausea/Vomiting, 04/16/17) Uncoded Allergies: Seasonal Allergies (Allergy, Unknown, 03/04/12) Active Scripts Haloperidol (Haloperidol) 5 Mg Tab, 5 MG PO BID for Mental Health for 15 Days, TAB 1 Refill Prov:Hitesh Crawford MD 10/04/16 Escitalopram (Lexapro) 20 Mg Tab, 20 MG PO DAILY for Mental Health for 15 Days, TAB 1 Refill Prov:Hitesh Crawford MD 10/04/16 Reported Medications Benztropine (Benztropine) 0.5 Mg Tab, 1 MG PO Q12HR, #60 TAB 0 Refills 04/16/17 Fluticasone Nasal [place] (Flonase Nasal [place]) 50 Mcg/Act [place], 1 SPRAY EACH NARE DAILY for Allergies, #1 BOTTLE 0 Refills 09/18/16 Desogestrel-Ethinyl Estradiol (Apri) 0.15-30 Mg-Mcg Tab, 1 TAB PO DAILY for Control, #28 TAB 0 Refills 09/18/16 Levothyroxine (Levothyroxine) 50 Mcg Tab, 50 MCG PO DAILY for Thyroid, #30 TAB 0 Refills 07/24/16 Cetirizine (Cetirizine) 10 Mg Tab, 10 MG PO DAILY for Allergies, TAB 0 Refills 07/24/16 Discontinued Reported Medications Lorazepam (Ativan) 0.5 Mg Tab, 0.5 MG PO TID Y for ANXIETY AND/OR AGITATION, TAB 0 Refills 08/20/16 Discontinued Scripts Benztropine (Benztropine) 1 Mg Tab, 1 MG PO Q12HR for Side effect management for 15 Days, TAB 1 Refill Prov:Hitesh Crawford MD 10/04/16 Paliperidone Palmitate Inj (Invega Sustenna Inj) 234 Mg/1.5 Ml Inj, 234 MG IM Q28D for Mental Health, #1 INJECTION 0 Refills This dose of Invega Sustenna is due on 09/25/2016. Prov:Hitesh Crawford MD 08/31/16 Current Medications Medications (Trade) Dose Ordered Sig/Jono Route Start Time Stop Time Status Last Admin (Synthroid) 50 mcg DAILY@0600 PO 04/18/17 09:00 04/21/17 06:10 (Tylenol) 650 mg Q4H PRN PO 04/18/17 11:00 04/18/17 20:03 (Milk Of Magnesia Liq) 30 ml DAILY PRN PO 04/18/17 11:00 (Mag-Al Plus Susp Liq) 30 ml Q6H PRN PO 04/18/17 11:00 Patient Own Medication PT OWN MED: (Desogestrel-Ethinyl Estradiol (Apri... DAILY PO 04/18/17 11:00 Future Hold (Cogentin) 1 mg Q12HR PO 04/19/17 21:00 04/21/17 08:25 (ZyrTEC) 10 mg DAILY PO 04/19/17 16:15 04/21/17 08:25 (Lexapro) 20 mg DAILY PO 04/19/17 16:15 04/21/17 08:25 (Haldol) 5 mg BID PO 04/19/17 21:00 04/21/17 08:25 (Flonase Brown Spr) 1 spray DAILY EACH NARE 04/20/17 09:00 04/21/17 08:25 (Vistaril) 50 mg Q6H PRN PO 04/20/17 18:00 04/20/17 20:12 Patient's Strengths (min. 2) verbal and communicative Physical Exam Vital Signs Vital Signs Date Time Temp Pulse Resp B/P (MAP) Pulse Ox O2 Delivery O2 Flow Rate FiO2 04/21/17 05:34 97.9 97 18 116/75 (89) 96 04/18/17 09:36 Room Air Mental Status Examination Appearance: Appropriate Consciousness: Alert Orientation: x4 Motor Activity: Normal gait Speech: Unremarkable Language: Adequate Fund of Knowledge: Adequate Attention and Concentration: Adequate Memory: Unremarkable Mood: Appropriate Affect: Appropriate Thought Process & Associations: Intact, Other (concrete) Thought Content: Appropriate Hallucination Type: None Delusion Type: None Suicidal Ideation: No Suicidal Plan: No Suicidal Intention: No Homicidal Ideation: No Homicidal Plan: No Homicidal Intention: No Insight: Poor Judgment: Impulsive Assessment & Plan Problem List: (1) Intermittent explosive disorder ICD Codes: F63.81 - Intermittent explosive disorder Status: Acute (2) Mental retardation, idiopathic mild ICD Codes: F70 - Idiopathic mild mental retardation Status: Acute Assessment & Plan Estimated LOS: days this physician cosigned civil commitment form. Alex Villatoro MD Apr 21, 2017 12:12
--- NOTE | 2017-04-21 12:12 | PD.PSY.CON ---
Provisional Diagnosis Admission Date Apr 18, 2017 at 09:45 [place] I. Intellectual deficit, schizophrenia by history History of Present Illness Service Psychiatry Consult Requested By Dave Reason for Consult Second opinion Primary Care Physician Unknown HPI Patient is a 26 y/o woman, single, no children, unemployed on SSD, domiciled in longterm ([facility]), with past psychiatric history of Intermittent Explosive disorder, Intellectual disability, bipolar disorder as per chart, with multiple psychiatric admissions, previous suicide attempt and self injurious behavior via banging her head, multiple ED visits and hospitalizations this year due to similar presentation who was brought in recently under [place] Act from longterm after running away and concern that patient is unable to care for self. Patient was cleared in the ED agreed to return back to her longterm and put under [place] Act again when she stated wanting to kill herself by running into traffic. Patient was subsequently admitted to the inpatient psychiatry unit for further evaluation and management. Patient found sitting in day room, calm and cooperative with interview. Patient states that she was having anger issues and that it gets out of control. She states that while in the ED she was frustrated and bored and attempted to flood the bathroom and was banging her head. She states that in her longterm she became upset after she was messing around with staff and therefore left the longterm which police had brought her to the ED. She states feeling okkind of ansy, denies any perceptual disturbances, SI, HI, or delusions. Family psychiatric history: as per chart, father has reactive attachment disorder and her brother shot himself over his girlfriend. Past psychiatric history: previous psychiatric diagnosis of intermittent explosive disorder, intellectual disability, bipolar disorder as per chart, multiple previous psychiatric admissions, one previous suicide attempts via overdose at the age of 19 y/o, history of self injurious behavior via banging her head. No history of abuse as per chart. Substance use history: ETOH use occasionally, usually one beer, denies use of any other substance. Past medical history: asthma Allergies: Risperdal Consta Social history: single, no children, unemployed on SSD, domiciled in longterm ([facility]), highest education: High school Legal history: previous charges of trespassing, domestic battery and assault on a assistant chief of police which she spent several months in [facility]. Above history reviewed and patient interviewed. This physician agrees with civil commitment. Review of Systems Except as stated in HPI: all other systems reviewed are Neg Past Family Social History Coded Allergies: red dye (Unverified Allergy, Severe, BECOMES AGGRESSIVE, VOMITS, 04/16/17) risperidone (Unverified Allergy, Severe, Nausea/Vomiting, 04/16/17) Uncoded Allergies: Seasonal Allergies (Allergy, Unknown, 03/04/12) Active Scripts Haloperidol (Haloperidol) 5 Mg Tab, 5 MG PO BID for Mental Health for 15 Days, TAB 1 Refill Prov:Hitesh Crawford MD 10/04/16 Escitalopram (Lexapro) 20 Mg Tab, 20 MG PO DAILY for Mental Health for 15 Days, TAB 1 Refill Prov:Hitesh Crawford MD 10/04/16 Reported Medications Benztropine (Benztropine) 0.5 Mg Tab, 1 MG PO Q12HR, #60 TAB 0 Refills 04/16/17 Fluticasone Nasal [place] (Flonase Nasal [place]) 50 Mcg/Act [place], 1 SPRAY EACH NARE DAILY for Allergies, #1 BOTTLE 0 Refills 09/18/16 Desogestrel-Ethinyl Estradiol (Apri) 0.15-30 Mg-Mcg Tab, 1 TAB PO DAILY for Control, #28 TAB 0 Refills 09/18/16 Levothyroxine (Levothyroxine) 50 Mcg Tab, 50 MCG PO DAILY for Thyroid, #30 TAB 0 Refills 07/24/16 Cetirizine (Cetirizine) 10 Mg Tab, 10 MG PO DAILY for Allergies, TAB 0 Refills 07/24/16 Discontinued Reported Medications Lorazepam (Ativan) 0.5 Mg Tab, 0.5 MG PO TID Y for ANXIETY AND/OR AGITATION, TAB 0 Refills 08/20/16 Discontinued Scripts Benztropine (Benztropine) 1 Mg Tab, 1 MG PO Q12HR for Side effect management for 15 Days, TAB 1 Refill Prov:Hitesh Crawford MD 10/04/16 Paliperidone Palmitate Inj (Invega Sustenna Inj) 234 Mg/1.5 Ml Inj, 234 MG IM Q28D for Mental Health, #1 INJECTION 0 Refills This dose of Invega Sustenna is due on 09/25/2016. Prov:Hitesh Crawford MD 08/31/16 Current Medications Medications (Trade) Dose Ordered Sig/Jono Route Start Time Stop Time Status Last Admin (Synthroid) 50 mcg DAILY@0600 PO 04/18/17 09:00 04/21/17 06:10 (Tylenol) 650 mg Q4H PRN PO 04/18/17 11:00 04/18/17 20:03 (Milk Of Magnesia Liq) 30 ml DAILY PRN PO 04/18/17 11:00 (Mag-Al Plus Susp Liq) 30 ml Q6H PRN PO 04/18/17 11:00 Patient Own Medication PT OWN MED: (Desogestrel-Ethinyl Estradiol (Apri... DAILY PO 04/18/17 11:00 Future Hold (Cogentin) 1 mg Q12HR PO 04/19/17 21:00 04/21/17 08:25 (ZyrTEC) 10 mg DAILY PO 04/19/17 16:15 04/21/17 08:25 (Lexapro) 20 mg DAILY PO 04/19/17 16:15 04/21/17 08:25 (Haldol) 5 mg BID PO 04/19/17 21:00 04/21/17 08:25 (Flonase Brown Spr) 1 spray DAILY EACH NARE 04/20/17 09:00 04/21/17 08:25 (Vistaril) 50 mg Q6H PRN PO 04/20/17 18:00 04/20/17 20:12 Patient's Strengths (min. 2) verbal and communicative Physical Exam Vital Signs Vital Signs Date Time Temp Pulse Resp B/P (MAP) Pulse Ox O2 Delivery O2 Flow Rate FiO2 04/21/17 05:34 97.9 97 18 116/75 (89) 96 04/18/17 09:36 Room Air Mental Status Examination Appearance: Appropriate Consciousness: Alert Orientation: x4 Motor Activity: Normal gait Speech: Unremarkable Language: Adequate Fund of Knowledge: Adequate Attention and Concentration: Adequate Memory: Unremarkable Mood: Appropriate Affect: Appropriate Thought Process & Associations: Intact, Other (concrete) Thought Content: Appropriate Hallucination Type: None Delusion Type: None Suicidal Ideation: No Suicidal Plan: No Suicidal Intention: No Homicidal Ideation: No Homicidal Plan: No Homicidal Intention: No Insight: Poor Judgment: Impulsive Assessment & Plan Problem List: (1) Intermittent explosive disorder ICD Codes: F63.81 - Intermittent explosive disorder Status: Acute (2) Mental retardation, idiopathic mild ICD Codes: F70 - Idiopathic mild mental retardation Status: Acute Assessment & Plan Estimated LOS: days this physician cosigned civil commitment form. Alex Villatoro MD Apr 21, 2017 12:12
--- NOTE | 2017-04-21 12:12 | PD.PSY.CON ---
Provisional Diagnosis Admission Date Apr 18, 2017 at 09:45 [place] I. Intellectual deficit, schizophrenia by history History of Present Illness Service Psychiatry Consult Requested By Dave Reason for Consult Second opinion Primary Care Physician Unknown HPI Patient is a 26 y/o woman, single, no children, unemployed on SSD, domiciled in detention ([facility]), with past psychiatric history of Intermittent Explosive disorder, Intellectual disability, bipolar disorder as per chart, with multiple psychiatric admissions, previous suicide attempt and self injurious behavior via banging her head, multiple ED visits and hospitalizations this year due to similar presentation who was brought in recently under [place] Act from detention after running away and concern that patient is unable to care for self. Patient was cleared in the ED agreed to return back to her detention and put under [place] Act again when she stated wanting to kill herself by running into traffic. Patient was subsequently admitted to the inpatient psychiatry unit for further evaluation and management. Patient found sitting in day room, calm and cooperative with interview. Patient states that she was having anger issues and that it gets out of control. She states that while in the ED she was frustrated and bored and attempted to flood the bathroom and was banging her head. She states that in her detention she became upset after she was messing around with staff and therefore left the detention which police had brought her to the ED. She states feeling okkind of ansy, denies any perceptual disturbances, SI, HI, or delusions. Family psychiatric history: as per chart, father has reactive attachment disorder and her brother shot himself over his girlfriend. Past psychiatric history: previous psychiatric diagnosis of intermittent explosive disorder, intellectual disability, bipolar disorder as per chart, multiple previous psychiatric admissions, one previous suicide attempts via overdose at the age of 19 y/o, history of self injurious behavior via banging her head. No history of abuse as per chart. Substance use history: ETOH use occasionally, usually one beer, denies use of any other substance. Past medical history: asthma Allergies: Risperdal Consta Social history: single, no children, unemployed on SSD, domiciled in detention ([facility]), highest education: High school Legal history: previous charges of trespassing, domestic battery and assault on a diplomatic officer which she spent several months in penitentiary. Above history reviewed and patient interviewed. This physician agrees with civil commitment. Review of Systems Except as stated in HPI: all other systems reviewed are Neg Past Family Social History Coded Allergies: red dye (Unverified Allergy, Severe, BECOMES AGGRESSIVE, VOMITS, 04/16/17) risperidone (Unverified Allergy, Severe, Nausea/Vomiting, 04/16/17) Uncoded Allergies: Seasonal Allergies (Allergy, Unknown, 03/04/12) Active Scripts Haloperidol (Haloperidol) 5 Mg Tab, 5 MG PO BID for Mental Health for 15 Days, TAB 1 Refill Prov:Hitesh Crawford MD 10/04/16 Escitalopram (Lexapro) 20 Mg Tab, 20 MG PO DAILY for Mental Health for 15 Days, TAB 1 Refill Prov:Hitesh Crawford MD 10/04/16 Reported Medications Benztropine (Benztropine) 0.5 Mg Tab, 1 MG PO Q12HR, #60 TAB 0 Refills 04/16/17 Fluticasone Nasal [place] (Flonase Nasal [place]) 50 Mcg/Act [place], 1 SPRAY EACH NARE DAILY for Allergies, #1 BOTTLE 0 Refills 09/18/16 Desogestrel-Ethinyl Estradiol (Apri) 0.15-30 Mg-Mcg Tab, 1 TAB PO DAILY for Control, #28 TAB 0 Refills 09/18/16 Levothyroxine (Levothyroxine) 50 Mcg Tab, 50 MCG PO DAILY for Thyroid, #30 TAB 0 Refills 07/24/16 Cetirizine (Cetirizine) 10 Mg Tab, 10 MG PO DAILY for Allergies, TAB 0 Refills 07/24/16 Discontinued Reported Medications Lorazepam (Ativan) 0.5 Mg Tab, 0.5 MG PO TID Y for ANXIETY AND/OR AGITATION, TAB 0 Refills 08/20/16 Discontinued Scripts Benztropine (Benztropine) 1 Mg Tab, 1 MG PO Q12HR for Side effect management for 15 Days, TAB 1 Refill Prov:Hitesh Crawford MD 10/04/16 Paliperidone Palmitate Inj (Invega Sustenna Inj) 234 Mg/1.5 Ml Inj, 234 MG IM Q28D for Mental Health, #1 INJECTION 0 Refills This dose of Invega Sustenna is due on 09/25/2016. Prov:Hitesh Crawford MD 08/31/16 Current Medications Medications (Trade) Dose Ordered Sig/Jono Route Start Time Stop Time Status Last Admin (Synthroid) 50 mcg DAILY@0600 PO 04/18/17 09:00 04/21/17 06:10 (Tylenol) 650 mg Q4H PRN PO 04/18/17 11:00 04/18/17 20:03 (Milk Of Magnesia Liq) 30 ml DAILY PRN PO 04/18/17 11:00 (Mag-Al Plus Susp Liq) 30 ml Q6H PRN PO 04/18/17 11:00 Patient Own Medication PT OWN MED: (Desogestrel-Ethinyl Estradiol (Apri... DAILY PO 04/18/17 11:00 Future Hold (Cogentin) 1 mg Q12HR PO 04/19/17 21:00 04/21/17 08:25 (ZyrTEC) 10 mg DAILY PO 04/19/17 16:15 04/21/17 08:25 (Lexapro) 20 mg DAILY PO 04/19/17 16:15 04/21/17 08:25 (Haldol) 5 mg BID PO 04/19/17 21:00 04/21/17 08:25 (Flonase Brown Spr) 1 spray DAILY EACH NARE 04/20/17 09:00 04/21/17 08:25 (Vistaril) 50 mg Q6H PRN PO 04/20/17 18:00 04/20/17 20:12 Patient's Strengths (min. 2) verbal and communicative Physical Exam Vital Signs Vital Signs Date Time Temp Pulse Resp B/P (MAP) Pulse Ox O2 Delivery O2 Flow Rate FiO2 04/21/17 05:34 97.9 97 18 116/75 (89) 96 04/18/17 09:36 Room Air Mental Status Examination Appearance: Appropriate Consciousness: Alert Orientation: x4 Motor Activity: Normal gait Speech: Unremarkable Language: Adequate Fund of Knowledge: Adequate Attention and Concentration: Adequate Memory: Unremarkable Mood: Appropriate Affect: Appropriate Thought Process & Associations: Intact, Other (concrete) Thought Content: Appropriate Hallucination Type: None Delusion Type: None Suicidal Ideation: No Suicidal Plan: No Suicidal Intention: No Homicidal Ideation: No Homicidal Plan: No Homicidal Intention: No Insight: Poor Judgment: Impulsive Assessment & Plan Problem List: (1) Intermittent explosive disorder ICD Codes: F63.81 - Intermittent explosive disorder Status: Acute (2) Mental retardation, idiopathic mild ICD Codes: F70 - Idiopathic mild mental retardation Status: Acute Assessment & Plan Estimated LOS: days this physician cosigned civil commitment form. Alex Villatoro MD Apr 21, 2017 12:12
--- NOTE | 2017-04-21 13:23 | HHI.PYPN ---
Subjective Remarks Patient was seen and case discussed with nursing. Patient interviewed in bed today. Patient showing improved insight asking for grief counseling. Mood remains depressed but affect is not congruent. No outbursts today. Compliant with medications and social with others Mental Status Examination Appearance: Appropriate Consciousness: Alert Orientation: x4 Motor Activity: Normal gait Speech: Unremarkable Language: Adequate Fund of Knowledge: Adequate Attention and Concentration: Adequate Memory: Unremarkable Mood: Sad Affect: Appropriate Thought Process & Associations: Intact, Other (concrete) Thought Content: Appropriate Hallucination Type: None Delusion Type: None Suicidal Ideation: No Suicidal Plan: No Suicidal Intention: No Homicidal Ideation: No Homicidal Plan: No Homicidal Intention: No Insight: Poor Judgment: Impulsive Results Vitals/IOs Vital Signs Date Time Temp Pulse Resp B/P (MAP) Pulse Ox O2 Delivery O2 Flow Rate FiO2 04/21/17 05:34 97.9 97 18 116/75 (89) 96 04/18/17 09:36 Room Air Assessment & Plan Problem List: (1) Intermittent explosive disorder ICD Codes: F63.81 - Intermittent explosive disorder Status: Acute (2) Mental retardation, idiopathic mild ICD Codes: F70 - Idiopathic mild mental retardation Status: Acute Assessment & Plan Continue current treatment plan Justification for Cont. Inpt. Patient would decompensate in a less restrictive setting Evan Oconnell DO Apr 21, 2017 13:23
[2017-04-21 16:53] VITALS: BP 114/76; PULSE 87; RESP 17; TEMP 97.7; O2SAT 99
[2017-04-22] MEDS: ACETAMINOPHEN 325 MG TAB PO PRN (03:32)
[2017-04-22] MEDS: LEVOTHYROXINE SODIUM 50 MCG TAB PO SCH (05:41)
[2017-04-22 05:50] VITALS: BP 123/81; PULSE 75; RESP 16; TEMP 97.9; O2SAT 98
[2017-04-22] MEDS: FLUTICASONE PROPIONATE 50 MCG/ACT 16 GM NASAL SPRAY EACH NARE SCH (08:47)
[2017-04-22] MEDS: BENZTROPINE MESYLATE 1 MG TAB PO SCH (08:48)
[2017-04-22] MEDS: HALOPERIDOL 5 MG TAB PO SCH (08:48)
[2017-04-22] MEDS: ESCITALOPRAM OXALATE 20 MG TAB PO SCH (08:48)
[2017-04-22] MEDS: CETIRIZINE HCL 10 MG TAB PO SCH (08:48)
[2017-04-22] MEDS ORDERED: ESCI20TA PO (11:10)
[2017-04-22] MEDS ORDERED: LEVO.05 PO (11:10)
[2017-04-22] MEDS ORDERED: FLUT50SP EACH NARE (11:10)
[2017-04-22] MEDS ORDERED: Benztropine PO (11:10)
[2017-04-22] MEDS ORDERED: CETI10 PO (11:10)
[2017-04-22] MEDS ORDERED: HALO5TAB PO (11:10)
--- NOTE | 2017-04-22 14:08 | PD.TTN ---
Patient Problems 1. Discharge planning 2. Medication compliance 3. Knowledge deficit 4. Lack of coping skills Progress Toward Goals Provider Present: Dr. Veronika Acosta Provider Input: Pt appears stable on medication regiment and will be discharged today. She will return to her half-way today. Nurse(s) Present: Ananya Castillo RN Nurse(s) Input: Pt appears cooperative, appropriate and pleasant on the unit. She has been no behavioral problem and is compliant with medication regiment. Psychiatric Counselors Present: JESSICA Navarro Psych Therapist Input: Pt appears cooperative, appropriate, organized and oriented. She presents with improved insight into condition and what led to admission. She appears goal oriented to improve on her behavior at the half-way. She appears to be utilizing coping and emotional regulation skills as she has avoided any outbursts or aggression on unit. She is compliant with regiment and willing to return to half-way today. Group Spec/RT/OT/JANG Present: LAINE Kwan Group Spec/RT/OT/JANG Input: Pt attends group and often appears childlike. Discharge Plan Other Pt will return to her half-way and will be scheduled follow up appointment with AD[facility]KE in [place]. Amarjit Clifford Apr 22, 2017 14:08
--- NOTE | 2017-04-22 14:08 | PD.TTN ---
Patient Problems 1. Discharge planning 2. Medication compliance 3. Knowledge deficit 4. Lack of coping skills Progress Toward Goals Provider Present: Dr. Veronika Acosta Provider Input: Pt appears stable on medication regiment and will be discharged today. She will return to her long-term today. Nurse(s) Present: Ananya Castillo RN Nurse(s) Input: Pt appears cooperative, appropriate and pleasant on the unit. She has been no behavioral problem and is compliant with medication regiment. Psychiatric Counselors Present: JESSICA Navarro Psych Therapist Input: Pt appears cooperative, appropriate, organized and oriented. She presents with improved insight into condition and what led to admission. She appears goal oriented to improve on her behavior at the long-term. She appears to be utilizing coping and emotional regulation skills as she has avoided any outbursts or aggression on unit. She is compliant with regiment and willing to return to long-term today. Group Spec/RT/OT/JANG Present: LAINE Kwan Group Spec/RT/OT/JANG Input: Pt attends group and often appears childlike. Discharge Plan Other Pt will return to her long-term and will be scheduled follow up appointment with ADENIKE in [place]. Amarjit Clifford Apr 22, 2017 14:08
--- NOTE | 2017-04-22 14:08 | PD.TTN ---
Patient Problems 1. Discharge planning 2. Medication compliance 3. Knowledge deficit 4. Lack of coping skills Progress Toward Goals Provider Present: Dr. Veronika Acosta Provider Input: Pt appears stable on medication regiment and will be discharged today. She will return to her retirement today. Nurse(s) Present: Ananya Castillo RN Nurse(s) Input: Pt appears cooperative, appropriate and pleasant on the unit. She has been no behavioral problem and is compliant with medication regiment. Psychiatric Counselors Present: JESSICA Navarro Psych Therapist Input: Pt appears cooperative, appropriate, organized and oriented. She presents with improved insight into condition and what led to admission. She appears goal oriented to improve on her behavior at the retirement. She appears to be utilizing coping and emotional regulation skills as she has avoided any outbursts or aggression on unit. She is compliant with regiment and willing to return to retirement today. Group Spec/RT/OT/JANG Present: LAINE Kwan Group Spec/RT/OT/JANG Input: Pt attends group and often appears childlike. Discharge Plan Other Pt will return to her retirement and will be scheduled follow up appointment with [facility] in [place]. Amarjit Clifford Apr 22, 2017 14:08
--- NOTE | 2017-04-22 16:44 | HHI.DS ---
Psychiatry Discharge Summary Inpatient Psychiatric care?: Yes Advance Directive: No Reason Not Provided: deferred by patient Mental Health AdvanceDirective: No Health Care Proxy: No Admission Admission Date Apr 18, 2017 at 09:45 Admission Diagnosis: (1) Intermittent explosive disorder ICD Code: F63.81 - Intermittent explosive disorder (2) Mental retardation, idiopathic mild ICD Code: F70 - Idiopathic mild mental retardation Brief History Patient is a 26 y/o woman, single, no children, unemployed on SSD, domiciled in jail ([facility]), with past psychiatric history of Intermittent Explosive disorder, Intellectual disability, bipolar disorder as per chart, with multiple psychiatric admissions, previous suicide attempt and self injurious behavior via banging her head, multiple ED visits and hospitalizations this year due to similar presentation who was brought in recently under [employer] Act from jail after running away and concern that patient is unable to care for self. Patient was cleared in the ED agreed to return back to her jail and put under [employer] Act again when she stated wanting to kill herself by running into traffic. Patient was subsequently admitted to the inpatient psychiatry unit for further evaluation and management. Patient found sitting in day room, calm and cooperative with interview. Patient states that she was having anger issues and that it gets out of control. She states that while in the ED she was frustrated and bored and attempted to flood the bathroom and was banging her head. She states that in her jail she became upset after she was messing around with staff and therefore left the jail which police had brought her to the ED. She states feeling okkind of ansy, denies any perceptual disturbances, SI, HI, or delusions. Family psychiatric history: as per chart, father has reactive attachment disorder and her brother shot himself over his girlfriend. Past psychiatric history: previous psychiatric diagnosis of intermittent explosive disorder, intellectual disability, bipolar disorder as per chart, multiple previous psychiatric admissions, one previous suicide attempts via overdose at the age of 19 y/o, history of self injurious behavior via banging her head. No history of abuse as per chart. Substance use history: ETOH use occasionally, usually one beer, denies use of any other substance. Past medical history: asthma Allergies: Risperdal Consta Social history: single, no children, unemployed on [employer], domiciled in jail ([facility]), highest education: High school Legal history: previous charges of trespassing, domestic battery and assault on a police booking officer which she spent several months in prison. Above history reviewed and patient interviewed. This physician agrees with civil commitment. Tobacco Use In Past 30 Days: No Tobacco Past 30 Days Alcohol Use: Monthly or Less Hospital Course Patient is a 26 y/o woman, single, no children, unemployed on SSD, domiciled in jail ([facility]), with past psychiatric history of Intermittent Explosive disorder, Intellectual disability, bipolar disorder as per chart, with multiple psychiatric admissions, previous suicide attempt and self injurious behavior via banging her head, multiple ED visits and hospitalizations this year due to similar presentation who was brought in recently under [employer] Act from jail after running away and concern that patient is unable to care for self. Patient was admitted to the inpatient psychiatric unit for further evaluation and management. Patient was continued on haloperidol 5mg PO BUD, benztropine 1mg PO BID, escitalopram 20mg PO daily which she tolerated well. She responded well to treatment with no behavioral dyscontrol since admission, noted stable mood, hopeful and motivated to reach full remission from alcohol use and maintain sobriety and decrease in AH. Patient was noted to be cooperative with staff, noted to be interactive with peers and staff and was progressively active in groups and activities. Upon discharge patient reported feeling well, denied any perceptual disturbances nor suicidal ideations or homicidal ideations. Patient agreed to continue treatment and follow up for continuity of care. Patient advised to call 911 or go nearest ED in case of emergency. Patient agreed with plan. Results Blood Pressure 123 / 81 Vital Signs Date Time Temp Pulse Resp B/P (MAP) Pulse Ox O2 Delivery O2 Flow Rate FiO2 04/22/17 05:50 97.9 75 16 123/81 (95) 98 04/18/17 09:36 Room Air Laboratory Results Test 04/19/17 09:41 Cholesterol Level 192 MG/DL (120-200) HDL Cholesterol 54.9 MG/DL (40.0-60.0) Hemoglobin A1c 5.2 % (4.3-6.0) LDL Cholesterol 103 MG/DL (0-99) Triglycerides Level 173 MG/DL (42-150) Summary of Procedures None Pending results at discharge: No Medications # of Antipsychotic meds at D/C: 1 Approp Antipsych med options 1 - Minimum of three failed multiple trials of monotherapy. 2 - Documented plan to taper to monotherapy due to previous use of multiple meds OR cross-taper in progress at D/C. 3 - Documentation of augmentation of Clozapine. 4 - Justification other than those listed in allowable values 1-3, document here : Discharge Discharge Date: Apr 22, 2017 Discharge Diagnosis: (1) Intermittent explosive disorder ICD Code: F63.81 - Intermittent explosive disorder Status: Acute (2) Mental retardation, idiopathic mild ICD Code: F70 - Idiopathic mild mental retardation Status: Acute Pt Condition on Discharge: Stable Discharge Disposition: ACLF/TIMOTEO Discharge Instructions Diet Instructions: As Tolerated, No Restrictions Activities you can perform: Regular-No Restrictions Scheduled Appointment: [facility] Appointment Date: Apr 29, 2017 Appointment Time: 1:00 pm Discharge Time > 30 minutes Mental Status Examination Appearance: Appropriate Consciousness: Alert Orientation: x4 Motor Activity: Normal gait Speech: Unremarkable Language: Adequate Fund of Knowledge: Adequate Attention and Concentration: Adequate Memory: Unremarkable Mood: Appropriate Affect: Appropriate Thought Process & Associations: Intact, Other (concrete) Thought Content: Appropriate Hallucination Type: None Delusion Type: None Suicidal Ideation: No Suicidal Plan: No Suicidal Intention: No Homicidal Ideation: No Homicidal Plan: No Homicidal Intention: No Insight: Poor Judgment: Impulsive Discharge/Advance Care Plan Health Problems: (1) Intermittent explosive disorder (2) Mental retardation, idiopathic mild Goals to promote your health * To prevent worsening of your condition and complications * To maintain your health at the optimal level Directions to meet your goals Take your medications as prescribed Follow your dietary instruction Follow activity as directed Keep your appointments as scheduled Take your immunizations and boosters as scheduled If your symptoms worsen call your PCP, if no PCP go to Urgent Care Center or Emergency Room For 24/7 questions related to your inpatient stay or results of tests pending at discharge, please contact Dr. Hill Acosta at Smoking is Dangerous to Your Health. Avoid second hand smoking Hill Acosta MD Apr 22, 2017 16:44
--- NOTE | 2017-04-22 16:44 | HHI.DS ---
Psychiatry Discharge Summary Inpatient Psychiatric care?: Yes Advance Directive: No Reason Not Provided: deferred by patient Mental Health AdvanceDirective: No Health Care Proxy: No Admission Admission Date Apr 18, 2017 at 09:45 Admission Diagnosis: (1) Intermittent explosive disorder ICD Code: F63.81 - Intermittent explosive disorder (2) Mental retardation, idiopathic mild ICD Code: F70 - Idiopathic mild mental retardation Brief History Patient is a 26 y/o woman, single, no children, unemployed on SSD, domiciled in [facility] ([facility]), with past psychiatric history of Intermittent Explosive disorder, Intellectual disability, bipolar disorder as per chart, with multiple psychiatric admissions, previous suicide attempt and self injurious behavior via banging her head, multiple ED visits and hospitalizations this year due to similar presentation who was brought in recently under [employer] Act from [facility] after running away and concern that patient is unable to care for self. Patient was cleared in the ED agreed to return back to her [facility] and put under [employer] Act again when she stated wanting to kill herself by running into traffic. Patient was subsequently admitted to the inpatient psychiatry unit for further evaluation and management. Patient found sitting in day room, calm and cooperative with interview. Patient states that she was having anger issues and that it gets out of control. She states that while in the ED she was frustrated and bored and attempted to flood the bathroom and was banging her head. She states that in her [facility] she became upset after she was messing around with staff and therefore left the [facility] which police had brought her to the ED. She states feeling okkind of ansy, denies any perceptual disturbances, SI, HI, or delusions. Family psychiatric history: as per chart, father has reactive attachment disorder and her brother shot himself over his girlfriend. Past psychiatric history: previous psychiatric diagnosis of intermittent explosive disorder, intellectual disability, bipolar disorder as per chart, multiple previous psychiatric admissions, one previous suicide attempts via overdose at the age of 19 y/o, history of self injurious behavior via banging her head. No history of abuse as per chart. Substance use history: ETOH use occasionally, usually one beer, denies use of any other substance. Past medical history: asthma Allergies: Risperdal Consta Social history: single, no children, unemployed on [employer], domiciled in [facility] ([facility]), highest education: High school Legal history: previous charges of trespassing, domestic battery and assault on a police academy instructor which she spent several months in snf. Above history reviewed and patient interviewed. This physician agrees with civil commitment. Tobacco Use In Past 30 Days: No Tobacco Past 30 Days Alcohol Use: Monthly or Less Hospital Course Patient is a 26 y/o woman, single, no children, unemployed on SSD, domiciled in [facility] ([facility]), with past psychiatric history of Intermittent Explosive disorder, Intellectual disability, bipolar disorder as per chart, with multiple psychiatric admissions, previous suicide attempt and self injurious behavior via banging her head, multiple ED visits and hospitalizations this year due to similar presentation who was brought in recently under [employer] Act from [facility] after running away and concern that patient is unable to care for self. Patient was admitted to the inpatient psychiatric unit for further evaluation and management. Patient was continued on haloperidol 5mg PO BUD, benztropine 1mg PO BID, escitalopram 20mg PO daily which she tolerated well. She responded well to treatment with no behavioral dyscontrol since admission, noted stable mood, hopeful and motivated to reach full remission from alcohol use and maintain sobriety and decrease in AH. Patient was noted to be cooperative with staff, noted to be interactive with peers and staff and was progressively active in groups and activities. Upon discharge patient reported feeling well, denied any perceptual disturbances nor suicidal ideations or homicidal ideations. Patient agreed to continue treatment and follow up for continuity of care. Patient advised to call 911 or go nearest ED in case of emergency. Patient agreed with plan. Results Blood Pressure 123 / 81 Vital Signs Date Time Temp Pulse Resp B/P (MAP) Pulse Ox O2 Delivery O2 Flow Rate FiO2 04/22/17 05:50 97.9 75 16 123/81 (95) 98 04/18/17 09:36 Room Air Laboratory Results Test 04/19/17 09:41 Cholesterol Level 192 MG/DL (120-200) HDL Cholesterol 54.9 MG/DL (40.0-60.0) Hemoglobin A1c 5.2 % (4.3-6.0) LDL Cholesterol 103 MG/DL (0-99) Triglycerides Level 173 MG/DL (42-150) Summary of Procedures None Pending results at discharge: No Medications # of Antipsychotic meds at D/C: 1 Approp Antipsych med options 1 - Minimum of three failed multiple trials of monotherapy. 2 - Documented plan to taper to monotherapy due to previous use of multiple meds OR cross-taper in progress at D/C. 3 - Documentation of augmentation of Clozapine. 4 - Justification other than those listed in allowable values 1-3, document here : Discharge Discharge Date: Apr 22, 2017 Discharge Diagnosis: (1) Intermittent explosive disorder ICD Code: F63.81 - Intermittent explosive disorder Status: Acute (2) Mental retardation, idiopathic mild ICD Code: F70 - Idiopathic mild mental retardation Status: Acute Pt Condition on Discharge: Stable Discharge Disposition: ACLF/TIMOTEO Discharge Instructions Diet Instructions: As Tolerated, No Restrictions Activities you can perform: Regular-No Restrictions Scheduled Appointment: [facility] Appointment Date: Apr 29, 2017 Appointment Time: 1:00 pm Discharge Time > 30 minutes Mental Status Examination Appearance: Appropriate Consciousness: Alert Orientation: x4 Motor Activity: Normal gait Speech: Unremarkable Language: Adequate Fund of Knowledge: Adequate Attention and Concentration: Adequate Memory: Unremarkable Mood: Appropriate Affect: Appropriate Thought Process & Associations: Intact, Other (concrete) Thought Content: Appropriate Hallucination Type: None Delusion Type: None Suicidal Ideation: No Suicidal Plan: No Suicidal Intention: No Homicidal Ideation: No Homicidal Plan: No Homicidal Intention: No Insight: Poor Judgment: Impulsive Discharge/Advance Care Plan Health Problems: (1) Intermittent explosive disorder (2) Mental retardation, idiopathic mild Goals to promote your health * To prevent worsening of your condition and complications * To maintain your health at the optimal level Directions to meet your goals Take your medications as prescribed Follow your dietary instruction Follow activity as directed Keep your appointments as scheduled Take your immunizations and boosters as scheduled If your symptoms worsen call your PCP, if no PCP go to Urgent Care Center or Emergency Room For 24/7 questions related to your inpatient stay or results of tests pending at discharge, please contact Dr. Hill Acosta at Smoking is Dangerous to Your Health. Avoid second hand smoking Hill Acosta MD Apr 22, 2017 16:44
--- NOTE | 2017-04-22 16:44 | HHI.DS ---
Psychiatry Discharge Summary Inpatient Psychiatric care?: Yes Advance Directive: No Reason Not Provided: deferred by patient Mental Health AdvanceDirective: No Health Care Proxy: No Admission Admission Date Apr 18, 2017 at 09:45 Admission Diagnosis: (1) Intermittent explosive disorder ICD Code: F63.81 - Intermittent explosive disorder (2) Mental retardation, idiopathic mild ICD Code: F70 - Idiopathic mild mental retardation Brief History Patient is a 26 y/o woman, single, no children, unemployed on SSD, domiciled in [facility] ([facility]), with past psychiatric history of Intermittent Explosive disorder, Intellectual disability, bipolar disorder as per chart, with multiple psychiatric admissions, previous suicide attempt and self injurious behavior via banging her head, multiple ED visits and hospitalizations this year due to similar presentation who was brought in recently under [email or web address] Act from [facility] after running away and concern that patient is unable to care for self. Patient was cleared in the ED agreed to return back to her [facility] and put under [employer] Act again when she stated wanting to kill herself by running into traffic. Patient was subsequently admitted to the inpatient psychiatry unit for further evaluation and management. Patient found sitting in day room, calm and cooperative with interview. Patient states that she was having anger issues and that it gets out of control. She states that while in the ED she was frustrated and bored and attempted to flood the bathroom and was banging her head. She states that in her [facility] she became upset after she was messing around with staff and therefore left the [facility] which police had brought her to the ED. She states feeling okkind of ansy, denies any perceptual disturbances, SI, HI, or delusions. Family psychiatric history: as per chart, father has reactive attachment disorder and her brother shot himself over his girlfriend. Past psychiatric history: previous psychiatric diagnosis of intermittent explosive disorder, intellectual disability, bipolar disorder as per chart, multiple previous psychiatric admissions, one previous suicide attempts via overdose at the age of 19 y/o, history of self injurious behavior via banging her head. No history of abuse as per chart. Substance use history: ETOH use occasionally, usually one beer, denies use of any other substance. Past medical history: asthma Allergies: Risperdal Consta Social history: single, no children, unemployed on [employer], domiciled in [facility] ([facility]), highest education: High school Legal history: previous charges of trespassing, domestic battery and assault on a commander police reserves which she spent several months in snf. Above history reviewed and patient interviewed. This physician agrees with civil commitment. Tobacco Use In Past 30 Days: No Tobacco Past 30 Days Alcohol Use: Monthly or Less Hospital Course Patient is a 26 y/o woman, single, no children, unemployed on SSD, domiciled in [facility] ([facility]), with past psychiatric history of Intermittent Explosive disorder, Intellectual disability, bipolar disorder as per chart, with multiple psychiatric admissions, previous suicide attempt and self injurious behavior via banging her head, multiple ED visits and hospitalizations this year due to similar presentation who was brought in recently under [employer] Act from [facility] after running away and concern that patient is unable to care for self. Patient was admitted to the inpatient psychiatric unit for further evaluation and management. Patient was continued on haloperidol 5mg PO BUD, benztropine 1mg PO BID, escitalopram 20mg PO daily which she tolerated well. She responded well to treatment with no behavioral dyscontrol since admission, noted stable mood, hopeful and motivated to reach full remission from alcohol use and maintain sobriety and decrease in AH. Patient was noted to be cooperative with staff, noted to be interactive with peers and staff and was progressively active in groups and activities. Upon discharge patient reported feeling well, denied any perceptual disturbances nor suicidal ideations or homicidal ideations. Patient agreed to continue treatment and follow up for continuity of care. Patient advised to call 911 or go nearest ED in case of emergency. Patient agreed with plan. Results Blood Pressure 123 / 81 Vital Signs Date Time Temp Pulse Resp B/P (MAP) Pulse Ox O2 Delivery O2 Flow Rate FiO2 04/22/17 05:50 97.9 75 16 123/81 (95) 98 04/18/17 09:36 Room Air Laboratory Results Test 04/19/17 09:41 Cholesterol Level 192 MG/DL (120-200) HDL Cholesterol 54.9 MG/DL (40.0-60.0) Hemoglobin A1c 5.2 % (4.3-6.0) LDL Cholesterol 103 MG/DL (0-99) Triglycerides Level 173 MG/DL (42-150) Summary of Procedures None Pending results at discharge: No Medications # of Antipsychotic meds at D/C: 1 Approp Antipsych med options 1 - Minimum of three failed multiple trials of monotherapy. 2 - Documented plan to taper to monotherapy due to previous use of multiple meds OR cross-taper in progress at D/C. 3 - Documentation of augmentation of Clozapine. 4 - Justification other than those listed in allowable values 1-3, document here : Discharge Discharge Date: Apr 22, 2017 Discharge Diagnosis: (1) Intermittent explosive disorder ICD Code: F63.81 - Intermittent explosive disorder Status: Acute (2) Mental retardation, idiopathic mild ICD Code: F70 - Idiopathic mild mental retardation Status: Acute Pt Condition on Discharge: Stable Discharge Disposition: ACLF/TIMOTEO Discharge Instructions Diet Instructions: As Tolerated, No Restrictions Activities you can perform: Regular-No Restrictions Scheduled Appointment: [facility] Appointment Date: Apr 29, 2017 Appointment Time: 1:00 pm Discharge Time > 30 minutes Mental Status Examination Appearance: Appropriate Consciousness: Alert Orientation: x4 Motor Activity: Normal gait Speech: Unremarkable Language: Adequate Fund of Knowledge: Adequate Attention and Concentration: Adequate Memory: Unremarkable Mood: Appropriate Affect: Appropriate Thought Process & Associations: Intact, Other (concrete) Thought Content: Appropriate Hallucination Type: None Delusion Type: None Suicidal Ideation: No Suicidal Plan: No Suicidal Intention: No Homicidal Ideation: No Homicidal Plan: No Homicidal Intention: No Insight: Poor Judgment: Impulsive Discharge/Advance Care Plan Health Problems: (1) Intermittent explosive disorder (2) Mental retardation, idiopathic mild Goals to promote your health * To prevent worsening of your condition and complications * To maintain your health at the optimal level Directions to meet your goals Take your medications as prescribed Follow your dietary instruction Follow activity as directed Keep your appointments as scheduled Take your immunizations and boosters as scheduled If your symptoms worsen call your PCP, if no PCP go to Urgent Care Center or Emergency Room For 24/7 questions related to your inpatient stay or results of tests pending at discharge, please contact Dr. Hill Acosta at Smoking is Dangerous to Your Health. Avoid second hand smoking Hill Acosta MD Apr 22, 2017 16:44
== END 2017-04-22 14:30 | disposition home or self-care (01) | DRG 883 ==
LOC: NEPD 14:22 → NEDA 04-18 09:45 → H270 04-18 10:40
PROVIDERS: ADMIT Student in an Organized Health Care Education/Training Program; ATTEND Student in an Organized Health Care Education/Training Program
DX: F63.81 Intermittent explosive disorder (principal); I48.91 Unspecified atrial fibrillation; R45.851 Suicidal ideations; I10 Essential (primary) hypertension; E03.9 Hypothyroidism, unspecified; G40.909 Epilepsy, unspecified, not intractable, without status epilepticus; F20.9 Schizophrenia, unspecified; F70 Mild intellectual disabilities; F43.25 Adjustment disorder with mixed disturbance of emotions and conduct; F90.9 Attention-deficit hyperactivity disorder, unspecified type; E11.9 Type 2 diabetes mellitus without complications; J45.909 Unspecified asthma, uncomplicated; G47.30 Sleep apnea, unspecified; Z91.5 Personal history of self-harm
CPT/HCPCS: 80048; 80061; 83036; 96372; 99285; J1200; J3486; Q0163

== ENCOUNTER 2017-04-22 16:24 | Emergency (ER) | payer OTHER ==
[~2017-04-22 16:24] MED LIST changes: +Benztropine PO; +ESCI20TA PO; +FLUT50SP EACH NARE; +LEVO.05 PO
--- NOTE | 2017-04-22 16:52 | PD ---
HPI . Tod Act Chief Complaint: psychiatric problem Time Seen by Provider: 16:39 Travel History International Travel<30 days: No Contact w/Intl Traveler<30days: No History of Present Illness HPI This patient presents to us as a Baron Act. 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 She was just admitted to the hospital for same and was discharged this morning. I have spoken with Dr. Acosta from psychiatry who reports that this patient does fine when she is in the hospital. She has problems when she returns to her correction. PFSH Past Medical History AAA: No ADD: Yes ADHD: Yes Alzheimer's Disease: No Anemia: No Arthritis: No Asthma: No Atrial Fibrillation: Yes Autoimmune Disease: No Blood Disorders: No Bipolar Disorder: No Anxiety: Yes Depression: Yes Heart Rhythm Problems: No Cancer: No Cardiomyopathy: No Cardiovascular Problems: No Cerebral Palsy: No High Cholesterol: No Chemotherapy: No Chest Pain: No Congestive Heart Failure: No Cirrhosis: No COPD: No Cerebrovascular Accident: No Coronary Artery Disease: No Cystic Fibrosis: No Dementia: No Developmental Delay: Yes Diabetes: No Dialysis: No Diminished Hearing: No Diverticulitis: No Deep Vein Thrombosis: No Endocrine: No Gastrointestinal Disorders: No Genetic Disorder: No GERD: No Glaucoma: No Gout: No Genitourinary: No Headaches: No Hepatitis: No Hiatal Hernia: No Hypertension: Yes Immune Disorder: No Inguinal Hernia: No Implanted Vascular Access Dvce: No Kidney Stones: No Musculoskeletal: No Neurologic: No Psychiatric: Yes (Hx of treatment for Schizophrenia, depression, Intermittent Explosive Disor) Reproductive: No Respiratory: No Integumentary: No Immunizations Current: Yes Migraines: No Myocardial Infarction: No Pancreatitis: No Radiation Therapy: No Renal Failure: No Schizophrenia: Yes Seizures: No Sickle Cell Disease: No Sleep Apnea: No Thyroid Disease: No Ulcer: No Menopausal: No : 0 Ectopic : No Ovarian Cysts: No Dilation and Curettage (D&C): No Tubal Ligation: No Past Surgical History Abdominal Surgery: No AICD: No Arteriovenous Shunt: No Cardiac Surgery: Yes Section: No Ear Surgery: No Endocrine Surgery: No Eye Surgery: No Genitourinary Surgery: No Gynecologic Surgery: No Hysterectomy: No Insulin Pump: No Joint Replacement: No Oral Surgery: No Pacemaker: No Thoracic Surgery: No Other Surgery: No Family History Family Hypercholesterolemia: No Social History Alcohol Use: No Tobacco Use: No (RARELY) Substance Use: No Allergies-Medications (Allergen,Severity, Reaction): Coded Allergies: red dye (Unverified Allergy, Severe, BECOMES AGGRESSIVE, VOMITS, 04/16/17) risperidone (Unverified Allergy, Severe, Nausea/Vomiting, 04/16/17) Uncoded Allergies: Seasonal Allergies (Allergy, Unknown, 03/04/12) Reported Meds & Prescriptions Reported Meds & Active Scripts Active Synthroid (Levothyroxine Sodium) 50 Mcg Tab 50 Mcg PO DAILY@0600 30 Days Fluticasone Nasal [place] 50 Mcg/Act Naspr 1 [place] EACH NARE DAILY 30 Days 50 mcg/spray [Benztropine] 1 MG Tab 1 Mg PO Q12HR 30 Days Haloperidol 5 Mg Tab 5 Mg PO BID 30 Days Escitalopram (Escitalopram Oxalate) 20 Mg Tab 20 Mg PO DAILY 30 Days Cetirizine (Cetirizine HCl) 10 Mg Tab 10 Mg PO DAILY 30 Days Haloperidol 5 Mg Tab 5 Mg PO BID 15 Days Lexapro (Escitalopram Oxalate) 20 Mg Tab 20 Mg PO DAILY 15 Days Reported Apri (Desogestrel-Ethinyl Estradiol) 0.15-30 Mg-Mcg Tab 1 Tab PO DAILY Review of Systems ROS Limitations: Poor Historian Physical Exam Narrative GENERAL: This patient is clearly mentally retarded. She is in no distress. SKIN: Warm and dry without rash or lesions. HEAD: Normocephalic/atraumatic. EYES: Pupils are equal. Extraocular movements are intact. NECK: Full range of motion with no apparent pain. CARDIOVASCULAR: Regular rate and rhythm. RESPIRATORY: Nonlabored respirations. MUSCULOSKELETAL: Atraumatic. NEUROLOGICAL: No obvious cranial nerve deficits. Moving all 4 extremities equally. PSYCHIATRIC: The patient is loud and boisterous. She is inappropriate. She is not homicidal or suicidal. MDM Medical Decision Making Medical Screen Exam Complete: Yes Emergency Medical Condition: Yes Differential Diagnosis Differential diagnosis of altered mental status includes but is not limited to infection, electrolyte abnormality, neurological event, intoxication Narrative Course This patient presents to us as a Baron Act. She does not meet criteria for Baron Act. I have spoken with the psychiatrist to states that the patient does fine while she is in their unit but then decompensates when she goes back to her correction. She is frequently admitted here under similar circumstances. This is a social situation. Case management is currently here talking with the patient. Diagnosis Primary Impression: Intermittent explosive disorder Disposition: 01 DISCHARGE HOME Condition: Stable Tila Daily MD Apr 22, 2017 16:52
[2017-04-22] MEDS ORDERED: LORazepam 2 MG/ML VIAL IM ONE (17:15)
[2017-04-22] MEDS ORDERED: HALOPERIDOL LACTATE 5 MG/ML AMP IM ONE (17:15)
[2017-04-22] MEDS ORDERED: NICOTINE 21 MG/24 HR PATCH T-DERMAL ONE (19:30)
[2017-04-22] MEDS ORDERED: REMOVE OLD NICODERM (NICOTINE) PATCH T-DERMAL ONE (19:30)
== END 2017-04-22 21:25 | disposition home or self-care (01) ==
LOC: NEPD 16:24
DX: F63.81 Intermittent explosive disorder (principal); F20.9 Schizophrenia, unspecified
CPT/HCPCS: 96372; 99284; J1630; J2060

== ENCOUNTER 2017-04-23 11:14 | Emergency (ER) | payer OTHER ==
[~2017-04-23] VITALS: Ht 165.1 cm; Wt 100.0 kg
[~2017-04-23 11:14] MED LIST changes: -BENZ0.5T PO; -BENZ1TAB PO; -FLUT1SPR5 EACH NARE; -LEVO50TA4 PO; -LORA-392 PO; -PALI234P IM
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
[2017-04-23 11:39] VITALS: BP 133/85; PULSE 107; RESP 22; TEMP 98.2; O2SAT 98
[2017-04-23] MEDS ORDERED: LORazepam 2 MG/ML VIAL ONE (12:12)
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
[2017-04-23] MEDS ORDERED: ZIPRASIDONE MESYLATE 20 MG VIAL IM ONE (13:00)
[2017-04-23] MEDS ORDERED: diphenhydrAMINE HCL 50 MG/ML VIAL IM ONE (13:00)
--- NOTE | 2017-04-23 19:23 | PD ---
Physical Exam Date Seen by Provider: Apr 23, 2017 Narrative For full history and physical examination please see previous provider's note. Patient was initially brought into the emergency Department under Baron act due to abnormal, threatening behaviors. Data Data Last Documented VS Vital Signs Date Time Temp Pulse Resp B/P (MAP) Pulse Ox O2 Delivery O2 Flow Rate FiO2 04/23/17 11:39 98.2 107 22 133/85 (101) 98 Orders Orders Psych Screen (04/23/17 11:25) Diet Regular Basic (04/23/17 Lunch) Restraints Violent (04/23/17 12:09) Ziprasidone Inj (Geodon Inj) (04/23/17 13:00) Diphenhydramine Inj (Benadryl Inj) (04/23/17 13:00) Lorazepam Inj (Ativan Inj) (04/23/17 12:12) Diet Regular Basic (04/23/17 Dinner) MDM Medical Record Reviewed: Yes Supervised Visit with EDI: No Narrative Course Patient is a 26-year-old female presented to the emergency Department under Baron act due to abnormal threatening behaviors. Patient was seen and evaluated in the emergency department and medically cleared by the ER physician. She was then evaluated by the psychiatrist Dr. Villatoro. Patient will be discharged home at this time for outpatient management. Diagnosis Primary Impression: Intermittent explosive disorder Additional Impression: Intellectual disability Referrals: Alex Villatoro MD call for appointment Patient Instructions: General Instructions Departure Forms: Tests/Procedures Additional Instruction: FOLLOW UP WITH YOUR CURRENT TREATMENT PROVIDERS Med/Other Pt SpecificInfo: No Change to Meds Disposition: 01 DISCHARGE HOME Condition: Stable Stephanie Macdonald Apr 23, 2017 19:23
== END 2017-04-23 19:58 | disposition home or self-care (01) ==
LOC: NEPD 11:14 → NEPJ 19:58
DX: F63.81 Intermittent explosive disorder (principal); F79 Unspecified intellectual disabilities; I48.91 Unspecified atrial fibrillation; I10 Essential (primary) hypertension
CPT/HCPCS: 96372; 99284; J1200; J2060; J3486

== ENCOUNTER 2017-05-23 20:47 | Emergency (ER) | payer OTHER ==
[~2017-05-23] VITALS: Ht 157.5 cm; Wt 90.0 kg
[2017-05-23 21:14] VITALS: BP 123/80; PULSE 103; RESP 24; TEMP 98.2; O2SAT 96
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
[2017-05-23 22:26] LABS: BASOPHIL # 0.1 TH/MM3 (0-0.2); BASOPHIL % 0.5 % (0.0-2.0); EOSINOPHIL # 0.1 TH/MM3 (0-0.4); EOSINOPHIL % 1.2 % (0.0-4.0); HEMATOCRIT 36.5 % (35.0-46.0); HEMO FLAGS DIFF FINAL; LYMPH % 18.3 % (9.0-44.0); MEAN CORPUSCULAR HEMOGLOBIN 28.1 PG (27.0-34.0); MEAN CORPUSCULAR HGB CONC 34.3 % (32.0-36.0); MONO % 5.7 % (0.0-8.0); NEUT % 74.3 % (16.0-70.0); PLATELET COUNT 246 TH/MM3 (150-450); RED BLOOD COUNT 4.45 MIL/MM3 (4.00-5.30); RED CELL DISTRIBUTION WIDTH 12.9 % (11.6-17.2); WHITE BLOOD COUNT 10.7 TH/MM3 (4.0-11.0)
[2017-05-23 22:47] LABS: ALT (GPT) 16 U/L (10-53); ANION GAP 10 MEQ/L (5-15); AST (GOT) 13 U/L (15-37); BICARBONATE 22.1 MEQ/L (21.0-32.0); BLOOD UREA NITROGEN 12 MG/DL (7-18); CHLORIDE 105 MEQ/L (98-107); GLOMERULAR FILTRATION RATE 81 ML/MIN (>89); POTASSIUM 3.5 MEQ/L (3.5-5.1); SODIUM (NA) 137 MEQ/L (136-145)
[2017-05-23 22:50] LABS: ALKALINE PHOSPHATASE 103 U/L (45-117); TOTAL BILIRUBIN ADULT 0.3 MG/DL (0.2-1.0)
[2017-05-24 01:28] VITALS: BP 95/51; PULSE 80; RESP 20; TEMP 99.1; O2SAT 98
[2017-05-24 03:03] VITALS: BP 136/62; PULSE 78; RESP 18; TEMP 98.6; O2SAT 97
[2017-05-24 06:00] VITALS: BP 99/52; PULSE 72; RESP 16; TEMP 97.8; O2SAT 98
[2017-05-24] MEDS ORDERED: OLANZapine ODT 5 MG TAB PO ONE (10:30)
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
[2017-05-24 19:16] VITALS: BP 108/58; PULSE 82; RESP 16; TEMP 96.8; O2SAT 98
== END 2017-05-24 20:56 | disposition home or self-care (01) ==
LOC: NEPD 20:47 → NEPJ 05-24 20:56
DX: F63.81 Intermittent explosive disorder (principal); F90.9 Attention-deficit hyperactivity disorder, unspecified type; I48.91 Unspecified atrial fibrillation; F20.9 Schizophrenia, unspecified; F32.9 Major depressive disorder, single episode, unspecified
CPT/HCPCS: 80053; 80307; 84703; 85025; 99285